=== PATIENT | female | born 1955 | race Caucasian/White ===

== ENCOUNTER 2020-09-10 11:13 | Outpatient (CLI) | payer MEDICARE, OTHER | END 2020-09-10 11:14 | disposition critical access hospital (66) | LOC: EMS 11:13 | DX: R40.0 Somnolence (principal); R53.83 Other fatigue; R11.0 Nausea; R63.0 Anorexia | CPT/HCPCS: A0425; A0427 ==

== ENCOUNTER 2020-09-10 11:34 | Inpatient (IN) | payer MEDICARE, OTHER ==
--- NOTE | 2020-09-10 11:45 | ED Physician Documentation ---
PD HPI NVD - Stated complaint Stated Complaint: FATIGUE/DROWSY - History obtained from History obtained from: Patient, Family () - History of Present Illness Timing - onset: How many days ago (few days of decreased appetite, nausea, upper abd discomfort. No vomiting nor diarrhea. General weakness. Also 6-8 month history 30 lb weight loss, and general fatigue.) Timing - duration: Days Timing - details: Gradual onset, Still present Associated symptoms: Abdominal pain, Loss of appetite, Weight loss (30 lbs over 6-8 months). No: Fever, Near syncope / syncope Improved by: No: Laying still, Position Worsened by: Eating. No: Position Similar symptoms before: Has not had sx before Recently seen: Not recently seen (Was seen at [facility] for eval of upper abd discomfort and Dx with liver lesion. Concern for cirrhosis. Was to have upper and lower scopes but that faultered due to COVID and has not had the follow up yet.) Review of Systems Constitutional: reports: Fatigue, Weight Loss. denies: Fever, Chills, Myalgias Nose: denies: Rhinorrhea / runny nose, Congestion Throat: denies: Sore throat Cardiac: denies: Chest pain / pressure Respiratory: denies: Cough GI: reports: Abdominal Pain, Nausea, Bloody / black stool (some dark stool occasionally possible). denies: Abdominal Swelling, Constipation, Diarrhea : denies: Dysuria Skin: denies: Rash, Lesions Neurologic: reports: Generalized weakness Psychiatric: denies: Depressed, Anxiety Endocrine: reports: Weight loss PD PAST MEDICAL HISTORY - Past Medical History Cardiovascular: None Respiratory: None Neuro: None Endocrine/Autoimmune: None GI: Cirrhosis (history of alcoholism and concern for liver disease.), Other (possible ulcer. Did not get scope. ) - Present Medications Home Medications: Ambulatory Orders Medication Instructions Recorded Confirmed DULoxetine [Cymbalta] 20 mg PO DAILY PM 09/10/20 09/10/20 Hydrochlorothiazide 25 mg PO DAILY 09/10/20 09/10/20 Ondansetron HCl [Zofran] 4 mg PO Q4HR PRN 09/10/20 09/10/20 Potassium Chloride 10 meq PO BID 09/10/20 09/10/20 bisoproloL fumarate [Bisoprolol 5 mg PO DAILY 09/10/20 09/10/20 Fumarate] - Allergies Allergies/Adverse Reactions: Allergies Allergy/AdvReac Type Severity Reaction Status Date / Time No Known Drug Allergies Allergy Verified 09/10/20 11:55 PD ED PE NORMAL - Vitals Vital signs reviewed: Yes - General General: Alert and oriented X 3, Well developed/nourished - HEENT HEENT: Other (moderately pale) - Neck Neck: Supple, no meningeal sign, No adenopathy - Cardiac Cardiac: No murmur. No: RRR (tachycardic; adequate BP. ) - Respiratory Respiratory: Clear bilaterally - Abdomen Abdomen: Normal bowel sounds, Soft, Non distended, No organomegaly, Other (epigastric tender. ) - Female Female : Deferred - Rectal Rectal: Deferred - Derm Derm: Warm and dry. No: Normal color (pale) - Extremities Extremities: Normal ROM s pain, No edema, No calf tenderness / cord - Neuro Neuro: Alert and oriented X 3, No motor deficit, No sensory deficit, Normal spee ch Results - Vitals Vitals: Vital Signs - 24 hr 09/10/20 09/10/20 09/10/20 11:44 14:13 14:58 Temperature 37.3 C 37.0 C Heart Rate 112 H 111 H 138 H Respiratory 18 22 13 Rate Blood Pressure 117/63 102/86 H 120/89 H O2 Saturation 99 94 09/10/20 09/10/20 09/10/20 15:03 15:13 16:00 Temperature 98.2 C H 36.6 C 37.1 C Heart Rate 142 H 138 H 129 H Respiratory 18 18 20 Rate Blood Pressure 113/102 H 135/77 H 142/75 H O2 Saturation 100 Oxygen O2 Source Room air - Labs Labs: Laboratory Tests 09/10/20 09/10/20 09/10/20 12:19 12:19 12:19 WBC 8.6 RBC 1.37 L Hgb 5.1 L* Hct 15.7 L* MCV 114.6 H MCH 37.2 H MCHC 32.5 RDW 14.7 Plt Count 91 L MPV 9.4 Neut # (Auto) 7.4 H Lymph # (Auto) 0.7 L [place] # (Auto) 0.4 Eos # (Auto) 0.0 Baso # (Auto) 0.1 Absolute Nucleated RBC 0.00 Nucleated RBC % 0.0 Manual Slide Review Indicated Platelet Estimate DECREASED (<130,000) Platelet Morphology NORMAL APPEARANCE RBC Morph Micro Appear 1+ POLYCHROMASIA PT INR APTT Sodium 133 L Potassium 3.4 L Chloride 89 L Carbon Dioxide 26 Anion Gap 18.0 H BUN 12 Creatinine 0.7 Estimated GFR (MDRD) 84 L Glucose 128 H Calcium 8.0 L Magnesium 1.2 L Iron Total Bilirubin 2.5 H AST 119 H ALT 27 Alkaline Phosphatase 122 H Troponin I High Sens B-Natriuretic Peptide Total Protein 5.9 L Albumin 2.7 L Globulin 3.2 Albumin/Globulin Ratio 0.8 L Lipase 27 Vitamin B12 Folate TSH 2.95 Cortisol 35.5 Nasal Adenovirus (PCR) Nasal B. parapertussis DNA (PCR) Nasal Coronavir 229E PCR Nasal Coronavir HKU1 PCR Nasal Coronavir NL63 PCR Nasal Coronavir OC43 PCR Nasal Enterovir/Rhinovir PCR Nasal Influenza B PCR Nasal Influenza A PCR Nasal Parainfluen 1 PCR Nasal Parainfluen 2 PCR Nasal Parainfluen 3 PCR Nasal Parainfluen 4 PCR Nasal RSV (PCR) Nasal B.pertussis DNA PCR Nasal C.pneumoniae (PCR) [place] Human Metapneumo PCR Nasal M.pneumoniae (PCR) Nasal SARS-CoV-2 (PCR) Blood Type Blood Type Recheck Antibody Screen Crossmatch IS Only 09/10/20 09/10/20 09/10/20 12:19 12:19 12:19 WBC RBC Hgb Hct MCV MCH MCHC RDW Plt Count MPV Neut # (Auto) Lymph # (Auto) [place] # (Auto) Eos # (Auto) Baso # (Auto) Absolute Nucleated RBC Nucleated RBC % Manual Slide Review Platelet Estimate Platelet Morphology RBC Morph Micro Appear PT INR APTT Sodium Potassium Chloride Carbon Dioxide Anion Gap BUN Creatinine Estimated GFR (MDRD) Glucose Calcium Magnesium Iron 156 Total Bilirubin AST ALT Alkaline Phosphatase Troponin I High Sens 5.0 B-Natriuretic Peptide 71 Total Protein Albumin Globulin Albumin/Globulin Ratio Lipase Vitamin B12 Folate TSH Cortisol Nasal Adenovirus (PCR) Nasal B. parapertussis DNA (PCR) Nasal Coronavir 229E PCR Nasal Coronavir HKU1 PCR Nasal Coronavir NL63 PCR Nasal Coronavir OC43 PCR Nasal Enterovir/Rhinovir PCR Nasal Influenza B PCR Nasal Influenza A PCR Nasal Parainfluen 1 PCR Nasal Parainfluen 2 PCR Nasal Parainfluen 3 PCR Nasal Parainfluen 4 PCR Nasal RSV (PCR) Nasal B.pertussis DNA PCR Nasal C.pneumoniae (PCR) [place] Human Metapneumo PCR Nasal M.pneumoniae (PCR) Nasal SARS-CoV-2 (PCR) Blood Type Blood Type Recheck Antibody Screen Crossmatch IS Only 09/10/20 09/10/20 09/10/20 12:19 12:19 12:19 WBC RBC Hgb Hct MCV MCH MCHC RDW Plt Count MPV Neut # (Auto) Lymph # (Auto) [place] # (Auto) Eos # (Auto) Baso # (Auto) Absolute Nucleated RBC Nucleated RBC % Manual Slide Review Platelet Estimate Platelet Morphology RBC Morph Micro Appear PT 16.8 H INR 1.6 H APTT 30.2 Sodium Potassium Chloride Carbon Dioxide Anion Gap BUN Creatinine Estimated GFR (MDRD) Glucose Calcium Magnesium Iron Total Bilirubin AST ALT Alkaline Phosphatase Troponin I High Sens B-Natriuretic Peptide Total Protein Albumin Globulin Albumin/Globulin Ratio Lipase Vitamin B12 1089 H Folate 2.51 L TSH Cortisol Nasal Adenovirus (PCR) Nasal B. parapertussis DNA (PCR) Nasal Coronavir 229E PCR Nasal Coronavir HKU1 PCR Nasal Coronavir NL63 PCR Nasal Coronavir OC43 PCR Nasal Enterovir/Rhinovir PCR Nasal Influenza B PCR Nasal Influenza A PCR Nasal Parainfluen 1 PCR Nasal Parainfluen 2 PCR Nasal Parainfluen 3 PCR Nasal Parainfluen 4 PCR Nasal RSV (PCR) Nasal B.pertussis DNA PCR Nasal C.pneumoniae (PCR) [place] Human Metapneumo PCR Nasal M.pneumoniae (PCR) Nasal SARS-CoV-2 (PCR) Blood Type Blood Type Recheck O POSITIVE Antibody Screen Crossmatch IS Only 09/10/20 09/10/20 13:02 13:22 WBC RBC Hgb Hct MCV MCH MCHC RDW Plt Count MPV Neut # (Auto) Lymph # (Auto) [place] # (Auto) Eos # (Auto) Baso # (Auto) Absolute Nucleated RBC Nucleated RBC % Manual Slide Review Platelet Estimate Platelet Morphology RBC Morph Micro Appear PT INR APTT Sodium Potassium Chloride Carbon Dioxide Anion Gap BUN Creatinine Estimated GFR (MDRD) Glucose Calcium Magnesium Iron Total Bilirubin AST ALT Alkaline Phosphatase Troponin I High Sens B-Natriuretic Peptide Total Protein Albumin Globulin Albumin/Globulin Ratio Lipase Vitamin B12 Folate TSH Cortisol Nasal Adenovirus (PCR) NOT DETECTED Nasal B. parapertussis DNA (PCR) NOT DETECTED Nasal Coronavir 229E PCR NOT DETECTED Nasal Coronavir HKU1 PCR NOT DETECTED Nasal Coronavir NL63 PCR NOT DETECTED Nasal Coronavir OC43 PCR NOT DETECTED Nasal Enterovir/Rhinovir PCR NOT DETECTED Nasal Influenza B PCR NOT DETECTED Nasal Influenza A PCR NOT DETECTED Nasal Parainfluen 1 PCR NOT DETECTED Nasal Parainfluen 2 PCR NOT DETECTED Nasal Parainfluen 3 PCR NOT DETECTED Nasal Parainfluen 4 PCR NOT DETECTED Nasal RSV (PCR) NOT DETECTED Nasal B.pertussis DNA PCR NOT DETECTED Nasal C.pneumoniae (PCR) NOT DETECTED [place] Human Metapneumo PCR NOT DETECTED Nasal M.pneumoniae (PCR) NOT DETECTED Nasal SARS-CoV-2 (PCR) NOT DETECTED Blood Type O POSITIVE Blood Type Recheck Antibody Screen NEGATIVE Crossmatch IS Only See Detail - Rads (name of study) chest CT Radiology: Prelim report reviewed (no acute process), See rad report abd/pelvic CT Radiology: Prelim report reviewed (liver cirrhosis. cecal wall thickening concerning for malignancy versus colitis. Hypodensity liver, consider cyst versus met. ), See rad report PD MEDICAL DECISION MAKING - ED course Complexity details: reviewed results, re-evaluated patient (He actually has become a little bit more fidgety and tachycardic here. Concern for possible alcohol withdrawal. Does not seem like transfusion reaction.), considered differential (General weakness with upper abdominal discomfort and nausea for a few days. Mild dark stools. She did have coffee-ground emesis here in the ER and then dark bowel movement. Likely upper GI bleed, but concern of liver disease. No known varices.), d/w patient, d/w digital media sales consultant (Drs. Martínez and Bridgette came to ER to see patient and discuss course of care. ) Departure - Departure Disposition: 66 [facility] DC/Xfer Clinical Impression: Upper GI bleeding, Liver disease due to alcohol Profound anemia Qualifiers: Anemia type: unspecified type Qualified Code(s): D64.9 - Anemia, unspecified Condition: Stable Record reviewed to determine appropriate education?: Yes
[2020-09-10] MEDS ORDERED: SODIUM CHLORIDE 0.9% 1,000 ML IV STA ×2 (11:46→15:46)
--- NOTE | 2020-09-10 12:05 | XRAY Report ---
PROCEDURE: Chest 1 View X-Ray INDICATIONS: chest pain TECHNIQUE: One view of the chest was acquired. COMPARISON: None FINDINGS: Surgical changes and devices: None. Lungs and pleura: No pleural effusions or pneumothorax. Lungs are clear. Mediastinum: Mediastinal contours appear normal. Heart size is normal. Mild vascular calcification s within the aorta. Bones and chest wall: No suspicious bony lesions. Overlying soft tissues appear unremarkable. IMPRESSION: No evidence of an acute cardiopulmonary abnormality. Reviewed by: Rodger Browne DO on 09/10/2020 11:04 AM [facility] Approved by: Rodger Browne DO on 09/10/2020 11:04 AM [facility] Station ID: [id number]
[2020-09-10] MEDS ORDERED: FAMOTIDINE 20 MG/2 ML VIAL IVP STA (12:12)
[2020-09-10] MEDS ORDERED: ONDANSETRON 4 MG/2 ML VIAL IVP STA (12:12)
[2020-09-10 12:28] LABS: BASOPHILS # (AUTO) 0.1 10^3/uL (0.0-0.1); BASOPHILS % (AUTO) 0.6 %; EOSINOPHILS % (AUTO) 0.2 %; LYMPHOCYTES # (AUTO) 0.7 10^3/uL (1.5-3.5); LYMPHOCYTES % (AUTO) 7.7 %; MEAN CORPUSCULAR HEMOGLOBIN 37.2 pg (27.0-31.0); MEAN CORPUSCULAR HGB CONC 32.5 g/dL (32.0-36.0); MEAN CORPUSCULAR VOLUME 114.6 fL (81.0-99.0); MEAN PLATELET VOLUME 9.4 fL (7.9-10.8); MONOCYTES # (AUTO) 0.4 10^3/uL (0.0-1.0); MONOCYTES % (AUTO) 4.4 %; NEUTROPHILS # (AUTO) 7.4 10^3/uL (1.5-6.6); NEUTROPHILS % (AUTO) 85.9 %; PLT - PLATELET COUNT 91 10^3/uL (130-450); RED BLOOD COUNT 1.37 10^6/uL (4.20-5.40); RED CELL DISTRIBUTION WIDTH 14.7 % (12.0-15.0); WHITE BLOOD COUNT 8.6 x10^3/uL (4.8-10.8)
[2020-09-10 12:32] LABS: HCT - HEMATOCRIT 15.7 % (37.0-47.0); HGB - HEMOGLOBIN 5.1 g/dL (12.0-16.0)
[2020-09-10] MEDS ORDERED: PROMETHAZINE INJ 12.5 MG in SODIUM CHLORIDE 0.9% 50 ML IV STA (12:48)
[2020-09-10 12:53] LABS: PLATELET ESTIMATE, MANUAL DECREASED (<130,000) (NORMAL); PLATELET MORPHOLOGY NORMAL APPEARANCE (NORMAL); SLIDE REVIEW? Indicated
[2020-09-10 12:54] LABS: ALBUMIN 2.7 g/dL (3.2-5.5); ALBUMIN/GLOBULIN RATIO 0.8 (1.0-2.2); BILIRUBIN,TOTAL 2.5 mg/dL (0.2-1.0); CREATININE 0.7 mg/dL (0.4-1.0); MAGNESIUM 1.2 mg/dL (1.7-2.8); POTASSIUM 3.4 mmol/L (3.5-5.0); TOTAL PROTEIN 5.9 g/dL (6.7-8.2)
[2020-09-10 13:04] LABS: CORTISOL 35.5 ug/dL
[2020-09-10 13:09] LABS: THYROID STIMULATING HORMONE 2.95 uIU/mL (0.34-5.60)
[2020-09-10 13:33] LABS: FOLATE 2.51 ng/mL (5.90 - >24.8)
[2020-09-10] MEDS ORDERED: IOPAMIDOL-300 100 ML VIAL ONE (13:43)
[2020-09-10 14:02] LABS: B. PARAPERTUSSIS- RESP PCR PAN NOT DETECTED; B. PERTUSSIS- RESP PCR PANEL NOT DETECTED; C. PNEUMONIAE- RESP PCR PANEL NOT DETECTED; CORONAVIRUS 229E-RESP PCR NOT DETECTED; CORONAVIRUS HKU1-RESP PCR NOT DETECTED; CORONAVIRUS NL63-RESP PCR NOT DETECTED; CORONAVIRUS OC43-RESP PCR NOT DETECTED; HUMAN METAPNEUMOVIRUS NOT DETECTED; INFLUENZA A- RESP PCR PANEL NOT DETECTED; INFLUENZA B - RESP PCR PANEL NOT DETECTED; M. PNEUMONIAE- RESP PCR PANEL NOT DETECTED; PARAINFLUENZA VIRUS 1 NOT DETECTED; PARAINFLUENZA VIRUS 2 NOT DETECTED; PARAINFLUENZA VIRUS 3 NOT DETECTED; PARAINFLUENZA VIRUS 4 NOT DETECTED; RHINOVIRUS/ENTEROVIRUS NOT DETECTED; RSV- RESP PCR PANEL NOT DETECTED; SARS-CoV-2 -RESP PCR PANEL NOT DETECTED
--- NOTE | 2020-09-10 14:28 | CT Report ---
PROCEDURE: CHEST W INDICATIONS: upper abd pain, weight loss CONTRAST: IV CONTRAST: Isovue 300 ml: 100 PO CONTRAST: *NO PO CONTRAST TECHNIQUE: After the administration of intravenous contrast, 5 mm thick sections acquired from the pulmonary api ray to the posterior costophrenic angles. 7 mm thick coronal MIP reformats were acquired. For radia tion dose reduction, the following was used: automated exposure control, adjustment of mA and/or kV according to patient size. COMPARISON: Same day CT abdomen and pelvis FINDINGS: Image quality: Excellent. Lungs and pleura: No acute air space opacities. No pleural effusions or pneumothorax. Central and peripheral airways are patent and normal in caliber. Mediastinum: Heart size is normal. No pericardial effusion. No mediastinal or hilar adenopathy by size criteria. Thoracic aorta and central pulmonary arteries are normal in size. Esophagus is buster l in caliber. No hiatal hernia. Bones and chest wall: No suspicious bony lesions. No vertebral body compression fractures. No axil yves or supraclavicular adenopathy by size criteria. Thyroid gland is unremarkable. Abdomen: Please see dictation of the abdomen and pelvis for findings. IMPRESSION: No acute intrathoracic abnormality. No suspicious intrathoracic findings. Reviewed by: Rodger Browne DO on 09/10/2020 1:27 PM [facility] Approved by: Rodger Browne DO on 09/10/2020 1:27 PM [facility] Station ID: [id number]
--- NOTE | 2020-09-10 14:46 | CT Report ---
PROCEDURE: Abdomen/Pelvis W INDICATIONS: upper abd pain/weight loss CONTRAST: IV CONTRAST: Isovue 300 ml: 100 PO CONTRAST: *NO PO CONTRAST TECHNIQUE: After the administration of nonionic contrast, 5 mm thick sections acquired from the diaphragms to th e symphysis. 5 mm thick coronal and sagittal reformats were acquired. For radiation dose reduction, the following was used: automated exposure control, adjustment of mA and/or kV according to patient size. COMPARISON: None. FINDINGS: Image quality: Excellent. ABDOMEN: Lung bases: Please see same-day chest CT for findings. Solid organs: Within the liver along the lateral aspect there is a 4.6 cm hypodense heterogeneous les ion. No additional lesions. Subtle subcentimeter foci are noted throughout the lungs to small to furt her characterize but may represent simple cysts versus biliary hamartomas. There is slight heterogene ity with enlargement of the caudate lobe. The gallbladder demonstrates layering hyperdense debris. Th ere is a 6 mm nodular density within the gallbladder fundus which is nondependent. There is mild diff use wall thickening. No surrounding inflammation. Biliary system is non dilated. Pancreas is atrophi c with normal enhancement.. No adrenal nodules. Kidneys demonstrate normal size and enhancement, wi thout hydronephrosis. Subcentimeter hypodensity within the superior pole of the right kidney too sma ll to further characterize but statistically represents a simple cyst. Peritoneum and bowel: The stomach and small bowel are unremarkable without evidence of obstruction. N o wall thickening or surrounding inflammation. There is no evidence of appendicitis. There is focal w all thickening of the cecum and proximal descending colon encompassing the terminal ileum this involv es an approximate 12 cm region of colon. No significant adjacent inflammation. The distal colon is un remarkable. Nodes and vessels: No adenopathy by size criteria. The aorta is normal in course and caliber. Scatter ed vascular calcifications. Focal region of fatty infiltration is noted surrounding the anterior aspe ct of the aorta as well as the proximal celiac and superior mesenteric arteries. Miscellaneous: No ventral hernias. PELVIS: Genitourinary: Bladder wall thickness is normal. Unremarkable appearance of the uterus and ovaries for patient's age. Miscellaneous: No inguinal hernias or adenopathy. Bones: No suspicious bony lesions. Transitional type anatomy at the lumbosacral junction with sacra lization of L5 No vertebral body compression fractures. IMPRESSION: Focal wall thickening of the cecum and ascending colon encompassing the terminal ileum. There is no s urrounding inflammation. These findings are most consistent with malignancy in the correct clinical s etting. This less likely represents colitis. 4.6 cm hypoechoic mass in the right hepatic lobe is nonspecific but given findings as above likely re presents metastatic disease. Nonspecific fatty infiltration surrounding the aorta and celiac/superior mesenteric arteries may repr esent sequela of vasculitis versus other infectious or inflammatory process. Sludge versus layering stones are noted within the gallbladder. In addition there is a 6 mm likely po lyp within the fundus. There is mild wall thickening as well. These findings may be seen with chronic cholecystitis. There is no inflammation or pericholecystic fluid to suggest acute cholecystitis. If ultrasound is not performed recently, recommend yearly right upper quadrant ultrasound for evaluation of polyp. Slight heterogeneity of the liver with enlargement of the caudate lobe may be seen with cirrhosis. Findings discussed with the ordering provider Dr. Oleg Mcdowell by Dr. Rodger Browne at approximately 134 0 hours [place] standard time on 09/10/2020. Reviewed by: Rodger Browne DO on 09/10/2020 1:45 PM [facility] Approved by: Rodger Browne DO on 09/10/2020 1:45 PM [facility] Station ID: [id number]
[2020-09-10 15:44] LABS: INR 1.6 (0.8-1.2); PT - PROTHROMBIN TIME 16.8 secs (9.9-12.6)
[2020-09-10] MEDS ORDERED: LORazepam 2 MG/ML VIAL IVP STA ×2 (15:45→17:31)
[2020-09-10] MEDS ORDERED: cefTRIAXone 1 GM VIAL IVP STA (15:47)
[2020-09-10] MEDS ORDERED: PANTOPRAZOLE 40 MG VIAL IVP STA (15:47)
[2020-09-10 15:51] LABS: PARTIAL THROMBOPLASTIN TIME 30.2 secs (24.9-33.3)
[2020-09-10] MEDS ORDERED: IOPAMIDOL-300 100 ML VIAL IVP ONE (15:57)
[2020-09-10] MEDS ORDERED: MAGNESIUM SULFATE 2 GRAM 2 GM/50 ML BAG IV ONE ×2 (16:48→18:03)
[2020-09-10] MEDS ORDERED: ONDANSETRON 4 MG/2 ML VIAL IVP PRN (17:56)
[2020-09-10] MEDS ORDERED: MORPHINE 2 MG/ML CARPUJECT IVP PRN (17:56)
--- NOTE | 2020-09-10 18:11 | HISTORY & PHYSICAL EXAMINATION ---
Chief Complaint - Chief Complaint Chief Complaint: Weakness and weight loss History of Present Illness - Admitted From Admitted From:: Home - History Obtained From Records Reviewed: Yes History obtained from: Patient, Spouse, ER Physician, EMR Exam Limitations: Patient is somewhat altered and a poor historian. - History of Present Illness HPI Comment/Other: Patient is a 65-year-old female with a past medical history significant for cirrhosis secondary to alcohol use, alcohol abuse, hypertension, neuropathy who presents today due to increasing weakness and weight loss. Most of the history is obtained from the patient's spouse as she is somewhat altered and a poor historian. He states that over the past 6 months, she has lost about 35 pounds. She has had decreased appetite and minimal p.o. intake. Their daughters were visiting over the past few days and they had not seen her for over a year and she was not her usual self and they were quite concerned about her and so they brought her to the emergency department today. He tells me that she has a history of liver cirrhosis secondary to alcohol use and that she was being worked up at the [facility]. She is a known history of portal hypertension and splenomegaly secondary to the cirrhosis. She was supposed to get an endoscopy last year but due to Covid, this was delayed. She has no known history of varices. He believes she may have had a liver mass in the past but he is not 100% sure. He states that she has not had any vomiting or diarrhea at home but here in the emergency department, she had at least 2 or 3 episodes of hematemesis and is now having dark tarry stools. He states she had a colonoscopy maybe 8 or 10 years ago which was unremarkable to his knowledge. The patient denies any abdominal pain, fever, chills. She reports no family history of colon cancer. The tells me that she has been drinking alcohol for many years and continues to have at least a few drinks a day. Her last drink was yesterday afternoon. He believes she is never gone through withdrawal in the past but the patient tells me that she has. She reports no dysuria, urgency, hematuria. In the emergency department, she was found to be afebrile. She was tachycardic with a heart rate in the 130s. She was also hypertensive with a systolic in the 130s. She was not tachypneic and was saturating well on room air. Her labs were significant for hemoglobin of 5.1 with an MCV of 114.6. Her platelet count was 91. Her INR was 1.6. Her potassium was decreased at 3.4 and her magnesium at 1.2. Her total bilirubin was 2.5 and her AST was 119. ALT was normal at 27. Her albumin was 2.7. She underwent a CT of the chest which was unremarkable. She underwent a CT of the abdomen and pelvis which revealed focal wall thickening of the cecum and ascending colon concerning for malignancy. There is also a 4.6 cm hypoechoic mass in the right hepatic lobe. There was mild wall thickening of the gallbladder but no information or pericholecystic fluid. She was given 1 unit of packed red blood cell in the emergency department as well as Protonix IV. Given the above findings, medicine was consulted for admission. The emergency department provider did speak with Dr. Martínez of general surgery who is willing to scope the patient tomorrow. I did discuss goals of care with the patient's spouse and he confirms that she is a full code. The patient does not have ability to make this decision at this point in time. History - Past Medical History Cardiovascular: reports: Hypertension Respiratory: reports: None Neuro: reports: Peripheral neuropathy Endocrine/Autoimmune: reports: None GI: reports: Cirrhosis (Secondary to alcoholism.), Other SENSORY SCIENTIST: reports: None - Past Surgical History /SENSORY SCIENTIST: reports: section - Family & Social History Family History Comment/Other: The patient reports no family history of colon cancer. She believes her mother had hypertension otherwise no significant family history. Living arrangement: At home Living Situation: With spouse/s.o. 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 She has been weak alcohol for many years and continues to have at least a few drinks a day. She is a non-smoker. Meds/Allgy - Home Medications Home Medications: Ambulatory Orders Medication Instructions Recorded Confirmed DULoxetine [Cymbalta] 20 mg PO DAILY PM 09/10/20 09/10/20 Hydrochlorothiazide 25 mg PO DAILY 09/10/20 09/10/20 Ondansetron HCl [Zofran] 4 mg PO Q4HR PRN 09/10/20 09/10/20 Potassium Chloride 10 meq PO BID 09/10/20 09/10/20 bisoproloL fumarate [Bisoprolol 5 mg PO DAILY 09/10/20 09/10/20 Fumarate] - Allergies Allergies/Adverse Reactions: Allergies Allergy/AdvReac Type Severity Reaction Status Date / Time No Known Drug Allergies Allergy Verified 09/10/20 11:55 Review of Systems - Constitutional Constitutional: reports: Fatigue, Weakness, Poor appetite, Weight loss. denies: Fever, Chills - Ears, Nose & Throat Ears, Nose & Throat: reports: Sore throat. denies: Nasal discharge, Nasal congestion - Cardiovascular Cariovascular: denies: Chest pain, Exertional dyspnea, Decr. exercise tolerance - Respiratory Respiratory: denies: Cough, SOB at rest, SOB with exertion - Gastrointestinal Gastrointestinal: reports: Rectal bleeding, Black stools, Nausea, Vomiting, Coffee grounds emesis, Poor appetite. denies: Abdominal pain, Diarrhea - Genitourinary Genitourinary: denies: Dysuria, Frequency, Urgency, Hematuria - Integumentary Integumentary: denies: Rash - Neurological Neurological: reports: General weakness. denies: Focal weakness - All Other Systems All Other Systems: reports: Other (Review of systems is limited given she is somewhat altered and a poor historian.) Prior Level of Functionality: She is reportedly independent with her ADLs. Exam - Vital Signs Reviewed Vital Signs: Yes Vital Signs: Vital Signs x48h Temp Pulse Resp BP Pulse Ox 09/10/20 16:00 37.1 C 129 H 20 142/75 H 100 09/10/20 15:13 36.6 C 138 H 18 135/77 H 09/10/20 15:03 98.2 C H 142 H 18 113/102 H 09/10/20 14:58 37.0 C 138 H 13 120/89 H 09/10/20 14:13 111 H 22 102/86 H 94 09/10/20 11:44 37.3 C 112 H 18 117/63 99 - Physical Exam General Appearance: positive: Other (She is restless and attempting to get out of bed. She appears cachectic and frail.) Eyes Bilateral: positive: Normal inspection, Other (Scleral icterus noted) ENT: positive: Dry mucous membranes. negative: No signs of dehydration Respiratory: positive: No respiratory distress. negative: Wheezes, Rales Cardiovascular: positive: No murmur, Tachycardia. negative: Irregularly irregular, Systolic murmur Abdomen: positive: Non-tender, No distention. negative: Tenderness, Guarding, Rebound Skin: positive: Warm, Dry, Other (She appears jaundiced) Extremities: positive: No pedal edema Neurologic/Psychiatric: positive: Other (She has no focal deficits is able to move all 4 extremities. She appears to have mild asterixis and is quite tremulous.). negative: Disoriented to person, Disoriented to place, Disoriented to time Conclusion/Plan - Problem List (1) Upper GI bleeding Conclusion/Plan: The concern is for an upper GI bleed given her coffee-ground emesis as well as dark tarry stools. She is anemic with a hemoglobin of 5.1. She has a known history of liver cirrhosis but no diagnosed varices although given her history of portal hypertension, she is at risk for varices. General surgery is willing to scope her and so we will admit her to the intensive care unit. We will place her on Protonix 40 mg IV twice daily. We will start her on ceftriaxone 1 g IV daily prophylactically given her history of cirrhosis. We will also place her on octreotide given the possibility of esophageal varices. N.p.o. for EGD tomorrow. (2) Acute blood loss anemia Conclusion/Plan: This is more likely secondary to the upper GI bleed but given a cecal mass cannot be ruled out on CT of the abdomen pelvis, there is a possibility of a lower GI bleed although this is felt to be less likely at this time. Her hemoglobin is 5.1 on admission and she received 1 unit of packed red blood cell in the emergency department. We will transfuse another 2 units of packed red blood cell and trend her hemoglobin every 8 hours. We will transfuse for goal hemoglobin greater than 8. SCDs for DVT prophylaxis. (3) Altered mental status Conclusion/Plan: Although she is alert and oriented, she does appear quite restless and has a poor attention span. She does appear to have evidence of asterixis on exam and I am concerned for potentially hepatic encephalopathy given her history of cirrhosis or early alcohol withdrawal. We will check an ammonia level and place her on CIWA protocol with Ativan IV as needed. She will need close observation in the intensive care unit and will consider a one-to-one. Given lack of focal deficits, we will hold off on a CT of the head at this time. (4) Alcoholic cirrhosis of liver Conclusion/Plan: She has known cirrhosis secondary to alcohol abuse. Her AST is mildly elevated with a normal ALT. Her MELD score when taking into consideration her sodium is 18. Her tells me she has a history of portal hypertension and she has evidence of splenomegaly on imaging. She also has elevated INR and thrombocytopenia. The concern given her cirrhosis is for potential varices. Plan as mentioned above for GI bleed and we will place her on a banana bag. We will trend her LFTs. Qualifiers: Ascites presence: without ascites Qualified Code(s): K70.30 - Alcoholic cirrhosis of liver without ascites (5) Alcohol abuse Conclusion/Plan: She has known liver cirrhosis secondary to alcohol abuse and she continues to drink on a daily basis with her reporting at least a few drinks a day. Her last drink was yesterday afternoon and she is at risk for alcohol withdrawal. I am really concerned for possible early withdrawal and so we will admit her to intensive care unit. We will start her on a banana bag and placed on CIWA protocol with Ativan IV as needed. (6) Cecum mass Conclusion/Plan: The concern is for possible cecal mass given the focal wall thickening of the cecum and ascending colon. This could potentially be contributing to her anemia and if this truly is malignancy, could explain her decline over the past few months with poor appetite and weight loss. She will be n.p.o. for colonoscopy tomorrow with general surgery. (7) Liver lesion, right lobe Conclusion/Plan: Her believes this may be an old finding but he is not certain. He will bring the old records from [facility] tomorrow. If this is a new finding, this is concerning for potential metastasis especially if she has a cecal mass. At this time, the plan is for colonoscopy to evaluate this cecum. She will likely need a biopsy at some point with interventional radiology. (8) Thrombocytopenia Conclusion/Plan: Platelet count is in the 90s and this is likely due to her underlying cirrhosis. Will use SCDs for DVT prophylaxis. No pharmacologic DVT prophylaxis given the acute blood loss and GI bleed. Daily CBC. (9) Elevated INR Conclusion/Plan: INR is elevated at 1.6 and this is likely due to her underlying liver disease. Will check INR is on a daily basis and will consider vitamin K if she continues to have bleeding with a rise in her INR. (10) Hypertension Conclusion/Plan: She is on hydrochlorothiazide and bisoprolol at home. Although she is currently hypertensive, we will hold her home and hypertensives given her GI bleed and the potential to become hypotensive. Will consider resuming over the next 24 to 48 hours. (11) Neuropathy Conclusion/Plan: She is on Duloxetine at home which we will continue once she is taking p.o. - Lab Results Lab results reviewed: Yes Fish Bones: 09/10/20 12:19 09/10/20 12:19 - Diagnostic Imaging Results Diagnostic Imaging Results: positive: Final report reviewed - EKG Results EKG Interpreted Independently: Yes EKG Comparison: No prior EKG EKG Findings: Her EKG reveals sinus tachycardia with nonspecific ST segment changes. Her QTC is prolonged at 503. Core Measures - Anticipated LOS I expect patient to be DC'd or transferred within 96 hours.: Yes - Issues Hospital Issues and Management Plan: 65-year-old female with history of liver cirrhosis presents with weakness and weight loss who later had hematemesis and dark tarry stools in the emergency department and found to have a hemoglobin of 5.1. There is also concern for a cecal mass on imaging. We will admit for transfusion as well as endoscopy and colonoscopy with general surgery. - DVT/VTE - Prophylaxis VTE/DVT Device ordered at admit?: Yes VTE/DVT Prophylaxis med ordered at admit?: No Not Ordered - Medical Reason: Contraindicated
[2020-09-10] MEDS ORDERED: OCTREOTIDE 100 MCG/ML VIAL IVP STA (18:33)
--- NOTE | 2020-09-10 18:50 | CONSULTATION NOTE ---
Referring Provider Name of Referring Provider:: Dr. Mcdowell; Dr. Durant Consult Date: 09/11/20 Chief Complaint - Chief Complaint Chief Complaint: Gastrointestinal bleed History of Present Illness - Admitted From Admitted From:: Home - History Obtained From Records Reviewed: EMR/ED Notes History obtained from: Patient and Spouse Exam Limitations: None - History of Present Illness HPI Comment/Other: 65-year-old female presenting for gastrointestinal bleed and significant weight loss. Longstanding history of reported cirrhosis. Extensive historic work-up. Longstanding alcohol abuse. None family history. Notable past surgical history to include section. Patient reports melanotic stool with diarrhea as change in bowel function, positive bleeding per rectum, and also denies reflux associated symptoms. Patient does not use tobacco. Patient has extensive history of alcohol use and abuse. History - Past Medical History Cardiovascular: reports: Hypertension Respiratory: reports: None Neuro: reports: Peripheral neuropathy Endocrine/Autoimmune: reports: None GI: reports: Cirrhosis (Secondary to alcoholism.), Other SAXOPHONE ASSEMBLER: reports: None - Past Surgical History /SAXOPHONE ASSEMBLER: reports: section - Family & Social History Family History Comment/Other: The patient reports no family history of colon cancer. She believes her mother had hypertension otherwise no significant family history. Living arrangement: At home Living Situation: With spouse/s.o. 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 She has been weak alcohol for many years and continues to have at least a few drinks a day. She is a non-smoker. Meds/Allgy - Home Medications Home Medications: Ambulatory Orders Medication Instructions Recorded Confirmed DULoxetine [Cymbalta] 20 mg PO DAILY PM 09/10/20 09/10/20 Hydrochlorothiazide 25 mg PO DAILY 09/10/20 09/10/20 Ondansetron HCl [Zofran] 4 mg PO Q4HR PRN 09/10/20 09/10/20 Potassium Chloride 10 meq PO BID 09/10/20 09/10/20 bisoproloL fumarate [Bisoprolol 5 mg PO DAILY 09/10/20 09/10/20 Fumarate] - Allergies Allergies/Adverse Reactions: Allergies Allergy/AdvReac Type Severity Reaction Status Date / Time No Known Drug Allergies Allergy Verified 09/10/20 11:55 Exam - Vital Signs Vital Signs: Vital Signs x48h Temp Pulse Resp BP Pulse Ox 09/10/20 18:20 37.1 C 119 H 18 158/99 H 09/10/20 18:00 36.9 C 111 H 20 163/79 H 100 09/10/20 16:00 37.1 C 129 H 20 142/75 H 100 09/10/20 15:13 36.6 C 138 H 18 135/77 H 09/10/20 15:03 98.2 C H 142 H 18 113/102 H 09/10/20 14:58 37.0 C 138 H 13 120/89 H 09/10/20 14:13 111 H 22 102/86 H 94 09/10/20 11:44 37.3 C 112 H 18 117/63 99 - Physical Exam Comments/Other: General Appearance: positive: No acute distress. Cachectic. Eyes Bilateral: positive: Normal inspection ENT: positive: ENT inspection nml Neck: positive: Nml inspection Respiratory: positive: Chest non-tender, No respiratory distress, Breath sounds nml. negative: Wheezes, Rales, Rhonchi Cardiovascular: positive: Regular rate & rhythm Abdomen: positive: No distention, Other. negative: Guarding, Rebound Extremities: positive: Non-tender, Full ROM, Nml appearance Neurologic/Psychiatric: positive: Oriented x3, CN's nml (2-12). Patient agitated. Conclusion and Plan - Lab Results Laboratory Results 09/10/20 18:10: Ammonia 25.3 09/10/20 13:22: Blood Type O POSITIVE, Antibody Screen NEGATIVE, Crossmatch IS Only See Detail 09/10/20 13:02: Nasal Adenovirus (PCR) NOT DETECTED, Nasal B. parapertussis DNA (PCR) NOT DETECTED, Nasal Coronavir 229E PCR NOT DETECTED, Nasal Coronavir HKU1 PCR NOT DETECTED, Nasal Coronavir NL63 PCR NOT DETECTED, Nasal Coronavir OC43 PCR NOT DETECTED, Nasal Enterovir/Rhinovir PCR NOT DETECTED, Nasal Influenza B PCR NOT DETECTED, Nasal Influenza A PCR NOT DETECTED, Nasal Parainfluen 1 PCR NOT DETECTED, Nasal Parainfluen 2 PCR NOT DETECTED, Nasal Parainfluen 3 PCR NOT DETECTED, Nasal Parainfluen 4 PCR NOT DETECTED, Nasal RSV (PCR) NOT DETECTED, Nasal B.pertussis DNA PCR NOT DETECTED, Nasal C.pneumoniae (PCR) NOT DETECTED, [place] Human Metapneumo PCR NOT DETECTED, Nasal M.pneumoniae (PCR) NOT DETECTED, Nasal SARS-CoV-2 (PCR) NOT DETECTED 09/10/20 12:19: PT 16.8 H, INR 1.6 H, APTT 30.2 09/10/20 12:19: Blood Type Recheck O POSITIVE 09/10/20 12:19: Vitamin B12 1089 H, Folate 2.51 L 09/10/20 12:19: Iron 156 09/10/20 12:19: B-Natriuretic Peptide 71 09/10/20 12:19: Troponin I High Sens 5.0 09/10/20 12:19: TSH 2.95, Cortisol 35.5 09/10/20 12:19: Sodium 133 L, Potassium 3.4 L, Chloride 89 L, Carbon Dioxide 26, Anion Gap 18.0 H, BUN 12, Creatinine 0.7, Estimated GFR (MDRD) 84 L, Glucose 128 H, Calcium 8.0 L, Magnesium 1.2 L, Total Bilirubin 2.5 H, AST 119 H, ALT 27, Alkaline Phosphatase 122 H, Total Protein 5.9 L, Albumin 2.7 L, Globulin 3.2, Albumin/Globulin Ratio 0.8 L, Lipase 27 09/10/20 12:19: WBC 8.6, RBC 1.37 L, Hgb 5.1 L*, Hct 15.7 L*, MCV 114.6 H, MCH 37.2 H, MCHC 32.5, RDW 14.7, Plt Count 91 L, MPV 9.4, Neut # (Auto) 7.4 H, Lymph # (Auto) 0.7 L, [place] # (Auto) 0.4, Eos # (Auto) 0.0, Baso # (Auto) 0.1, Absolute Nucleated RBC 0.00, Nucleated RBC % 0.0, Manual Slide Review Indicated, Platelet Estimate DECREASED (<130,000), Platelet Morphology NORMAL APPEARANCE, RBC Morph Micro Appear 1+ POLYCHROMASIA 09/10/20 12:15: Phosphorus 3.3 - Diagnostic Imaging Results Diagnostic Imaging Results Comments: CT abdomen pelvis impression: 1. Focal thickening of the cecum and ascending colon encompassing the terminal ileum. There is no surrounding inflammation. This finding most consistent with malignancy in the correct clinical setting. This is less likely colitis. 2. 4.6 cm hypoechoic mass in the right hepatic lobe is nonspecific but given findings as above likely represents metastatic disease. 3. Nonspecific fatty infiltration surrounding the aorta and celiac superior mesenteric arteries may represent sequelae of vasculitis versus other infectious or inflammatory process 4. Sludge versus layering stones are noted within the gallbladder in addition there is 6 mm light the polyp within the fundus. There is mild wall thickening as well. These findings may be seen with chronic cholecystitis. There is no inflammation or pericholecystic fluid to suggest acute cholecystitis. If ultrasound is not performed recently recommend yearly right upper quadrant ultrasound for lesion or polyp. 5. Slight heterogeneity of the liver with enlargement of the caudate lobe may be seen cirrhosis. - Diagnosis Diagnosis: 1. Liver cirrhosis. 2. Gastrointestinal bleed. 3. Altered mental status. 4. Hepatic mass. 5. Cecal thickening - Plan Plan: 1. Care per hospitalist service 2. Trend H&H and transfuse appropriately given the patient's history of cardiac disease 3. Telemetry and close hemodynamic monitoring 4. Plan upper endoscopy proceed with colonoscopy as well. 5. Aggressive resuscitation 6. As is always the case, diagnostic endoscopy with potential for therapeutic interventions. Given limitations, surgical interventions and/or transfer for advanced gastrointestinal interventions and/or interventional radiographic interventions remain part of this complex algorithm. 7. Bowel rest and bowel prep in anticipation of colonoscopy 8. PPI infusion and consider Carafate pending results
[2020-09-10] MEDS ORDERED: polyethylene glycoL 3350 17 GM PACKET PO SCH (19:00)
[2020-09-10] MEDS: MULTIVITAMIN 10 ML, THIAMINE INJ 100 MG, FOLIC ACID INJ 1 MG in SODIUM CHLORIDE 0.9% 1,... IV SCH (19:12)
[2020-09-10] MEDS ORDERED: SODIUM CHLORIDE 0.9% 500 ML IV ONE (19:46)
[2020-09-10] MEDS: LORazepam 2 MG/ML VIAL IVP PRN (20:01)
[2020-09-10] MEDS: OCTREOTIDE 500 MCG in SODIUM CHLORIDE 0.9% 100ML 99 ML IV SCH (20:45)
[2020-09-10] MEDS: POTASSIUM CHLOR 10 MEQ/100 ML 10 MEQ/100 ML BAG IV SCH ×4 (20:50→23:51)
[2020-09-10] MEDS: PANTOPRAZOLE 40 MG VIAL IVP SCH (21:14)
[2020-09-11] MEDS: SODIUM CHLORIDE FLUSH 0.9% 10 ML SYRINGE IVP SCH ×3 (00:11→17:43)
[2020-09-11] MEDS: SODIUM CHLORIDE FLUSH 0.9% 10 ML SYRINGE IVP PRN (00:37)
[2020-09-11] MEDS: ethyl alcohoL 62% SWAB AMPULE NAS SCH ×3 (00:44→20:42)
[2020-09-11 01:54] LABS: HCT - HEMATOCRIT 24.1 % (37.0-47.0); HGB - HEMOGLOBIN 8.2 g/dL (12.0-16.0)
[2020-09-11 04:50] LABS: BASOPHILS % (AUTO) 0.7 %; EOSINOPHILS % (AUTO) 0.6 %; HCT - HEMATOCRIT 22.5 % (37.0-47.0); HGB - HEMOGLOBIN 7.6 g/dL (12.0-16.0); LYMPHOCYTES # (AUTO) 0.6 10^3/uL (1.5-3.5); LYMPHOCYTES % (AUTO) 10.9 %; MEAN CORPUSCULAR HEMOGLOBIN 33.3 pg (27.0-31.0); MEAN CORPUSCULAR HGB CONC 33.8 g/dL (32.0-36.0); MEAN CORPUSCULAR VOLUME 98.7 fL (81.0-99.0); MEAN PLATELET VOLUME 9.9 fL (7.9-10.8); MONOCYTES # (AUTO) 0.3 10^3/uL (0.0-1.0); MONOCYTES % (AUTO) 5.6 %; NEUTROPHILS # (AUTO) 4.4 10^3/uL (1.5-6.6); NEUTROPHILS % (AUTO) 81.8 %; PLT - PLATELET COUNT 54 10^3/uL (130-450); RED BLOOD COUNT 2.28 10^6/uL (4.20-5.40); RED CELL DISTRIBUTION WIDTH 19.6 % (12.0-15.0); WHITE BLOOD COUNT 5.3 x10^3/uL (4.8-10.8)
[2020-09-11 04:56] LABS: INR 1.4 (0.8-1.2); PT - PROTHROMBIN TIME 15.7 secs (9.9-12.6)
[2020-09-11 05:07] LABS: ALBUMIN 2.8 g/dL (3.2-5.5); BILIRUBIN,DIRECT 1.1 mg/dL (0.1-0.5); CALCIUM 7.7 mg/dL (8.5-10.3); CREATININE 0.8 mg/dL (0.4-1.0); MAGNESIUM 2.2 mg/dL (1.7-2.8); PHOSPHORUS 1.5 mg/dL (2.5-4.6); POTASSIUM 3.7 mmol/L (3.5-5.0)
[2020-09-11] MEDS: DEXTROSE 5%-0.9% NACL 1,000 ML IV SCH ×2 (05:21→14:22)
[2020-09-11] MEDS: OCTREOTIDE 500 MCG in SODIUM CHLORIDE 0.9% 100ML 99 ML IV SCH (05:21)
[2020-09-11] MEDS ORDERED: PROPOFOL 1000 MG/100 ML 1,000 MG/100 ML BOTTLE IV ONE (07:07)
[2020-09-11] MEDS ORDERED: LIDOCAINE-MPF 2% 5 ML VIAL ONE (07:07)
--- NOTE | 2020-09-11 07:26 | ANESTHESIA ---
Pre-Anesthesia VS, & Labs - Diagnosis GI bleed - Procedure EGD, Colonoscopy Vital Signs: Temp Pulse Resp BP Pulse Ox 37.7 C 97 16 109/68 96 09/11/20 04:00 09/11/20 07:00 09/11/20 07:00 09/11/20 07:00 09/11/20 07:00 Height: 5 ft 4 in Weight (kg): 49 kg Body Mass Index: 18.5 BMI Classification: Healthy weight - NPO >8 hours - Is Patient ?: No - Lab Results Current Lab Results: Laboratory Tests 09/11/20 04:42: Sodium 137, Potassium 3.7, Chloride 100 L, Carbon Dioxide 24, Anion Gap 13.0, BUN 13, Creatinine 0.8, Estimated GFR (MDRD) 72 L, Glucose 110 H , Calcium 7.7 L, Phosphorus 1.5 L, Magnesium 2.2, Total Bilirubin 3.0 H, Direct Bilirubin 1.1 H, AST 111 H, ALT 25, Alkaline Phosphatase 102, Total Protein 6.0 L, Albumin 2.8 L, Globulin 3.2 09/11/20 04:42: PT 15.7 H, INR 1.4 H 09/11/20 04:42: WBC 5.3, RBC 2.28 L, Hgb 7.6 L, Hct 22.5 L, MCV 98.7, MCH 33.3 H , MCHC 33.8, RDW 19.6 H, Plt Count 54 L, MPV 9.9, Neut # (Auto) 4.4, Lymph # (Auto) 0.6 L, [place] # (Auto) 0.3, Eos # (Auto) 0.0, Baso # (Auto) 0.0, Absolute Nucleated RBC 0.00, Nucleated RBC % 0.0 09/11/20 01:46: Magnesium 2.3 09/11/20 01:46: Hgb 8.2 L, Hct 24.1 L 09/10/20 18:10: Ammonia 25.3 09/10/20 13:22: Blood Type O POSITIVE, Antibody Screen NEGATIVE, Crossmatch IS Only See Detail 09/10/20 12:19: PT 16.8 H, INR 1.6 H, APTT 30.2 09/10/20 12:19: Blood Type Recheck O POSITIVE 09/10/20 12:19: Vitamin B12 1089 H, Folate 2.51 L 09/10/20 12:19: Iron 156 09/10/20 12:19: B-Natriuretic Peptide 71 09/10/20 12:19: Troponin I High Sens 5.0 09/10/20 12:19: TSH 2.95, Cortisol 35.5 09/10/20 12:19: Sodium 133 L, Potassium 3.4 L, Chloride 89 L, Carbon Dioxide 26, Anion Gap 18.0 H, BUN 12, Creatinine 0.7, Estimated GFR (MDRD) 84 L, Glucose 128 H, Calcium 8.0 L, Magnesium 1.2 L, Total Bilirubin 2.5 H, AST 119 H, ALT 27, Alkaline Phosphatase 122 H, Total Protein 5.9 L, Albumin 2.7 L, Globulin 3.2, Albumin/Globulin Ratio 0.8 L, Lipase 27 09/10/20 12:19: WBC 8.6, RBC 1.37 L, Hgb 5.1 L*, Hct 15.7 L*, MCV 114.6 H, MCH 37.2 H, MCHC 32.5, RDW 14.7, Plt Count 91 L, MPV 9.4, Neut # (Auto) 7.4 H, Lymph # (Auto) 0.7 L, [place] # (Auto) 0.4, Eos # (Auto) 0.0, Baso # (Auto) 0.1, Absolute Nucleated RBC 0.00, Nucleated RBC % 0.0, Manual Slide Review Indicated, Platelet Estimate DECREASED (<130,000), Platelet Morphology NORMAL APPEARANCE, RBC Morph Micro Appear 1+ POLYCHROMASIA 09/10/20 12:15: Phosphorus 3.3 Lab results reviewed: Yes Fish Bones: 09/11/20 04:42 09/11/20 04:42 Home Medications and Allergies Home Medications: Ambulatory Orders DULoxetine [Cymbalta] 20 mg PO DAILY PM 09/10/20 Hydrochlorothiazide 25 mg PO DAILY 09/10/20 Ondansetron HCl [Zofran] 4 mg PO Q4HR PRN 09/10/20 Potassium Chloride 10 meq PO BID 09/10/20 bisoproloL fumarate [Bisoprolol Fumarate] 5 mg PO DAILY 09/10/20 Active Medications Acetaminophen (Acetaminophen 325 Mg Tablet) 650 mg PO Q4HR PRN PRN Reason: Pain 1 to 4 Alcohol (Ethyl Alcohol 62% Swab Ampule) 1 amp MARCO ANTONIO BID [facility] Last Admin: 09/11/20 00:44 Dose: 1 amp Documented by: Multivitamins 10 ml/ Thiamine HCl 100 mg/ Folic Acid 1 mg/Sodium Chloride 1,011.2 mls @ 100 mls/hr IV DAILY [facility] Last Infusion: 09/11/20 05:20 Dose: Infused Documented by: Ceftriaxone Sodium 1 gm/ (Sodium Chloride) 100 mls @ 200 mls/hr IV DAILY [facility] Octreotide Acetate 500 mcg/ (Sodium Chloride) 100 mls @ 10 mls/hr IV .Q10H [facility] Last Admin: 09/11/20 05:21 Dose: 50 mcg/hr, 10 mls/hr Documented by: Dextrose/Sodium Chloride (D5ns) 1,000 mls @ 83.333 mls/hr IV .Q12H [facility] Last Admin: 09/11/20 05:21 Dose: 83.333 mls/hr Documented by: Potassium Phosphate 21 mmol/ (Sodium Chloride) 257 mls @ 64 mls/hr IV ONCE ONE; Protocol Stop: 09/11/20 13:00 Lorazepam (Lorazepam 2 Mg/Ml Vial) 1 mg IVP Q30M PRN; Protocol PRN Reason: CIWA >8 Last Admin: 09/10/20 20:01 Dose: 1 mg Documented by: Morphine Sulfate (Morphine 2 Mg/Ml Carpuject) 2 mg IVP Q2HR PRN PRN Reason: Pain 8 to 10 Ondansetron HCl (Ondansetron 4 Mg/2 Ml Vial) 4 mg IVP Q6HR PRN PRN Reason: Nausea / Vomiting Pantoprazole Sodium (Pantoprazole 40 Mg Vial) 40 mg IVP BID [facility] Last Admin: 09/10/20 21:14 Dose: 40 mg Documented by: Polyethylene Glycol (Polyethylene Glycol 3350 17 Gm Packet) 17 gm PO ONCE [facility] Stop: 09/11/20 18:59 Last Admin: 09/10/20 20:49 Dose: Not Given Documented by: Sodium Chloride (Sodium Chloride Flush 0.9% 10 Ml Syringe) 10 ml IVP 0100,0900,1700 [facility] Last Admin: 09/11/20 00:11 Dose: Not Given Documented by: Sodium Chloride (Sodium Chloride Flush 0.9% 10 Ml Syringe) 10 ml IVP PRN PRN PRN Reason: NEEDED PER PROVIDER ORDERS Last Admin: 09/11/20 00:37 Dose: 10 ml Documented by: DULoxetine [Cymbalta] 20 mg PO DAILY PM 09/10/20 Hydrochlorothiazide 25 mg PO DAILY 09/10/20 Ondansetron HCl [Zofran] 4 mg PO Q4HR PRN 09/10/20 Potassium Chloride 10 meq PO BID 09/10/20 bisoproloL fumarate [Bisoprolol Fumarate] 5 mg PO DAILY 09/10/20 Allergies/Adverse Reactions: Allergies Allergy/AdvReac Type Severity Reaction Status Date / Time No Known Drug Allergies Allergy Verified 09/10/20 11:55 Anes History & Medical History - Anesthetic History Anesthesia Complications: reports: No previous complications Family history of Anesthesia Complications: Denies Family history of Malignant Hyperthermia: Denies - Medical History Cardiovascular: reports: Hypertension, High cholesterol Pulmonary: reports: None Gastrointestinal: reports: Cirrhosis, Other Neuro: reports: Peripheral neuropathy Musculoskeletal: reports: Osteoarthritis, Osteoporosis Endocrine/Autoimmune: reports: None Blood Disorders: reports: Anemia Skin: reports: None Smoking Status: Never smoker Psychosocial: reports: Alcohol - Surgical History General: reports: Colonoscopy Gynecologic: reports: section Exam General: Cooperative, No acute distress Dental: WNL Mouth Openin Fingerbreadth Neck Mobility: Normal Mallampati classification: III Respiratory: Lungs clear, Normal breath sounds, No respiratory distress, No accessory muscle use Cardiovascular: Regular rate, Normal S1, Normal S2, No murmurs Plan Anesthesia Type: General, Total IV Consent for Procedure(s) Verified and Reviewed: Yes Code Status: Attempt Resuscitation ASA classification: 3-Severe systemic disease Is this case an emergency?: No
[2020-09-11] MEDS ORDERED: LACTATED RINGERS 1,000 ML IV ONE (08:32)
--- NOTE | 2020-09-11 08:45 | PROVIDER PROGRESS NOTE ---
Progress Note 65-year-old female with history of cirrhosis, known coagulopathy as well as hyperbilirubinemia, who presents with significant acute on chronic blood loss anemia together with profound chronic weight loss unintended over the last year. Patient admitted for resuscitation. Attempted for upper and lower endoscopy this a.m. Secondary to significant retained stool deferred completion of the colonoscopy after further bowel prep. With regard to the upper endoscopy the findings are as follows: 1. Duodenum normal. No evidence of of duodenitis. No biopsies obtained secondary to concerns for propagating and confusing source of gastrointestinal bleed. 2. Antrum with diffuse antritis. Stomach diffusely inflamed with associated gastritis. Patent pylorus. 3. Retroflexion with small hiatal herniation. 4. Diffuse gastritis or gastropathy. No polyps. No ulcerations. 5. GE junction with mild inflammatory changes and irregular Z-line.. 6. Distal esophagus with no significant changes. Chronic scar. 7. Most importantly NO gastroesophageal varices appreciated throughout the entirety of this esophagogastroduodenoscopy. Plan going forward: 1. Continue PPI 2. Continue to trend H&H and transfuse as necessary. Next 3. Continue with CIWA protocol 4. Reprep the patient and proceed with GoLYTELY and another attempt at colonoscopy, diagnostic Please note that voice recognition software was used to transcribe this note and inadvertent errors might persist in spite of review and editing. I am obliged to you for your attention. I am thankful to you for allowing me to participate with you in this care of this patient.
[2020-09-11] MEDS ORDERED: POTASSIUM PHOSPHATE 21 MMOL in SODIUM CHLORIDE 0.9% 250 ML IV ONE (09:00)
[2020-09-11] MEDS ORDERED: cefTRIAXone 1 GM in SODIUM CHLORIDE 0.9% MINIBAG 100 ML IV SCH (09:00)
--- NOTE | 2020-09-11 09:04 | ANESTHESIA POST OP EVALUATION ---
Anesthesia Post Eval - Post Anesthesia Eval Vitals: Last Vital Signs Temp 36.8 C 09/11/20 08:45 Pulse 89 09/11/20 08:45 Resp 20 09/11/20 08:45 BP 107/76 09/11/20 08:47 Pulse Ox 97 09/11/20 08:45 CV Function Including HR & BP: Stable Pain Control: Satisfactory Nausea & Vomiting: Negative Mental Status: Baseline Respiratory Status: Airway Patent Hydration Status: Satisfactory Anesthesia Complications: None
[2020-09-11] MEDS: PANTOPRAZOLE 40 MG VIAL IVP SCH ×2 (09:22→20:42)
[2020-09-11] MEDS: MULTIVITAMIN 10 ML, THIAMINE INJ 100 MG, FOLIC ACID INJ 1 MG in SODIUM CHLORIDE 0.9% 1,... IV SCH (09:22)
[2020-09-11] MEDS: LORazepam 2 MG/ML VIAL IVP PRN (10:00)
--- NOTE | 2020-09-11 10:00 | PHARMACY PROGRESS NOTE ---
- Best Possible Medication History Admit Date and Time: 09/10/20 4666 Processed by: Nursing Medication History completed: Yes Secondary Source(s): Pharmacy records, Insurance records As the person ultimately responsible for medication therapy, providers are able to order a medication from an existing home medication list in [facility] via the "Reconcile Routine" prior to Confirmation of that medication by functional support analyst. Such practice is discouraged except when the physician, in their clinical judgment, deems that a medical need exists for a medication without regard to previous use.
[2020-09-11] MEDS ORDERED: polyethylene glycoL 3350 238 GM BOTTLE PO ONE (11:00)
--- NOTE | 2020-09-11 11:56 | PROVIDER PROGRESS NOTE ---
Subjective - Prog Note Date Prog Note Date: 09/11/20 - Subjective Subjective: She reports no further episodes of vomiting. She denies any abdominal pain. She does feel hungry but is n.p.o. for a colonoscopy this afternoon. There has been no further episodes of melena. is present at bedside. Current Medications - Current Medications Current Medications: Active Medications Acetaminophen (Acetaminophen 325 Mg Tablet) 650 mg PO Q4HR PRN PRN Reason: Pain 1 to 4 Alcohol (Ethyl Alcohol 62% Swab Ampule) 1 amp MARCO ANTONIO BID [facility] Last Admin: 09/11/20 09:22 Dose: 1 amp Documented by: Multivitamins 10 ml/ Thiamine HCl 100 mg/ Folic Acid 1 mg/Sodium Chloride 1,011.2 mls @ 100 mls/hr IV DAILY [facility] Last Admin: 09/11/20 09:22 Dose: 100 mls/hr Documented by: Ceftriaxone Sodium 1 gm/ (Sodium Chloride) 100 mls @ 200 mls/hr IV DAILY [facility] Last Infusion: 09/11/20 09:52 Dose: Infused Documented by: Dextrose/Sodium Chloride (D5ns) 1,000 mls @ 83.333 mls/hr IV .Q12H [facility] Last Infusion: 09/11/20 08:00 Dose: 0 mls/hr Documented by: Potassium Phosphate 21 mmol/ (Sodium Chloride) 257 mls @ 64 mls/hr IV ONCE ONE; Protocol Stop: 09/11/20 13:00 Last Admin: 09/11/20 10:18 Dose: 64 mls/hr Documented by: Lorazepam (Lorazepam 2 Mg/Ml Vial) 1 mg IVP Q30M PRN; Protocol PRN Reason: CIWA >8 Last Admin: 09/11/20 10:00 Dose: 1 mg Documented by: Morphine Sulfate (Morphine 2 Mg/Ml Carpuject) 2 mg IVP Q2HR PRN PRN Reason: Pain 8 to 10 Ondansetron HCl (Ondansetron 4 Mg/2 Ml Vial) 4 mg IVP Q6HR PRN PRN Reason: Nausea / Vomiting Pantoprazole Sodium (Pantoprazole 40 Mg Vial) 40 mg IVP BID [facility] Last Admin: 09/11/20 09:22 Dose: 40 mg Documented by: Polyethylene Glycol (Polyethylene Glycol 3350 17 Gm Packet) 17 gm PO ONCE DIPTI Stop: 09/11/20 18:59 Last Admin: 09/10/20 20:49 Dose: Not Given Documented by: Sodium Chloride (Sodium Chloride Flush 0.9% 10 Ml Syringe) 10 ml IVP 0100,0900,1700 DIPTI Last Admin: 09/11/20 09:16 Dose: 10 ml Documented by: Sodium Chloride (Sodium Chloride Flush 0.9% 10 Ml Syringe) 10 ml IVP PRN PRN PRN Reason: NEEDED PER PROVIDER ORDERS Last Admin: 09/11/20 00:37 Dose: 10 ml Documented by: DULoxetine [Cymbalta] 20 mg PO DAILY PM 09/10/20 Hydrochlorothiazide 25 mg PO DAILY 09/10/20 Ondansetron HCl [Zofran] 4 mg PO Q4HR PRN 09/10/20 Potassium Chloride 10 meq PO BID 09/10/20 bisoproloL fumarate [Bisoprolol Fumarate] 5 mg PO DAILY 09/10/20 Objective - Vital Signs/Intake & Output Reviewed Vital Signs: Yes Vital Signs: Vital Signs Temp Pulse Pulse Resp BP BP BP 09/11/20 11:00 91 17 111/70 09/11/20 10:00 94 17 111/77 09/11/20 09:00 91 14 106/73 09/11/20 08:47 107/76 09/11/20 08:45 36.8 C 89 20 97/73 09/11/20 08:40 37.1 C 91 22 101/73 09/11/20 08:35 36.6 C 90 20 95/63 09/11/20 08:32 36.6 C 88 20 96/63 09/11/20 08:00 37.1 C 92 14 108/69 Pulse Ox 09/11/20 11:00 96 09/11/20 10:00 95 09/11/20 09:00 94 09/11/20 08:47 09/11/20 08:45 97 09/11/20 08:40 97 09/11/20 08:35 97 09/11/20 08:32 100 09/11/20 08:00 97 Intake & Output: Intake & Output 09/08/20 09/09/20 09/10/20 09/11/20 23:59 23:59 23:59 23:59 Intake Total 2747.167 2376.532 Output Total 575 Balance 2747.167 1801.532 - Objective General Appearance: positive: No acute distress, Alert Eyes Bilateral: positive: Normal inspection, Other (Scleral icterus) ENT: positive: ENT inspection nml Neck: positive: Nml inspection Respiratory: positive: No respiratory distress. negative: Wheezes, Rales Cardiovascular: positive: Regular rate & rhythm, No murmur. negative: Tachycardia, Systolic murmur Abdomen: positive: Non-tender, No distention. negative: Tenderness, Guarding, Rebound Skin: positive: Warm, Dry, Other (Jaundiced) Extremities: positive: No pedal edema Neurologic/Psychiatric: positive: Other (No obvious focal deficits. No obvious asterixis on exam. She is less restless and not as tremulous today.). negative: Disoriented to person, Disoriented to place, Disoriented to time - Lab Results Fish Bones: 09/11/20 04:42 09/11/20 04:42 Other Labs: Lab Results x24hrs 09/11/20 09/11/20 09/11/20 Range/Units 04:42 04:42 04:42 WBC 5.3 (4.8-10.8) x10^3/uL RBC 2.28 L (4.20-5.40) 10^6/uL Hgb 7.6 L (12.0-16.0) g/dL Hct 22.5 L (37.0-47.0) % MCV 98.7 (81.0-99.0) fL MCH 33.3 H (27.0-31.0) pg MCHC 33.8 (32.0-36.0) g/dL RDW 19.6 H (12.0-15.0) % Plt Count 54 L (130-450) 10^3/uL MPV 9.9 (7.9-10.8) fL Neut # (Auto) 4.4 (1.5-6.6) 10^3/uL Lymph # (Auto) 0.6 L (1.5-3.5) 10^3/uL [place] # (Auto) 0.3 (0.0-1.0) 10^3/uL Eos # (Auto) 0.0 (0.0-0.7) 10^3/uL Baso # (Auto) 0.0 (0.0-0.1) 10^3/uL Absolute Nucleated RBC 0.00 x10^3/uL Nucleated RBC % 0.0 /100WBC Manual Slide Review Platelet Estimate (NORMAL) Platelet Morphology (NORMAL) RBC Morph Micro Appear (NORMAL) PT 15.7 H (9.9-12.6) secs INR 1.4 H (0.8-1.2) APTT (24.9-33.3) secs Sodium 137 (135-145) mmol/L Potassium 3.7 (3.5-5.0) mmol/L Chloride 100 L (101-111) mmol/L Carbon Dioxide 24 (21-32) mmol/L Anion Gap 13.0 (6-13) BUN 13 (6-20) mg/dL Creatinine 0.8 (0.4-1.0) mg/dL Estimated GFR (MDRD) 72 L (>89) Glucose 110 H (70-100) mg/dL POC Whole Bld Glucose (70 - 100) mg/dL Calcium 7.7 L (8.5-10.3) mg/dL Phosphorus 1.5 L (2.5-4.6) mg/dL Magnesium 2.2 (1.7-2.8) mg/dL Iron (28-170) ug/dL Total Bilirubin 3.0 H (0.2-1.0) mg/dL Direct Bilirubin 1.1 H (0.1-0.5) mg/dL AST 111 H (10-42) IU/L ALT 25 (10-60) IU/L Alkaline Phosphatase 102 (42-121) IU/L Ammonia (7-35) umol/L Troponin I High Sens (2.3-14.8) ng/L B-Natriuretic Peptide (5-100) pg/mL Total Protein 6.0 L (6.7-8.2) g/dL Albumin 2.8 L (3.2-5.5) g/dL Globulin 3.2 (2.1-4.2) g/dL Albumin/Globulin Ratio (1.0-2.2) Lipase (22-51) U/L Vitamin B12 (180-914) pg/mL Folate (5.90 - >24.8) ng/mL TSH (0.34-5.60) uIU/mL Cortisol ug/dL Nasal Adenovirus (PCR) Nasal B. parapertussis DNA (PCR) Nasal Coronavir 229E PCR Nasal Coronavir HKU1 PCR Nasal Coronavir NL63 PCR Nasal Coronavir OC43 PCR Nasal Enterovir/Rhinovir PCR Nasal Influenza B PCR Nasal Influenza A PCR Nasal Parainfluen 1 PCR Nasal Parainfluen 2 PCR Nasal Parainfluen 3 PCR Nasal Parainfluen 4 PCR Nasal RSV (PCR) Nasal Screen MRSA (PCR) (NEGATIVE) Nasal B.pertussis DNA PCR Nasal C.pneumoniae (PCR) [place] Human Metapneumo PCR Nasal M.pneumoniae (PCR) Nasal SARS-CoV-2 (PCR) Blood Type Blood Type Recheck Antibody Screen Crossmatch IS Only 09/11/20 09/11/20 09/11/20 Range/Units 01:46 01:46 00:06 WBC (4.8-10.8) x10^3/uL RBC (4.20-5.40) 10^6/uL Hgb 8.2 L (12.0-16.0) g/dL Hct 24.1 L (37.0-47.0) % MCV (81.0-99.0) fL MCH (27.0-31.0) pg MCHC (32.0-36.0) g/dL RDW (12.0-15.0) % Plt Count (130-450) 10^3/uL MPV (7.9-10.8) fL Neut # (Auto) (1.5-6.6) 10^3/uL Lymph # (Auto) (1.5-3.5) 10^3/uL [place] # (Auto) (0.0-1.0) 10^3/uL Eos # (Auto) (0.0-0.7) 10^3/uL Baso # (Auto) (0.0-0.1) 10^3/uL Absolute Nucleated RBC x10^3/uL Nucleated RBC % /100WBC Manual Slide Review Platelet Estimate (NORMAL) Platelet Morphology (NORMAL) RBC Morph Micro Appear (NORMAL) PT (9.9-12.6) secs INR (0.8-1.2) APTT (24.9-33.3) secs Sodium (135-145) mmol/L Potassium (3.5-5.0) mmol/L Chloride (101-111) mmol/L Carbon Dioxide (21-32) mmol/L Anion Gap (6-13) BUN (6-20) mg/dL Creatinine (0.4-1.0) mg/dL Estimated GFR (MDRD) (>89) Glucose (70-100) mg/dL POC Whole Bld Glucose 79 (70 - 100) mg/dL Calcium (8.5-10.3) mg/dL Phosphorus (2.5-4.6) mg/dL Magnesium 2.3 (1.7-2.8) mg/dL Iron (28-170) ug/dL Total Bilirubin (0.2-1.0) mg/dL Direct Bilirubin (0.1-0.5) mg/dL AST (10-42) IU/L ALT (10-60) IU/L Alkaline Phosphatase (42-121) IU/L Ammonia (7-35) umol/L Troponin I High Sens (2.3-14.8) ng/L B-Natriuretic Peptide (5-100) pg/mL Total Protein (6.7-8.2) g/dL Albumin (3.2-5.5) g/dL Globulin (2.1-4.2) g/dL Albumin/Globulin Ratio (1.0-2.2) Lipase (22-51) U/L Vitamin B12 (180-914) pg/mL Folate (5.90 - >24.8) ng/mL TSH (0.34-5.60) uIU/mL Cortisol ug/dL Nasal Adenovirus (PCR) Nasal B. parapertussis DNA (PCR) Nasal Coronavir 229E PCR Nasal Coronavir HKU1 PCR Nasal Coronavir NL63 PCR Nasal Coronavir OC43 PCR Nasal Enterovir/Rhinovir PCR Nasal Influenza B PCR Nasal Influenza A PCR Nasal Parainfluen 1 PCR Nasal Parainfluen 2 PCR Nasal Parainfluen 3 PCR Nasal Parainfluen 4 PCR Nasal RSV (PCR) Nasal Screen MRSA (PCR) (NEGATIVE) Nasal B.pertussis DNA PCR Nasal C.pneumoniae (PCR) [place] Human Metapneumo PCR Nasal M.pneumoniae (PCR) Nasal SARS-CoV-2 (PCR) Blood Type Blood Type Recheck Antibody Screen Crossmatch IS Only 09/10/20 09/10/20 09/10/20 Range/Units 19:25 18:10 13:22 WBC (4.8-10.8) x10^3/uL RBC (4.20-5.40) 10^6/uL Hgb (12.0-16.0) g/dL Hct (37.0-47.0) % MCV (81.0-99.0) fL MCH (27.0-31.0) pg MCHC (32.0-36.0) g/dL RDW (12.0-15.0) % Plt Count (130-450) 10^3/uL MPV (7.9-10.8) fL Neut # (Auto) (1.5-6.6) 10^3/uL Lymph # (Auto) (1.5-3.5) 10^3/uL [place] # (Auto) (0.0-1.0) 10^3/uL Eos # (Auto) (0.0-0.7) 10^3/uL Baso # (Auto) (0.0-0.1) 10^3/uL Absolute Nucleated RBC x10^3/uL Nucleated RBC % /100WBC Manual Slide Review Platelet Estimate (NORMAL) Platelet Morphology (NORMAL) RBC Morph Micro Appear (NORMAL) PT (9.9-12.6) secs INR (0.8-1.2) APTT (24.9-33.3) secs Sodium (135-145) mmol/L Potassium (3.5-5.0) mmol/L Chloride (101-111) mmol/L Carbon Dioxide (21-32) mmol/L Anion Gap (6-13) BUN (6-20) mg/dL Creatinine (0.4-1.0) mg/dL Estimated GFR (MDRD) (>89) Glucose (70-100) mg/dL POC Whole Bld Glucose (70 - 100) mg/dL Calcium (8.5-10.3) mg/dL Phosphorus (2.5-4.6) mg/dL Magnesium (1.7-2.8) mg/dL Iron (28-170) ug/dL Total Bilirubin (0.2-1.0) mg/dL Direct Bilirubin (0.1-0.5) mg/dL AST (10-42) IU/L ALT (10-60) IU/L Alkaline Phosphatase (42-121) IU/L Ammonia 25.3 (7-35) umol/L Troponin I High Sens (2.3-14.8) ng/L B-Natriuretic Peptide (5-100) pg/mL Total Protein (6.7-8.2) g/dL Albumin (3.2-5.5) g/dL Globulin (2.1-4.2) g/dL Albumin/Globulin Ratio (1.0-2.2) Lipase (22-51) U/L Vitamin B12 (180-914) pg/mL Folate (5.90 - >24.8) ng/mL TSH (0.34-5.60) uIU/mL Cortisol ug/dL Nasal Adenovirus (PCR) Nasal B. parapertussis DNA (PCR) Nasal Coronavir 229E PCR Nasal Coronavir HKU1 PCR Nasal Coronavir NL63 PCR Nasal Coronavir OC43 PCR Nasal Enterovir/Rhinovir PCR Nasal Influenza B PCR Nasal Influenza A PCR Nasal Parainfluen 1 PCR Nasal Parainfluen 2 PCR Nasal Parainfluen 3 PCR Nasal Parainfluen 4 PCR Nasal RSV (PCR) Nasal Screen MRSA (PCR) POSITIVE A* (NEGATIVE) Nasal B.pertussis DNA PCR Nasal C.pneumoniae (PCR) [place] Human Metapneumo PCR Nasal M.pneumoniae (PCR) Nasal SARS-CoV-2 (PCR) Blood Type O POSITIVE Blood Type Recheck Antibody Screen NEGATIVE Crossmatch IS Only See Detail 09/10/20 09/10/20 09/10/20 Range/Units 13:02 12:19 12:19 WBC (4.8-10.8) x10^3/uL RBC (4.20-5.40) 10^6/uL Hgb (12.0-16.0) g/dL Hct (37.0-47.0) % MCV (81.0-99.0) fL MCH (27.0-31.0) pg MCHC (32.0-36.0) g/dL RDW (12.0-15.0) % Plt Count (130-450) 10^3/uL MPV (7.9-10.8) fL Neut # (Auto) (1.5-6.6) 10^3/uL Lymph # (Auto) (1.5-3.5) 10^3/uL [place] # (Auto) (0.0-1.0) 10^3/uL Eos # (Auto) (0.0-0.7) 10^3/uL Baso # (Auto) (0.0-0.1) 10^3/uL Absolute Nucleated RBC x10^3/uL Nucleated RBC % /100WBC Manual Slide Review Platelet Estimate (NORMAL) Platelet Morphology (NORMAL) RBC Morph Micro Appear (NORMAL) PT 16.8 H (9.9-12.6) secs INR 1.6 H (0.8-1.2) APTT 30.2 (24.9-33.3) secs Sodium (135-145) mmol/L Potassium (3.5-5.0) mmol/L Chloride (101-111) mmol/L Carbon Dioxide (21-32) mmol/L Anion Gap (6-13) BUN (6-20) mg/dL Creatinine (0.4-1.0) mg/dL Estimated GFR (MDRD) (>89) Glucose (70-100) mg/dL POC Whole Bld Glucose (70 - 100) mg/dL Calcium (8.5-10.3) mg/dL Phosphorus (2.5-4.6) mg/dL Magnesium (1.7-2.8) mg/dL Iron (28-170) ug/dL Total Bilirubin (0.2-1.0) mg/dL Direct Bilirubin (0.1-0.5) mg/dL AST (10-42) IU/L ALT (10-60) IU/L Alkaline Phosphatase (42-121) IU/L Ammonia (7-35) umol/L Troponin I High Sens (2.3-14.8) ng/L B-Natriuretic Peptide (5-100) pg/mL Total Protein (6.7-8.2) g/dL Albumin (3.2-5.5) g/dL Globulin (2.1-4.2) g/dL Albumin/Globulin Ratio (1.0-2.2) Lipase (22-51) U/L Vitamin B12 (180-914) pg/mL Folate (5.90 - >24.8) ng/mL TSH (0.34-5.60) uIU/mL Cortisol ug/dL Nasal Adenovirus (PCR) NOT DETECTED Nasal B. parapertussis DNA (PCR) NOT DETECTED Nasal Coronavir 229E PCR NOT DETECTED Nasal Coronavir HKU1 PCR NOT DETECTED Nasal Coronavir NL63 PCR NOT DETECTED Nasal Coronavir OC43 PCR NOT DETECTED Nasal Enterovir/Rhinovir PCR NOT DETECTED Nasal Influenza B PCR NOT DETECTED Nasal Influenza A PCR NOT DETECTED Nasal Parainfluen 1 PCR NOT DETECTED Nasal Parainfluen 2 PCR NOT DETECTED Nasal Parainfluen 3 PCR NOT DETECTED Nasal Parainfluen 4 PCR NOT DETECTED Nasal RSV (PCR) NOT DETECTED Nasal Screen MRSA (PCR) (NEGATIVE) Nasal B.pertussis DNA PCR NOT DETECTED Nasal C.pneumoniae (PCR) NOT DETECTED [place] Human Metapneumo PCR NOT DETECTED Nasal M.pneumoniae (PCR) NOT DETECTED Nasal SARS-CoV-2 (PCR) NOT DETECTED Blood Type Blood Type Recheck O POSITIVE Antibody Screen Crossmatch IS Only 09/10/20 09/10/20 09/10/20 Range/Units 12:19 12:19 12:19 WBC (4.8-10.8) x10^3/uL RBC (4.20-5.40) 10^6/uL Hgb (12.0-16.0) g/dL Hct (37.0-47.0) % MCV (81.0-99.0) fL MCH (27.0-31.0) pg MCHC (32.0-36.0) g/dL RDW (12.0-15.0) % Plt Count (130-450) 10^3/uL MPV (7.9-10.8) fL Neut # (Auto) (1.5-6.6) 10^3/uL Lymph # (Auto) (1.5-3.5) 10^3/uL [place] # (Auto) (0.0-1.0) 10^3/uL Eos # (Auto) (0.0-0.7) 10^3/uL Baso # (Auto) (0.0-0.1) 10^3/uL Absolute Nucleated RBC x10^3/uL Nucleated RBC % /100WBC Manual Slide Review Platelet Estimate (NORMAL) Platelet Morphology (NORMAL) RBC Morph Micro Appear (NORMAL) PT (9.9-12.6) secs INR (0.8-1.2) APTT (24.9-33.3) secs Sodium (135-145) mmol/L Potassium (3.5-5.0) mmol/L Chloride (101-111) mmol/L Carbon Dioxide (21-32) mmol/L Anion Gap (6-13) BUN (6-20) mg/dL Creatinine (0.4-1.0) mg/dL Estimated GFR (MDRD) (>89) Glucose (70-100) mg/dL POC Whole Bld Glucose (70 - 100) mg/dL Calcium (8.5-10.3) mg/dL Phosphorus (2.5-4.6) mg/dL Magnesium (1.7-2.8) mg/dL Iron 156 (28-170) ug/dL Total Bilirubin (0.2-1.0) mg/dL Direct Bilirubin (0.1-0.5) mg/dL AST (10-42) IU/L ALT (10-60) IU/L Alkaline Phosphatase (42-121) IU/L Ammonia (7-35) umol/L Troponin I High Sens (2.3-14.8) ng/L B-Natriuretic Peptide 71 (5-100) pg/mL Total Protein (6.7-8.2) g/dL Albumin (3.2-5.5) g/dL Globulin (2.1-4.2) g/dL Albumin/Globulin Ratio (1.0-2.2) Lipase (22-51) U/L Vitamin B12 1089 H (180-914) pg/mL Folate 2.51 L (5.90 - >24.8) ng/mL TSH (0.34-5.60) uIU/mL Cortisol ug/dL Nasal Adenovirus (PCR) Nasal B. parapertussis DNA (PCR) Nasal Coronavir 229E PCR Nasal Coronavir HKU1 PCR Nasal Coronavir NL63 PCR Nasal Coronavir OC43 PCR Nasal Enterovir/Rhinovir PCR Nasal Influenza B PCR Nasal Influenza A PCR Nasal Parainfluen 1 PCR Nasal Parainfluen 2 PCR Nasal Parainfluen 3 PCR Nasal Parainfluen 4 PCR Nasal RSV (PCR) Nasal Screen MRSA (PCR) (NEGATIVE) Nasal B.pertussis DNA PCR Nasal C.pneumoniae (PCR) [place] Human Metapneumo PCR Nasal M.pneumoniae (PCR) Nasal SARS-CoV-2 (PCR) Blood Type Blood Type Recheck Antibody Screen Crossmatch IS Only 05/16/21 05/16/21 05/16/21 Range/Units 12:19 12:19 12:19 WBC (4.8-10.8) x10^3/uL RBC (4.20-5.40) 10^6/uL Hgb (12.0-16.0) g/dL Hct (37.0-47.0) % MCV (81.0-99.0) fL MCH (27.0-31.0) pg MCHC (32.0-36.0) g/dL RDW (12.0-15.0) % Plt Count (130-450) 10^3/uL MPV (7.9-10.8) fL Neut # (Auto) (1.5-6.6) 10^3/uL Lymph # (Auto) (1.5-3.5) 10^3/uL [place] # (Auto) (0.0-1.0) 10^3/uL Eos # (Auto) (0.0-0.7) 10^3/uL Baso # (Auto) (0.0-0.1) 10^3/uL Absolute Nucleated RBC x10^3/uL Nucleated RBC % /100WBC Manual Slide Review Platelet Estimate (NORMAL) Platelet Morphology (NORMAL) RBC Morph Micro Appear (NORMAL) PT (9.9-12.6) secs INR (0.8-1.2) APTT (24.9-33.3) secs Sodium 133 L (135-145) mmol/L Potassium 3.4 L (3.5-5.0) mmol/L Chloride 89 L (101-111) mmol/L Carbon Dioxide 26 (21-32) mmol/L Anion Gap 18.0 H (6-13) BUN 12 (6-20) mg/dL Creatinine 0.7 (0.4-1.0) mg/dL Estimated GFR (MDRD) 84 L (>89) Glucose 128 H (70-100) mg/dL POC Whole Bld Glucose (70 - 100) mg/dL Calcium 8.0 L (8.5-10.3) mg/dL Phosphorus (2.5-4.6) mg/dL Magnesium 1.2 L (1.7-2.8) mg/dL Iron (28-170) ug/dL Total Bilirubin 2.5 H (0.2-1.0) mg/dL Direct Bilirubin (0.1-0.5) mg/dL AST 119 H (10-42) IU/L ALT 27 (10-60) IU/L Alkaline Phosphatase 122 H (42-121) IU/L Ammonia (7-35) umol/L Troponin I High Sens 5.0 (2.3-14.8) ng/L B-Natriuretic Peptide (5-100) pg/mL Total Protein 5.9 L (6.7-8.2) g/dL Albumin 2.7 L (3.2-5.5) g/dL Globulin 3.2 (2.1-4.2) g/dL Albumin/Globulin Ratio 0.8 L (1.0-2.2) Lipase 27 (22-51) U/L Vitamin B12 (180-914) pg/mL Folate (5.90 - >24.8) ng/mL TSH 2.95 (0.34-5.60) uIU/mL Cortisol 35.5 ug/dL Nasal Adenovirus (PCR) Nasal B. parapertussis DNA (PCR) Nasal Coronavir 229E PCR Nasal Coronavir HKU1 PCR Nasal Coronavir NL63 PCR Nasal Coronavir OC43 PCR Nasal Enterovir/Rhinovir PCR Nasal Influenza B PCR Nasal Influenza A PCR Nasal Parainfluen 1 PCR Nasal Parainfluen 2 PCR Nasal Parainfluen 3 PCR Nasal Parainfluen 4 PCR Nasal RSV (PCR) Nasal Screen MRSA (PCR) (NEGATIVE) Nasal B.pertussis DNA PCR Nasal C.pneumoniae (PCR) [place] Human Metapneumo PCR Nasal M.pneumoniae (PCR) Nasal SARS-CoV-2 (PCR) Blood Type Blood Type Recheck Antibody Screen Crossmatch IS Only 09/10/20 09/10/20 Range/Units 12:19 12:15 WBC 8.6 (4.8-10.8) x10^3/uL RBC 1.37 L (4.20-5.40) 10^6/uL Hgb 5.1 L* (12.0-16.0) g/dL Hct 15.7 L* (37.0-47.0) % MCV 114.6 H (81.0-99.0) fL MCH 37.2 H (27.0-31.0) pg MCHC 32.5 (32.0-36.0) g/dL RDW 14.7 (12.0-15.0) % Plt Count 91 L (130-450) 10^3/uL MPV 9.4 (7.9-10.8) fL Neut # (Auto) 7.4 H (1.5-6.6) 10^3/uL Lymph # (Auto) 0.7 L (1.5-3.5) 10^3/uL [place] # (Auto) 0.4 (0.0-1.0) 10^3/uL Eos # (Auto) 0.0 (0.0-0.7) 10^3/uL Baso # (Auto) 0.1 (0.0-0.1) 10^3/uL Absolute Nucleated RBC 0.00 x10^3/uL Nucleated RBC % 0.0 /100WBC Manual Slide Review Indicated Platelet Estimate DECREASED (<130,000) (NORMAL) Platelet Morphology NORMAL APPEARANCE (NORMAL) RBC Morph Micro Appear 1+ POLYCHROMASIA (NORMAL) PT (9.9-12.6) secs INR (0.8-1.2) APTT (24.9-33.3) secs Sodium (135-145) mmol/L Potassium (3.5-5.0) mmol/L Chloride (101-111) mmol/L Carbon Dioxide (21-32) mmol/L Anion Gap (6-13) BUN (6-20) mg/dL Creatinine (0.4-1.0) mg/dL Estimated GFR (MDRD) (>89) Glucose (70-100) mg/dL POC Whole Bld Glucose (70 - 100) mg/dL Calcium (8.5-10.3) mg/dL Phosphorus 3.3 (2.5-4.6) mg/dL Magnesium (1.7-2.8) mg/dL Iron (28-170) ug/dL Total Bilirubin (0.2-1.0) mg/dL Direct Bilirubin (0.1-0.5) mg/dL AST (10-42) IU/L ALT (10-60) IU/L Alkaline Phosphatase (42-121) IU/L Ammonia (7-35) umol/L Troponin I High Sens (2.3-14.8) ng/L B-Natriuretic Peptide (5-100) pg/mL Total Protein (6.7-8.2) g/dL Albumin (3.2-5.5) g/dL Globulin (2.1-4.2) g/dL Albumin/Globulin Ratio (1.0-2.2) Lipase (22-51) U/L Vitamin B12 (180-914) pg/mL Folate (5.90 - >24.8) ng/mL TSH (0.34-5.60) uIU/mL Cortisol ug/dL Nasal Adenovirus (PCR) Nasal B. parapertussis DNA (PCR) Nasal Coronavir 229E PCR Nasal Coronavir HKU1 PCR Nasal Coronavir NL63 PCR Nasal Coronavir OC43 PCR Nasal Enterovir/Rhinovir PCR Nasal Influenza B PCR Nasal Influenza A PCR Nasal Parainfluen 1 PCR Nasal Parainfluen 2 PCR Nasal Parainfluen 3 PCR Nasal Parainfluen 4 PCR Nasal RSV (PCR) Nasal Screen MRSA (PCR) (NEGATIVE) Nasal B.pertussis DNA PCR Nasal C.pneumoniae (PCR) [place] Human Metapneumo PCR Nasal M.pneumoniae (PCR) Nasal SARS-CoV-2 (PCR) Blood Type Blood Type Recheck Antibody Screen Crossmatch IS Only Assessment/Plan - Problem List (1) Upper GI bleeding Impression: The concern was for an upper GI bleed as a cause of her acute blood loss anemia given she had melena and coffee-ground emesis. She was quite tachycardic yesterday but this is improved today. EGD today showed gastritis but no obvious varices. There were no further episodes of bleeding since admission. We will keep her on twice daily IV PPI for the time being. We will discontinue octreotide given no evidence of varices. We will also discontinue the ceftriaxone IV. We will continue to trend her hemoglobin. The plan is for colonoscopy this afternoon to evaluate the potential cecal mass. (2) Acute blood loss anemia Impression: This was felt to be secondary to an upper GI bleed given her presentation. She responded well to 3 units of packed red blood cells but hemoglobin is still slightly decreasing. She still remains above 7 and has been no further evidence of bleeding. Endoscopy revealed gastritis as mentioned above. The plan to trend her hemoglobin every 8 hours and transfuse for goal hemoglobin greater than 7. Plan is for colonoscopy this afternoon. SCDs for DVT prophylaxis. (3) Alcoholic cirrhosis of liver Impression: Fortunately there is no evidence of varices on endoscopy. Her liver enzymes are stable. I counseled her today for over 15 minutes on the importance of alcohol cessation if she would want to be considered for potential liver transplant. I have consulted social work to provide her with resources regarding alcohol cessation. We have her on an antibiotic and will monitor for evidence of withdrawal with [facility] protocol. Qualifiers: Ascites presence: without ascites Qualified Code(s): K70.30 - Alcoholic cirrhosis of liver without ascites (4) Alcohol abuse Impression: She was counseled on alcohol cessation today for more than 15 minutes. Social work has been consulted. She is on CIWA protocol. (5) Cecum mass Impression: There was cecal wall thickening on the CT which was concerning for potential ma ss. Unfortunately the bowel prep was poor this morning and so an attempt at a colonoscopy will be repeated this afternoon. (6) Liver lesion, right lobe Impression: This is concerning for potential metastatic disease if she does have a cecal mass. She will need consideration of biopsy on an outpatient basis with interventional radiology. (7) Thrombocytopenia Impression: Her platelet count is decreased this morning down to the 50s from 90s on admission. This is likely related to her cirrhosis. We will transfuse for goal greater than 50 given the concern for GI bleed. We will recheck a platelet count this afternoon. (8) Elevated INR Impression: This is secondary to her cirrhosis. Her INR is improved to 1.4 today. We will continue to monitor given the GI bleed. (9) Hypertension Impression: She is normotensive today. We will continue to hold her hydrochlorothiazide and bisoprolol. We will resume when clinically appropriate. (10) Neuropathy Impression: Stable. We will resume her duloxetine once she is taking p.o. (11) Altered mental status Impression: She was a little altered yesterday in the emergency department but she appears much improved today. She is not tremulous and is no longer restless. There was concern that she may have been going to alcohol withdrawal but she has only required minimal Ativan. Her ammonia was within normal limits. We will continue to monitor her neuro status and monitor for evidence of alcohol withdrawal.
[2020-09-11 14:40] LABS: HCT - HEMATOCRIT 24.4 % (37.0-47.0); HGB - HEMOGLOBIN 8.4 g/dL (12.0-16.0)
[2020-09-11 22:20] LABS: HGB - HEMOGLOBIN 7.5 g/dL (12.0-16.0)
[2020-09-12] MEDS: SODIUM CHLORIDE FLUSH 0.9% 10 ML SYRINGE IVP SCH ×3 (00:09→18:42)
[2020-09-12] MEDS: ACETAMINOPHEN 325 MG TABLET PO PRN ×2 (00:09→19:10)
[2020-09-12] MEDS: LORazepam 2 MG/ML VIAL IVP PRN ×8 (01:48→20:02)
[2020-09-12] MEDS: DEXTROSE 5%-0.9% NACL 1,000 ML IV SCH ×2 (03:09→06:58)
[2020-09-12 05:43] LABS: BASOPHILS % (AUTO) 1.2 %; EOSINOPHILS # (AUTO) 0.1 10^3/uL (0.0-0.7); HCT - HEMATOCRIT 21.8 % (37.0-47.0); HGB - HEMOGLOBIN 7.4 g/dL (12.0-16.0); LYMPHOCYTES # (AUTO) 0.9 10^3/uL (1.5-3.5); LYMPHOCYTES % (AUTO) 24.9 %; MEAN CORPUSCULAR HEMOGLOBIN 34.7 pg (27.0-31.0); MEAN CORPUSCULAR HGB CONC 33.9 g/dL (32.0-36.0); MEAN CORPUSCULAR VOLUME 102.3 fL (81.0-99.0); MEAN PLATELET VOLUME 9.8 fL (7.9-10.8); MONOCYTES # (AUTO) 0.1 10^3/uL (0.0-1.0); MONOCYTES % (AUTO) 4.1 %; NEUTROPHILS # (AUTO) 2.3 10^3/uL (1.5-6.6); NEUTROPHILS % (AUTO) 67.2 %; PLT - PLATELET COUNT 50 10^3/uL (130-450); RED BLOOD COUNT 2.13 10^6/uL (4.20-5.40); RED CELL DISTRIBUTION WIDTH 19.9 % (12.0-15.0); WHITE BLOOD COUNT 3.5 x10^3/uL (4.8-10.8)
[2020-09-12 05:49] LABS: INR 1.4 (0.8-1.2); PT - PROTHROMBIN TIME 15.7 secs (9.9-12.6)
[2020-09-12 05:55] LABS: ALBUMIN 2.9 g/dL (3.2-5.5); BILIRUBIN,DIRECT 1.1 mg/dL (0.1-0.5); BILIRUBIN,TOTAL 2.5 mg/dL (0.2-1.0); CALCIUM 7.4 mg/dL (8.5-10.3); CREATININE 0.8 mg/dL (0.4-1.0); MAGNESIUM 1.5 mg/dL (1.7-2.8); PHOSPHORUS 1.4 mg/dL (2.5-4.6); POTASSIUM 3.2 mmol/L (3.5-5.0); TOTAL PROTEIN 6.1 g/dL (6.7-8.2)
[2020-09-12] MEDS ORDERED: MAGNESIUM SULFATE 2 GRAM 2 GM/50 ML BAG IV ONE (06:02)
[2020-09-12 06:22] LABS: CALCIUM, IONIZED 0.99 mmol/L (1.15-1.33); VBG PH 7.376 (7.31-7.41)
[2020-09-12] MEDS ORDERED: POTASSIUM CHLOR 10 MEQ/100 ML 10 MEQ/100 ML BAG IV SCH (07:00)
[2020-09-12] MEDS ORDERED: CALCIUM GLUCONATE 2,000 MG in SODIUM CHLORIDE 0.9% 100ML 100 ML IV ONE ×5 (08:00→17:00)
[2020-09-12] MEDS: PANTOPRAZOLE 40 MG VIAL IVP SCH ×2 (08:16→20:22)
[2020-09-12] MEDS: SODIUM CHLORIDE FLUSH 0.9% 10 ML SYRINGE IVP PRN ×5 (08:16→20:22)
[2020-09-12] MEDS: ethyl alcohoL 62% SWAB AMPULE NAS SCH ×2 (08:17→20:22)
--- NOTE | 2020-09-12 08:46 | PROVIDER PROGRESS NOTE ---
Assessment/Plan - Problem List (1) Upper GI bleeding Assessment/Plan: The concern was for an upper GI bleed as a cause of her acute blood loss anemia given she had melena and coffee-ground emesis. She was quite tachycardic yesterday but this is improved today. EGD today showed gastritis but no obvious varices. There were no further episodes of bleeding since admission. We will keep her on twice daily IV PPI for the time being. We will discontinue octreotide given no evidence of varices. We will also discontinue the ceftriaxone IV. We will continue to trend her hemoglobin. The plan is for colonoscopy this afternoon to evaluate the potential cecal mass. (2) Acute blood loss anemia Assessment/Plan: This was felt to be secondary to an upper GI bleed given her presentation. She responded well to 3 units of packed red blood cells but hemoglobin is still slightly decreasing. She still remains above 7 and has been no further evidence of bleeding. Endoscopy revealed gastritis as mentioned above. The plan to trend her hemoglobin every 8 hours and transfuse for goal hemoglobin greater than 7. Plan is for colonoscopy this afternoon. SCDs for DVT prophylaxis, no anticoagulants. (3) Alcoholic cirrhosis of liver Qualifiers: Ascites presence: without ascites Qualified Code(s): K70.30 - Alcoholic cirrhosis of liver without ascites Assessment/Plan: Fortunately there is no evidence of varices on endoscopy. Her liver enzymes are stable but abnormal. She had been counseled by the last Hospitalist on the importance of alcohol cessation. Social work also consulted to provide her with resources regarding alcohol cessation. Following plts q12 h, INR daily, ammonia intermittently. Managing withdrawal with CIWA protocol. (4) Alcohol abuse Impression: Today she is going through alcohol withdrawal; she is confused (thinks she is at home), is anxious and fidgity, but not tachycardic. She is on CIWA protocol, Ativan has been administered. Will add scheduled oral Librium. She was counseled on alcohol cessation. Social work has been consulted. (5) Cecum mass Impression: There was cecal wall thickening on the CT which was concerning for potential mass. Unfortunately the bowel prep was poor yesterday and so an attempt at a colonoscopy will be repeated this afternoon. (6) Liver lesion, right lobe Impression: This is concerning for potential metastatic disease if she does have a cecal mass. She will need consideration of biopsy on an outpatient basis with interventional radiology. (7) Thrombocytopenia Impression: Her platelet count is down to the 50s from 90s on admission. This is likely related to her alcoholic liver cirrhosis. Watching plts daily. We will transfuse for goal equal to or greater than 50, given the concern for GI bleed. (8) Elevated INR Impression: This is also secondary to her cirrhosis. We will continue to monitor given the GI bleed. (9) Hypertension Impression: She is normotensive today, possibly due to anemia. We will continue to hold her hydrochlorothiazide and bisoprolol. We will resume when clinically appropriate. (10) Neuropathy Impression: Stable. We will resume her duloxetine once she is taking p.o. (11) Alcohol withdrawal Impression: She was a little altered in the emergency department 2 days ago and today is restless and confused, also fidgity and scoring higher on CIWA protocol, consistent with alcohol withdrawal, requiring Ativan. Will watch ammonia level intermittently. Will strart scheduled Librium. (12) Severe protein calorie malnutrition Patient has documented significant muscle wasting, loss of subcutaneous fat. No intake of less than 50% of recommended for 2 weeks or more. There has been weight loss of 25% in the past 6 months (about 30 pound weight loss). Dietary is following along. - Current Meds Current Meds: Current Medications Generic Name Dose Route Start Last Admin Trade Name Raymundoq PRN Reason Stop Dose Admin Acetaminophen 650 mg 09/10/20 17:56 09/12/20 00:09 Acetaminophen 325 Mg Tablet PO 650 mg Q4HR PRN Administration Pain 1 to 4 Alcohol 1 amp 09/11/20 01:00 09/12/20 08:17 Ethyl Alcohol 62% Swab Ampule MARCO ANTONIO 1 amp BID DIPTI Administration Multivitamins 10 ml/ Thiamine 1,011.2 mls @ 100 mls/hr 09/10/20 17:59 09/11/20 21:26 HCl 100 mg/ Folic Acid 1 mg/ IV Infused Sodium Chloride DAILY DIPTI Infusion Dextrose/Sodium Chloride 1,000 mls @ 83.333 mls/hr 09/11/20 01:00 09/12/20 06:58 D5ns IV 83.3 mls/hr .Q12H DIPTI Administration Calcium Gluconate 2,000 mg/ 120 mls @ 120 mls/hr 09/12/20 08:00 09/12/20 08:26 Sodium Chloride IV 09/12/20 08:59 120 mls/hr ONCE ONE Administration Protocol Lorazepam 1 mg 09/10/20 17:59 09/12/20 08:07 Lorazepam 2 Mg/Ml Vial IVP 1 mg Q30M PRN Administration CIWA >8 Protocol Pantoprazole Sodium 40 mg 09/10/20 21:00 09/12/20 08:16 Pantoprazole 40 Mg Vial IVP 40 mg BID DIPTI Administration Sodium Chloride 10 ml 09/11/20 01:00 09/12/20 07:44 Sodium Chloride Flush 0.9% 10 Ml Syringe IVP 10 ml 0100,0900,1700 DIPTI Administration Sodium Chloride 10 ml 09/10/20 17:56 09/12/20 08:16 Sodium Chloride Flush 0.9% 10 Ml Syringe IVP 40 ml PRN PRN Administration NEEDED PER PROVIDER ORDERS - Lab Result Fish Bone Diagrams: 09/12/20 12:13 09/12/20 05:34 - Additional Planning My Orders: My Active Orders 09/12/20 07:00 AMMONIA [CHEM] Routine 09/12/20 13:00 CBC W/O DIFF (HEMOGRAM) [HEME] Timed Subjective - Subjective Patient Reports: Other (Sleeping, after getting iv Ativan on CIWA protocol.) Objective Vital Signs: Vital Signs - 24 hr 09/11/20 09/11/20 09/11/20 08:47 09:00 10:00 Temperature Heart Rate [ 91 94 Monitoring electrodes] Respiratory 14 17 Rate Blood Pressure 107/76 Blood Pressure 106/73 111/77 [Left Brachial artery] O2 Saturation 94 95 09/11/20 09/11/20 09/11/20 11:00 12:00 13:00 Temperature Heart Rate [ 91 89 89 Monitoring electrodes] Respiratory 17 16 18 Rate Blood Pressure Blood Pressure 111/70 95/76 135/65 H [Left Brachial artery] O2 Saturation 96 94 91 L 09/11/20 09/11/20 09/11/20 14:00 15:00 16:00 Temperature 37.2 C Heart Rate [ 90 86 89 Monitoring electrodes] Respiratory 19 17 19 Rate Blood Pressure Blood Pressure 125/75 119/74 140/72 H [Left Brachial artery] O2 Saturation 94 93 97 09/11/20 09/11/20 09/11/20 17:00 18:00 19:00 Temperature Heart Rate [ 90 94 95 Monitoring electrodes] Respiratory 16 15 22 Rate Blood Pressure Blood Pressure 132/91 H 112/83 H 136/79 H [Left Brachial artery] O2 Saturation 94 94 95 09/11/20 09/11/20 09/11/20 20:00 21:00 22:00 Temperature 37.7 C Heart Rate [ 89 87 95 Monitoring electrodes] Respiratory 22 17 26 H Rate Blood Pressure Blood Pressure 142/77 H 116/65 132/75 H [Left Brachial artery] O2 Saturation 95 95 09/11/20 09/12/20 09/12/20 23:00 00:15 01:00 Temperature 37.6 C Heart Rate [ 90 88 91 Monitoring electrodes] Respiratory 11 L 19 17 Rate Blood Pressure Blood Pressure 149/75 H 127/75 119/64 [Left Brachial artery] O2 Saturation 96 98 94 09/12/20 09/12/20 09/12/20 02:00 03:00 04:00 Temperature Heart Rate [ 82 94 81 Monitoring electrodes] Respiratory 16 22 19 Rate Blood Pressure Blood Pressure 111/69 127/80 135/81 H [Left Brachial artery] O2 Saturation 93 96 95 09/12/20 09/12/20 09/12/20 05:00 06:00 06:20 Temperature 36.8 C Heart Rate [ 100 90 86 Monitoring electrodes] Respiratory 15 19 18 Rate Blood Pressure Blood Pressure 143/73 H 125/80 [Left Brachial artery] O2 Saturation 94 99 94 09/12/20 09/12/20 09/12/20 07:00 07:23 07:58 Temperature 37.0 C Heart Rate [ 91 86 Monitoring electrodes] Respiratory 29 H 18 Rate Blood Pressure Blood Pressure 120/87 H [Left Brachial artery] O2 Saturation 95 100 09/12/20 08:00 Temperature 37.0 C Heart Rate [ 86 Monitoring electrodes] Respiratory 16 Rate Blood Pressure Blood Pressure 129/69 [Left Brachial artery] O2 Saturation 94 Oxygen O2 Source Room air I&O (Last 24 Hrs): Intake and Output Totals x24h 09/10/20 09/11/20 09/12/20 23:59 23:59 23:59 Intake Total 2747.167 5324.732 1129.168 Output Total 575 Balance 2747.167 4749.732 1129.168 General: Other (Lethargic (got iv Ativan)) HEENT: Atraumatic, Mucous membr. moist/pink Neck: Supple, No JVD Neuro: Non Focal, Other (Sleepy) Cardiovascular: Regular rate, No murmurs Respiratory: No respiratory distress, Breath sounds nml Abdomen: Normal bowel sounds, Soft Extremities: No edema - Results Results: Laboratory Results WBC 3.5 x10^3/uL (4.8-10.8) L 09/12/20 05:34 RBC 2.13 10^6/uL (4.20-5.40) L 09/12/20 05:34 Hgb 7.4 g/dL (12.0-16.0) L 09/12/20 05:34 Hct 21.8 % (37.0-47.0) L 09/12/20 05:34 MCV 102.3 fL (81.0-99.0) H 09/12/20 05:34 MCH 34.7 pg (27.0-31.0) H 09/12/20 05:34 MCHC 33.9 g/dL (32.0-36.0) 09/12/20 05:34 RDW 19.9 % (12.0-15.0) H 09/12/20 05:34 Plt Count 50 10^3/uL (130-450) L 09/12/20 05:34 MPV 9.8 fL (7.9-10.8) 09/12/20 05:34 Neut # (Auto) 2.3 10^3/uL (1.5-6.6) 09/12/20 05:34 Lymph # (Auto) 0.9 10^3/uL (1.5-3.5) L 09/12/20 05:34 Yates # (Auto) 0.1 10^3/uL (0.0-1.0) 09/12/20 05:34 Eos # (Auto) 0.1 10^3/uL (0.0-0.7) 09/12/20 05:34 Baso # (Auto) 0.0 10^3/uL (0.0-0.1) 09/12/20 05:34 Absolute Nucleated RBC 0.00 x10^3/uL 09/12/20 05:34 Nucleated RBC % 0.0 /100WBC 09/12/20 05:34 Manual Slide Review Indicated 09/10/20 12:19 Platelet Estimate DECREASED (<130,000) (NORMAL) 09/10/20 12:19 Platelet Morphology NORMAL APPEARANCE (NORMAL) 09/10/20 12:19 RBC Morph Micro Appear 3+ MACROCYTOSIS (NORMAL) 1+ POLYCHROMASIA (NORMAL) 09/10/20 12:19 RBC Morph Micro Appear 3+ MACROCYTOSIS (NORMAL) 1+ POLYCHROMASIA (NORMAL) 09/10/20 12:19 PT 15.7 secs (9.9-12.6) H 09/12/20 05:34 INR 1.4 (0.8-1.2) H 09/12/20 05:34 APTT 30.2 secs (24.9-33.3) 09/10/20 12:19 VBG pH 7.376 (7.31-7.41) 09/12/20 06:15 Ionized Calcium 0.99 mmol/L (1.15-1.33) L 09/12/20 06:15 Sodium 135 mmol/L (135-145) 09/12/20 05:34 Potassium 3.2 mmol/L (3.5-5.0) L 09/12/20 05:34 Chloride 102 mmol/L (101-111) 09/12/20 05:34 Carbon Dioxide 22 mmol/L (21-32) 09/12/20 05:34 Anion Gap 11.0 (6-13) 09/12/20 05:34 BUN 10 mg/dL (6-20) 09/12/20 05:34 Creatinine 0.8 mg/dL (0.4-1.0) 09/12/20 05:34 Estimated GFR (MDRD) 72 (>89) L 09/12/20 05:34 Glucose 135 mg/dL (70-100) H 09/12/20 05:34 POC Whole Bld Glucose 106 mg/dL (70 - 100) H 09/12/20 00:12 Calcium 7.4 mg/dL (8.5-10.3) L 09/12/20 05:34 Phosphorus 1.4 mg/dL (2.5-4.6) L 09/12/20 05:34 Magnesium 1.5 mg/dL (1.7-2.8) L 09/12/20 05:34 Iron 156 ug/dL (28-170) 09/10/20 12:19 Total Bilirubin 2.5 mg/dL (0.2-1.0) H 09/12/20 05:34 Direct Bilirubin 1.1 mg/dL (0.1-0.5) H 09/12/20 05:34 AST 113 IU/L (10-42) H 09/12/20 05:34 ALT 27 IU/L (10-60) 09/12/20 05:34 Alkaline Phosphatase 99 IU/L (42-121) 09/12/20 05:34 Ammonia 25.3 umol/L (7-35) 09/10/20 18:10 Troponin I High Sens 5.0 ng/L (2.3-14.8) 09/10/20 12:19 B-Natriuretic Peptide 71 pg/mL (5-100) 09/10/20 12:19 Total Protein 6.1 g/dL (6.7-8.2) L 09/12/20 05:34 Albumin 2.9 g/dL (3.2-5.5) L 09/12/20 05:34 Globulin 3.2 g/dL (2.1-4.2) 09/12/20 05:34 Albumin/Globulin Ratio 0.8 (1.0-2.2) L 09/10/20 12:19 Lipase 27 U/L (22-51) 09/10/20 12:19 Vitamin B12 1089 pg/mL (180-914) H 09/10/20 12:19 Folate 2.51 ng/mL (5.90 - >24.8) L 09/10/20 12:19 TSH 2.95 uIU/mL (0.34-5.60) 09/10/20 12:19 Cortisol 35.5 ug/dL 09/10/20 12:19 Nasal Adenovirus (PCR) NOT DETECTED 09/10/20 13:02 Nasal B. parapertussis DNA (PCR) NOT DETECTED 09/10/20 13:02 Nasal Coronavir 229E PCR NOT DETECTED 09/10/20 13:02 Nasal Coronavir HKU1 PCR NOT DETECTED 09/10/20 13:02 Nasal Coronavir NL63 PCR NOT DETECTED 09/10/20 13:02 Nasal Coronavir OC43 PCR NOT DETECTED 09/10/20 13:02 Nasal Enterovir/Rhinovir PCR NOT DETECTED 09/10/20 13:02 Nasal Influenza B PCR NOT DETECTED 09/10/20 13:02 Nasal Influenza A PCR NOT DETECTED 09/10/20 13:02 Nasal Parainfluen 1 PCR NOT DETECTED 09/10/20 13:02 Nasal Parainfluen 2 PCR NOT DETECTED 09/10/20 13:02 Nasal Parainfluen 3 PCR NOT DETECTED 09/10/20 13:02 Nasal Parainfluen 4 PCR NOT DETECTED 09/10/20 13:02 Nasal RSV (PCR) NOT DETECTED 09/10/20 13:02 Nasal Screen MRSA (PCR) POSITIVE (NEGATIVE) A* 09/10/20 19:25 Nasal B.pertussis DNA PCR NOT DETECTED 09/10/20 13:02 Nasal C.pneumoniae (PCR) NOT DETECTED 09/10/20 13:02 Marco Antonio Human Metapneumo PCR NOT DETECTED 09/10/20 13:02 Nasal M.pneumoniae (PCR) NOT DETECTED 09/10/20 13:02 Nasal SARS-CoV-2 (PCR) NOT DETECTED 09/10/20 13:02 Blood Type O POSITIVE 09/10/20 13:22 Blood Type Recheck O POSITIVE 09/10/20 12:19 Antibody Screen NEGATIVE 09/10/20 13:22 Crossmatch IS Only See Detail 09/10/20 13:22
[2020-09-12] MEDS ORDERED: POTASSIUM PHOSPHATE 21 MMOL in SODIUM CHLORIDE 0.9% 250 ML IV ONE (09:00)
[2020-09-12] MEDS: MULTIVITAMIN 10 ML, THIAMINE INJ 100 MG, FOLIC ACID INJ 1 MG in SODIUM CHLORIDE 0.9% 1,... IV SCH (09:40)
--- NOTE | 2020-09-12 10:18 | ANESTHESIA ---
Pre-Anesthesia VS, & Labs - Diagnosis Diagnosis 1. Liver cirrhosis 2. Gastrointestinal bleed 3. Altered mental status 4. Hepatic mass 5. Cecal thickening - Procedure colonoscopy s/p failed colonoscopy r/t prep Vital Signs: Temp Pulse Resp BP Pulse Ox 37.0 C 78 18 135/68 H 96 09/12/20 08:00 09/12/20 10:00 09/12/20 10:00 09/12/20 10:00 09/12/20 10:00 Height: 5 ft 4 in Weight (kg): 50 kg Body Mass Index: 18.9 BMI Classification: Healthy weight - NPO >8 hours - Is Patient ?: No - Lab Results Current Lab Results: Laboratory Tests 09/12/20 06:15: VBG pH 7.376, Ionized Calcium 0.99 L 09/12/20 05:34: Sodium 135, Potassium 3.2 L, Chloride 102, Carbon Dioxide 22, Anion Gap 11.0, BUN 10, Creatinine 0.8, Estimated GFR (MDRD) 72 L, Glucose 135 H , Calcium 7.4 L, Phosphorus 1.4 L, Magnesium 1.5 L, Total Bilirubin 2.5 H, Direct Bilirubin 1.1 H, AST 113 H, ALT 27, Alkaline Phosphatase 99, Total Protein 6.1 L, Albumin 2.9 L, Globulin 3.2 09/12/20 05:34: PT 15.7 H, INR 1.4 H 09/12/20 05:34: WBC 3.5 L, RBC 2.13 L, Hgb 7.4 L, Hct 21.8 L, MCV 102.3 H, MCH 34.7 H, MCHC 33.9, RDW 19.9 H, Plt Count 50 L, MPV 9.8, Neut # (Auto) 2.3, Lymph # (Auto) 0.9 L, Brooks # (Auto) 0.1, Eos # (Auto) 0.1, Baso # (Auto) 0.0, Absolute Nucleated RBC 0.00, Nucleated RBC % 0.0 09/12/20 00:12: POC Whole Bld Glucose 106 H 09/11/20 22:16: Hgb 7.5 L, Hct 22.0 L 09/11/20 18:14: POC Whole Bld Glucose 79 09/11/20 14:30: Plt Count 67 L 09/11/20 14:30: Hgb 8.4 L, Hct 24.4 L 09/11/20 12:52: POC Whole Bld Glucose 97 09/11/20 04:42: Sodium 137, Potassium 3.7, Chloride 100 L, Carbon Dioxide 24, Anion Gap 13.0, BUN 13, Creatinine 0.8, Estimated GFR (MDRD) 72 L, Glucose 110 H , Calcium 7.7 L, Phosphorus 1.5 L, Magnesium 2.2, Total Bilirubin 3.0 H, Direct Bilirubin 1.1 H, AST 111 H, ALT 25, Alkaline Phosphatase 102, Total Protein 6.0 L, Albumin 2.8 L, Globulin 3.2 09/11/20 04:42: PT 15.7 H, INR 1.4 H 09/11/20 04:42: WBC 5.3, RBC 2.28 L, Hgb 7.6 L, Hct 22.5 L, MCV 98.7, MCH 33.3 H , MCHC 33.8, RDW 19.6 H, Plt Count 54 L, MPV 9.9, Neut # (Auto) 4.4, Lymph # (Auto) 0.6 L, Brooks # (Auto) 0.3, Eos # (Auto) 0.0, Baso # (Auto) 0.0, Absolute Nucleated RBC 0.00, Nucleated RBC % 0.0 09/11/20 01:46: Magnesium 2.3 09/11/20 01:46: Hgb 8.2 L, Hct 24.1 L 09/11/20 00:06: POC Whole Bld Glucose 79 09/10/20 18:10: Ammonia 25.3 09/10/20 13:22: Blood Type O POSITIVE, Antibody Screen NEGATIVE, Crossmatch IS Only See Detail 09/10/20 12:19: PT 16.8 H, INR 1.6 H, APTT 30.2 09/10/20 12:19: Blood Type Recheck O POSITIVE 09/10/20 12:19: Vitamin B12 1089 H, Folate 2.51 L 09/10/20 12:19: Iron 156 09/10/20 12:19: B-Natriuretic Peptide 71 09/10/20 12:19: Troponin I High Sens 5.0 09/10/20 12:19: TSH 2.95, Cortisol 35.5 09/10/20 12:19: Sodium 133 L, Potassium 3.4 L, Chloride 89 L, Carbon Dioxide 26, Anion Gap 18.0 H, BUN 12, Creatinine 0.7, Estimated GFR (MDRD) 84 L, Glucose 128 H, Calcium 8.0 L, Magnesium 1.2 L, Total Bilirubin 2.5 H, AST 119 H, ALT 27, A lkaline Phosphatase 122 H, Total Protein 5.9 L, Albumin 2.7 L, Globulin 3.2, Albumin/Globulin Ratio 0.8 L, Lipase 27 09/10/20 12:19: WBC 8.6, RBC 1.37 L, Hgb 5.1 L*, Hct 15.7 L*, MCV 114.6 H, MCH 37.2 H, MCHC 32.5, RDW 14.7, Plt Count 91 L, MPV 9.4, Neut # (Auto) 7.4 H, Lymph # (Auto) 0.7 L, Brooks # (Auto) 0.4, Eos # (Auto) 0.0, Baso # (Auto) 0.1, Absolute Nucleated RBC 0.00, Nucleated RBC % 0.0, Manual Slide Review Indicated, Platelet Estimate DECREASED (<130,000), Platelet Morphology NORMAL APPEARANCE, RBC Morph Micro Appear 1+ POLYCHROMASIA 09/10/20 12:15: Phosphorus 3.3 Lab results reviewed: Yes Fish Bones: 09/12/20 05:34 09/12/20 05:34 Home Medications and Allergies Home Medications: Ambulatory Orders DULoxetine [Cymbalta] 20 mg PO DAILY PM 09/10/20 Hydrochlorothiazide 25 mg PO DAILY 09/10/20 Ondansetron HCl [Zofran] 4 mg PO Q4HR PRN 09/10/20 Potassium Chloride 10 meq PO BID 09/10/20 bisoproloL fumarate [Bisoprolol Fumarate] 5 mg PO DAILY 09/10/20 Active Medications Acetaminophen (Acetaminophen 325 Mg Tablet) 650 mg PO Q4HR PRN PRN Reason: Pain 1 to 4 Last Admin: 09/12/20 00:09 Dose: 650 mg Documented by: Alcohol (Ethyl Alcohol 62% Swab Ampule) 1 amp MARCO ANTONIO BID DIPTI Last Admin: 09/12/20 08:17 Dose: 1 amp Documented by: Chlordiazepoxide HCl (Chlordiazepoxide 5 Mg Capsule) 10 mg PO Q6HR [facility] Multivitamins 10 ml/ Thiamine HCl 100 mg/ Folic Acid 1 mg/Sodium Chloride 1,011.2 mls @ 100 mls/hr IV DAILY [facility] Last Admin: 09/12/20 09:40 Dose: 100 mls/hr Documented by: Dextrose/Sodium Chloride (D5ns) 1,000 mls @ 83.333 mls/hr IV .Q12H [facility] Last Infusion: 09/12/20 09:26 Dose: 0 mls/hr Documented by: Potassium Phosphate 21 mmol/ (Sodium Chloride) 257 mls @ 64 mls/hr IV ONCE ONE; Protocol Stop: 09/12/20 13:00 Last Admin: 09/12/20 09:40 Dose: 64 mls/hr Documented by: Lorazepam (Lorazepam 2 Mg/Ml Vial) 1 mg IVP Q30M PRN; Protocol PRN Reason: CIWA >8 Last Admin: 09/12/20 08:07 Dose: 1 mg Documented by: Morphine Sulfate (Morphine 2 Mg/Ml Carpuject) 2 mg IVP Q2HR PRN PRN Reason: Pain 8 to 10 Ondansetron HCl (Ondansetron 4 Mg/2 Ml Vial) 4 mg IVP Q6HR PRN PRN Reason: Nausea / Vomiting Pantoprazole Sodium (Pantoprazole 40 Mg Vial) 40 mg IVP BID [facility] Last Admin: 09/12/20 08:16 Dose: 40 mg Documented by: Sodium Chloride (Sodium Chloride Flush 0.9% 10 Ml Syringe) 10 ml IVP 01 00,0900,1700 [facility] Last Admin: 09/12/20 07:44 Dose: 10 ml Documented by: Sodium Chloride (Sodium Chloride Flush 0.9% 10 Ml Syringe) 10 ml IVP PRN PRN PRN Reason: NEEDED PER PROVIDER ORDERS Last Admin: 09/12/20 09:44 Dose: 20 ml Documented by: DULoxetine [Cymbalta] 20 mg PO DAILY PM 09/10/20 Hydrochlorothiazide 25 mg PO DAILY 09/10/20 Ondansetron HCl [Zofran] 4 mg PO Q4HR PRN 09/10/20 Potassium Chloride 10 meq PO BID 09/10/20 bisoproloL fumarate [Bisoprolol Fumarate] 5 mg PO DAILY 09/10/20 Allergies/Adverse Reactions: Allergies Allergy/AdvReac Type Severity Reaction Status Date / Time No Known Drug Allergies Allergy Verified 09/10/20 11:55 Anes History & Medical History - Anesthetic History Family history of Anesthesia Complications: Denies Family history of Malignant Hyperthermia: Denies - Medical History Cardiovascular: reports: Hypertension Pulmonary: reports: None Gastrointestinal: reports: Cirrhosis (Secondary to alcoholism.), Other Neuro: reports: Peripheral neuropathy Musculoskeletal: reports: Osteoarthritis, Osteoporosis Endocrine/Autoimmune: reports: None Blood Disorders: reports: Anemia Skin: reports: None Smoking Status: Never smoker Psychosocial: reports: Alcohol - Surgical History General: reports: Colonoscopy Gynecologic: reports: section Exam General: Alert, Oriented x3, Cooperative Dental: WNL Mouth Openin Fingerbreadth Neck Mobility: Normal Mallampati classification: II Thyromental Distance: 4-6 cm Respiratory: Lungs clear, Normal breath sounds, No respiratory distress Cardiovascular: Regular rate Neurological: Normal speech Mental/Cognitive Status: Alert/Oriented X3, Normal for patient Cognitive Status: Within normal limits, Drug/alcohol affected (ativan for withdrawl symptoms, sedate) Plan Anesthesia Type: Total IV Consent for Procedure(s) Verified and Reviewed: Yes Code Status: Attempt Resuscitation ASA classification: 3-Severe systemic disease (verbal consent from via telephone) Is this case an emergency?: No
[2020-09-12] MEDS: chlordiazePOXIDE 5 MG CAPSULE PO SCH ×3 (11:04→23:56)
[2020-09-12] MEDS ORDERED: PROPOFOL 200 MG/20 ML VIAL IVP ONE (12:30)
[2020-09-12 12:59] LABS: HCT - HEMATOCRIT 20.9 % (37.0-47.0); HGB - HEMOGLOBIN 7.1 g/dL (12.0-16.0)
[2020-09-12 13:14] LABS: CALCIUM, IONIZED 0.99 mmol/L (1.15-1.33); VBG PH 7.429 (7.31-7.41)
--- NOTE | 2020-09-12 13:43 | PROVIDER PROGRESS NOTE ---
Progress Note Patient status post second attempted colonoscopy after first revealed poor prep with inability to proceed. Patient admitted with gastrointestinal bleed. Multiply transfused. Colonoscopy today as follows: 1. Appropriate prep 2. Ileocecal valve achieved as evidenced by the appendiceal orifice both photographed. 3. Terminal ileum intubated with mild enteritis. Random biopsies taken cold forceps. 4. Cecum extensive cecitis. This is consistent with typhlitis. The remnant of the colon was out colitis. No diverticulosis or diverticulitis. 5. Careful slow withdrawal without any notable pathology other than the typhlitis reported above which was isolated to the cecum and was biopsied cold forceps.. 6. No masses or polyps appreciated. Mildly tortuous colon 7. Rectum without proctitis. Sigmoid without diverticulosis. No diverticulitis. 8. Internal hemorrhoids nonbleeding. 65-year-old female with typhlitis and however no immunocompromise state. Given the patient's weight loss would consider the followin. Work-up for occult malignancy to include CT of the chest has been negative 2. CT abdomen pelvis revealed cecal thickening however there is no correlate of malignancy on today's colonoscopy other than typhlitis 3. Recommend HIV test. 4. Bowel rest and continued expectant management. 5. Outpatient oncology follow-up.
--- NOTE | 2020-09-12 15:16 | ANESTHESIA POST OP EVALUATION ---
Anesthesia Post Eval - Post Anesthesia Eval Vitals: Last Vital Signs Temp 36.5 C 09/12/20 11:00 Pulse 79 09/12/20 14:17 Resp 16 09/12/20 14:26 BP 111/77 09/12/20 13:47 Pulse Ox 96 09/12/20 14:26 CV Function Including HR & BP: Stable Pain Control: Satisfactory Nausea & Vomiting: Negative Mental Status: Baseline Respiratory Status: Airway Patent Hydration Status: Satisfactory Anesthesia Complications: None
[2020-09-12] MEDS ORDERED: POTASSIUM CHLORIDE 20 MEQ TABLET PO ONE (16:13)
[2020-09-12] MEDS: CIPROFLOXACIN 400 MG/200 ML 400 MG/200 ML BAG IV SCH (18:29)
[2020-09-12] MEDS: metroNIDAZOLE 500 MG/100 ML 500 MG/100 ML BAG IV SCH (18:32)
[2020-09-12 19:05] LABS: HCT - HEMATOCRIT 22.7 % (37.0-47.0); HGB - HEMOGLOBIN 7.6 g/dL (12.0-16.0)
[2020-09-12 23:07] LABS: CALCIUM, IONIZED 1.09 mmol/L (1.15-1.33); VBG PH 7.432 (7.31-7.41)
[2020-09-13] MEDS ORDERED: CALCIUM GLUCONATE 1,000 MG in SODIUM CHLORIDE 0.9% 50 ML IV ONE (00:15)
[2020-09-13] MEDS: metroNIDAZOLE 500 MG/100 ML 500 MG/100 ML BAG IV SCH ×3 (00:41→17:10)
[2020-09-13] MEDS: SODIUM CHLORIDE FLUSH 0.9% 10 ML SYRINGE IVP SCH ×4 (01:15→23:43)
[2020-09-13] MEDS: DEXTROSE 5%-0.9% NACL 1,000 ML IV SCH ×3 (01:16→21:28)
[2020-09-13] MEDS: ACETAMINOPHEN 325 MG TABLET PO PRN (04:29)
[2020-09-13] MEDS: CIPROFLOXACIN 400 MG/200 ML 400 MG/200 ML BAG IV SCH ×2 (04:32→16:08)
[2020-09-13 05:05] LABS: BASOPHILS % (AUTO) 1.1 %; EOSINOPHILS % (AUTO) 2.5 %; HCT - HEMATOCRIT 22.7 % (37.0-47.0); HGB - HEMOGLOBIN 7.3 g/dL (12.0-16.0); MEAN CORPUSCULAR HEMOGLOBIN 34.1 pg (27.0-31.0); MEAN CORPUSCULAR HGB CONC 32.2 g/dL (32.0-36.0); MEAN CORPUSCULAR VOLUME 106.1 fL (81.0-99.0); MEAN PLATELET VOLUME 9.6 fL (7.9-10.8); MONOCYTES % (AUTO) 5.3 %; NEUTROPHILS % (AUTO) 68.4 %; PLT - PLATELET COUNT 50 10^3/uL (130-450); RED BLOOD COUNT 2.14 10^6/uL (4.20-5.40); RED CELL DISTRIBUTION WIDTH 20.1 % (12.0-15.0); WHITE BLOOD COUNT 2.8 x10^3/uL (4.8-10.8)
[2020-09-13 05:07] LABS: INR 1.4 (0.8-1.2); PT - PROTHROMBIN TIME 15.4 secs (9.9-12.6)
[2020-09-13 05:16] LABS: ABNORMAL LYMPHS % (MANUAL) 0 %; BAND NEUTROPHILS % (MANUAL) 0 %
[2020-09-13 05:21] LABS: ALBUMIN 2.5 g/dL (3.2-5.5); BILIRUBIN,DIRECT 0.9 mg/dL (0.1-0.5); BILIRUBIN,TOTAL 2.2 mg/dL (0.2-1.0); CALCIUM 8.2 mg/dL (8.5-10.3); CREATININE 0.8 mg/dL (0.4-1.0); MAGNESIUM 1.4 mg/dL (1.7-2.8); PHOSPHORUS 2.6 mg/dL (2.5-4.6); POTASSIUM 3.3 mmol/L (3.5-5.0); TOTAL PROTEIN 5.6 g/dL (6.7-8.2)
[2020-09-13 05:49] LABS: LYMPHOCYTES # (MANUAL) 0.4 10^3/uL (1.5-3.5); LYMPHOCYTES % (MANUAL) 14 %; NEUTROPHILS # (MANUAL) 2.4 10^3/uL (1.5-6.6); PLATELET ESTIMATE, MANUAL DECREASED (<130,000) (NORMAL)
[2020-09-13 05:50] LABS: DIFFERENTIAL COMMENT MANUAL DIFFERENTIAL
[2020-09-13] MEDS ORDERED: MAGNESIUM SULFATE 2 GRAM 2 GM/50 ML BAG IV ONE (06:00)
[2020-09-13] MEDS: chlordiazePOXIDE 5 MG CAPSULE PO SCH ×4 (06:04→23:35)
[2020-09-13] MEDS: POTASSIUM CHLOR 10 MEQ/100 ML 10 MEQ/100 ML BAG IV SCH ×4 (06:19→09:45)
[2020-09-13] MEDS: PANTOPRAZOLE 40 MG VIAL IVP SCH ×2 (07:53→21:16)
[2020-09-13] MEDS: ethyl alcohoL 62% SWAB AMPULE NAS SCH ×2 (07:53→21:16)
[2020-09-13 08:31] LABS: HIV AG/AB 4TH GEN NON-REACTIVE (NON-REACTIVE)
[2020-09-13] MEDS: MULTIVITAMIN 10 ML, THIAMINE INJ 100 MG, FOLIC ACID INJ 1 MG in SODIUM CHLORIDE 0.9% 1,... IV SCH (12:00)
--- NOTE | 2020-09-13 13:28 | PROVIDER PROGRESS NOTE ---
Assessment/Plan - Problem List (1) Upper GI bleeding Assessment/Plan: The concern was for an upper GI bleed as a cause of her acute blood loss anemia given she had melena and coffee-ground emesis. EGD showed gastritis but no obvious varices. There have been no further episodes of bleeding since admission. We will keep her on twice daily IV PPI for the time being. We stopped octreotide given no evidence of varices. and also discontinued the ceftriaxone IV. We will continue to trend her hemoglobin. Advance diet slowly now. (2) Acute blood loss anemia Assessment/Plan: This was felt to be secondary to an upper GI bleed given her presentation. She responded well to 3 units of packed red blood cells and her hemoglobin has plateaued, in parellel to no further evidence of bleeding. Endoscopy revealed gastritis as mentioned above. The plan to trend her hemoglobin every 12 then 24 hours and transfuse for goal hemoglobin greater than 7. SCDs for DVT prophylaxis, no anticoagulants. (3) Alcoholic cirrhosis of liver Qualifiers: Ascites presence: without ascites Qualified Code(s): K70.30 - Alcoholic cirrhosis of liver without ascites Assessment/Plan: Fortunately there is no evidence of varices on endoscopy. Her liver enzymes are stable but abnormal. She had been counseled by the last Hospitalist on the importance of alcohol cessation. Social work also consulted to provide her with resources regarding alcohol cessation. Today I gave the advice at bedside, as I updated him on her clinical status. Following plts and INR daily, ammonia intermittently. Managing withdrawal with scheduled Librium started yesterday and she is on a C IWA protocol. Remain in the ICU today. Will probably transfer out of the ICU tomorrow (4) Alcohol abuse Impression: Since yesterday, she is going through alcohol withdrawal; she was confused (thought she was at home yesterday), is tremulous today, but not tachycardic. She is on CIWA protocol, Ativan has been administered. We added scheduled oral Librium yesterday. She was counseled on alcohol cessation. Social work also has been consulted. Today I gave the advice at bedside, as I updated him on her clinical status. He reported that she was able to drive a car and get her own alcohol. Stand that he will also need counseling in order to not enable her to take in alcohol. (5) Typhlitis (cecitis) Impression: There was cecal wall thickening on the CT which was concerning for potential mass. Colonoscopy showed neutropenic enterocolitis of the cecum (typhlitis). Dr Martínez recommends antibx and checking for immunocompromised host (HIV testing). HIV test is neg. Ciproiv and iv Flagyl were started yesterday. (6) Liver lesion, right lobe Impression: This is concerning for potential metastatic disease if she does have a cecal mass. She will need consideration of biopsy on an outpatient basis with interventional radiology. (7) Thrombocytopenia Impression: Her platelet count is low. This is likely related to her alcoholism. Watching plts daily. We will transfuse for goal equal to or greater than 50, given the concern for GI bleed. No aspirin or NSAIDs will be used. (8) Elevated INR Impression: This is also secondary to her alcoholism and liver cirrhosis. We will continue to monitor INR, given the GI bleed. (9) Hypertension Impression: She is normotensive today, possibly due to persistent anemia. We will continue to hold her hydrochlorothiazide and bisoprolol. We will resume when clinically appropriate. (10) Neuropathy Impression: Stable. We will resume her duloxetine once she is taking p.o. (11) Alcohol withdrawal Impression: She was a little altered in the emergency department 2 days ago and today is restless and confused, also fidgity and scoring higher on CIWA protocol, consistent with alcohol withdrawal, requiring Ativan. I updated the at bedside today, that she is going through donald alcohol withdrawal, it started yesterday. Will watch ammonia level intermittently. We started scheduled Librium. Remain in the ICU today. Will probably transfer out of the ICU tomorrow (12) Severe protein calorie malnutrition Patient has documented significant muscle wasting, loss of subcutaneous fat. No intake of less than 50% of recommended for 2 weeks or more. There has been weight loss of 25% in the past 6 months (about 30 pound weight loss). The said he has been making 90% of the meals for about a year. The patient will eat 2 bites and then state that she is full. - Current Meds Current Meds: Current Medications Generic Name Dose Route Start Last Admin Trade Name Freq PRN Reason Stop Dose Admin Acetaminophen 650 mg 09/10/20 17:56 09/13/20 04:29 Acetaminophen 325 Mg Tablet PO 650 mg Q4HR PRN Administration Pain 1 to 4 Alcohol 1 amp 09/11/20 01:00 09/13/20 07:53 Ethyl Alcohol 62% Swab Ampule MARCO ANTONIO 1 amp BID DIPTI Administration Chlordiazepoxide HCl 10 mg 09/12/20 09:13 09/13/20 12:02 Chlordiazepoxide 5 Mg Capsule PO 10 mg Q6HR DIPTI Administration Multivitamins 10 ml/ Thiamine 1,011.2 mls @ 100 mls/hr 09/10/20 17:59 09/13/20 12:00 HCl 100 mg/ Folic Acid 1 mg/ IV 100 mls/hr Sodium Chloride DAILY DIPTI Administration Dextrose/Sodium Chloride 1,000 mls @ 83.333 mls/hr 09/11/20 01:00 09/13/20 09:43 D5ns IV 83.3 mls/hr .Q12H DIPTI Administration Ciprofloxacin 400 mg in 200 mls @ 200 mls/hr 09/12/20 17:00 09/13/20 05:56 Cipro 400 Mg/200 Ml IV Infused Q12H DIPTI Infusion Metronidazole 500 mg in 100 mls @ 100 mls/hr 09/12/20 17:00 09/13/20 08:55 Flagyl 500 Mg/100 Ml IV Infused Q8H DIPTI Infusion Lorazepam 1 mg 09/10/20 17:59 09/12/20 20:02 Lorazepam 2 Mg/Ml Vial IVP 1 mg Q30M PRN Administration CIWA >8 Protocol Pantoprazole Sodium 40 mg 09/10/20 21:00 09/13/20 07:53 Pantoprazole 40 Mg Vial IVP 40 mg BID DIPTI Administration Sodium Chloride 10 ml 09/11/20 01:00 09/13/20 07:55 Sodium Chloride Flush 0.9% 10 Ml Syringe IVP 10 ml 0100,0900,1700 DIPTI Administration Sodium Chloride 10 ml 09/10/20 17:56 09/12/20 20:22 Sodium Chloride Flush 0.9% 10 Ml Syringe IVP 10 ml PRN PRN Administration NEEDED PER PROVIDER ORDERS - Lab Result Fish Bone Diagrams: 09/13/20 04:15 09/13/20 04:15 - Additional Planning My Orders: My Active Orders 09/12/20 17:00 Ciprofloxacin 400 mg/200 ml [Cipro 400 mg/200 ml] 400 mg in 200 ml IV Q12H metroNIDAZOLE 500 MG/100 ML [Flagyl 500 mg/100 ml] 500 mg in 100 ml IV Q8H 09/13/20 12:45 IV DC [IV Discontinuation] [RC] .ONCE 09/14/20 05:00 CALCIUM, IONIZED ([facility]) [BG] DAILYLAB Subjective - Subjective Patient Reports: Other (sleeping, when awake, is lucid but tremulous) Objective Vital Signs: Vital Signs - 24 hr 09/12/20 09/12/20 09/12/20 13:47 14:17 14:26 Temperature Heart Rate [ 72 79 Monitoring electrodes] Respiratory 23 24 16 Rate Blood Pressure 111/77 [Left Brachial artery] O2 Saturation 100 92 96 09/12/20 09/12/20 09/12/20 15:00 15:53 16:00 Temperature 36.7 C 36.7 C Heart Rate [ 78 81 Monitoring electrodes] Respiratory 16 18 Rate Blood Pressure 108/51 L 124/64 [Left Brachial artery] O2 Saturation 94 98 09/12/20 09/12/20 09/12/20 17:00 18:00 19:00 Temperature Heart Rate [ 89 84 87 Monitoring electrodes] Respiratory 19 23 29 H Rate Blood Pressure 141/86 H 152/79 H 139/84 H [Left Brachial artery] O2 Saturation 99 99 99 09/12/20 09/12/20 09/12/20 20:00 21:00 22:00 Temperature Heart Rate [ 80 79 86 Monitoring electrodes] Respiratory 20 17 25 H Rate Blood Pressure 154/79 H 137/80 H 143/67 H [Left Brachial artery] O2 Saturation 100 93 93 09/12/20 09/13/20 09/13/20 23:00 00:00 01:00 Temperature 36.8 C 36.8 C Heart Rate [ 98 86 74 Monitoring electrodes] Respiratory 20 25 H 15 Rate Blood Pressure 118/79 124/71 105/81 H [Left Brachial artery] O2 Saturation 94 95 98 09/13/20 09/13/20 09/13/20 02:00 03:00 04:00 Temperature 36.7 C Heart Rate [ 89 91 85 Monitoring electrodes] Respiratory 17 26 H 17 Rate Blood Pressure 121/97 H 125/72 [Left Brachial artery] O2 Saturation 98 97 97 09/13/20 09/13/20 09/13/20 05:00 06:00 07:00 Temperature Heart Rate [ 73 98 89 Monitoring electrodes] Respiratory 18 24 26 H Rate Blood Pressure 90/61 130/91 H 105/70 [Left Brachial artery] O2 Saturation 98 95 97 09/13/20 09/13/20 09/13/20 08:00 09:00 10:00 Temperature Heart Rate [ 91 87 74 Monitoring electrodes] Respiratory 19 16 19 Rate Blood Pressure 103/66 119/80 122/79 [Left Brachial artery] O2 Saturation 96 100 92 09/13/20 09/13/20 11:00 12:00 Temperature 36.7 C Heart Rate [ 84 88 Monitoring electrodes] Respiratory 22 22 Rate Blood Pressure 127/65 133/76 H [Left Brachial artery] O2 Saturation 90 L 94 Oxygen O2 Source NC with humidity I&O (Last 24 Hrs): Intake and Output Totals x24h 09/11/20 09/12/20 09/13/20 23:59 23:59 23:59 Intake Total 5324.732 3552.841 2154.527 Output Total 575 0 Balance 4749.732 3552.841 2154.527 General: Oriented x3 HEENT: Mucous membr. moist/pink, Other (Sclerae and skin are icteric) Neck: Supple, No JVD Neuro: Other (Sleepy after Librium scheduled. Arms and head are tremulous when awake) Cardiovascular: Regular rate Respiratory: No respiratory distress Abdomen: Soft, No tenderness Extremities: No edema Skin: No rashes - Results Results: Laboratory Results WBC 2.8 x10^3/uL (4.8-10.8) L 09/13/20 04:15 RBC 2.14 10^6/uL (4.20-5.40) L 09/13/20 04:15 Hgb 7.3 g/dL (12.0-16.0) L 09/13/20 04:15 Hct 22.7 % (37.0-47.0) L 09/13/20 04:15 MCV 106.1 fL (81.0-99.0) H 09/13/20 04:15 MCH 34.1 pg (27.0-31.0) H 09/13/20 04:15 MCHC 32.2 g/dL (32.0-36.0) 09/13/20 04:15 RDW 20.1 % (12.0-15.0) H 09/13/20 04:15 Plt Count 50 10^3/uL (130-450) L 09/13/20 04:15 MPV 9.6 fL (7.9-10.8) 09/13/20 04:15 Neut # (Auto) Not Reportable 09/13/20 04:15 Lymph # (Auto) Not Reportable 09/13/20 04:15 [place] # (Auto) Not Reportable 09/13/20 04:15 Eos # (Auto) Not Reportable 09/13/20 04:15 Baso # (Auto) Not Reportable 09/13/20 04:15 Absolute Nucleated RBC Not Reportable 09/13/20 04:15 Total Counted 100 09/13/20 04:15 Band Neuts % (Manual) 0 % (0-10) 09/13/20 04:15 Abnorm Lymph % (Manual) 0 % 09/13/20 04:15 Nucleated RBC % Not Reportable 09/13/20 04:15 Neutrophils # (Manual) 2.4 10^3/uL (1.5-6.6) 09/13/20 04:15 Lymphocytes # (Manual) 0.4 10^3/uL (1.5-3.5) L 09/13/20 04:15 Monocytes # (Manual) 0.0 10^3/uL (0.0-1.0) 09/13/20 04:15 Eosinophils # (Manual) 0.0 10^3/uL (0-0.7) 09/13/20 04:15 Basophils # (Manual) 0.0 10^3/uL (0-0.1) 09/13/20 04:15 Differential Comment MANUAL DIFFERENTIAL 09/13/20 04:15 Manual Slide Review Indicated 09/10/20 12:19 Platelet Estimate DECREASED (<130,000) (NORMAL) 09/13/20 04:15 Platelet Morphology NORMAL APPEARANCE (NORMAL) 09/10/20 12:19 RBC Morph Micro Appear 1+ ANISOCYTOSIS (NORMAL) 1+ MACROCYTOSIS (NORMAL) 1+ HYPOCHROMASIA (NORMAL) 1+ OVALOCYTES (NORMAL) 09/13/20 04:15 RBC Morph Micro Appear 1+ ANISOCYTOSIS (NORMAL) 1+ MACROCYTOSIS (NORMAL) 1+ HYPOCHROMASIA (NORMAL) 1+ OVALOCYTES (NORMAL) 09/13/20 04:15 RBC Morph Micro Appear 1+ ANISOCYTOSIS (NORMAL) 1+ MACROCYTOSIS (NORMAL) 1+ HYPOCHROMASIA (NORMAL) 1+ OVALOCYTES (NORMAL) 09/13/20 04:15 RBC Morph Micro Appear 1+ ANISOCYTOSIS (NORMAL) 1+ MACROCYTOSIS (NORMAL) 1+ HYPOCHROMASIA (NORMAL) 1+ OVALOCYTES (NORMAL) 09/13/20 04:15 PT 15.4 secs (9.9-12.6) H 09/13/20 04:15 INR 1.4 (0.8-1.2) H 09/13/20 04:15 APTT 30.2 secs (24.9-33.3) 09/10/20 12:19 VBG pH 7.432 (7.31-7.41) H 09/12/20 22:55 Ionized Calcium 1.09 mmol/L (1.15-1.33) L 09/12/20 22:55 Sodium 134 mmol/L (135-145) L 09/13/20 04:15 Potassium 3.3 mmol/L (3.5-5.0) L 09/13/20 04:15 Chloride 105 mmol/L (101-111) 09/13/20 04:15 Carbon Dioxide 21 mmol/L (21-32) 09/13/20 04:15 Anion Gap 8.0 (6-13) 09/13/20 04:15 BUN 6 mg/dL (6-20) 09/13/20 04:15 Creatinine 0.8 mg/dL (0.4-1.0) 09/13/20 04:15 Estimated GFR (MDRD) 72 (>89) L 09/13/20 04:15 Glucose 113 mg/dL (70-100) H 09/13/20 04:15 POC Whole Bld Glucose 132 mg/dL (70 - 100) H 09/13/20 11:24 Calcium 8.2 mg/dL (8.5-10.3) L 09/13/20 04:15 Phosphorus 2.6 mg/dL (2.5-4.6) 09/13/20 04:15 Magnesium 1.4 mg/dL (1.7-2.8) L 09/13/20 04:15 Iron 156 ug/dL (28-170) 09/10/20 12:19 Total Bilirubin 2.2 mg/dL (0.2-1.0) H 09/13/20 04:15 Direct Bilirubin 0.9 mg/dL (0.1-0.5) H 09/13/20 04:15 AST 99 IU/L (10-42) H 09/13/20 04:15 ALT 23 IU/L (10-60) 09/13/20 04:15 Alkaline Phosphatase 91 IU/L (42-121) 09/13/20 04:15 Ammonia 24.7 umol/L (7-35) 09/12/20 12:45 Troponin I High Sens 5.0 ng/L (2.3-14.8) 09/10/20 12:19 B-Natriuretic Peptide 71 pg/mL (5-100) 09/10/20 12:19 Total Protein 5.6 g/dL (6.7-8.2) L 09/13/20 04:15 Albumin 2.5 g/dL (3.2-5.5) L 09/13/20 04:15 Globulin 3.1 g/dL (2.1-4.2) 09/13/20 04:15 Albumin/Globulin Ratio 0.8 (1.0-2.2) L 09/10/20 12:19 Lipase 27 U/L (22-51) 09/10/20 12:19 Vitamin B12 1089 pg/mL (180-914) H 09/10/20 12:19 Folate 2.51 ng/mL (5.90 - >24.8) L 09/10/20 12:19 TSH 2.95 uIU/mL (0.34-5.60) 09/10/20 12:19 Cortisol 35.5 ug/dL 09/10/20 12:19 Nasal Adenovirus (PCR) NOT DETECTED 09/10/20 13:02 Nasal B. parapertussis DNA (PCR) NOT DETECTED 09/10/20 13:02 Nasal Coronavir 229E PCR NOT DETECTED 09/10/20 13:02 Nasal Coronavir HKU1 PCR NOT DETECTED 09/10/20 13:02 Nasal Coronavir NL63 PCR NOT DETECTED 09/10/20 13:02 Nasal Coronavir OC43 PCR NOT DETECTED 09/10/20 13:02 Nasal Enterovir/Rhinovir PCR NOT DETECTED 09/10/20 13:02 Nasal Influenza B PCR NOT DETECTED 09/10/20 13:02 Nasal Influenza A PCR NOT DETECTED 09/10/20 13:02 Nasal Parainfluen 1 PCR NOT DETECTED 09/10/20 13:02 Nasal Parainfluen 2 PCR NOT DETECTED 09/10/20 13:02 Nasal Parainfluen 3 PCR NOT DETECTED 09/10/20 13:02 Nasal Parainfluen 4 PCR NOT DETECTED 09/10/20 13:02 Nasal RSV (PCR) NOT DETECTED 09/10/20 13:02 Nasal Screen MRSA (PCR) POSITIVE (NEGATIVE) A* 09/10/20 19:25 Nasal B.pertussis DNA PCR NOT DETECTED 09/10/20 13:02 Nasal C.pneumoniae (PCR) NOT DETECTED 09/10/20 13:02 [place] Human Metapneumo PCR NOT DETECTED 09/10/20 13:02 Nasal M.pneumoniae (PCR) NOT DETECTED 09/10/20 13:02 Nasal SARS-CoV-2 (PCR) NOT DETECTED 09/10/20 13:02 HIV 1&2 Ag/Ab, 4th Gen NON-REACTIVE (NON-REACTIVE) 09/12/20 16:42 Blood Type O POSITIVE 09/10/20 13:22 Blood Type Recheck O POSITIVE 09/10/20 12:19 Antibody Screen NEGATIVE 09/10/20 13:22 Crossmatch IS Only See Detail 09/10/20 13:22
[2020-09-13] MEDS: SODIUM CHLORIDE FLUSH 0.9% 10 ML SYRINGE IVP PRN (18:20)
[2020-09-13] MEDS: BENZOCAINE/MENTHOL LOZENGE MM PRN (21:17)
[2020-09-14] MEDS: metroNIDAZOLE 500 MG/100 ML 500 MG/100 ML BAG IV SCH ×3 (00:31→16:53)
[2020-09-14] MEDS: CIPROFLOXACIN 400 MG/200 ML 400 MG/200 ML BAG IV SCH ×2 (04:58→16:53)
[2020-09-14] MEDS: chlordiazePOXIDE 5 MG CAPSULE PO SCH ×2 (05:08→21:09)
[2020-09-14 05:16] LABS: EOSINOPHILS % (AUTO) 1.4 %; HCT - HEMATOCRIT 21.5 % (37.0-47.0); HGB - HEMOGLOBIN 7.1 g/dL (12.0-16.0); LYMPHOCYTES % (AUTO) 21.9 %; MEAN CORPUSCULAR VOLUME 102.9 fL (81.0-99.0); MEAN PLATELET VOLUME 9.7 fL (7.9-10.8); MONOCYTES % (AUTO) 8.3 %; NEUTROPHILS % (AUTO) 66.7 %; PLT - PLATELET COUNT 66 10^3/uL (130-450); RED BLOOD COUNT 2.09 10^6/uL (4.20-5.40); RED CELL DISTRIBUTION WIDTH 20.1 % (12.0-15.0); WHITE BLOOD COUNT 2.9 x10^3/uL (4.8-10.8)
[2020-09-14 05:20] LABS: CALCIUM, IONIZED 1.06 mmol/L (1.15-1.33); INR 1.4 (0.8-1.2); PT - PROTHROMBIN TIME 15.4 secs (9.9-12.6); VBG PH 7.399 (7.31-7.41)
[2020-09-14 05:34] LABS: ABNORMAL LYMPHS % (MANUAL) 0 %
[2020-09-14 05:35] LABS: ALBUMIN 2.4 g/dL (3.2-5.5); ALKALINE PHOSPHATASE 84 IU/L (42-121); ALT ALANINE AMINOTRANSFERASE 20 IU/L (10-60); AST ASPARTATE AMINOTRANSFERASE 86 IU/L (10-42); BILIRUBIN,DIRECT 0.8 mg/dL (0.1-0.5); BILIRUBIN,TOTAL 1.7 mg/dL (0.2-1.0); BUN - BLOOD UREA NITROGEN < 5 mg/dL (6-20); CALCIUM 7.8 mg/dL (8.5-10.3); CARBON DIOXIDE - CO2 20 mmol/L (21-32); CHLORIDE 109 mmol/L (101-111); CREATININE 0.7 mg/dL (0.4-1.0); GFR - MDRD 84 (>89); GLUCOSE 127 mg/dL (70-100); MAGNESIUM 1.3 mg/dL (1.7-2.8); PHOSPHORUS 2.1 mg/dL (2.5-4.6); POTASSIUM 3.4 mmol/L (3.5-5.0); SODIUM 135 mmol/L (135-145); TOTAL PROTEIN 5.4 g/dL (6.7-8.2)
[2020-09-14 05:58] LABS: BAND NEUTROPHILS % (MANUAL) 2 %; DIFFERENTIAL COMMENT MANUAL DIFFERENTIAL; LYMPHOCYTES % (MANUAL) 33 %; MONOCYTES # (MANUAL) 0.1 10^3/uL (0.0-1.0); NEUTROPHILS # (MANUAL) 1.9 10^3/uL (1.5-6.6); PLATELET ESTIMATE, MANUAL DECREASED (<130,000) (NORMAL)
[2020-09-14] MEDS: PANTOPRAZOLE 40 MG VIAL IVP SCH ×2 (09:20→21:09)
[2020-09-14] MEDS: MULTIVITAMIN TABLET PO SCH (09:20)
[2020-09-14] MEDS: FOLIC ACID 1 MG TABLET PO SCH (09:20)
[2020-09-14] MEDS: ethyl alcohoL 62% SWAB AMPULE NAS SCH ×2 (09:20→21:09)
[2020-09-14] MEDS: SODIUM CHLORIDE FLUSH 0.9% 10 ML SYRINGE IVP SCH ×2 (09:28→16:54)
[2020-09-14] MEDS: THIAMINE 100 MG TABLET PO SCH (09:28)
[2020-09-14] MEDS: LORazepam 2 MG/ML VIAL IVP PRN ×2 (10:41→17:54)
[2020-09-14] MEDS: DEXTROSE 5%-0.9% NACL 1,000 ML IV SCH (11:18)
[2020-09-14] MEDS ORDERED: POTASSIUM PHOSPHATE 21 MMOL in SODIUM CHLORIDE 0.9% 250 ML IV ONE (11:30)
[2020-09-14] MEDS: MAGNESIUM OXIDE 400 MG TABLET PO SCH (12:24)
--- NOTE | 2020-09-14 12:38 | PROVIDER PROGRESS NOTE ---
Assessment/Plan - Problem List (1) Upper GI bleeding Assessment/Plan: We suspected an upper GI bleed as a cause of her acute blood loss anemia given she had melena and coffee-ground emesis. EGD showed gastritis but no obvious varices. There have been no further episodes of bleeding since admission. We will keep her on twice daily IV PPI for the time being. We stopped octreotide given no evidence of varices. and also discontinued the ceftriaxone IV. We will continue to trend her hemoglobin. Avoiding anticoagulants and anti-plt agents Advance diet slowly when OK with Gen Surgery, Dr Martínez, due to findings on colonoscopy. She and requested small frequent meals, which have been ordered. (2) Acute blood loss anemia Assessment/Plan: This was felt to be secondary to an upper GI bleed given her presentation. She responded well to 3 units of packed red blood cells and her hemoglobin has plateaued, in parellel to no further evidence of bleeding. Endoscopy revealed gastritis as mentioned above. Monitoring her hemoglobin every 12 then 24 hours and transfuse for goal hemoglobin greater than 7. SCDs for DVT prophylaxis, no anticoagulants. (3) Alcoholic cirrhosis of liver Qualifiers: Ascites presence: without ascites Qualified Code(s): K70.30 - Alcoholic cirrhosis of liver without ascites Assessment/Plan: Fortunately there is no evidence of varices on endoscopy. Her liver enzymes are stable but abnormal. Plts are low and INR is elevated. Following plts and INR daily, ammonia intermittently. (4) Alcohol abuse Impression: She had been counseled by the last Hospitalist on the importance of alcohol cessation (before she needed sedation for alcohol withdrawal). Social work also consulted to provide her and with resources regarding alcohol cessation. Today I spoke to pt recommending she take in no more alcohol and she replied "OK". Yesterday, the was at bedside and told me that she was able to drive a car and get her own alcohol. He said, she will promise not to drink alcohol anymore, stops, then resumes alcohol abuse after about 2 weeks. He understood that he will also need counseling in order to not enable her to take in alcohol. (5) Alcohol withdrawal Impression: For the previous 2 days, she is going through alcohol withdrawal; she was confused (thought she was at home), was tremulous yesterday, today she is bra dykinetic. We are managing withdrawal with scheduled Librium and she has been on a CIWA protocol since admission. Will decrease the Librium today, from 10 mg po q6h to q12h, due to her bradykinesis. (6) Typhlitis (cecitis) Impression: There was cecal wall thickening on the CT done at admission, which was concerning for potential mass. Colonoscopy showed neutropenic enterocolitis of the cecum (typhlitis). Dr Martínez recommends antibx and checking for immu nocompromised host (HIV testing). HIV test is neg. Cipro iv and iv Flagyl were started [address] Martínez advised we await the biopsy results, before advancing her diet. (7) Liver lesion, right lobe Impression: This is concerning for potential metastatic disease if she does have a cecal mass. She will need consideration of biopsy on an outpatient basis with interventional radiology. (8) Thrombocytopenia Impression: Her platelet count is low. This is likely related to her alcoholism and marrow suppression. Watching plts daily. We will transfuse for goal equal to or greater than 50 if plts drop, given the GI bleed. No aspirin or NSAIDs will be used. (9) Elevated INR Impression: This is also secondary to her alcoholism and liver cirrhosis. We will continue to monitor INR, given the GI bleed. (10) Hypertension Impression: She is normotensive today, possibly due to persistent anemia. We will continue to hold her hydrochlorothiazide and bisoprolol. We will resume when clinically appropriate. (11) Neuropathy Impression: Stable. We will resume her duloxetine once she is taking p.o. (12) Severe protein calorie malnutrition Patient has documented significant muscle wasting, loss of subcutaneous fat. No intake of less than 50% of recommended for 2 weeks or more. There has been weight loss of 25% in the past 6 months (about 30 pound weight loss). The said he has been making 90% of the meals for about a year. The patient will eat 2 bites and then state that she is full. - Current Meds Current Meds: Current Medications Generic Name Dose Route Start Last Admin Trade Name Freq PRN Reason Stop Dose Admin Acetaminophen 650 mg 09/10/20 17:56 09/13/20 04:29 Acetaminophen 325 Mg Tablet PO 650 mg Q4HR PRN Administration Pain 1 to 4 Alcohol 1 amp 09/11/20 01:00 09/14/20 09:20 Ethyl Alcohol 62% Swab Ampule MARCO ANTONIO 1 amp BID DIPTI Administration Folic Acid 1 mg 09/14/20 09:00 09/14/20 09:20 Folic Acid 1 Mg Tablet PO 1 mg DAILY DIPTI Administration Dextrose/Sodium Chloride 1,000 mls @ 83.333 mls/hr 09/11/20 01:00 09/14/20 11:18 D5ns IV 83.3 mls/hr .Q12H DIPTI Administration Ciprofloxacin 400 mg in 200 mls @ 200 mls/hr 09/12/20 17:00 09/14/20 05:58 Cipro 400 Mg/200 Ml IV Infused Q12H DIPTI Infusion Metronidazole 500 mg in 100 mls @ 100 mls/hr 09/12/20 17:00 09/14/20 10:30 Flagyl 500 Mg/100 Ml IV Infused Q8H DIPTI Infusion Lorazepam 1 mg 09/10/20 17:59 09/14/20 10:41 Lorazepam 2 Mg/Ml Vial IVP 1 mg Q30M PRN Administration CIWA >8 Protocol Morphine Sulfate 2 mg 09/10/20 17:56 09/13/20 15:59 Morphine 2 Mg/Ml Carpuject IVP 2 mg Q2HR PRN Administration Pain 8 to 10 Multivitamins 1 tab 09/14/20 09:00 09/14/20 09:20 Multivitamin Tablet PO 1 tab DAILYWM DIPTI Administration Pantoprazole Sodium 40 mg 09/10/20 21:00 09/14/20 09:20 Pantoprazole 40 Mg Vial IVP 40 mg BID DIPTI Administration Sodium Chloride 10 ml 09/11/20 01:00 09/14/20 09:28 Sodium Chloride Flush 0.9% 10 Ml Syringe IVP 10 ml 0100,0900,1700 DIPTI Administration Sodium Chloride 10 ml 09/10/20 17:56 09/13/20 18:20 Sodium Chloride Flush 0.9% 10 Ml Syringe IVP 10 ml PRN PRN Administration NEEDED PER PROVIDER ORDERS Thiamine HCl 100 mg 09/14/20 09:00 09/14/20 09:28 Thiamine 100 Mg Tablet PO 100 mg DAILY DIPTI Administration Throat Lozenges 1 lozenge 09/13/20 20:06 09/13/20 21:17 Benzocaine/Menthol Lozenge MM 1 lozenge Q2HR PRN Administration Throat pain - Lab Result Fish Bone Diagrams: 09/14/20 04:25 09/14/20 04:25 - Additional Planning My Orders: My Active Orders 09/13/20 12:45 IV DC [IV Discontinuation] [RC] .ONCE 09/13/20 16:23 Miscellaenous Nursing Order [RC] QSHIFT 09/13/20 20:06 Benzocaine/Menthol [Cepacol] 1 lozenge MM Q2HR PRN 09/14/20 Evaluate and Treat OT [OT] Routine Evaluate and Treat PT [PT] Routine 09/14/20 11:30 Potassium Phosphate 21 mmol Sodium Chloride 0.9% [Normal Saline 0.9%] 250 ml IV ONCE 09/14/20 12:00 Magnesium Oxide [Mag Ox] 400 mg PO DAILYWM 09/14/20 21:00 chlordiazePOXIDE [Librium] 10 mg PO BID Subjective - Subjective Patient Reports: Resting Comfortably Objective Vital Signs: Vital Signs - 24 hr 09/13/20 09/13/20 09/13/20 13:00 14:00 15:00 Temperature Heart Rate [ Brachial] Heart Rate [ 89 98 82 Monitoring electrodes] Respiratory 22 25 H 18 Rate Blood Pressure 129/82 H 117/73 132/78 H [Left Brachial artery] O2 Saturation 99 94 98 09/13/20 09/13/20 09/13/20 16:00 17:00 20:30 Temperature 36.9 C 37.0 C Heart Rate [ Brachial] Heart Rate [ 74 107 H 91 Monitoring electrodes] Respiratory 16 17 16 Rate Blood Pressure 145/81 H 125/94 H 133/72 H [Left Brachial artery] O2 Saturation 99 94 98 09/14/20 09/14/20 09/14/20 00:06 03:31 08:50 Temperature 37.1 C 36.9 C 37.1 C Heart Rate [ 101 H Brachial] Heart Rate [ 101 H 95 Monitoring electrodes] Respiratory 16 20 17 Rate Blood Pressure 138/77 H 133/83 H 123/65 [Left Brachial artery] O2 Saturation 94 94 100 Oxygen O2 Source Nasal cannula I&O (Last 24 Hrs): Intake and Output Totals x24h 09/12/20 09/13/20 09/14/20 23:59 23:59 23:59 Intake Total 3552.841 4694.502 0 Output Total 0 0 Balance 3552.841 4694.502 2040 General: Alert (Lethargic and bradykinetic, awakens and converses) HEENT: Mucous membr. moist/pink, Other (Less icteric today.) Neck: Supple, No JVD Neuro: Alert, Other (No tremor, is tardykinetic (on Librium)) Cardiovascular: Regular rate Respiratory: No respiratory distress Abdomen: Soft, No tenderness Extremities: No edema - Results Results: Laboratory Results WBC 2.9 x10^3/uL (4.8-10.8) L 09/14/20 04:25 RBC 2.09 10^6/uL (4.20-5.40) L 09/14/20 04:25 Hgb 7.1 g/dL (12.0-16.0) L 09/14/20 04:25 Hct 21.5 % (37.0-47.0) L 09/14/20 04:25 MCV 102.9 fL (81.0-99.0) H 09/14/20 04:25 MCH 34.0 pg (27.0-31.0) H 09/14/20 04:25 MCHC 33.0 g/dL (32.0-36.0) 09/14/20 04:25 RDW 20.1 % (12.0-15.0) H 09/14/20 04:25 Plt Count 66 10^3/uL (130-450) L 09/14/20 04:25 MPV 9.7 fL (7.9-10.8) 09/14/20 04:25 Neut # (Auto) Not Reportable 09/14/20 04:25 Lymph # (Auto) Not Reportable 09/14/20 04:25 [place] # (Auto) Not Reportable 09/14/20 04:25 Eos # (Auto) Not Reportable 09/14/20 04:25 Baso # (Auto) Not Reportable 09/14/20 04:25 Absolute Nucleated RBC Not Reportable 09/14/20 04:25 Total Counted 100 09/14/20 04:25 Band Neuts % (Manual) 2 % (0-10) 09/14/20 04:25 Abnorm Lymph % (Manual) 0 % 09/14/20 04:25 Nucleated RBC % Not Reportable 09/14/20 04:25 Neutrophils # (Manual) 1.9 10^3/uL (1.5-6.6) 09/14/20 04:25 Lymphocytes # (Manual) 1.0 10^3/uL (1.5-3.5) L 09/14/20 04:25 Monocytes # (Manual) 0.1 10^3/uL (0.0-1.0) 09/14/20 04:25 Eosinophils # (Manual) 0.0 10^3/uL (0-0.7) 09/14/20 04:25 Basophils # (Manual) 0.0 10^3/uL (0-0.1) 09/14/20 04:25 Differential Comment MANUAL DIFFERENTIAL 09/14/20 04:25 Manual Slide Review Indicated 09/10/20 12:19 Platelet Estimate DECREASED (<130,000) (NORMAL) 09/14/20 04:25 Platelet Morphology NORMAL APPEARANCE (NORMAL) 09/10/20 12:19 RBC Morph Micro Appear 1+ ANISOCYTOSIS (NORMAL) 1+ HYPOCHROMASIA (NORMAL) 09/14/20 04:25 RBC Morph Micro Appear 1+ ANISOCYTOSIS (NORMAL) 1+ HYPOCHROMASIA (NORMAL) 09/14/20 04:25 PT 15.4 secs (9.9-12.6) H 09/14/20 04:25 INR 1.4 (0.8-1.2) H 09/14/20 04:25 APTT 30.2 secs (24.9-33.3) 09/10/20 12:19 VBG pH 7.399 (7.31-7.41) 09/14/20 04:25 Ionized Calcium 1.06 mmol/L (1.15-1.33) L 09/14/20 04:25 Sodium 135 mmol/L (135-145) 09/14/20 04:25 Potassium 3.4 mmol/L (3.5-5.0) L 09/14/20 04:25 Chloride 109 mmol/L (101-111) 09/14/20 04:25 Carbon Dioxide 20 mmol/L (21-32) L 09/14/20 04:25 Anion Gap 6.0 (6-13) 09/14/20 04:25 BUN < 5 mg/dL (6-20) L 09/14/20 04:25 Creatinine 0.7 mg/dL (0.4-1.0) 09/14/20 04:25 Estimated GFR (MDRD) 84 (>89) L 09/14/20 04:25 Glucose 127 mg/dL (70-100) H 09/14/20 04:25 POC Whole Bld Glucose 127 mg/dL (70 - 100) H 09/13/20 17:57 Calcium 7.8 mg/dL (8.5-10.3) L 09/14/20 04:25 Phosphorus 2.1 mg/dL (2.5-4.6) L 09/14/20 04:25 Magnesium 1.3 mg/dL (1.7-2.8) L 09/14/20 04:25 Iron 156 ug/dL (28-170) 09/10/20 12:19 Total Bilirubin 1.7 mg/dL (0.2-1.0) H 09/14/20 04:25 Direct Bilirubin 0.8 mg/dL (0.1-0.5) H 09/14/20 04:25 AST 86 IU/L (10-42) H 09/14/20 04:25 ALT 20 IU/L (10-60) 09/14/20 04:25 Alkaline Phosphatase 84 IU/L (42-121) 09/14/20 04:25 Ammonia 39.6 umol/L (7-35) H 09/14/20 11:17 Troponin I High Sens 5.0 ng/L (2.3-14.8) 09/10/20 12:19 B-Natriuretic Peptide 71 pg/mL (5-100) 09/10/20 12:19 Total Protein 5.4 g/dL (6.7-8.2) L 09/14/20 04:25 Albumin 2.4 g/dL (3.2-5.5) L 09/14/20 04:25 Globulin 3.0 g/dL (2.1-4.2) 09/14/20 04:25 Albumin/Globulin Ratio 0.8 (1.0-2.2) L 09/10/20 12:19 Lipase 27 U/L (22-51) 09/10/20 12:19 Vitamin B12 1089 pg/mL (180-914) H 09/10/20 12:19 Folate 2.51 ng/mL (5.90 - >24.8) L 09/10/20 12:19 TSH 2.95 uIU/mL (0.34-5.60) 09/10/20 12:19 Cortisol 35.5 ug/dL 09/10/20 12:19 Nasal Adenovirus (PCR) NOT DETECTED 09/10/20 13:02 Nasal B. parapertussis DNA (PCR) NOT DETECTED 09/10/20 13:02 Nasal Coronavir 229E PCR NOT DETECTED 09/10/20 13:02 Nasal Coronavir HKU1 PCR NOT DETECTED 09/10/20 13:02 Nasal Coronavir NL63 PCR NOT DETECTED 09/10/20 13:02 Nasal Coronavir OC43 PCR NOT DETECTED 09/10/20 13:02 Nasal Enterovir/Rhinovir PCR NOT DETECTED 09/10/20 13:02 Nasal Influenza B PCR NOT DETECTED 09/10/20 13:02 Nasal Influenza A PCR NOT DETECTED 09/10/20 13:02 Nasal Parainfluen 1 PCR NOT DETECTED 09/10/20 13:02 Nasal Parainfluen 2 PCR NOT DETECTED 09/10/20 13:02 Nasal Parainfluen 3 PCR NOT DETECTED 09/10/20 13:02 Nasal Parainfluen 4 PCR NOT DETECTED 09/10/20 13:02 Nasal RSV (PCR) NOT DETECTED 09/10/20 13:02 Nasal Screen MRSA (PCR) POSITIVE (NEGATIVE) A* 09/10/20 19:25 Nasal B.pertussis DNA PCR NOT DETECTED 09/10/20 13:02 Nasal C.pneumoniae (PCR) NOT DETECTED 09/10/20 13:02 Marco Antonio Human Metapneumo PCR NOT DETECTED 09/10/20 13:02 Nasal M.pneumoniae (PCR) NOT DETECTED 09/10/20 13:02 Nasal SARS-CoV-2 (PCR) NOT DETECTED 09/10/20 13:02 HIV 1&2 Ag/Ab, 4th Gen NON-REACTIVE (NON-REACTIVE) 09/12/20 16:42 Blood Type O POSITIVE 09/10/20 13:22 Blood Type Recheck O POSITIVE 09/10/20 12:19 Antibody Screen NEGATIVE 09/10/20 13:22 Crossmatch IS Only See Detail 09/10/20 13:22
[2020-09-15] MEDS: DEXTROSE 5%-0.9% NACL 1,000 ML IV SCH (00:44)
[2020-09-15] MEDS: metroNIDAZOLE 500 MG/100 ML 500 MG/100 ML BAG IV SCH ×2 (00:47→08:45)
[2020-09-15] MEDS: SODIUM CHLORIDE FLUSH 0.9% 10 ML SYRINGE IVP SCH ×2 (00:47→09:06)
[2020-09-15 04:52] LABS: BASOPHILS % (AUTO) 0.7 %; EOSINOPHILS % (AUTO) 1.4 %; HCT - HEMATOCRIT 22.1 % (37.0-47.0); HGB - HEMOGLOBIN 7.4 g/dL (12.0-16.0); LYMPHOCYTES # (AUTO) 0.6 10^3/uL (1.5-3.5); LYMPHOCYTES % (AUTO) 19.3 %; MEAN CORPUSCULAR HEMOGLOBIN 35.4 pg (27.0-31.0); MEAN CORPUSCULAR HGB CONC 33.5 g/dL (32.0-36.0); MEAN CORPUSCULAR VOLUME 105.7 fL (81.0-99.0); MEAN PLATELET VOLUME 9.4 fL (7.9-10.8); MONOCYTES # (AUTO) 0.3 10^3/uL (0.0-1.0); MONOCYTES % (AUTO) 11.7 %; NEUTROPHILS # (AUTO) 1.9 10^3/uL (1.5-6.6); NEUTROPHILS % (AUTO) 66.6 %; PLT - PLATELET COUNT 68 10^3/uL (130-450); RED BLOOD COUNT 2.09 10^6/uL (4.20-5.40); RED CELL DISTRIBUTION WIDTH 21.3 % (12.0-15.0); WHITE BLOOD COUNT 2.9 x10^3/uL (4.8-10.8)
[2020-09-15 04:53] LABS: SLIDE REVIEW? Indicated
[2020-09-15 04:54] LABS: INR 1.6 (0.8-1.2); PT - PROTHROMBIN TIME 17.3 secs (9.9-12.6)
[2020-09-15 05:07] LABS: ALBUMIN 2.4 g/dL (3.2-5.5); ALKALINE PHOSPHATASE 87 IU/L (42-121); ALT ALANINE AMINOTRANSFERASE 22 IU/L (10-60); AST ASPARTATE AMINOTRANSFERASE 92 IU/L (10-42); BILIRUBIN,DIRECT 0.9 mg/dL (0.1-0.5); BUN - BLOOD UREA NITROGEN < 5 mg/dL (6-20); CALCIUM 7.7 mg/dL (8.5-10.3); CARBON DIOXIDE - CO2 19 mmol/L (21-32); CHLORIDE 107 mmol/L (101-111); CREATININE 0.7 mg/dL (0.4-1.0); GFR - MDRD 84 (>89); GLUCOSE 130 mg/dL (70-100); MAGNESIUM 1.2 mg/dL (1.7-2.8); SODIUM 134 mmol/L (135-145); TOTAL PROTEIN 5.4 g/dL (6.7-8.2)
[2020-09-15 05:10] LABS: PLATELET ESTIMATE, MANUAL DECREASED (<130,000) (NORMAL); PLATELET MORPHOLOGY NORMAL APPEARANCE (NORMAL); WBC MORPHOLOGY (MULTIPLE) NORMAL APPEARANCE (NORMAL)
[2020-09-15] MEDS: CIPROFLOXACIN 400 MG/200 ML 400 MG/200 ML BAG IV SCH (05:30)
[2020-09-15] MEDS ORDERED: MAGNESIUM SULFATE 1 GM/2 ML VIAL IVP STA (08:17)
[2020-09-15] MEDS ORDERED: IPRATROPIUM/ALBUTEROL 3 ML NEB INH PRN (08:19)
[2020-09-15] MEDS: POTASSIUM CHLOR 10 MEQ/100 ML 10 MEQ/100 ML BAG IV SCH ×4 (08:49→14:55)
[2020-09-15] MEDS ORDERED: POTASSIUM CHLORIDE 20 MEQ TABLET PO SCH (09:00)
[2020-09-15] MEDS ORDERED: MAGNESIUM SULFATE 2 GRAM 2 GM/50 ML BAG IV ONE (09:00)
[2020-09-15] MEDS: chlordiazePOXIDE 5 MG CAPSULE PO SCH ×2 (09:02→20:55)
[2020-09-15] MEDS: MAGNESIUM OXIDE 400 MG TABLET PO SCH ×2 (09:02→17:09)
[2020-09-15] MEDS: PANTOPRAZOLE 40 MG VIAL IVP SCH (09:03)
[2020-09-15] MEDS: THIAMINE 100 MG TABLET PO SCH (09:03)
[2020-09-15] MEDS: FOLIC ACID 1 MG TABLET PO SCH (09:03)
[2020-09-15] MEDS: MULTIVITAMIN TABLET PO SCH (09:03)
[2020-09-15] MEDS: FERROUS SULFATE 300 MG/5 ML UDC PO SCH (09:03)
[2020-09-15] MEDS: ethyl alcohoL 62% SWAB AMPULE NAS SCH ×2 (09:06→20:55)
--- NOTE | 2020-09-15 09:18 | XRAY Report ---
PROCEDURE: Chest 1 View X-Ray INDICATIONS: Wheezing L side TECHNIQUE: One view of the chest was acquired. COMPARISON: 09/10/2020 FINDINGS: Surgical changes and devices: None. Lungs and pleura: There is interval development of small right pleural effusion. Increased bronchovas cular markings in bilateral hilar region is seen with mild bronchial wall thickening. No definite foc al infiltrate. No pneumothorax. Mediastinum: Mediastinum shows no gross abnormality. Heart size is normal. Bones and chest wall: No suspicious bony lesions. Overlying soft tissues appear unremarkable. IMPRESSION: 1. Mild pulmonary vascular congestion and small right pleural effusion. No definite focal infiltrate. No pneumothorax. Reviewed by: Jigar Bustillos MD on 09/15/2020 9:17 AM PDT Approved by: Jigar Bustillos MD on 09/15/2020 9:17 AM PDT Station ID: [id number]
[2020-09-15] MEDS ORDERED: DEXTROSE 5%-0.9% NACL 1,000 ML IV SCH (09:21)
[2020-09-15] MEDS: ACETAMINOPHEN 325 MG TABLET PO PRN (10:46)
--- NOTE | 2020-09-15 14:21 | PROVIDER PROGRESS NOTE ---
Assessment/Plan - Problem List (1) Upper GI bleeding Assessment/Plan: We suspected an upper GI bleed as a cause of her acute blood loss anemia given she had melena and coffee-ground emesis. EGD showed gastritis but no obvious varices. There have been no further episodes of bleeding since admission. Will change to po Protonix today, since the Gen Surgeon OKd advancing her diet Follow CBC daily. Avoiding anticoagulants and anti-plt agents (2) Acute blood loss anemia Assessment/Plan: This was felt to be secondary to an upper GI bleed given her presentation. She responded well to 3 units of packed red blood cells and her hemoglobin has plateaued, in parellel to no further evidence of bleeding. Endoscopy revealed gastritis and no varices. Follow CBC daily. SCDs for DVT prophylaxis, no anticoagulants. (3) Alcoholic cirrhosis of liver Qualifiers: Ascites presence: without ascites Qualified Code(s): K70.30 - Alcoholic cirrhosis of liver without ascites Assessment/Plan: No varices were seen on upper endoscopy. Her liver enzymes are stable but abnormal. Plts are low and INR is elevated. Following plts and INR daily, ammonia intermittently. (4) Alcohol abuse Impression: She had been counseled by the last Hospitalist on the importance of alcohol cessation (before she needed sedation for alcohol withdrawal). Social work also consulted to provide her and with resources regarding alcohol cessation. I have spoken to pt recommending she take in no more alcohol and she replied "OK". Several days ago, the was at bedside and told me that she was able to drive a car and get her own alcohol. He said, she will promise not to drink alcohol anymore, stops, then resumes alcohol abuse after about 2 weeks. He understood that he will also need counseling in order to not enable her to take in alcohol. (5) Alcohol withdrawal Impression: For the previous 3 days, she is going through alcohol withdrawal; she was confused (thought she was at home), was tremulous yesterday, since yesterday is bradykinetic. We are managing withdrawal with scheduled Librium and she has been on a CIWA protocol since admission. Will decrease the Librium further after today, from 10 mg po q12h to 5 mg bid, due to her bradykinesis. (6) Typhlitis (cecitis) Impression: There was cecal wall thickening on the CT done at admission, which was concerning for potential mass. Colonoscopy showed neutropenic enterocolitis of the cecum (typhlitis). Dr Martínez recommended antibx and checking for immunocompromised host (HIV testing). HIV test is neg. The pathology report has returned from biopsy of the cecum which showed no tumor, no inflammation, no infection. Will stop Cipro and Flagyl Dr Martínez advised we can advance her diet. Will order pureed no lactose food today and soft diet tomorrow. (7) Liver lesion, right lobe Impression: This was concerning for potential metastatic disease. She will need consideration of biopsy on an outpatient basis with interventional radiology. (8) Thrombocytopenia Impression: Her platelet count remains low. This is likely related to her alcoholism and marrow suppression. HIV testing was neg this admission. Watching plts daily. If needed, we would transfuse for goal equal to or greater than 50 if plts drop, given the GI bleed. No aspirin or NSAIDs will be used. (9) Elevated INR Impression: This is also secondary to her alcoholism and liver cirrhosis. We will continue to monitor INR, given the GI bleed. (10) Hypertension Impression: She is normotensive today, possibly due to persistent anemia. We will continue to hold her hydrochlorothiazide and bisoprolol. We will resume when clinically appropriate. (11) Neuropathy Impression: Stable. We will resume her duloxetine once she is taking p.o. (12) Severe protein calorie malnutrition Patient has documented significant muscle wasting, loss of subcutaneous fat. No intake of less than 50% of recommended for 2 weeks or more. There has been weight loss of 25% in the past 6 months (about 30 pound weight loss). The said he has been making 90% of the meals for about a year. The patient will eat 2 bites and then state that she is full. - Current Meds Current Meds: Current Medications Generic Name Dose Route Start Last Admin Trade Name Freq PRN Reason Stop Dose Admin Acetaminophen 650 mg 09/10/20 17:56 09/15/20 10:46 Acetaminophen 325 Mg Tablet PO 650 mg Q4HR PRN Administration Pain 1 to 4 Albuterol/Ipratropium 3 ml 09/15/20 08:19 09/15/20 08:47 Ipratropium/Albuterol 3 Ml Neb INH 3 ml Q4HR PRN Administration Wheezing Alcohol 1 amp 09/11/20 01:00 09/15/20 09:06 Ethyl Alcohol 62% Swab Ampule MARCO ANTONIO 1 amp BID DIPTI Administration Chlordiazepoxide HCl 10 mg 09/14/20 21:00 09/15/20 09:02 Chlordiazepoxide 5 Mg Capsule PO 09/16/20 01:00 10 mg BID DIPTI Administration Ferrous Sulfate 300 mg 09/15/20 08:05 09/15/20 09:03 Ferrous Sulfate 300 Mg/5 Ml Udc PO 300 mg DAILYWM DIPTI Administration Folic Acid 1 mg 09/14/20 09:00 09/15/20 09:03 Folic Acid 1 Mg Tablet PO 1 mg DAILY DIPTI Administration Ciprofloxacin 400 mg in 200 mls @ 200 mls/hr 09/12/20 17:00 09/15/20 06:30 Cipro 400 Mg/200 Ml IV Infused Q12H DIPTI Infusion Metronidazole 500 mg in 100 mls @ 100 mls/hr 09/12/20 17:00 09/15/20 09:45 Flagyl 500 Mg/100 Ml IV Infused Q8H DIPTI Infusion Dextrose/Sodium Chloride 1,000 mls @ 40 mls/hr 09/15/20 09:21 09/15/20 10:43 D5ns IV 40 mls/hr .Q25H DIPTI Administration Lorazepam 1 mg 09/10/20 17:59 09/14/20 17:54 Lorazepam 2 Mg/Ml Vial IVP 1 mg Q30M PRN Administration CIWA >8 Protocol Multivitamins 1 tab 09/14/20 09:00 09/15/20 09:03 Multivitamin Tablet PO 1 tab DAILYWM DIPTI Administration Ondansetron HCl 4 mg 09/10/20 17:56 09/15/20 09:22 Ondansetron 4 Mg/2 Ml Vial IVP 4 mg Q6HR PRN Administration Nausea / Vomiting Pantoprazole Sodium 40 mg 09/10/20 21:00 09/15/20 09:03 Pantoprazole 40 Mg Vial IVP 40 mg BID DIPTI Administration Sodium Chloride 10 ml 09/11/20 01:00 09/15/20 09:06 Sodium Chloride Flush 0.9% 10 Ml Syringe IVP 10 ml 0100,0900,1700 DIPTI Administration Sodium Chloride 10 ml 09/10/20 17:56 09/13/20 18:20 Sodium Chloride Flush 0.9% 10 Ml Syringe IVP 10 ml PRN PRN Administration NEEDED PER PROVIDER ORDERS Thiamine HCl 100 mg 09/14/20 09:00 09/15/20 09:03 Thiamine 100 Mg Tablet PO 100 mg DAILY DIPTI Administration Throat Lozenges 1 lozenge 09/13/20 20:06 09/13/20 21:17 Benzocaine/Menthol Lozenge MM 1 lozenge Q2HR PRN Administration Throat pain - Lab Result Fish Bone Diagrams: 09/15/20 04:20 09/15/20 04:20 - Additional Planning My Orders: My Active Orders 09/14/20 21:00 chlordiazePOXIDE [Librium] 10 mg PO BID 09/15/20 08:05 Ferrous Sulfate Liquid [Feosol Liquid] 300 mg PO DAILYWM 09/15/20 08:19 Ipratropium/Albuterol [Duoneb] 3 ml INH Q4HR PRN 09/15/20 08:48 RT [Oxygen Therapy] [RC] .PRN 09/15/20 08:49 RT [Nebulizer/MDI Tx.] [RC] QID 09/15/20 09:21 Dextrose 5%-0.9% NaCl [D5ns] 1,000 ml IV 40 mls/hr 09/15/20 Lunch Dysphagia Puree Diet [DIET] 09/15/20 17:00 Magnesium Oxide [Mag Ox] 400 mg PO BIDWM Potassium Chloride [K-Dur] 40 meq PO BIDWM 09/16/20 05:00 AMMONIA [CHEM] DAILYLAB 09/16/20 09:00 chlordiazePOXIDE [Librium] 5 mg PO BID 09/17/20 05:00 AMMONIA [CHEM] DAILYLAB Subjective - Subjective Patient Reports: Feeling Better, Fatigue, Other (Has an appetite) Objective Vital Signs: Vital Signs - 24 hr 09/14/20 09/14/20 09/14/20 15:42 21:00 22:10 Temperature 36.6 C 36.8 C Heart Rate Heart Rate [ 93 Brachial] Heart Rate [ 93 Monitoring electrodes] Respiratory 18 18 Rate Blood Pressure 136/84 H 127/82 H [Left Brachial artery] O2 Saturation 98 97 92 09/14/20 09/14/20 09/15/20 22:11 23:45 04:25 Temperature 37.5 C 37.3 C Heart Rate Heart Rate [ 99 96 Brachial] Heart Rate [ Monitoring electrodes] Respiratory 16 16 Rate Blood Pressure 138/74 H 142/79 H [Left Brachial artery] O2 Saturation 94 93 92 09/15/20 09/15/20 09/15/20 07:30 08:50 08:51 Temperature 36.7 C 36.7 C Heart Rate 95 95 Heart Rate [ Brachial] Heart Rate [ 92 Monitoring electrodes] Respiratory 20 18 16 Rate Blood Pressure 138/73 H [Left Brachial artery] O2 Saturation 98 92 09/15/20 12:04 Temperature 36.9 C Heart Rate Heart Rate [ Brachial] Heart Rate [ 92 Monitoring electrodes] Respiratory 18 Rate Blood Pressure 114/67 [Left Brachial artery] O2 Saturation 93 Oxygen O2 Source Room air I&O (Last 24 Hrs): Intake and Output Totals x24h 09/13/20 09/14/20 09/15/20 23:59 23:59 23:59 Intake Total 4694.502 3651.810 2021.713 Output Total 0 Balance 4694.502 3651.810 2021.713 General: Alert, Oriented x3, Other (Bradykinetic) HEENT: Mucous membr. moist/pink Neck: Supple, No JVD Neuro: Alert, Oriented Times 3, Other (Has a fine tremor of her jaw and hands intermittently. Is bradykinetic and appears fatigued (getting Librium)) Cardiovascular: Regular rate, No murmurs Respiratory: No respiratory distress, Breath sounds nml Abdomen: Normal bowel sounds, Soft, No tenderness Extremities: No edema - Results Results: Laboratory Results WBC 2.9 x10^3/uL (4.8-10.8) L 09/15/20 04:20 RBC 2.09 10^6/uL (4.20-5.40) L 09/15/20 04:20 Hgb 7.4 g/dL (12.0-16.0) L 09/15/20 04:20 Hct 22.1 % (37.0-47.0) L 09/15/20 04:20 MCV 105.7 fL (81.0-99.0) H 09/15/20 04:20 MCH 35.4 pg (27.0-31.0) H 09/15/20 04:20 MCHC 33.5 g/dL (32.0-36.0) 09/15/20 04:20 RDW 21.3 % (12.0-15.0) H 09/15/20 04:20 Plt Count 68 10^3/uL (130-450) L 09/15/20 04:20 MPV 9.4 fL (7.9-10.8) 09/15/20 04:20 Neut # (Auto) 1.9 10^3/uL (1.5-6.6) 09/15/20 04:20 Lymph # (Auto) 0.6 10^3/uL (1.5-3.5) L 09/15/20 04:20 Smith # (Auto) 0.3 10^3/uL (0.0-1.0) 09/15/20 04:20 Eos # (Auto) 0.0 10^3/uL (0.0-0.7) 09/15/20 04:20 Baso # (Auto) 0.0 10^3/uL (0.0-0.1) 09/15/20 04:20 Absolute Nucleated RBC 0.00 x10^3/uL 09/15/20 04:20 Total Counted 100 09/14/20 04:25 Band Neuts % (Manual) 2 % (0-10) 09/14/20 04:25 Abnorm Lymph % (Manual) 0 % 09/14/20 04:25 Nucleated RBC % 0.0 /100WBC 09/15/20 04:20 Neutrophils # (Manual) 1.9 10^3/uL (1.5-6.6) 09/14/20 04:25 Lymphocytes # (Manual) 1.0 10^3/uL (1.5-3.5) L 09/14/20 04:25 Monocytes # (Manual) 0.1 10^3/uL (0.0-1.0) 09/14/20 04:25 Eosinophils # (Manual) 0.0 10^3/uL (0-0.7) 09/14/20 04:25 Basophils # (Manual) 0.0 10^3/uL (0-0.1) 09/14/20 04:25 Differential Comment MANUAL DIFFERENTIAL 09/14/20 04:25 Manual Slide Review Indicated 09/15/20 04:20 WBC Morphology NORMAL APPEARANCE (NORMAL) 09/15/20 04:20 Platelet Estimate DECREASED (<130,000) (NORMAL) 09/15/20 04:20 Platelet Morphology NORMAL APPEARANCE (NORMAL) 09/15/20 04:20 RBC Morph Micro Appear 1+ HYPOCHROMASIA (NORMAL) 2+ ANISOCYTOSIS (NORMAL) 09/15/20 04:20 RBC Morph Micro Appear 1+ HYPOCHROMASIA (NORMAL) 2+ ANISOCYTOSIS (NORMAL) 09/15/20 04:20 PT 17.3 secs (9.9-12.6) H 09/15/20 04:20 INR 1.6 (0.8-1.2) H 09/15/20 04:20 APTT 30.2 secs (24.9-33.3) 09/10/20 12:19 VBG pH 7.399 (7.31-7.41) 09/14/20 04:25 Ionized Calcium 1.06 mmol/L (1.15-1.33) L 09/14/20 04:25 Sodium 134 mmol/L (135-145) L 09/15/20 04:20 Potassium 3.0 mmol/L (3.5-5.0) L 09/15/20 04:20 Chloride 107 mmol/L (101-111) 09/15/20 04:20 Carbon Dioxide 19 mmol/L (21-32) L 09/15/20 04:20 Anion Gap 8.0 (6-13) 09/15/20 04:20 BUN < 5 mg/dL (6-20) L 09/15/20 04:20 Creatinine 0.7 mg/dL (0.4-1.0) 09/15/20 04:20 Estimated GFR (MDRD) 84 (>89) L 09/15/20 04:20 Glucose 130 mg/dL (70-100) H 09/15/20 04:20 POC Whole Bld Glucose 127 mg/dL (70 - 100) H 09/13/20 17:57 Calcium 7.7 mg/dL (8.5-10.3) L 09/15/20 04:20 Phosphorus 3.0 mg/dL (2.5-4.6) 09/15/20 04:20 Magnesium 1.2 mg/dL (1.7-2.8) L 09/15/20 04:20 Iron 156 ug/dL (28-170) 09/10/20 12:19 Total Bilirubin 2.0 mg/dL (0.2-1.0) H 09/15/20 04:20 Direct Bilirubin 0.9 mg/dL (0.1-0.5) H 09/15/20 04:20 AST 92 IU/L (10-42) H 09/15/20 04:20 ALT 22 IU/L (10-60) 09/15/20 04:20 Alkaline Phosphatase 87 IU/L (42-121) 09/15/20 04:20 Ammonia 33.2 umol/L (7-35) 09/15/20 08:37 Troponin I High Sens 5.0 ng/L (2.3-14.8) 09/10/20 12:19 B-Natriuretic Peptide 71 pg/mL (5-100) 09/10/20 12:19 Total Protein 5.4 g/dL (6.7-8.2) L 09/15/20 04:20 Albumin 2.4 g/dL (3.2-5.5) L 09/15/20 04:20 Globulin 3.0 g/dL (2.1-4.2) 09/15/20 04:20 Albumin/Globulin Ratio 0.8 (1.0-2.2) L 09/10/20 12:19 Lipase 27 U/L (22-51) 09/10/20 12:19 Vitamin B12 1089 pg/mL (180-914) H 09/10/20 12:19 Folate 2.51 ng/mL (5.90 - >24.8) L 09/10/20 12:19 TSH 2.95 uIU/mL (0.34-5.60) 09/10/20 12:19 Cortisol 35.5 ug/dL 09/10/20 12:19 Nasal Adenovirus (PCR) NOT DETECTED 09/10/20 13:02 Nasal B. parapertussis DNA (PCR) NOT DETECTED 09/10/20 13:02 Nasal Coronavir 229E PCR NOT DETECTED 09/10/20 13:02 Nasal Coronavir HKU1 PCR NOT DETECTED 09/10/20 13:02 Nasal Coronavir NL63 PCR NOT DETECTED 09/10/20 13:02 Nasal Coronavir OC43 PCR NOT DETECTED 09/10/20 13:02 Nasal Enterovir/Rhinovir PCR NOT DETECTED 09/10/20 13:02 Nasal Influenza B PCR NOT DETECTED 09/10/20 13:02 Nasal Influenza A PCR NOT DETECTED 09/10/20 13:02 Nasal Parainfluen 1 PCR NOT DETECTED 09/10/20 13:02 Nasal Parainfluen 2 PCR NOT DETECTED 09/10/20 13:02 Nasal Parainfluen 3 PCR NOT DETECTED 09/10/20 13:02 Nasal Parainfluen 4 PCR NOT DETECTED 09/10/20 13:02 Nasal RSV (PCR) NOT DETECTED 09/10/20 13:02 Nasal Screen MRSA (PCR) POSITIVE (NEGATIVE) A* 09/10/20 19:25 Nasal B.pertussis DNA PCR NOT DETECTED 09/10/20 13:02 Nasal C.pneumoniae (PCR) NOT DETECTED 09/10/20 13:02 Marco Antonio Human Metapneumo PCR NOT DETECTED 09/10/20 13:02 Nasal M.pneumoniae (PCR) NOT DETECTED 09/10/20 13:02 Nasal SARS-CoV-2 (PCR) NOT DETECTED 09/10/20 13:02 HIV 1&2 Ag/Ab, 4th Gen NON-REACTIVE (NON-REACTIVE) 09/12/20 16:42 Blood Type O POSITIVE 09/10/20 13:22 Blood Type Recheck O POSITIVE 09/10/20 12:19 Antibody Screen NEGATIVE 09/10/20 13:22 Crossmatch IS Only See Detail 09/10/20 13:22
[2020-09-15] MEDS: POTASSIUM CHLORIDE 20 MEQ TABLET PO SCH (17:09)
--- NOTE | 2020-09-15 18:56 | PROVIDER PROGRESS NOTE ---
Progress Note Subjective No further bleeding episodes. No further hematochezia. No further hematemesis. No further melena. Status post upper endoscopy and repeat lower endoscopy as per below. Objective Afebrile hemodynamically acceptable General Appearance: positive: No acute distress Eyes Bilateral: positive: Normal inspection ENT: positive: ENT inspection nml Neck: positive: Nml inspection Respiratory: positive: Chest non-tender, No respiratory distress, Breath sounds nml. negative: Wheezes, Rales, Rhonchi Cardiovascular: positive: Regular rate & rhythm Abdomen: positive: No distention, Other. negative: Guarding, Rebound Extremities: positive: Non-tender, Full ROM, Nml appearance Neurologic/Psychiatric: positive: Oriented x3, CN's nml (2-12) Impression/Plan 65-year-old female with history of alcoholic cirrhosis who presented with profound anemia acute on chronic blood loss. Active alcohol withdrawal with delirium tremens. Upper and lower endoscopy essentially negative for gastroesophageal varices, without any gross foregut source of acute on chronic blood loss. However significant cecal and terminal ileal inflammatory changes with diffuse oozing likely contributing to the patient's presentation with anemia. Essentially typhlitis. Pathology without any signs of inflammatory changes and/or malignancy. Hepatic mass will need to be addressed for pathology and evaluated in the context of historic imaging to determine if this is a new or old finding. Would defer and have this done at a large referral center with hepatology and interventional radiology and hepatobiliary surgical backup given its location and associated risks and sampling. HIV is negative. We will continue to proton pump inhibition. Would proceed with a low fiber soft diet and agree with pured foods. No acute surgical intervention at this time. Patient will need repeat lower endoscopy in a short interval to evaluate for persistence of cecal inflammatory changes. With regard to the antibiotics, a 7-day course is not unreasonable however absent any acute inflammatory changes on pathology I am hard pressed to insist at this time. Please note that voice recognition software was used to transcribe this note and inadvertent errors might persist in spite of review and editing. I am obliged to you for your attention. I am thankful to you for allowing me to participate with you in this care of this patient. EGD RESULTS: 1. Duodenum normal. No evidence of of duodenitis. No biopsies obtained secondary to concerns for propagating and confusing source of gastrointestinal bleed. 2. Antrum with diffuse antritis. Stomach diffusely inflamed with associated gastritis. Patent pylorus. 3. Retroflexion with small hiatal herniation. 4. Diffuse gastritis or gastropathy. No polyps. No ulcerations. 5. GE junction with mild inflammatory changes and irregular Z-line.. 6. Distal esophagus with no significant changes. Chronic scar. 7. Most importantly NO gastroesophageal varices appreciated throughout the entirety of this esophagogastroduodenoscopy. REPEAT COLONOSCOPY RESULTS: 1. Appropriate prep 2. Ileocecal valve achieved as evidenced by the appendiceal orifice both photographed. 3. Terminal ileum intubated with mild enteritis. Random biopsies taken cold forceps. 4. Cecum extensive cecitis. This is consistent with typhlitis. The remnant of the colon was out colitis. No diverticulosis or diverticulitis. 5. Careful slow withdrawal without any notable pathology other than the typhlitis reported above which was isolated to the cecum and was biopsied cold forceps.. 6. No masses or polyps appreciated. Mildly tortuous colon 7. Rectum without proctitis. Sigmoid without diverticulosis. No diverticulitis. 8. Internal hemorrhoids nonbleeding.
[2020-09-15] MEDS: BENZOCAINE/MENTHOL LOZENGE MM PRN (19:05)
[2020-09-15] MEDS: PANTOPRAZOLE 40 MG TABLET PO SCH (20:55)
[2020-09-16] MEDS ORDERED: MAGNESIUM SULFATE 2 GRAM 2 GM/50 ML BAG IV ONE (08:44)
[2020-09-16] MEDS ORDERED: POTASSIUM CHLOR 10 MEQ/100 ML 10 MEQ/100 ML BAG IV SCH (09:00)
[2020-09-16] MEDS: THIAMINE 100 MG TABLET PO SCH (09:09)
[2020-09-16] MEDS: MAGNESIUM OXIDE 400 MG TABLET PO SCH ×3 (09:09→18:09)
[2020-09-16] MEDS: chlordiazePOXIDE 5 MG CAPSULE PO SCH ×2 (09:09→21:18)
[2020-09-16] MEDS: PANTOPRAZOLE 40 MG TABLET PO SCH ×2 (09:09→21:18)
[2020-09-16] MEDS: FERROUS SULFATE 300 MG/5 ML UDC PO SCH (09:09)
[2020-09-16] MEDS: MULTIVITAMIN TABLET PO SCH (09:09)
[2020-09-16] MEDS: FOLIC ACID 1 MG TABLET PO SCH (09:09)
[2020-09-16] MEDS: POTASSIUM CHLORIDE 20 MEQ TABLET PO SCH ×3 (09:10→18:09)
[2020-09-16] MEDS: SODIUM CHLORIDE FLUSH 0.9% 10 ML SYRINGE IVP PRN (09:10)
[2020-09-16] MEDS: ethyl alcohoL 62% SWAB AMPULE NAS SCH ×2 (09:10→21:18)
[2020-09-16 09:18] LABS: BUN - BLOOD UREA NITROGEN < 5 mg/dL (6-20); CALCIUM 8.3 mg/dL (8.5-10.3); CARBON DIOXIDE - CO2 18 mmol/L (21-32); CHLORIDE 107 mmol/L (101-111); CREATININE 0.7 mg/dL (0.4-1.0); GFR - MDRD 84 (>89); GLUCOSE 115 mg/dL (70-100); MAGNESIUM 1.6 mg/dL (1.7-2.8); PHOSPHORUS 2.2 mg/dL (2.5-4.6); POTASSIUM 4.1 mmol/L (3.5-5.0); SODIUM 135 mmol/L (135-145)
--- NOTE | 2020-09-16 11:43 | PROVIDER PROGRESS NOTE ---
Assessment/Plan - Problem List (1) Upper GI bleeding Assessment/Plan: Resolved (2) Acute blood loss anemia Assessment/Plan: No further evidence of bleeding. Endoscopy revealed gastritis and no varices. She is on oral Protonix and diet advancing (3) Alcoholic cirrhosis of liver Qualifiers: Ascites presence: without ascites Qualified Code(s): K70.30 - Alcoholic cirrhosis of liver without ascites Assessment/Plan: No varices were seen on upper endoscopy. Her liver enzymes are stable but abnormal. Plts are low and INR is elevated. Following plts and INR daily, ammonia intermittently. (4) Alcohol abuse Impression: She had been counseled by the last Hospitalist on the importance of alcohol cessation (before she needed sedation for alcohol withdrawal). Social work also consulted to provide her and with resources regarding alcohol cessation. I have spoken to pt recommending she take in no more alcohol and she replied "OK". Several days ago, the was at bedside and told me that she was able to drive a car and get her own alcohol. He said, she will promise not to drink alcohol anymore, stops, then resumes alcohol abuse after about 2 weeks. He understood that he will also need counseling in order to not enable her to take in alcohol. (5) Alcohol withdrawal Impression: For several days, she was going through alcohol withdrawal, getting scheduled Librium plus iv Ativan for CIWA scoring protocol. Since yesterday is bradykinetic and Librium taperd to off, none further today Will also decrease sedatives on her CIWA protocol I updated the at her bedside, regarding all her diagnoses. (6) Liver lesion, right lobe Impression: This was concerning for potential metastatic disease. She will need considerat ion of biopsy on an outpatient basis with interventional radiology. (7) Thrombocytopenia Impression: Her platelet count remains low. This is likely related to her alcoholism and marrow suppression. HIV testing was neg this admission. Watching plts daily. If needed, we would transfuse for goal equal to or greater than 50 if plts drop, given the GI bleed. No aspirin or NSAIDs will be used. (8) Elevated INR Impression: This is also secondary to her alcoholism and liver cirrhosis. We will continue to monitor INR, given the GI bleed. (9) Hypertension Impression: She is normotensive today, possibly due to persistent anemia. We will continue to hold her hydrochlorothiazide and bisoprolol. We will resume when clinically appropriate. (10) Neuropathy Impression: Stable. We will resume her duloxetine once she is taking p.o. (11) Severe protein calorie malnutrition Patient has documented significant muscle wasting, loss of subcutaneous fat. No intake of less than 50% of recommended for 2 weeks or more. There has been weight loss of 25% in the past 6 months (about 30 pound weight loss). The said he has been making 90% of the meals for about a year. The patient will eat 2 bites and then state that she is full. (12) Typhlitis (cecitis) Ruled out from cecal Bx. - Current Meds Current Meds: Current Medications Generic Name Dose Route Start Last Admin Trade Name Freq PRN Reason Stop Dose Admin Acetaminophen 650 mg 09/10/20 17:56 09/15/20 10:46 Acetaminophen 325 Mg Tablet PO 650 mg Q4HR PRN Administration Pain 1 to 4 Albuterol/Ipratropium 3 ml 09/15/20 08:19 09/15/20 08:47 Ipratropium/Albuterol 3 Ml Neb INH 3 ml Q4HR PRN Administration Wheezing Alcohol 1 amp 09/11/20 01:00 09/16/20 09:10 Ethyl Alcohol 62% Swab Ampule MARCO ANTONIO 1 amp BID DIPTI Administration Chlordiazepoxide HCl 5 mg 09/16/20 09:00 09/16/20 09:09 Chlordiazepoxide 5 Mg Capsule PO 09/17/20 00:01 5 mg BID DIPTI Administration Ferrous Sulfate 300 mg 09/15/20 08:05 09/16/20 09:09 Ferrous Sulfate 300 Mg/5 Ml Udc PO 300 mg DAILYWM DIPTI Administration Folic Acid 1 mg 09/14/20 09:00 09/16/20 09:09 Folic Acid 1 Mg Tablet PO 1 mg DAILY DIPTI Administration Lorazepam 1 mg 09/10/20 17:59 09/14/20 17:54 Lorazepam 2 Mg/Ml Vial IVP 1 mg Q30M PRN Administration CIWA >8 Protocol Magnesium Oxide 400 mg 09/15/20 17:00 09/16/20 09:09 Magnesium Oxide 400 Mg Tablet PO 400 mg BIDWM DIPTI Administration Multivitamins 1 tab 09/14/20 09:00 09/16/20 09:09 Multivitamin Tablet PO 1 tab DAILYWM DIPTI Administration Ondansetron HCl 4 mg 09/10/20 17:56 09/15/20 09:22 Ondansetron 4 Mg/2 Ml Vial IVP 4 mg Q6HR PRN Administration Nausea / Vomiting Pantoprazole Sodium 40 mg 09/15/20 21:00 09/16/20 09:09 Pantoprazole 40 Mg Tablet PO 40 mg BID DIPTI Administration Potassium Chloride 40 meq 09/15/20 17:00 09/16/20 09:10 Potassium Chloride 20 Meq Tablet PO 40 meq BIDWM DIPTI Administration Sodium Chloride 10 ml 09/10/20 17:56 09/16/20 09:10 Sodium Chloride Flush 0.9% 10 Ml Syringe IVP 10 ml PRN PRN Administration NEEDED PER PROVIDER ORDERS Thiamine HCl 100 mg 09/14/20 09:00 09/16/20 09:09 Thiamine 100 Mg Tablet PO 100 mg DAILY DIPTI Administration Throat Lozenges 1 lozenge 09/13/20 20:06 09/15/20 19:05 Benzocaine/Menthol Lozenge MM 1 lozenge Q2HR PRN Administration Throat pain - Lab Result Fish Bone Diagrams: 09/17/20 05:55 09/17/20 05:55 - Additional Planning My Orders: My Active Orders 09/15/20 Lunch Dysphagia Puree Diet [DIET] 09/15/20 17:00 Magnesium Oxide [Mag Ox] 400 mg PO BIDWM Potassium Chloride [K-Dur] 40 meq PO BIDWM 09/15/20 21:00 Pantoprazole [Protonix] 40 mg PO BID 09/16/20 09:00 chlordiazePOXIDE [Librium] 5 mg PO BID 09/17/20 05:00 AMMONIA [CHEM] DAILYLAB CBC - COMP BLD CT W/AUTO DIFF [HEME] DAILYLAB CMP [COMPREHENSIVE METABOLIC PANEL] [CHEM] DAILYLAB Subjective - Subjective Patient Reports: Feeling Better, No Complaints Nursing Reports: Other (More alert, conversant and better appetite yesterday) Objective Vital Signs: Vital Signs - 24 hr 09/15/20 09/15/20 09/15/20 12:04 16:39 19:58 Temperature 36.9 C 36.7 C 36.8 C Heart Rate Heart Rate [ Brachial] Heart Rate [ 92 85 88 Monitoring electrodes] Respiratory 18 18 18 Rate Blood Pressure 114/67 130/74 131/81 H [Left Brachial artery] O2 Saturation 93 99 96 09/15/20 09/16/20 09/16/20 20:50 00:00 08:45 Temperature 36.7 C 36.8 C Heart Rate 88 Heart Rate [ 99 99 Brachial] Heart Rate [ Monitoring electrodes] Respiratory 18 16 20 Rate Blood Pressure 152/78 H 148/77 H [Left Brachial artery] O2 Saturation 95 91 L 09/16/20 11:37 Temperature 36.4 C L Heart Rate Heart Rate [ 90 Brachial] Heart Rate [ Monitoring electrodes] Respiratory 19 Rate Blood Pressure 122/78 [Left Brachial artery] O2 Saturation 98 Oxygen O2 Source Room air I&O (Last 24 Hrs): Intake and Output Totals x24h 09/14/20 09/15/20 09/16/20 23:59 23:59 23:59 Intake Total 3651.810 2695.213 100 Output Total 200 Balance 3651.810 2495.213 100 General: Alert, Other (Sleepy) HEENT: Mucous membr. moist/pink, Other (Icteric) Neck: Supple, No JVD Neuro: Non Focal, Other (Bradykinetic but no tremulousness seen) Cardiovascular: Regular rate Respiratory: No respiratory distress Abdomen: Soft Extremities: No edema - Results Results: Laboratory Results WBC 2.9 x10^3/uL (4.8-10.8) L 09/15/20 04:20 RBC 2.09 10^6/uL (4.20-5.40) L 09/15/20 04:20 Hgb 7.4 g/dL (12.0-16.0) L 09/15/20 04:20 Hct 22.1 % (37.0-47.0) L 09/15/20 04:20 MCV 105.7 fL (81.0-99.0) H 09/15/20 04:20 MCH 35.4 pg (27.0-31.0) H 09/15/20 04:20 MCHC 33.5 g/dL (32.0-36.0) 09/15/20 04:20 RDW 21.3 % (12.0-15.0) H 09/15/20 04:20 Plt Count 68 10^3/uL (130-450) L 09/15/20 04:20 MPV 9.4 fL (7.9-10.8) 09/15/20 04:20 Neut # (Auto) 1.9 10^3/uL (1.5-6.6) 09/15/20 04:20 Lymph # (Auto) 0.6 10^3/uL (1.5-3.5) L 09/15/20 04:20 [place] # (Auto) 0.3 10^3/uL (0.0-1.0) 09/15/20 04:20 Eos # (Auto) 0.0 10^3/uL (0.0-0.7) 09/15/20 04:20 Baso # (Auto) 0.0 10^3/uL (0.0-0.1) 09/15/20 04:20 Absolute Nucleated RBC 0.00 x10^3/uL 09/15/20 04:20 Total Counted 100 09/14/20 04:25 Band Neuts % (Manual) 2 % (0-10) 09/14/20 04:25 Abnorm Lymph % (Manual) 0 % 09/14/20 04:25 Nucleated RBC % 0.0 /100WBC 09/15/20 04:20 Neutrophils # (Manual) 1.9 10^3/uL (1.5-6.6) 09/14/20 04:25 Lymphocytes # (Manual) 1.0 10^3/uL (1.5-3.5) L 09/14/20 04:25 Monocytes # (Manual) 0.1 10^3/uL (0.0-1.0) 09/14/20 04:25 Eosinophils # (Manual) 0.0 10^3/uL (0-0.7) 09/14/20 04:25 Basophils # (Manual) 0.0 10^3/uL (0-0.1) 09/14/20 04:25 Differential Comment MANUAL DIFFERENTIAL 09/14/20 04:25 Manual Slide Review Indicated 09/15/20 04:20 WBC Morphology NORMAL APPEARANCE (NORMAL) 09/15/20 04:20 Platelet Estimate DECREASED (<130,000) (NORMAL) 09/15/20 04:20 Platelet Morphology NORMAL APPEARANCE (NORMAL) 09/15/20 04:20 RBC Morph Micro Appear 1+ HYPOCHROMASIA (NORMAL) 2+ ANISOCYTOSIS (NORMAL) 09/15/20 04:20 RBC Morph Micro Appear 1+ HYPOCHROMASIA (NORMAL) 2+ ANISOCYTOSIS (NORMAL) 09/15/20 04:20 PT 17.3 secs (9.9-12.6) H 09/15/20 04:20 INR 1.6 (0.8-1.2) H 09/15/20 04:20 APTT 30.2 secs (24.9-33.3) 09/10/20 12:19 VBG pH 7.399 (7.31-7.41) 09/14/20 04:25 Ionized Calcium 1.06 mmol/L (1.15-1.33) L 09/14/20 04:25 Sodium 135 mmol/L (135-145) 09/16/20 05:00 Potassium 4.1 mmol/L (3.5-5.0) 09/16/20 05:00 Chloride 107 mmol/L (101-111) 09/16/20 05:00 Carbon Dioxide 18 mmol/L (21-32) L 09/16/20 05:00 Anion Gap 10.0 (6-13) 09/16/20 05:00 BUN < 5 mg/dL (6-20) L 09/16/20 05:00 Creatinine 0.7 mg/dL (0.4-1.0) 09/16/20 05:00 Estimated GFR (MDRD) 84 (>89) L 09/16/20 05:00 Glucose 115 mg/dL (70-100) H 09/16/20 05:00 POC Whole Bld Glucose 127 mg/dL (70 - 100) H 09/13/20 17:57 Calcium 8.3 mg/dL (8.5-10.3) L 09/16/20 05:00 Phosphorus 2.2 mg/dL (2.5-4.6) L 09/16/20 05:00 Magnesium 1.6 mg/dL (1.7-2.8) L 09/16/20 05:00 Iron 156 ug/dL (28-170) 09/10/20 12:19 Total Bilirubin 2.0 mg/dL (0.2-1.0) H 09/15/20 04:20 Direct Bilirubin 0.9 mg/dL (0.1-0.5) H 09/15/20 04:20 AST 92 IU/L (10-42) H 09/15/20 04:20 ALT 22 IU/L (10-60) 09/15/20 04:20 Alkaline Phosphatase 87 IU/L (42-121) 09/15/20 04:20 Ammonia 27.2 umol/L (7-35) 09/16/20 05:00 Troponin I High Sens 5.0 ng/L (2.3-14.8) 09/10/20 12:19 B-Natriuretic Peptide 71 pg/mL (5-100) 09/10/20 12:19 Total Protein 5.4 g/dL (6.7-8.2) L 09/15/20 04:20 Albumin 2.4 g/dL (3.2-5.5) L 09/15/20 04:20 Globulin 3.0 g/dL (2.1-4.2) 09/15/20 04:20 Albumin/Globulin Ratio 0.8 (1.0-2.2) L 09/10/20 12:19 Lipase 27 U/L (22-51) 09/10/20 12:19 Vitamin B12 1089 pg/mL (180-914) H 09/10/20 12:19 Folate 2.51 ng/mL (5.90 - >24.8) L 09/10/20 12:19 TSH 2.95 uIU/mL (0.34-5.60) 09/10/20 12:19 Cortisol 35.5 ug/dL 09/10/20 12:19 Nasal Adenovirus (PCR) NOT DETECTED 09/10/20 13:02 Nasal B. parapertussis DNA (PCR) NOT DETECTED 09/10/20 13:02 Nasal Coronavir 229E PCR NOT DETECTED 09/10/20 13:02 Nasal Coronavir HKU1 PCR NOT DETECTED 09/10/20 13:02 Nasal Coronavir NL63 PCR NOT DETECTED 09/10/20 13:02 Nasal Coronavir OC43 PCR NOT DETECTED 09/10/20 13:02 Nasal Enterovir/Rhinovir PCR NOT DETECTED 09/10/20 13:02 Nasal Influenza B PCR NOT DETECTED 09/10/20 13:02 Nasal Influenza A PCR NOT DETECTED 09/10/20 13:02 Nasal Parainfluen 1 PCR NOT DETECTED 09/10/20 13:02 Nasal Parainfluen 2 PCR NOT DETECTED 09/10/20 13:02 Nasal Parainfluen 3 PCR NOT DETECTED 09/10/20 13:02 Nasal Parainfluen 4 PCR NOT DETECTED 09/10/20 13:02 Nasal RSV (PCR) NOT DETECTED 09/10/20 13:02 Nasal Screen MRSA (PCR) POSITIVE (NEGATIVE) A* 09/10/20 19:25 Nasal B.pertussis DNA PCR NOT DETECTED 09/10/20 13:02 Nasal C.pneumoniae (PCR) NOT DETECTED 09/10/20 13:02 [place] Human Metapneumo PCR NOT DETECTED 09/10/20 13:02 Nasal M.pneumoniae (PCR) NOT DETECTED 09/10/20 13:02 Nasal SARS-CoV-2 (PCR) NOT DETECTED 09/10/20 13:02 HIV 1&2 Ag/Ab, 4th Gen NON-REACTIVE (NON-REACTIVE) 09/12/20 16:42 Blood Type O POSITIVE 09/10/20 13:22 Blood Type Recheck O POSITIVE 09/10/20 12:19 Antibody Screen NEGATIVE 09/10/20 13:22 Crossmatch IS Only See Detail 09/10/20 13:22
[2020-09-16] MEDS: ACETAMINOPHEN 325 MG TABLET PO PRN (13:36)
[2020-09-16] MEDS: LORazepam 2 MG/ML VIAL IVP PRN (17:09)
[2020-09-17] MEDS: LORazepam 2 MG/ML VIAL IVP PRN (00:09)
[2020-09-17 06:04] LABS: BASOPHILS # (AUTO) 0.1 10^3/uL (0.0-0.1); BASOPHILS % (AUTO) 1.2 %; EOSINOPHILS # (AUTO) 0.1 10^3/uL (0.0-0.7); EOSINOPHILS % (AUTO) 1.2 %; HCT - HEMATOCRIT 25.2 % (37.0-47.0); HGB - HEMOGLOBIN 8.5 g/dL (12.0-16.0); LYMPHOCYTES # (AUTO) 0.8 10^3/uL (1.5-3.5); LYMPHOCYTES % (AUTO) 18.6 %; MEAN CORPUSCULAR HEMOGLOBIN 34.6 pg (27.0-31.0); MEAN CORPUSCULAR HGB CONC 33.7 g/dL (32.0-36.0); MEAN CORPUSCULAR VOLUME 102.4 fL (81.0-99.0); MEAN PLATELET VOLUME 9.5 fL (7.9-10.8); MONOCYTES # (AUTO) 0.6 10^3/uL (0.0-1.0); NEUTROPHILS # (AUTO) 2.6 10^3/uL (1.5-6.6); NEUTROPHILS % (AUTO) 63.5 %; PLT - PLATELET COUNT 114 10^3/uL (130-450); RED BLOOD COUNT 2.46 10^6/uL (4.20-5.40); RED CELL DISTRIBUTION WIDTH 20.8 % (12.0-15.0); WHITE BLOOD COUNT 4.1 x10^3/uL (4.8-10.8)
[2020-09-17 06:06] LABS: SLIDE REVIEW? Indicated
[2020-09-17 06:21] LABS: ALBUMIN 2.7 g/dL (3.2-5.5); ALBUMIN/GLOBULIN RATIO 0.8 (1.0-2.2); ALKALINE PHOSPHATASE 99 IU/L (42-121); ALT ALANINE AMINOTRANSFERASE 26 IU/L (10-60); AST ASPARTATE AMINOTRANSFERASE 85 IU/L (10-42); BILIRUBIN,TOTAL 2.6 mg/dL (0.2-1.0); BUN - BLOOD UREA NITROGEN < 5 mg/dL (6-20); CALCIUM 8.7 mg/dL (8.5-10.3); CARBON DIOXIDE - CO2 21 mmol/L (21-32); CHLORIDE 108 mmol/L (101-111); CREATININE 0.7 mg/dL (0.4-1.0); GFR - MDRD 84 (>89); GLUCOSE 98 mg/dL (70-100); POTASSIUM 4.3 mmol/L (3.5-5.0); SODIUM 135 mmol/L (135-145)
[2020-09-17 06:25] LABS: PLATELET ESTIMATE, MANUAL DECREASED (<130,000) (NORMAL); PLATELET MORPHOLOGY NORMAL APPEARANCE (NORMAL); WBC MORPHOLOGY (MULTIPLE) NORMAL APPEARANCE (NORMAL)
[2020-09-17] MEDS ORDERED: LORazepam 2 MG/ML VIAL IVP PRN (07:51)
[2020-09-17] MEDS: THIAMINE 100 MG TABLET PO SCH (08:46)
[2020-09-17] MEDS: POTASSIUM CHLORIDE 20 MEQ TABLET PO SCH ×2 (08:46→17:05)
[2020-09-17] MEDS: MAGNESIUM OXIDE 400 MG TABLET PO SCH ×2 (08:46→17:05)
[2020-09-17] MEDS: FERROUS SULFATE 300 MG/5 ML UDC PO SCH (08:46)
[2020-09-17] MEDS: MULTIVITAMIN TABLET PO SCH (08:46)
[2020-09-17] MEDS: FOLIC ACID 1 MG TABLET PO SCH (08:46)
[2020-09-17] MEDS: PANTOPRAZOLE 40 MG TABLET PO SCH ×2 (08:46→21:25)
[2020-09-17] MEDS: ethyl alcohoL 62% SWAB AMPULE NAS SCH ×2 (08:47→21:25)
--- NOTE | 2020-09-17 15:54 | PROVIDER PROGRESS NOTE ---
Assessment/Plan - Problem List (1) Alcohol withdrawal Assessment/Plan: For several days, she was going through alcohol withdrawal, getting scheduled Librium plus iv Ativan for CIWA scoring protocol. Since yesterday she is bradykinetic and Librium taperd to off, none further today Will also decreasing sedatives on her CIWA protocol PT able to work with her the past 2-3 days. Depending on her strength and ability. does want her to attend outpatient PT.Possible discharge I updated the at her bedside, regarding all her diagnoses. (2) Acute blood loss anemia Assessment/Plan: Stable. No further evidence of bleeding. Endoscopy revealed gastritis and no varices. She is on oral Protonix and diet advancing (3) Alcoholic cirrhosis of liver Qualifiers: Ascites presence: without ascites Qualified Code(s): K70.30 - Alcoholic cirrhosis of liver without ascites Assessment/Plan: No varices were seen on upper endoscopy. Her liver enzymes are stable but abnormal. Plts are low and INR is elevated. Following plts and INR daily, ammonia intermittently. (4) Alcohol abuse Impression: She had been counseled by the last Hospitalist on the importance of alcohol cessation (before she needed sedation for alcohol withdrawal). Social work also consulted to provide her and with resources regarding alcohol cessation. I have spoken to pt recommending she take in no more alcohol and she replied " OK". Several days ago, the was at bedside and told me that she was able to drive a car and get her own alcohol. He said, she will promise not to drink alcohol anymore, stops, then resumes alcohol abuse after about 2 weeks. He understood that he will also need counseling in order to not enable her to take in alcohol. (5) Liver lesion, right lobe Impression: This was concerning for potential metastatic disease. She will need consideration of biopsy on an outpatient basis with interventional radiology. (6) Pancytopenia Impression: Her platelet count remains low. This is likely related to her alcoholism and marrow suppression. HIV testing was neg this admission. Watching plts daily. If needed, we would transfuse for goal equal to or greater than 50 if plts drop, given the GI bleed. No aspirin or NSAIDs will be used. (7) Elevated INR Impression: This is also secondary to her alcoholism and liver cirrhosis. We will continue to monitor INR, given the GI bleed. (8) Hypertension Impression: She is normotensive today, possibly due to persistent anemia. We will continue to hold her hydrochlorothiazide and bisoprolol. We will resume when clinically appropriate. (9) Neuropathy Impression: Stable. We will resume her duloxetine once she is taking p.o. (10) Severe protein calorie malnutrition Patient has documented significant muscle wasting, loss of subcutaneous fat. No intake of less than 50% of recommended for 2 weeks or more. There has been weight loss of 25% in the past 6 months (about 30 pound weight loss). The said he has been making 90% of the meals for about a year. The patient will eat 2 bites and then state that she is full. (11) GI bleed Resolved, was from alcoholic gastritis (12) Typhlitis (cecitis) Ruled out from cecal Bx. - Current Meds Current Meds: Current Medications Generic Name Dose Route Start Last Admin Trade Name Freq PRN Reason Stop Dose Admin Acetaminophen 650 mg 09/10/20 17:56 09/16/20 13:36 Acetaminophen 325 Mg Tablet PO 650 mg Q4HR PRN Administration Pain 1 to 4 Alcohol 1 amp 09/11/20 01:00 09/17/20 08:47 Ethyl Alcohol 62% Swab Ampule MARCO ANTONIO 1 amp BID DIPTI Administration Ferrous Sulfate 300 mg 09/15/20 08:05 09/17/20 08:46 Ferrous Sulfate 300 Mg/5 Ml Udc PO 300 mg DAILYWM DIPTI Administration Folic Acid 1 mg 09/14/20 09:00 09/17/20 08:46 Folic Acid 1 Mg Tablet PO 1 mg DAILY DIPTI Administration Magnesium Oxide 400 mg 09/15/20 17:00 09/17/20 08:46 Magnesium Oxide 400 Mg Tablet PO 400 mg BIDWM DIPTI Administration Multivitamins 1 tab 09/14/20 09:00 09/17/20 08:46 Multivitamin Tablet PO 1 tab DAILYWM DIPTI Administration Ondansetron HCl 4 mg 09/10/20 17:56 09/15/20 09:22 Ondansetron 4 Mg/2 Ml Vial IVP 4 mg Q6HR PRN Administration Nausea / Vomiting Pantoprazole Sodium 40 mg 09/15/20 21:00 09/17/20 08:46 Pantoprazole 40 Mg Tablet PO 40 mg BID DIPTI Administration Potassium Chloride 40 meq 09/15/20 17:00 09/17/20 08:46 Potassium Chloride 20 Meq Tablet PO 40 meq BIDWM DIPTI Administration Sodium Chloride 10 ml 09/10/20 17:56 09/16/20 09:10 Sodium Chloride Flush 0.9% 10 Ml Syringe IVP 10 ml PRN PRN Administration NEEDED PER PROVIDER ORDERS Thiamine HCl 100 mg 09/14/20 09:00 09/17/20 08:46 Thiamine 100 Mg Tablet PO 100 mg DAILY DIPTI Administration Throat Lozenges 1 lozenge 09/13/20 20:06 09/15/20 19:05 Benzocaine/Menthol Lozenge MM 1 lozenge Q2HR PRN Administration Throat pain - Lab Result Fish Bone Diagrams: 09/17/20 05:55 09/17/20 05:55 - Additional Planning My Orders: My Active Orders 09/17/20 07:51 LORazepam INJ [Ativan Inj (Vial)] 1 mg IVP Q2H PRN 09/17/20 07:52 Miscellaenous Nursing Order [RC] QSHIFT 09/17/20 Lunch DIET [Soft Mechanical Diet] [DIET] 09/18/20 05:00 MAGNESIUM [CHEM] DAILYLAB Subjective - Subjective Patient Reports: Resting Comfortably, No Complaints, Other (Appetite has improved since yesterday) Objective Vital Signs: Vital Signs - 24 hr 09/16/20 09/16/20 09/16/20 16:14 19:06 20:40 Temperature 36.7 C 36.6 C Heart Rate 90 Heart Rate [ 91 90 Brachial] Heart Rate [ Monitoring electrodes] Respiratory 20 18 18 Rate Blood Pressure 124/72 114/70 [Left Brachial artery] Blood Pressure [Right Brachial artery] O2 Saturation 100 95 09/17/20 09/17/20 09/17/20 05:00 08:02 12:45 Temperature 36.4 C L 36.3 C L 36.3 C L Heart Rate Heart Rate [ 97 Brachial] Heart Rate [ 95 98 Monitoring electrodes] Respiratory 20 20 20 Rate Blood Pressure 146/78 H [Left Brachial artery] Blood Pressure 138/97 H 139/80 H [Right Brachial artery] O2 Saturation 97 96 95 09/17/20 15:00 Temperature 36.3 C L Heart Rate 100 Heart Rate [ Brachial] Heart Rate [ Monitoring electrodes] Respiratory 18 Rate Blood Pressure [Left Brachial artery] Blood Pressure [Right Brachial artery] O2 Saturation 95 Oxygen O2 Source Room air I&O (Last 24 Hrs): Intake and Output Totals x24h 09/15/20 09/16/20 09/17/20 23:59 23:59 23:59 Intake Total 2695.213 1220 300 Output Total 200 300 Balance 2495.213 920 300 General: Alert, Oriented x3, Other (Ready kinetic, has fine intentional hand tremor and jaw tremor) HEENT: Mucous membr. moist/pink Neck: Supple, No JVD Neuro: Alert, Other (Bradykinetic and still has fine tremor) Cardiovascular: Regular rate Respiratory: No respiratory distress Abdomen: Soft Extremities: No edema Skin: No rashes (Icteric) - Results Results: Laboratory Results WBC 4.1 x10^3/uL (4.8-10.8) L 09/17/20 05:55 RBC 2.46 10^6/uL (4.20-5.40) L 09/17/20 05:55 Hgb 8.5 g/dL (12.0-16.0) L 09/17/20 05:55 Hct 25.2 % (37.0-47.0) L 09/17/20 05:55 MCV 102.4 fL (81.0-99.0) H 09/17/20 05:55 MCH 34.6 pg (27.0-31.0) H 09/17/20 05:55 MCHC 33.7 g/dL (32.0-36.0) 09/17/20 05:55 RDW 20.8 % (12.0-15.0) H 09/17/20 05:55 Plt Count 114 10^3/uL (130-450) L 09/17/20 05:55 MPV 9.5 fL (7.9-10.8) 09/17/20 05:55 Neut # (Auto) 2.6 10^3/uL (1.5-6.6) 09/17/20 05:55 Lymph # (Auto) 0.8 10^3/uL (1.5-3.5) L 09/17/20 05:55 [place] # (Auto) 0.6 10^3/uL (0.0-1.0) 09/17/20 05:55 Eos # (Auto) 0.1 10^3/uL (0.0-0.7) 09/17/20 05:55 Baso # (Auto) 0.1 10^3/uL (0.0-0.1) 09/17/20 05:55 Absolute Nucleated RBC 0.00 x10^3/uL 09/17/20 05:55 Total Counted 100 09/14/20 04:25 Band Neuts % (Manual) 2 % (0-10) 09/14/20 04:25 Abnorm Lymph % (Manual) 0 % 09/14/20 04:25 Nucleated RBC % 0.0 /100WBC 09/17/20 05:55 Neutrophils # (Manual) 1.9 10^3/uL (1.5-6.6) 09/14/20 04:25 Lymphocytes # (Manual) 1.0 10^3/uL (1.5-3.5) L 09/14/20 04:25 Monocytes # (Manual) 0.1 10^3/uL (0.0-1.0) 09/14/20 04:25 Eosinophils # (Manual) 0.0 10^3/uL (0-0.7) 09/14/20 04:25 Basophils # (Manual) 0.0 10^3/uL (0-0.1) 09/14/20 04:25 Differential Comment MANUAL DIFFERENTIAL 09/14/20 04:25 Manual Slide Review Indicated 09/17/20 05:55 WBC Morphology NORMAL APPEARANCE (NORMAL) 09/17/20 05:55 Platelet Estimate DECREASED (<130,000) (NORMAL) 09/17/20 05:55 Platelet Morphology NORMAL APPEARANCE (NORMAL) 09/17/20 05:55 RBC Morph Micro Appear 2+ ANISOCYTOSIS (NORMAL) 1+ CLEM CELLS (NORMAL) 09/17/20 05:55 RBC Morph Micro Appear 2+ ANISOCYTOSIS (NORMAL) 1+ CLEM CELLS (NORMAL) 09/17/20 05:55 PT 17.3 secs (9.9-12.6) H 09/15/20 04:20 INR 1.6 (0.8-1.2) H 09/15/20 04:20 APTT 30.2 secs (24.9-33.3) 09/10/20 12:19 VBG pH 7.399 (7.31-7.41) 09/14/20 04:25 Ionized Calcium 1.06 mmol/L (1.15-1.33) L 09/14/20 04:25 Sodium 135 mmol/L (135-145) 09/17/20 05:55 Potassium 4.3 mmol/L (3.5-5.0) 09/17/20 05:55 Chloride 108 mmol/L (101-111) 09/17/20 05:55 Carbon Dioxide 21 mmol/L (21-32) 09/17/20 05:55 Anion Gap 6.0 (6-13) 09/17/20 05:55 BUN < 5 mg/dL (6-20) L 09/17/20 05:55 Creatinine 0.7 mg/dL (0.4-1.0) 09/17/20 05:55 Estimated GFR (MDRD) 84 (>89) L 09/17/20 05:55 Glucose 98 mg/dL (70-100) 09/17/20 05:55 POC Whole Bld Glucose 127 mg/dL (70 - 100) H 09/13/20 17:57 Calcium 8.7 mg/dL (8.5-10.3) 09/17/20 05:55 Phosphorus 2.2 mg/dL (2.5-4.6) L 09/16/20 05:00 Magnesium 1.5 mg/dL (1.7-2.8) L 09/17/20 05:55 Iron 156 ug/dL (28-170) 09/10/20 12:19 Total Bilirubin 2.6 mg/dL (0.2-1.0) H 09/17/20 05:55 Direct Bilirubin 0.9 mg/dL (0.1-0.5) H 09/15/20 04:20 AST 85 IU/L (10-42) H 09/17/20 05:55 ALT 26 IU/L (10-60) 09/17/20 05:55 Alkaline Phosphatase 99 IU/L (42-121) 09/17/20 05:55 Ammonia 28.1 umol/L (7-35) 09/17/20 05:55 Troponin I High Sens 5.0 ng/L (2.3-14.8) 09/10/20 12:19 B-Natriuretic Peptide 71 pg/mL (5-100) 09/10/20 12:19 Total Protein 6.0 g/dL (6.7-8.2) L 09/17/20 05:55 Albumin 2.7 g/dL (3.2-5.5) L 09/17/20 05:55 Globulin 3.3 g/dL (2.1-4.2) 09/17/20 05:55 Albumin/Globulin Ratio 0.8 (1.0-2.2) L 09/17/20 05:55 Lipase 27 U/L (22-51) 09/10/20 12:19 Vitamin B12 1089 pg/mL (180-914) H 09/10/20 12:19 Folate 2.51 ng/mL (5.90 - >24.8) L 09/10/20 12:19 TSH 2.95 uIU/mL (0.34-5.60) 09/10/20 12:19 Cortisol 35.5 ug/dL 09/10/20 12:19 Nasal Adenovirus (PCR) NOT DETECTED 09/10/20 13:02 Nasal B. parapertussis DNA (PCR) NOT DETECTED 09/10/20 13:02 Nasal Coronavir 229E PCR NOT DETECTED 09/10/20 13:02 Nasal Coronavir HKU1 PCR NOT DETECTED 09/10/20 13:02 Nasal Coronavir NL63 PCR NOT DETECTED 09/10/20 13:02 Nasal Coronavir OC43 PCR NOT DETECTED 09/10/20 13:02 Nasal Enterovir/Rhinovir PCR NOT DETECTED 09/10/20 13:02 Nasal Influenza B PCR NOT DETECTED 09/10/20 13:02 Nasal Influenza A PCR NOT DETECTED 09/10/20 13:02 Nasal Parainfluen 1 PCR NOT DETECTED 09/10/20 13:02 Nasal Parainfluen 2 PCR NOT DETECTED 09/10/20 13:02 Nasal Parainfluen 3 PCR NOT DETECTED 09/10/20 13:02 Nasal Parainfluen 4 PCR NOT DETECTED 09/10/20 13:02 Nasal RSV (PCR) NOT DETECTED 09/10/20 13:02 Nasal Screen MRSA (PCR) POSITIVE (NEGATIVE) A* 09/10/20 19:25 Nasal B.pertussis DNA PCR NOT DETECTED 09/10/20 13:02 Nasal C.pneumoniae (PCR) NOT DETECTED 09/10/20 13:02 Marco Antonio Human Metapneumo PCR NOT DETECTED 09/10/20 13:02 Nasal M.pneumoniae (PCR) NOT DETECTED 09/10/20 13:02 Nasal SARS-CoV-2 (PCR) NOT DETECTED 09/10/20 13:02 HIV 1&2 Ag/Ab, 4th Gen NON-REACTIVE (NON-REACTIVE) 09/12/20 16:42 Blood Type O POSITIVE 09/10/20 13:22 Blood Type Recheck O POSITIVE 09/10/20 12:19 Antibody Screen NEGATIVE 09/10/20 13:22 Crossmatch IS Only See Detail 09/10/20 13:22
[2020-09-17] MEDS: SODIUM CHLORIDE FLUSH 0.9% 10 ML SYRINGE IVP PRN (23:48)
[2020-09-18] MEDS: FOLIC ACID 1 MG TABLET PO SCH (08:15)
[2020-09-18] MEDS: THIAMINE 100 MG TABLET PO SCH (08:15)
[2020-09-18] MEDS: POTASSIUM CHLORIDE 20 MEQ TABLET PO SCH (08:15)
[2020-09-18] MEDS: FERROUS SULFATE 300 MG/5 ML UDC PO SCH (08:15)
[2020-09-18] MEDS: PANTOPRAZOLE 40 MG TABLET PO SCH (08:15)
[2020-09-18] MEDS: ethyl alcohoL 62% SWAB AMPULE NAS SCH (08:15)
[2020-09-18] MEDS: MULTIVITAMIN TABLET PO SCH (08:15)
[2020-09-18] MEDS: MAGNESIUM OXIDE 400 MG TABLET PO SCH (08:15)
[2020-09-18] MEDS: ACETAMINOPHEN 325 MG TABLET PO PRN (08:24)
--- NOTE | 2020-09-18 12:57 | Discharge Plan ---
Discharge Plan Problem Reviewed?: Yes Disposition: Home, Self Care Condition: Fair Prescriptions: Ferrous Gluconate 324 mg PO DAILY #30 tablet Folic Acid 1 mg PO DAILY #30 tablet Potassium Chloride [K-Dur] 40 meq PO DAILY #30 tablet Lidocaine Patch 5% [Lidoderm Patch] 1 each PATCH DAILY #10 patch Magnesium Oxide [Mag Ox] 400 mg PO BIDWM #60 tablet Pantoprazole [Protonix] 40 mg PO BID #60 tablet Multivitamin [Theragran] 1 tab PO DAILY #30 tablet Thiamine [Vitamin B-1] 100 mg PO DAILY #30 tablet Diet: Regular Activity Restrictions: Activity as Tolerated Shower Restrictions: No Driving Restrictions: Yes Assistance Devices: [facility] Concerns: The patient presented with melena, concern for upper GI bleeding and abnormal liver function tests related to alcohol heavy use. Upper endoscopy showed gastritis but no varices. She required several units of blood transfused for anemia and was started on Protonix medication for gastritis and Iron replacement. She underwent colonoscopy because a cecal mass was seen on CT imaging. The pathology of the the cecal biopsy showed no Crohn's disease. Patient went through alcohol withdrawal while here, and required Librium and Ativan which have now been tapered off. The patient has significant deconditioning because of her long hospital stay and need for sedation. The patient should attend outpatient Physical Therapy and Occupational Therapy, which need to be officially ordered by her PCP, Dr. Radha Keating. Please have a hospital follow-up appointment with Dr. Keating in the next 5 to 10 days. The patient is not allowed to drive a car until cleared to do so by her PCP. The patient is advised to stop alcohol intake completely. She is being d ischarged on multivitamin, magnesium, thiamine and other supplements daily. A Lidocaine patch prescription was ordered for back pain. All prescriptions have been electronically sent to her [email or web address] pharmacy in [place]. Copies of her lab work and pathology report are provided to you as requested. Plan of Treatment: As above. Care Goals: Improvement in symptoms and stabilization are the goals. Assessment: Patient received these instructions, the is at bedside and understands and agrees with the plan. Additional Instructions or Follow Up instructions: If Swapna has new or worsening symptoms, call the PCP for advice or come to the ER. Follow-Up Care: Outpatient Rehab - PT, Outpatient Rehab - OT No Smoking: If you smoke, Please STOP! Call for help. Follow-up with: Radha Keating MD [Primary Care Provider] -
[2020-09-18 13:17] VITALS: BP 118/67
--- NOTE | 2020-09-18 13:17 | DISCHARGE SUMMARY ---
<Mitzy Perez - Last Filed: 09/20/20 17:40> Discharge Summary Condition at Discharge: Fair - ALLERGIES Allergies/Adverse Reactions: Allergies Allergy/AdvReac Type Severity Reaction Status Date / Time No Known Drug Allergies Allergy Verified 09/10/20 11:55 - MEDICATIONS Home Medications: Ambulatory Orders Medication Instructions Recorded Confirmed DULoxetine [Cymbalta] 20 mg PO DAILY PM 09/10/20 09/10/20 Ondansetron HCl [Zofran] 4 mg PO Q4HR PRN 09/10/20 09/10/20 Ferrous Gluconate 324 mg PO DAILY #30 tablet 09/18/20 Folic Acid 1 mg PO DAILY #30 tablet 09/18/20 Lidocaine Patch 5% [Lidoderm Patch] 1 each PATCH DAILY #10 patch 09/18/20 Magnesium Oxide [Mag Ox] 400 mg PO BIDWM #60 tablet 09/18/20 Multivitamin [Theragran] 1 tab PO DAILY #30 tablet 09/18/20 Pantoprazole [Protonix] 40 mg PO BID #60 tablet 09/18/20 Potassium Chloride [K-Dur] 40 meq PO DAILY #30 tablet 09/18/20 Thiamine [Vitamin B-1] 100 mg PO DAILY #30 tablet 09/18/20 - LABS Result Diagrams: 09/17/20 05:55 09/17/20 05:55 <Lisa Mcmahan - Last Filed: 09/22/20 10:14> Discharge Summary Admit Date: 09/10/20 Discharge Date: 09/18/20 Discharging Provider: Dr Lisa Mcmahan Primary Care Provider: Dr Radha Keating Code Status: Attempt Resuscitation - HPI History of Present Illness: From the admission H&P of Dr Jong Angeles: Patient is a 65-year-old female with a past medical history significant for cirrhosis secondary to alcohol use, alcohol abuse, hypertension, neuropathy, who presents today due to increasing weakness and weight loss. Most of the history is obtained from the patient's spouse as she is altered and a poor historian. He states that over the past 6 months, she has lost about 35 pounds. She has had decreased appetite and minimal p.o. intake. Their daughters were visiting over the past few days and they had not seen her for over a year and she was not her usual self and they were quite concerned about her and so they brought her to the emergency department today. He tells me that she has a history of liver cirrhosis secondary to alcohol use and that she was being worked up at the [facility]. She is a known history of portal hypertension and splenomegaly secondary to the cirrhosis. She was supposed to get an endoscopy last year but due to Covid, this was delayed. She has no known history of varices. He believes she may have had a liver mass in the past but he is not 100% sure. He states that she has not had any vomiting or diarrhea at home but here in the emergency department, she had at least 2 or 3 episodes of hematemesis and is now having dark tarry stools. He states she had a colonoscopy maybe 8 or 10 years ago which was unremarkable to his knowledge. The patient denies any abdominal pain, fever, chills. She reports no family history of colon cancer. The tells me that she has been drinking alcohol for many years and continues to have at least a few drinks a day. Her last drink was yesterday afternoon. He believes she is never gone through withdrawal in the past but the patient tells me that she has. She reports no dysuria, urgency, hematuria. In the emergency department, she was found to be afebrile. She was tachycardic with a heart rate in the 130s. She was also hypertensive with a systolic in the 130s. She was not tachypneic and was saturating well on room air. Her labs were significant for hemoglobin of 5.1 with an MCV of 114.6. Her platelet count was 91. Her INR was 1.6. Her potassium was decreased at 3.4 and her magnesium at 1.2. Her total bilirubin was 2.5 and her AST was 119. ALT was normal at 27. Her albumin was 2.7. She underwent a CT of the chest which was unremarkable. She underwent a CT of the abdomen and pelvis which revealed focal wall thickening of the cecum and ascending colon concerning for malignancy. There is also a 4.6 cm hypoechoic mass in the right hepatic lobe. There was mild wall thickening of the gallbladder but no information or pericholecystic fluid. She was given 1 unit of packed red blood cell in the emergency department as well as Protonix IV. Given the above findings, Hospitalist service was consulted for admission. The emergency department provider did speak with Dr. Martínez of General Surgery who is willing to scope the patient tomorrow. I did discuss goals of care with the patient's spouse and he confirms that she i s a Full Code. The patient does not have ability to make this decision at this point in time. - HOSPITAL COURSE Hospital Course: (1) Upper GI bleeding There was no vomiting and her melena decreased. She was started on iv then po Protonix. She had upper endoscopy done by Dr. Micheal Martínez, which showed gastritis, but no ulcers and no varices were seen. No aspirin or NSAIDs were used. She was put on a bland diet which was advanced by the end of the hospital stay. She was discharged home with an oral Protonix prescription. She underwent colonoscopy because of the abnormal cecum on imaging. A cecal biopsy was done and the pathology report came back within normal limits. (2) Acute blood loss anemia She needed blood transfusion early in the hospital stay. After that she was started on iron and folic acid replacement orally and was discharged with that. Hemoglobin on the day of discharge was 8.5. Follow-up with her PCP was advised. (3) Alcohol withdrawal For several days, she went through alcohol withdrawal, required scheduled Librium plus iv Ativan on a CIWA scoring protocol. She then had Librium tapered to off and decreased sedatives on her CIWA protocol. We updated the at her bedside, regarding all her diagnoses. Only during her last 3 days, she could participate with physical therapy. The therapist recommended she attend outpatient PT and OT. (4) Alcoholic cirrhosis of liver without ascites No varices were seen on upper endoscopy. Her liver enzymes were stable but abnormal. Plts were low and INR was elevated. Her ammonia level was intermittently elevated but no Lactulose was needed. (5) Alcohol abuse The reported that she was able to drive a car and get her own alcohol. He said, she will promise not to drink alcohol anymore, then stops, but resumes alcohol abuse after about 2 weeks. She was counseled by the Hospitalists on the importance of alcohol cessation. Social work also consulted to provide the with resources regarding alcohol cessation for her. He understood that he will also need counseling in order to not enable her to take in alcohol. She was on iv Banana Bag then oral thiamine and multi-vitamin replacement and discharged on these. (6) Liver lesion, right lobe This was concerning for potential metastatic disease. She will need consideration of biopsy on an outpatient basis with interventional radiology. (7) Pancytopenia WBC was low (3.5-4.1). Her platelet count remained low (54K-114K). This was likely related to her alcoholism and marrow suppression. HIV testing was neg this admission. No aspirin or NSAIDs should be used. (8) Elevated INR This was also secondary to her alcoholism and liver cirrhosis. INR was 1.4-1.6. (9) Hx of Hypertension She was normotensive initially, probably from volume depletion and persistent anemia. We eventually restarted her Bisoprolol but not her HCTZ, due to persistent and marked electrolyte depletion and no fluid overload. She was discharged on Potassium and Magnesium daily tablets. (10) Neuropathy Stable. We resumed her Duloxetine once she had oral intake. (11) Severe protein calorie malnutrition Patient had documented significant muscle wasting, loss of subcutaneous fat. Intake of less than 50% of recommended for 2 weeks or more. There has been weight loss of 25% in the past 6 months (about 30 pound weight loss). The said he has been making 90% of the meals for about a year and the patient will eat 2 bites and then state that she was full. High-protein supplement shakes were ordered. - PHYSICAL EXAM AT DISCHARGE General Appearance: positive: Lethargic, Other (Pale, cachectic, icteric.) Eyes Bilateral: positive: Conjunctivae nml, Other (Sclerae icteric) ENT: positive: ENT inspection nml, No signs of dehydration Neck: positive: Nml inspection, No JVD Respiratory: positive: No respiratory distress, Breath sounds nml Cardiovascular: positive: Regular rate & rhythm, No murmur Abdomen: positive: Non-tender, Nml bowel sounds, No distention Skin: positive: Other (Pale and icyeric.) Extremities: positive: Non-tender, No pedal edema Neurologic/Psychiatric: positive: Oriented x3, Weakness (Bradykinetic. Fine intentional tremor of right arm and lower jaw.) - LABS Result Diagrams: 09/17/20 05:55 09/17/20 05:55 - DIAGNOSTIC IMAGING Diagnostic Imaging Results: Final report reviewed - FOLLOW UP Follow Up: See PCP in 1-2 weeks for hospital follow-up appointment. - TIME SPENT Time Spent in Discharge (Minutes): 50
[2020-09-18] MEDS ORDERED: DULoxetine 20 MG CAPSULE PO SCH (21:00)
== END 2020-09-18 14:45 | disposition home health service (06) | DRG 377 ==
LOC: EDUNIT# → ED 11:34 → ICU 17:56 → MS3 09-13 19:09
PROVIDERS: ADMIT Internal Medicine; ATTEND Specialist
PROC: 0DJ08ZZ Inspection of Upper Intestinal Tract, Via Natural or Artificial Opening Endoscopic (ICD-10-PCS; principal; 2020-09-11 07:30)
PROC: 0DBH8ZX Excision of Cecum, Via Natural or Artificial Opening Endoscopic, Diagnostic (ICD-10-PCS; 2020-09-12)
PROC: 0DBB8ZX Excision of Ileum, Via Natural or Artificial Opening Endoscopic, Diagnostic (ICD-10-PCS; 2020-09-12)
DX: K92.2 Gastrointestinal hemorrhage, unspecified (principal); K70.9 Alcoholic liver disease, unspecified; F10.20 Alcohol dependence, uncomplicated; D64.9 Anemia, unspecified; Z20.822 Contact with and (suspected) exposure to COVID-19; K29.71 Gastritis, unspecified, with bleeding; E43 Unspecified severe protein-calorie malnutrition; D62 Acute posthemorrhagic anemia; K76.6 Portal hypertension; F10.139 Alcohol abuse with withdrawal, unspecified; D61.818 Other pancytopenia; D68.4 Acquired coagulation factor deficiency; R16.1 Splenomegaly, not elsewhere classified; K70.30 Alcoholic cirrhosis of liver without ascites; K52.89 Other specified noninfective gastroenteritis and colitis; K76.9 Liver disease, unspecified; I10 Essential (primary) hypertension; G62.9 Polyneuropathy, unspecified; Z68.22 Body mass index [BMI] 22.0-22.9, adult; K44.9 Diaphragmatic hernia without obstruction or gangrene; Z79.899 Other long term (current) drug therapy
CPT/HCPCS: 36415; 36430; 71045; 71260; 74177; 80048; 80053; 80076; 82140; 82272; 82330; 82533; 82607; 82746; 83540; 83690; 83735; 83880; 84100; 84443; 84484; 85014; 85018; 85025; 85049; 85610; 85730; 86850; 86900; 86901; 86920; 87150; 87631; 88305; 93005; 94640; 96365; 96375; 96376; 97116; 97161; 97165; 97530; 99284; 99285; A9270; G0475; J2060; J2354; J3411; J7040; J7120; P9016; Q9967; 0202U; 85027; 86703; 87389

== ENCOUNTER 2020-11-13 11:21 | Outpatient (CLI) | payer MEDICARE, OTHER | END 2020-11-13 11:22 | disposition critical access hospital (66) | LOC: EMS 11:21 | DX: R41.0 Disorientation, unspecified (principal); R04.0 Epistaxis | CPT/HCPCS: A0425; A0427 ==

== ENCOUNTER 2020-11-13 11:39 | Inpatient (IN) | payer MEDICARE, OTHER ==
--- NOTE | 2020-11-13 12:25 | ED Physician Documentation ---
PD HPI ALTERED MENTAL STATUS - Stated complaint Stated Complaint: CONFUSION - Chief complaint Chief Complaint: Neuro - History obtained from History obtained from: EMS - History of Present Illness Timing - onset: Today Timing - duration: Hours (8) Quality / character: Confused Associated symptoms: No: Fever, Headache, Stiff neck, Dyspnea, Cough, NVD, Urinary sx, General weakness, Focal weakness, Seizure activity, Syncope Contributing factors: Other (liver cirrhosis) Basline status: Alert and oriented X 3 Similar symptoms before: Diagnosis (hepatic encephalopathy) - Additional information Additional information: Endoscopy showed gastritis, lower colonoscopy showed typhlitis. Unclear if she has been taking her medications at home as prescribed or not. Patient is unable to give any history here. Review of Systems Unable to obtain: AMS PD PAST MEDICAL HISTORY - Past Medical History Cardiovascular: Hypertension Respiratory: None Neuro: Peripheral neuropathy Endocrine/Autoimmune: None GI: Cirrhosis (Secondary to alcoholism.), Other MANAGER COLLECTION: None Psych: None Musculoskeletal: Osteoarthritis, Osteoporosis Derm: None - Past Surgical History General: Colonoscopy /MANAGER COLLECTION: section - Present Medications Home Medications: Ambulatory Orders Medication Instructions Recorded Confirmed DULoxetine [Cymbalta] 20 mg PO DAILY PM 09/10/20 09/10/20 Ondansetron HCl [Zofran] 4 mg PO Q4HR PRN 09/10/20 09/10/20 Ferrous Gluconate 324 mg PO DAILY #30 tablet 09/18/20 Folic Acid 1 mg PO DAILY #30 tablet 09/18/20 Lidocaine Patch 5% [Lidoderm Patch] 1 each PATCH DAILY #10 patch 09/18/20 Magnesium Oxide [Mag Ox] 400 mg PO BIDWM #60 tablet 09/18/20 Multivitamin [Theragran] 1 tab PO DAILY #30 tablet 09/18/20 Pantoprazole [Protonix] 40 mg PO BID #60 tablet 09/18/20 Potassium Chloride [K-Dur] 40 meq PO DAILY #30 tablet 09/18/20 Thiamine [Vitamin B-1] 100 mg PO DAILY #30 tablet 09/18/20 - Allergies Allergies/Adverse Reactions: Allergies Allergy/AdvReac Type Severity Reaction Status Date / Time No Known Drug Allergies Allergy Verified 11/13/20 11:55 - Social History Does the pt smoke?: No Smoking Status: Never smoker Does the pt drink ETOH?: Yes Does the pt have substance abuse?: No - Immunizations Immunizations are current?: No PD ED PE NORMAL - Vitals Vital signs reviewed: Yes - General General: No acute distress, Other (alert, not oriented to time or place. is oriented to person only, pale, jaundiced) - HEENT HEENT: Atraumatic, PERRL (scleral icterus), Moist mucous membranes, Pharynx benign - Neck Neck: Supple, no meningeal sign - Cardiac Cardiac: RRR, Strong equal pulses - Respiratory Respiratory: No respiratory distress, Clear bilaterally - Abdomen Abdomen: Soft, Non tender, Non distended - Back Back: No spinal TTP - Derm Derm: Warm and dry, No rash - Extremities Extremities: No calf tenderness / cord - Neuro Neuro: Other (alert) - Psych Psych: Normal mood, Normal affect Results - Vitals Vitals: Vital Signs - 24 hr 11/13/20 11/13/20 11:50 12:39 Temperature 36.9 C 37.1 C Heart Rate 110 H 110 H Respiratory 21 17 Rate Blood Pressure 152/83 H 154/139 H O2 Saturation 99 99 Oxygen O2 Source Room air - Labs Labs: Laboratory Tests 11/13/20 11/13/20 11/13/20 12:26 12:26 12:34 WBC 6.7 RBC 1.90 L Hgb 6.3 L* Hct 18.7 L* MCV 98.4 MCH 33.2 H MCHC 33.7 RDW 16.0 H Plt Count 121 L MPV 9.2 Neut # (Auto) 4.5 Lymph # (Auto) 1.3 L [place] # (Auto) 0.7 Eos # (Auto) 0.2 Baso # (Auto) 0.0 Absolute Nucleated RBC 0.00 Nucleated RBC % 0.0 PT 15.0 H INR 1.4 H Sodium 135 Potassium 3.0 L Chloride 101 Carbon Dioxide 25 Anion Gap 9.0 BUN 21 H Creatinine 0.9 Estimated GFR (MDRD) 63 L Glucose 104 H Calcium 9.3 Total Bilirubin 1.7 H AST 69 H ALT 25 Alkaline Phosphatase 85 Ammonia Total Protein 6.8 Albumin 3.1 L Globulin 3.7 Albumin/Globulin Ratio 0.8 L Lipase 28 Salicylates < 6.0 Acetaminophen < 10 L Ethyl Alcohol < 5.0 11/13/20 12:34 WBC RBC Hgb Hct MCV MCH MCHC RDW Plt Count MPV Neut # (Auto) Lymph # (Auto) [place] # (Auto) Eos # (Auto) Baso # (Auto) Absolute Nucleated RBC Nucleated RBC % PT INR Sodium Potassium Chloride Carbon Dioxide Anion Gap BUN Creatinine Estimated GFR (MDRD) Glucose Calcium Total Bilirubin AST ALT Alkaline Phosphatase Ammonia 34.4 Total Protein Albumin Globulin Albumin/Globulin Ratio Lipase Salicylates Acetaminophen Ethyl Alcohol PD MEDICAL DECISION MAKING - ED course Complexity details: reviewed old records, reviewed results, re-evaluated patient, considered differential, d/w patient ED course: Patient with a similar presentation to 2 months ago. She was significantly anemic at that time with gastritis and typhlitis. She had an EGD consistent with gastritis. No varices. Typhlitis on colonoscopy. She is anemic once again. Given Protonix here. We will order blood. We will admit the patient for further care. Discussed the case with Dr. Mcmahan, hospitalist who accepts This document was made in part using voice recognition software. While efforts are made to proofread this document, sound alike and grammatical errors may occur. Departure - Departure Disposition: 66 [facility] DC/Xfer Clinical Impression: Acute blood loss anemia Anemia Qualifiers: Anemia type: unspecified type Qualified Code(s): D64.9 - Anemia, unspecified Altered mental status Qualifiers: Altered mental status type: unspecified Qualified Code(s): R41.82 - Altered mental status, unspecified Alcoholic cirrhosis of liver Qualifiers: Ascites presence: without ascites Qualified Code(s): K70.30 - Alcoholic cirrhosis of liver without ascites Condition: Stable
[2020-11-13 12:33] LABS: BASOPHILS % (AUTO) 0.6 %; EOSINOPHILS # (AUTO) 0.2 10^3/uL (0.0-0.7); EOSINOPHILS % (AUTO) 2.7 %; LYMPHOCYTES # (AUTO) 1.3 10^3/uL (1.5-3.5); LYMPHOCYTES % (AUTO) 18.9 %; MEAN CORPUSCULAR HEMOGLOBIN 33.2 pg (27.0-31.0); MEAN CORPUSCULAR HGB CONC 33.7 g/dL (32.0-36.0); MEAN CORPUSCULAR VOLUME 98.4 fL (81.0-99.0); MEAN PLATELET VOLUME 9.2 fL (7.9-10.8); MONOCYTES # (AUTO) 0.7 10^3/uL (0.0-1.0); MONOCYTES % (AUTO) 10.6 %; NEUTROPHILS # (AUTO) 4.5 10^3/uL (1.5-6.6); NEUTROPHILS % (AUTO) 66.9 %; PLT - PLATELET COUNT 121 10^3/uL (130-450); WHITE BLOOD COUNT 6.7 x10^3/uL (4.8-10.8)
[2020-11-13 12:36] LABS: HCT - HEMATOCRIT 18.7 % (37.0-47.0); HGB - HEMOGLOBIN 6.3 g/dL (12.0-16.0)
[2020-11-13] MEDS ORDERED: PANTOPRAZOLE 40 MG VIAL IVP STA (12:43)
[2020-11-13 12:45] LABS: INR 1.4 (0.8-1.2)
[2020-11-13] MEDS ORDERED: SODIUM CHLORIDE 0.9% 1,000 ML IV STA ×2 (12:45)
[2020-11-13 12:46] LABS: ACETAMINOPHEN < 10 ug/mL (10-30); ALBUMIN 3.1 g/dL (3.2-5.5); ALBUMIN/GLOBULIN RATIO 0.8 (1.0-2.2); ALKALINE PHOSPHATASE 85 IU/L (42-121); ALT ALANINE AMINOTRANSFERASE 25 IU/L (10-60); AST ASPARTATE AMINOTRANSFERASE 69 IU/L (10-42); BILIRUBIN,TOTAL 1.7 mg/dL (0.2-1.0); BUN - BLOOD UREA NITROGEN 21 mg/dL (6-20); CALCIUM 9.3 mg/dL (8.5-10.3); CARBON DIOXIDE - CO2 25 mmol/L (21-32); CHLORIDE 101 mmol/L (101-111); CREATININE 0.9 mg/dL (0.4-1.0); ETOH - ETHANOL < 5.0 mg/dL; GFR - MDRD 63 (>89); GLUCOSE 104 mg/dL (70-100); LIPASE 28 U/L (22-51); SALICYLATE < 6.0 mg/dL; SODIUM 135 mmol/L (135-145); TOTAL PROTEIN 6.8 g/dL (6.7-8.2)
[2020-11-13 13:23] LABS: BILIRUBIN,URINE NEGATIVE (NEGATIVE); CLARITY,URINE CLEAR (CLEAR); GLUCOSE, URINE (UA) NEGATIVE (NEGATIVE); KETONES,URINE (UA) NEGATIVE (NEGATIVE); LEUKOCYTE ESTERASE, URINE NEGATIVE (NEGATIVE); NITRITE,URINE NEGATIVE (NEGATIVE); OCCULT BLOOD,URINE TRACE-INTA (NEGATIVE); PH,URINE >=9.0 PH (5.0-7.5); PROTEIN,URINE NEGATIVE (NEGATIVE); UROBILINOGEN,URINE 0.2 (NORMAL) E.U./dL (NORMAL)
[2020-11-13 13:36] LABS: MUDS CUTOFF CONCENTRATIONS CUTOFF CONC BELOW:
[2020-11-13 13:46] LABS: AMPHETAMINE SCREEN,URINE NEGATIVE (NEGATIVE); BENZODIAZEPINES SCREEN, URINE NEGATIVE (NEGATIVE); COCAINE SCREEN URINE NEGATIVE (NEGATIVE); METHAMPHETAMINES SCREEN, URINE NEGATIVE (NEGATIVE); OPIATE SCREEN, URINE NEGATIVE (NEGATIVE); THC CANNABINOID SCREEN, URINE NEGATIVE (NEGATIVE); TRICYCLIC ANTIDEPRESSANT,URINE NEGATIVE (NEGATIVE)
[2020-11-13 13:47] LABS: BARBITURATE SCREEN,UR NEGATIVE (NEGATIVE); METHADONE SCREEN, URINE NEGATIVE (NEGATIVE); OXYCODONE SCREEN, URINE NEGATIVE (NEGATIVE); PROPOXYPHENE SCREEN, URINE NEGATIVE (NEGATIVE)
--- NOTE | 2020-11-13 14:13 | CT Report ---
PROCEDURE: HEAD WO INDICATIONS: altered mental status TECHNIQUE: Noncontrast 4.5 mm thick angled axial sections acquired from the foramen magnum to the vertex. For r adiation dose reduction, the following was used: automated exposure control, adjustment of mA and/or kV according to patient size. COMPARISON: None. FINDINGS: Image quality: Motion artifact is noted. There is streak artifact seen through the skull base. CSF spaces: Basal cisterns are patent. No extra-axial fluid collections. Ventricles are normal in size and shape. Brain: No midline shift. No intracranial masses or hemorrhage. Cardona-white matter interface is norm al. Skull and face: Calvarium and visualized facial bones are intact, without suspicious lesions. Sinuses: Visualized sinuses and mastoids are clear. IMPRESSION: Limited noncontrast study, without a significant intracranial abnormality for age. Reviewed by: Moisés Randolph MD on 11/13/2020 1:12 PM KEYA Approved by: Moisés Randolph MD on 11/13/2020 1:12 PM AKMÓNICA Station ID: [id number]
[2020-11-13 14:29] LABS: B. PARAPERTUSSIS- RESP PCR PAN NOT DETECTED; B. PERTUSSIS- RESP PCR PANEL NOT DETECTED; C. PNEUMONIAE- RESP PCR PANEL NOT DETECTED; CORONAVIRUS 229E-RESP PCR NOT DETECTED; CORONAVIRUS HKU1-RESP PCR NOT DETECTED; CORONAVIRUS NL63-RESP PCR NOT DETECTED; CORONAVIRUS OC43-RESP PCR NOT DETECTED; HUMAN METAPNEUMOVIRUS NOT DETECTED; INFLUENZA A- RESP PCR PANEL NOT DETECTED; INFLUENZA B - RESP PCR PANEL NOT DETECTED; M. PNEUMONIAE- RESP PCR PANEL NOT DETECTED; PARAINFLUENZA VIRUS 1 NOT DETECTED; PARAINFLUENZA VIRUS 2 NOT DETECTED; PARAINFLUENZA VIRUS 3 NOT DETECTED; PARAINFLUENZA VIRUS 4 NOT DETECTED; RHINOVIRUS/ENTEROVIRUS NOT DETECTED; RSV- RESP PCR PANEL NOT DETECTED; SARS-CoV-2 -RESP PCR PANEL NOT DETECTED
--- NOTE | 2020-11-13 17:10 | PHARMACY PROGRESS NOTE ---
- Best Possible Medication History Admit Date and Time: 11/13/20 1620 Processed by: Nursing Medication History completed: Yes Patient Interview: Pt unable to participate As the person ultimately responsible for medication therapy, providers are able to order a medication from an existing home medication list in [facility] via the "Reconcile Routine" prior to Confirmation of that medication by other sales support worker. Such practice is discouraged except when the physician, in their clinical judgment, deems that a medical need exists for a medication without regard to previous use.
[2020-11-13 17:40] LABS: B. PARAPERTUSSIS- RESP PCR PAN NOT DETECTED; B. PERTUSSIS- RESP PCR PANEL NOT DETECTED; C. PNEUMONIAE- RESP PCR PANEL NOT DETECTED; CORONAVIRUS 229E-RESP PCR NOT DETECTED; CORONAVIRUS HKU1-RESP PCR NOT DETECTED; CORONAVIRUS NL63-RESP PCR NOT DETECTED; CORONAVIRUS OC43-RESP PCR NOT DETECTED; HUMAN METAPNEUMOVIRUS NOT DETECTED; INFLUENZA A- RESP PCR PANEL NOT DETECTED; INFLUENZA B - RESP PCR PANEL NOT DETECTED; M. PNEUMONIAE- RESP PCR PANEL NOT DETECTED; PARAINFLUENZA VIRUS 1 NOT DETECTED; PARAINFLUENZA VIRUS 2 NOT DETECTED; PARAINFLUENZA VIRUS 3 NOT DETECTED; PARAINFLUENZA VIRUS 4 NOT DETECTED; RHINOVIRUS/ENTEROVIRUS NOT DETECTED; RSV- RESP PCR PANEL NOT DETECTED; SARS-CoV-2 -RESP PCR PANEL NOT DETECTED
[2020-11-13] MEDS: POTASSIUM CHLOR 10 MEQ/100 ML 10 MEQ/100 ML BAG IV SCH ×4 (17:49→21:47)
[2020-11-13] MEDS: SODIUM CHLORIDE FLUSH 0.9% 10 ML SYRINGE IVP SCH (17:50)
[2020-11-13] MEDS: LORazepam 2 MG/ML VIAL IVP PRN ×2 (17:57→21:48)
--- NOTE | 2020-11-13 18:43 | HISTORY & PHYSICAL EXAMINATION ---
Chief Complaint - Chief Complaint Chief Complaint: Confusion History of Present Illness - Admitted From Admitted From:: ED - History Obtained From History obtained from: ED provider and old records reviewed - History of Present Illness HPI Comment/Other: This is a 65-year-old WF with a history of alcohol abuse, liver cirrhosis, admission here 2 months ago for confusion, dehydration, alcohol withdrawal, malnutrition and anemia. She underwent EGD that showed no esophageal varices and mild gastritis. She underwent colonoscopy that showed colitis of the ileocecal area only. She did need transfusions of blood. She was sent home with iron and thiamine and resources for the regarding her alcohol abuse. Patient has apparently restarted drinking alcohol, unknown how recently. She was brought in by the today because of worsening confusion and lethargy. She again was found to have marked anemia with a hemoglobin of 6, ammonia level normal, dehydration on exam. The patient is being admitted for managing confusion, possible Wernicke's encephalopathy, alcohol abuse, marked anemia and malnutrition ans dehydration. Admission, her CODE STATUS request was full code. She is not communicating and unable to answer any questions. The is not available at bedside. History - Past Medical History Cardiovascular: reports: Hypertension Respiratory: reports: None Neuro: reports: Peripheral neuropathy Endocrine/Autoimmune: reports: None GI: reports: Cirrhosis, Other BREAST PULLER: reports: None Psych: reports: None Musculoskeletal: reports: Osteoarthritis, Osteoporosis Derm: reports: None MRSA Hx?: Yes - Past Surgical History General: reports: Colonoscopy /BREAST PULLER: reports: section - Family & Social History Family History Comment/Other: The patient reports no family history of colon cancer. She believes her mother had hypertension otherwise no significant family history. Living arrangement: At home Living Situation: With spouse/s.o. 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 She has been an alcohol abuser for many years and continues to have at least a few drinks a day. She is a non-smoker. - Substance History Abuse: Recurrent use of substance despite neg consequences: Alcohol Dependence: Experiences withdrawal or developed tolerances: Alcohol Meds/Allgy - Home Medications Home Medications: Ambulatory Orders Medication Instructions Recorded Confirmed DULoxetine [Cymbalta] 20 mg PO BID 09/10/20 11/13/20 Ondansetron HCl [Zofran] 4 mg PO Q4HR PRN 09/10/20 11/13/20 Ferrous Gluconate 324 mg PO DAILY #30 tablet 09/18/20 11/13/20 Folic Acid 1 mg PO DAILY #30 tablet 09/18/20 11/13/20 Multivitamin [Theragran] 1 tab PO DAILY #30 tablet 09/18/20 11/13/20 Thiamine [Vitamin B-1] 100 mg PO DAILY #30 tablet 09/18/20 11/13/20 Lidocaine Patch 5% [Lidoderm Patch] 1 each PATCH DAILY PRN 11/13/20 11/13/20 Magnesium Oxide [Mag Ox] 500 mg PO DAILY 11/13/20 11/13/20 Potassium Chloride [K-Dur] 20 meq PO BID 11/13/20 11/13/20 Pregabalin [Lyrica] 2 tab PO HS 11/13/20 11/13/20 carvediloL [Coreg] 1 tab PO BID 11/13/20 11/13/20 - Allergies Allergies/Adverse Reactions: Allergies Allergy/AdvReac Type Severity Reaction Status Date / Time cephalexin [From Keflex] AdvReac Nausea Verified 11/13/20 14:33 Exam - Vital Signs Vital Signs: Vital Signs x48h Temp Pulse Pulse Resp BP BP Pulse Ox 11/13/20 17:27 37.3 C 107 H 20 144/68 H 97 11/13/20 16:35 36.7 C 109 H 18 145/82 H 11/13/20 16:26 37.0 C 108 H 21 151/85 H 11/13/20 16:20 109 H 17 143/77 H 11/13/20 16:09 36.9 C 108 H 17 143/77 H 11/13/20 16:05 106 H 20 143/77 H 99 11/13/20 14:43 118 H 20 152/83 H 100 11/13/20 12:39 37.1 C 110 H 17 154/139 H 99 11/13/20 11:50 36.9 C 110 H 21 152/83 H 99 - Physical Exam General Appearance: positive: No acute distress, Other (Cachectic, temporal wasting, skin tenting, pale and icteric) Eyes Bilateral: positive: EOMI, Other (scleral icterus) ENT: positive: Dry mucous membranes, Other (Poor dentition) Neck: positive: Nml inspection, No JVD Respiratory: positive: No respiratory distress, Breath sounds nml Cardiovascular: positive: Regular rate & rhythm, No murmur Abdomen: positive: Non-tender, Nml bowel sounds, No distention Skin: positive: Warm, Pallor Extremities: positive: No pedal edema Neurologic/Psychiatric: positive: Other (Eyes are open, she is looking around, not answering to her name, has no resting tremor or nystagmus.) Conclusion/Plan - Problem List (1) Altered mental status Conclusion/Plan: There is no known history of trauma. Her CT of head was neg Her serum alcohol level is negative. Her last drink is unknown. Her ammonia level is upper end of normal. We will begin IV fluids with a banana bag. Neuro checks every shift We will try a bedside swallowing eval and begin a pured diet, advance as tolerated Qualifiers: Altered mental status type: unspecified Qualified Code(s): R41.82 - Altered mental status, unspecified (2) Profound anemia Conclusion/Plan: When EGD and colonoscopy 2 months ago. No esophageal varices were found. Gastritis was found. We will treat empirically for gastritis using IV Protonix twice daily. Transfuse to achieve a hemoglobin greater than 7. Follow H/H every 12 hours. Check stool guaic Avoid aspirin and NSAIDs Qualifiers: Anemia type: unspecified type Qualified Code(s): D64.9 - Anemia, unspecified (3) Alcohol abuse Conclusion/Plan: As per history. Continue with a banana bag. Follow electrolytes and trace elements daily. Will request social work to see her when she is more alert and also have discussion with the , if he is enabling her alcohol intake. (4) Alcoholic cirrhosis of liver Conclusion/Plan: Will follow Ammonia level daily. Avoid hepatotoxins Follow CMP daily Qualifiers: Ascites presence: without ascites Qualified Code(s): K70.30 - Alcoholic cirrhosis of liver without ascites (5) Hypokalemia Conclusion/Plan: Replace with IV K riders Follow CMP daily. - Lab Results Fish Bones: 11/13/20 12:26 11/13/20 12:26
[2020-11-13] MEDS: SODIUM CHLORIDE FLUSH 0.9% 10 ML SYRINGE IVP PRN ×2 (21:02→21:49)
[2020-11-13] MEDS: PANTOPRAZOLE 40 MG VIAL IV SCH (21:02)
[2020-11-13 22:00] LABS: HGB - HEMOGLOBIN 7.2 g/dL (12.0-16.0)
[2020-11-14] MEDS: SODIUM CHLORIDE FLUSH 0.9% 10 ML SYRINGE IVP SCH ×3 (00:03→16:32)
[2020-11-14 05:34] LABS: HCT - HEMATOCRIT 21.5 % (37.0-47.0); HGB - HEMOGLOBIN 7.2 g/dL (12.0-16.0); MEAN CORPUSCULAR HEMOGLOBIN 31.6 pg (27.0-31.0); MEAN CORPUSCULAR HGB CONC 33.5 g/dL (32.0-36.0); MEAN CORPUSCULAR VOLUME 94.3 fL (81.0-99.0); MEAN PLATELET VOLUME 10.4 fL (7.9-10.8); RED BLOOD COUNT 2.28 10^6/uL (4.20-5.40); RED CELL DISTRIBUTION WIDTH 18.4 % (12.0-15.0); WHITE BLOOD COUNT 6.5 x10^3/uL (4.8-10.8)
[2020-11-14 05:51] LABS: ALBUMIN 2.6 g/dL (3.2-5.5); ALBUMIN/GLOBULIN RATIO 0.8 (1.0-2.2); BILIRUBIN,TOTAL 2.1 mg/dL (0.2-1.0); CALCIUM 8.9 mg/dL (8.5-10.3); CREATININE 0.8 mg/dL (0.4-1.0); MAGNESIUM 1.6 mg/dL (1.7-2.8); POTASSIUM 3.4 mmol/L (3.5-5.0); TOTAL PROTEIN 5.7 g/dL (6.7-8.2)
[2020-11-14] MEDS ORDERED: POTASSIUM CHLORIDE 10 MEQ CAPSULE PO SCH (08:00)
[2020-11-14] MEDS ORDERED: FERROUS GLUCONATE 324 MG TABLET PO SCH (08:00)
[2020-11-14] MEDS: LACTULOSE 10 GM /15 ML UDC PO SCH ×4 (08:34→16:32)
[2020-11-14] MEDS: PANTOPRAZOLE 40 MG VIAL IV SCH (08:37)
[2020-11-14] MEDS ORDERED: carvediloL 3.125 MG TABLET PO SCH (09:00)
[2020-11-14] MEDS ORDERED: MULTIVITAMIN 10 ML, FOLIC ACID INJ 1 MG, THIAMINE INJ 100 MG, MAGNESIUM SULFATE 2 GM in... IV SCH ×10 (09:00→23:28)
[2020-11-14] MEDS ORDERED: METOPROLOL 5 MG/5 ML VIAL IVP PRN (11:17)
[2020-11-14] MEDS ORDERED: METOPROLOL 5 MG/5 ML VIAL IVP ONE (13:00)
[2020-11-14] MEDS ORDERED: LACTULOSE 10 GM/15 ML BOTTLE PR ONE (13:00)
[2020-11-14] MEDS: LORazepam 2 MG/ML VIAL IVP PRN (13:30)
[2020-11-14 15:08] LABS: FECAL OCCULT BLOOD (FIT) POSITIVE (NEGATIVE)
[2020-11-14] MEDS ORDERED: D5.45NS W/20 MEQ KCL 1,000 ML IV SCH ×2 (16:00→23:33)
--- NOTE | 2020-11-14 16:21 | PROVIDER PROGRESS NOTE ---
Assessment/Plan - Problem List (1) Altered mental status Qualifiers: Altered mental status type: unspecified Qualified Code(s): R41.82 - Altered mental status, unspecified Assessment/Plan: 11/14 pt is alert but early and immediately fall in sleep. CT of the head was unremarkable for acute finding. Patient has a history of liver failure, patient ammonia level increases to 89 from 34 in the admission. We will check patient TSH, B12. Give patient enema lactulose but the patient cannot hold the medication at all. Nurse did give pt 20g lactulose by oral, nurse has aspiration precaution. Patient tolerated oral intake of lactulose. Because the patient already had 2 months she did not drink alcohol per her report, Patient is lethargic and we will hold Ativan. Clinically patient did not show alcohol withdrawal symptoms. We will daily laboratory scientist, check ammonia level. ST reported patient failed swallow study, we will with n.p.o. Neurologic monitor the patient (2)GI bleeding Patient's occult test is positive. pt has profound anemia and hx of chronic anemia. Consult with GI surgeon, Protonix twice daily, H&H monitor. (3) Profound anemia Patient report patient had EGD and colonoscopy done 2 years ago, both show benign. Patient hemoglobin was 6.4 at the admission, patient had a history significant anemia. But occult test is positive now. Patient had 1 unit of blood transfusion, now hemoglobin is 7.2. We will H&H to monitor patient, we will have anemia study for patient, will consult with GI surgeon. Since patient is still lethargic, we are planning to have endoscopy after tomorrow. (4) Alcohol abuse Conclusion/Plan: Patient hospital report, patient had paracentesis in [place], Patient did stop drinking alcohol for 2 months. Per patient report, patient suddenly developed confused. Now patient had elevated ammonia level. Patient did not have lactulose in his home medication list, We will give patient lactulose. Continue banana bag on today Since the patient stopped drinking alcohol for 2 months, patient presented lethargic, we will stop ativan, (5) Alcoholic cirrhosis of liver Patient has a history of alcoholic liver failure, Will follow Ammonia level daily. Avoid hepatotoxins, Follow CMP daily, order Lactulose (6) Hypokalemia K is 3.4, replaced. (7)HTN hold Coreg because of lethargic, add metoprolol intravenous - Current Meds Current Meds: Current Medications Generic Name Dose Route Start Last Admin Trade Name Freq PRN Reason Stop Dose Admin Multivitamins 10 ml/ Folic 1,015.2 mls @ 100 mls/hr 11/14/20 09:00 11/14/20 09:52 Acid 1 mg/ Thiamine HCl 100 mg IV 11/14/20 23:59 100 mls/hr / Magnesium Sulfate 2 gm/ DAILY DIPTI Administration Sodium Chloride Lactulose 20 gm 11/14/20 14:25 11/14/20 14:44 Lactulose 10 Gm /15 Ml Udc PO 20 gm QID DIPTI Administration Sodium Chloride 10 ml 11/13/20 16:20 11/13/20 21:49 Sodium Chloride Flush 0.9% 10 Ml Syringe IVP 10 ml PRN PRN Administration NEEDED PER PROVIDER ORDERS Sodium Chloride 10 ml 11/13/20 17:00 11/14/20 08:54 Sodium Chloride Flush 0.9% 10 Ml Syringe IVP 10 ml 0100,0900,1700 DIPTI Administration - Lab Result Fish Bone Diagrams: 11/14/20 16:27 11/14/20 05:25 - Additional Planning My Orders: My Active Orders 11/14/20 General Surgery Consult [CONS] Routine H&H [HEMOGLOBIN AND HEMATOCRIT] [HEME] Routine 11/14/20 11:11 NPO except Meds [DIET] 11/14/20 11:12 Blood Glucose Checks - NPO [RC] 0600,1200,1800,0000 11/14/20 11:17 Metoprolol Inj [Lopressor Inj] 5 mg IVP Q6H PRN 11/14/20 14:25 Lactulose [Enulose] 20 gm PO QID 11/14/20 16:00 D5.45ns W/20 Meq KCl 1,000 ml IV 75 mls/hr 11/14/20 23:00 H&H [HEMOGLOBIN AND HEMATOCRIT] [HEME] Timed 11/15/20 09:00 Folic Acid 1 mg PO DAILY Multivitamin [Theragran] 1 tab PO DAILY Subjective - Subjective Nursing Reports: Confused Objective Vital Signs: Vital Signs - 24 hr 11/13/20 11/13/20 11/13/20 16:20 16:26 16:35 Temperature 37.0 C 36.7 C Heart Rate 109 H 108 H 109 H Heart Rate [ Brachial] Heart Rate [ Monitoring electrodes] Respiratory 17 21 18 Rate Blood Pressure 143/77 H 151/85 H 145/82 H Blood Pressure [Right Brachial artery] O2 Saturation 11/13/20 11/13/20 11/13/20 17:27 17:45 20:22 Temperature 37.3 C 37.1 C Heart Rate 105 H Heart Rate [ Brachial] Heart Rate [ 107 H 112 H Monitoring electrodes] Respiratory 20 19 20 Rate Blood Pressure 142/70 H Blood Pressure 144/68 H 147/87 H [Right Brachial artery] O2 Saturation 97 95 11/13/20 11/14/20 11/14/20 23:39 05:00 07:40 Temperature 37.6 C 37.4 C 37.1 C Heart Rate Heart Rate [ 113 H 105 H 109 H Brachial] Heart Rate [ 116 H Monitoring electrodes] Respiratory 24 24 20 Rate Blood Pressure Blood Pressure 145/71 H 142/68 H 141/79 H [Right Brachial artery] O2 Saturation 93 96 96 11/14/20 11/14/20 11/14/20 11:46 13:30 13:35 Temperature 37.2 C Heart Rate Heart Rate [ 110 H 88 Brachial] Heart Rate [ Monitoring electrodes] Respiratory 18 Rate Blood Pressure 151/86 H Blood Pressure 157/79 H 145/74 H [Right Brachial artery] O2 Saturation 99 11/14/20 11/14/20 11/14/20 13:40 13:45 15:40 Temperature 37 C Heart Rate Heart Rate [ 93 90 96 Brachial] Heart Rate [ Monitoring electrodes] Respiratory 19 Rate Blood Pressure Blood Pressure 143/71 H 148/76 H 142/75 H [Right Brachial artery] O2 Saturation 98 Oxygen O2 Source Room air I&O (Last 24 Hrs): Intake and Output Totals x24h 11/12/20 11/13/20 11/14/20 23:59 23:59 23:59 Intake Total 2538.507 Output Total 600 Balance 1938.507 General: Alert, Other (lethargic) HEENT: Atraumatic Neck: Supple Lymphatic: no adenopathy Neuro: Alert Cardiovascular: Regular rate, Normal S1, Normal S2 Respiratory: Chest non-tender, No respiratory distress Abdomen: Normal bowel sounds, Soft Extremities: Normal pulses - Results Results: Laboratory Results WBC 6.5 x10^3/uL (4.8-10.8) 11/14/20 05:25 RBC 2.28 10^6/uL (4.20-5.40) L 11/14/20 05:25 Hgb 7.2 g/dL (12.0-16.0) L 11/14/20 05:25 Hct 21.5 % (37.0-47.0) L 11/14/20 05:25 MCV 94.3 fL (81.0-99.0) 11/14/20 05:25 MCH 31.6 pg (27.0-31.0) H 11/14/20 05:25 MCHC 33.5 g/dL (32.0-36.0) 11/14/20 05:25 RDW 18.4 % (12.0-15.0) H 11/14/20 05:25 Plt Count 115 10^3/uL (130-450) L 11/14/20 05:25 MPV 10.4 fL (7.9-10.8) 11/14/20 05:25 Neut # (Auto) 4.5 10^3/uL (1.5-6.6) 11/13/20 12:26 Lymph # (Auto) 1.3 10^3/uL (1.5-3.5) L 11/13/20 12:26 [place] # (Auto) 0.7 10^3/uL (0.0-1.0) 11/13/20 12:26 Eos # (Auto) 0.2 10^3/uL (0.0-0.7) 11/13/20 12:26 Baso # (Auto) 0.0 10^3/uL (0.0-0.1) 11/13/20 12:26 Absolute Nucleated RBC 0.00 x10^3/uL 11/13/20 12:26 Nucleated RBC % 0.0 /100WBC 11/13/20 12:26 PT 15.0 secs (9.9-12.6) H 11/13/20 12:34 INR 1.4 (0.8-1.2) H 11/13/20 12:34 Sodium 140 mmol/L (135-145) 11/14/20 05:25 Potassium 3.4 mmol/L (3.5-5.0) L 11/14/20 05:25 Chloride 112 mmol/L (101-111) H 11/14/20 05:25 Carbon Dioxide 20 mmol/L (21-32) L 11/14/20 05:25 Anion Gap 8.0 (6-13) 11/14/20 05:25 BUN 18 mg/dL (6-20) 11/14/20 05:25 Creatinine 0.8 mg/dL (0.4-1.0) 11/14/20 05:25 Estimated GFR (MDRD) 72 (>89) L 11/14/20 05:25 Glucose 86 mg/dL (70-100) 11/14/20 05:25 Calcium 8.9 mg/dL (8.5-10.3) 11/14/20 05:25 Magnesium 1.6 mg/dL (1.7-2.8) L 11/14/20 05:25 Total Bilirubin 2.1 mg/dL (0.2-1.0) H 11/14/20 05:25 AST 66 IU/L (10-42) H 11/14/20 05:25 ALT 25 IU/L (10-60) 11/14/20 05:25 Alkaline Phosphatase 71 IU/L (42-121) 11/14/20 05:25 Ammonia 89.0 umol/L (7-35) H* 11/14/20 05:25 Total Protein 5.7 g/dL (6.7-8.2) L 11/14/20 05:25 Albumin 2.6 g/dL (3.2-5.5) L 11/14/20 05:25 Globulin 3.1 g/dL (2.1-4.2) 11/14/20 05:25 Albumin/Globulin Ratio 0.8 (1.0-2.2) L 11/14/20 05:25 Lipase 28 U/L (22-51) 11/13/20 12:26 Urine Color YELLOW 11/13/20 12:15 Urine Clarity CLEAR (CLEAR) 11/13/20 12:15 Urine pH >=9.0 PH (5.0-7.5) H 11/13/20 12:15 Ur Specific [place] 1.015 (1.002-1.030) 11/13/20 12:15 Urine Protein NEGATIVE mg/dL (NEGATIVE) 11/13/20 12:15 Urine Glucose (UA) NEGATIVE mg/dL (NEGATIVE) 11/13/20 12:15 Urine Ketones NEGATIVE mg/dL (NEGATIVE) 11/13/20 12:15 Urine Occult Blood TRACE-INTA (NEGATIVE) 11/13/20 12:15 Urine Nitrite NEGATIVE (NEGATIVE) 11/13/20 12:15 Urine Bilirubin NEGATIVE (NEGATIVE) 11/13/20 12:15 Urine Urobilinogen 0.2 (NORMAL) E.U./dL (NORMAL) 11/13/20 12:15 Ur Leukocyte Esterase NEGATIVE (NEGATIVE) 11/13/20 12:15 Ur Microscopic Review NOT INDICATED 11/13/20 12:15 Urine Culture Comments NOT INDICATED 11/13/20 12:15 Nasal Adenovirus (PCR) NOT DETECTED 11/13/20 16:39 Nasal B. parapertussis DNA (PCR) NOT DETECTED 11/13/20 16:39 Nasal Coronavir 229E PCR NOT DETECTED 11/13/20 16:39 Nasal Coronavir HKU1 PCR NOT DETECTED 11/13/20 16:39 Nasal Coronavir NL63 PCR NOT DETECTED 11/13/20 16:39 Nasal Coronavir OC43 PCR NOT DETECTED 11/13/20 16:39 Nasal Enterovir/Rhinovir PCR NOT DETECTED 11/13/20 16:39 Nasal Influenza B PCR NOT DETECTED 11/13/20 16:39 Nasal Influenza A PCR NOT DETECTED 11/13/20 16:39 Nasal Parainfluen 1 PCR NOT DETECTED 11/13/20 16:39 Nasal Parainfluen 2 PCR NOT DETECTED 11/13/20 16:39 Nasal Parainfluen 3 PCR NOT DETECTED 11/13/20 16:39 Nasal Parainfluen 4 PCR NOT DETECTED 11/13/20 16:39 Nasal RSV (PCR) NOT DETECTED 11/13/20 16:39 Nasal B.pertussis DNA PCR NOT DETECTED 11/13/20 16:39 Nasal C.pneumoniae (PCR) NOT DETECTED 11/13/20 16:39 [place] Human Metapneumo PCR NOT DETECTED 11/13/20 16:39 Nasal M.pneumoniae (PCR) NOT DETECTED 11/13/20 16:39 Nasal SARS-CoV-2 (PCR) NOT DETECTED 11/13/20 16:39 Stl Occult Blood (IFOB) POSITIVE (NEGATIVE) A 11/14/20 14:30 Salicylates < 6.0 mg/dL 11/13/20 12:26 Urine Opiates Screen NEGATIVE (NEGATIVE) 11/13/20 13:34 Ur Oxycodone Screen NEGATIVE (NEGATIVE) 11/13/20 13:34 Urine Methadone Screen NEGATIVE (NEGATIVE) 11/13/20 13:34 Ur Propoxyphene Screen NEGATIVE (NEGATIVE) 11/13/20 13:34 Acetaminophen < 10 ug/mL (10-30) L 11/13/20 12:26 Ur Barbiturates Screen NEGATIVE (NEGATIVE) 11/13/20 13:34 Ur Tricyclics Screen NEGATIVE (NEGATIVE) 11/13/20 13:34 Ur Phencyclidine Scrn NEGATIVE (NEGATIVE) 11/13/20 13:34 Ur Amphetamine Screen NEGATIVE (NEGATIVE) 11/13/20 13:34 U Methamphetamines Scrn NEGATIVE (NEGATIVE) 11/13/20 13:34 U Benzodiazepines Scrn NEGATIVE (NEGATIVE) 11/13/20 13:34 Urine Cocaine Screen NEGATIVE (NEGATIVE) 11/13/20 13:34 U Cannabinoids Screen NEGATIVE (NEGATIVE) 11/13/20 13:34 Ethyl Alcohol < 5.0 mg/dL 11/13/20 12:26 Blood Type O POSITIVE 11/13/20 12:15 Antibody Screen NEGATIVE 11/13/20 12:15 Crossmatch IS Only See Detail 11/13/20 12:15 - Procedures Procedures: Procedures EXCISION OF CECUM, ENDO, DIAGN (09/10/20) EXCISION OF ILEUM, ENDO, DIAGN (09/10/20) INSPECTION OF UPPER INTESTINAL TRACT, ENDO (09/10/20) ABX Reporting Has patient been on IV antibiotics over the past 48 hours?: No Current Medications - Current Medications Current Medications: Active Medications Folic Acid (Folic Acid 1 Mg Tablet) 1 mg PO DAILY [facility] Multivitamins 10 ml/ Folic Acid 1 mg/ Thiamine HCl 100 mg / Magnesium Sulfate 2 gm/Sodium Chloride 1,015.2 mls @ 100 mls/hr IV DAILY DIPTI Stop: 11/14/20 23:59 Last Admin: 11/14/20 09:52 Dose: 100 mls/hr Documented by: Potassium Chloride/Dextrose/Sod Cl (D5.45ns W/20 Meq Kcl) 1,000 mls @ 75 mls/hr IV .[id number] DIPTI Stop: 11/15/20 18:39 Last Admin: 11/14/20 16:32 Dose: 75 mls/hr Documented by: Lactulose (Lactulose 10 Gm /15 Ml Udc) 20 gm PO QID [facility] Last Admin: 11/14/20 16:32 Dose: Not Given Documented by: Metoprolol Tartrate (Metoprolol 5 Mg/5 Ml Vial) 5 mg IVP Q6H PRN PRN Reason: Tachycardia Multivitamins (Multivitamin Tablet) 1 tab PO DAILY [facility] Pantoprazole Sodium (Pantoprazole 40 Mg Vial) 40 mg IVP BID [facility] Sodium Chloride (Sodium Chloride Flush 0.9% 10 Ml Syringe) 10 ml IVP PRN PRN PRN Reason: NEEDED PER PROVIDER ORDERS Last Admin: 11/13/20 21:49 Dose: 10 ml Documented by: Sodium Chloride (Sodium Chloride Flush 0.9% 10 Ml Syringe) 10 ml IVP 0100,0900,1700 [facility] Last Admin: 11/14/20 16:32 Dose: 10 ml Documented by: DULoxetine [Cymbalta] 20 mg PO BID 09/10/20 Ondansetron HCl [Zofran] 4 mg PO Q4HR PRN 09/10/20 Lidocaine Patch 5% [Lidoderm Patch] 1 each PATCH DAILY PRN 11/13/20 Magnesium Oxide [Mag Ox] 500 mg PO DAILY 11/13/20 Potassium Chloride [K-Dur] 20 meq PO BID 11/13/20 Pregabalin [Lyrica] 2 tab PO HS 11/13/20 carvediloL [Coreg] 1 tab PO BID 11/13/20
[2020-11-14 16:30] LABS: HCT - HEMATOCRIT 21.3 % (37.0-47.0); HGB - HEMOGLOBIN 7.3 g/dL (12.0-16.0)
[2020-11-14 17:01] LABS: ABSOLUTE RETICS # AUTO 0.087 10^6/uL (0.020-0.110); RED BLOOD COUNT 2.34 10^6/uL (4.20-5.40); RETICULOCYTE COUNT % (AUTO) 3.71 % (0.5-2.3)
[2020-11-14 17:23] LABS: FERRITIN 133.9 ng/mL (11.0-306.8)
[2020-11-14 17:29] LABS: % IRON SATURATION 22 % (20-50); IRON 58 ug/dL (28-170); TOTAL IRON BINDING CAPACITY 265 ug/dL (250-450); TRANSFERRIN 189 mg/dL (192-382)
[2020-11-14] MEDS: SODIUM CHLORIDE FLUSH 0.9% 10 ML SYRINGE IVP PRN (20:14)
[2020-11-14] MEDS: PANTOPRAZOLE 40 MG VIAL IVP SCH (20:14)
[2020-11-14] MEDS ORDERED: LACTULOSE 10 GM /15 ML UDC PO SCH (21:00)
[2020-11-14 23:14] LABS: HCT - HEMATOCRIT 20.7 % (37.0-47.0)
[2020-11-15] MEDS: SODIUM CHLORIDE FLUSH 0.9% 10 ML SYRINGE IVP SCH ×3 (01:09→16:46)
[2020-11-15 05:01] LABS: HCT - HEMATOCRIT 21.2 % (37.0-47.0); HGB - HEMOGLOBIN 7.2 g/dL (12.0-16.0); MEAN CORPUSCULAR HEMOGLOBIN 32.6 pg (27.0-31.0); MEAN CORPUSCULAR VOLUME 95.9 fL (81.0-99.0); MEAN PLATELET VOLUME 9.5 fL (7.9-10.8); RED BLOOD COUNT 2.21 10^6/uL (4.20-5.40); RED CELL DISTRIBUTION WIDTH 17.9 % (12.0-15.0); WHITE BLOOD COUNT 7.4 x10^3/uL (4.8-10.8)
[2020-11-15 05:16] LABS: ALBUMIN 2.8 g/dL (3.2-5.5); ALBUMIN/GLOBULIN RATIO 0.8 (1.0-2.2); BILIRUBIN,TOTAL 2.2 mg/dL (0.2-1.0); CALCIUM 8.6 mg/dL (8.5-10.3); CREATININE 0.8 mg/dL (0.4-1.0); MAGNESIUM 1.9 mg/dL (1.7-2.8); POTASSIUM 3.4 mmol/L (3.5-5.0); TOTAL PROTEIN 6.4 g/dL (6.7-8.2)
[2020-11-15 05:27] LABS: THYROID STIMULATING HORMONE 3.69 uIU/mL (0.34-5.60)
[2020-11-15] MEDS ORDERED: POTASSIUM CHLORIDE 20 MEQ TABLET PO ONE (07:10)
[2020-11-15] MEDS ORDERED: LORazepam 0.5 MG TABLET PO PRN (07:40)
[2020-11-15] MEDS ORDERED: IOVERSOL 320 100 ML VIAL IVP ONE ×2 (07:41→10:17)
[2020-11-15] MEDS: POTASSIUM CHLOR 10 MEQ/100 ML 10 MEQ/100 ML BAG IV SCH ×2 (08:04→10:29)
[2020-11-15] MEDS: PANTOPRAZOLE 40 MG VIAL IVP SCH ×2 (08:04→20:34)
[2020-11-15] MEDS: D5.45NS W/20 MEQ KCL 1,000 ML IV SCH ×2 (08:05→20:36)
[2020-11-15] MEDS: FOLIC ACID 1 MG TABLET PO SCH (09:06)
[2020-11-15] MEDS: LACTULOSE 10 GM /15 ML UDC PO SCH ×4 (09:06→20:35)
[2020-11-15] MEDS: MULTIVITAMIN TABLET PO SCH (09:06)
[2020-11-15] MEDS: carvediloL 3.125 MG TABLET PO SCH ×2 (09:06→20:35)
[2020-11-15] MEDS: ethyl alcohoL 62% SWAB AMPULE NAS SCH ×2 (09:06→20:35)
[2020-11-15] MEDS: DULoxetine 20 MG CAPSULE PO SCH ×2 (10:28→20:35)
[2020-11-15] MEDS: SODIUM/POTASSIUM/MAG SULFATES 354 ML PREP KIT PO SCH ×2 (10:28→16:49)
--- NOTE | 2020-11-15 11:58 | CT Report ---
PROCEDURE: Abdomen/Pelvis W INDICATIONS: metastatic liver lesion, colon mass CONTRAST: IV CONTRAST: Optiray 320 ml: 100 PO CONTRAST: *NO PO CONTRAST TECHNIQUE: After the administration of intravenous contrast, 5 mm thick sections acquired from the diaphragms to the symphysis. 5 mm thick coronal and sagittal reformats were acquired. For radiation dose reducti on, the following was used: automated exposure control, adjustment of mA and/or kV according to wicho ent size. COMPARISON: 09/10/2020 FINDINGS: Image quality: Excellent. ABDOMEN: Lung bases: Small bilateral pleural effusions and minimal compressive bibasilar atelectasis. Heart si ze is normal. Solid organs: Liver: On the previous study, there was a posterior segment right lobe liver lesion which was highly suspicious for metastatic disease. It did not have any peripheral enhancement, and was heterogeneous low density. It measured 4.5 cm in diameter. On the current study, however, this lesion has a appeara nce which is commonly seen with an atypical hemangioma, with peripheral nodular lobulated funneling e nhancement with contrast and a low-density center. The lesion measures approximately 4.8 cm. There ar e no other suspicious liver lesions. Interval development of splenomegaly. Spleen previously measured 10.4 cm in craniocaudal dimension an d 13.3 cm in AP dimension. It currently measures 11.7 cm in craniocaudal dimension and 15.8 cm in ant erior posterior dimension. Gallbladder demonstrates diffuse wall thickening, a nonspecific finding, i n the setting of ascites. There is milk of calcium versus dependent gravel in the gallbladder. Bilia ry system is non dilated. Pancreas enhances normally. No adrenal nodules. Kidneys demonstrate norm al size and enhancement, without hydronephrosis. Peritoneum and bowel: Interval development of moderate abdominal and pelvic ascites. On the previous study, there was diffuse thickening and edema of the cecum and proximal ascending colon. Currently th e appearance of this portion of the colon is probably slightly improved. The colon and small bowel ar e otherwise unremarkable. Nodes and vessels: No retroperitoneal or mesenteric adenopathy by size criteria. Aorta and inferior vena cava are normal in size. Miscellaneous: No ventral hernias. PELVIS: Genitourinary: Bladder wall thickness is normal. Miscellaneous: No inguinal hernias or adenopathy. Bones: No suspicious bony lesions. Lumbar degenerative change. No vertebral body compression fractur es. IMPRESSION: 1. The right lobe liver lesion was previously highly suspicious for metastatic lesion. However, on to day's imaging, it has a fairly typical appearance of a hemangioma. Therefore, further evaluation with multiphase CT or MRI using a liver protocol is recommended. 2. Development of small bilateral pleural effusions and minimal bibasilar atelectasis. 3. Development of moderate ascites. 4. The previously markedly abnormal appearance of the cecum and ascending colon may be slightly impro fermin. Differential diagnosis includes ischemic or inflammatory or infectious colitis versus malignancy . Consider colonoscopy at some point. Reviewed by: Ras Thomas MD on 11/15/2020 11:57 AM PDT Approved by: Ras Thomas MD on 11/15/2020 11:57 AM PDT Station ID: [id number]
[2020-11-15 12:59] LABS: HCT - HEMATOCRIT 21.4 % (37.0-47.0); HGB - HEMOGLOBIN 7.4 g/dL (12.0-16.0)
--- NOTE | 2020-11-15 13:26 | PROVIDER PROGRESS NOTE ---
Assessment/Plan - Problem List (1) Altered mental status Qualifiers: Altered mental status type: unspecified Qualified Code(s): R41.82 - Altered mental status, unspecified Assessment/Plan: 11/15 resolved. Patient is alert and oriented today. Patient denies abdominal pain, denies fever, denies chest pain. pt's ammonia level is down to 21. Patient report of lots of diarrhea but also pt is also on bowel prepare for colonoscopy. we Reduce lactulose to 10 g 4 times a day. 11/14 pt is alert but early and immediately fall in sleep. CT of the head was unremarkable for acute finding. Patient has a history of liver failure, patient ammonia level increases to 89 from 34 in the admission. We will check patient TSH, B12. Give patient enema lactulose but the patient cannot hold the medication at all. Nurse did give pt 20g lactulose by oral, nurse has aspiration precaution. Patient tolerated oral intake of lactulose. Because the patient already had 2 months she did not drink alcohol per her report, Patient is lethargic and we will hold Ativan. Clinically patient did not show alcohol withdrawal symptoms. We will daily veterinarian laboratory animal care, check ammonia level. ST reported patient failed swallow study, we will with n.p.o. Neurologic monitor the patient (2)GI bleeding 11/15 improved, HGB slight increased. GI surgeon initially planed to both EGD and colonoscopy for patient this afternoon, we will follow up with. But patient's come to the hospital, he report his had twice EGD and colonoscopy done in the [place] and [facility] recently, Both show benign, They did not find any bleeding site. Patient have port hypertension but the [facility] colonoscopy did not find patient to have varices. Patient's and patient declined to have another EGD/colonoscopy. pt's medical record is sent to record department. I notify to the surgeon, thank surgeon! Continue H&H, Intravenous Protonix, Started with full liquid diet. Patient's occult test is positive. pt has profound anemia and hx of chronic anemia. Consult with GI surgeon, Protonix twice daily, H&H monitor. (3) anemia HGB slight increased. twice EGD and colonoscopy done in the [place] and [facility] recently, Both show benign. Patient has a history of alcoholic hepatic failure. We will continue H&H to monitor hemoglobin, continue intravenous Protonix. Patient report patient had EGD and colonoscopy done 2 years ago, both show benign. Patient hemoglobin was 6.4 at the admission, patient had a history significant anemia. But occult test is positive now. Patient had 1 unit of blood transfusion, now hemoglobin is 7.2. We will H&H to monitor patient, we will have anemia study for patient, will consult with GI surgeon. Since patient is still lethargic, we are planning to have endoscopy after tomorrow. (4) Alcohol abuse Conclusion/Plan: Patient hospital report, patient had paracentesis in [place], Patient did stop drinking alcohol for 2 months. Per patient report, patient suddenly developed confused. Now patient had elevated ammonia level. Patient did not have lactulose in his home medication list, We will give patient lactulose. Continue banana bag on today Since the patient stopped drinking alcohol for 2 months, patient presented lethargic, we will stop ativan, (5) Alcoholic cirrhosis of liver 11/15 CT of the abdomen reveals right lobe liver lesion suggestive to fairly topical appearance of hemangioma. Patient also development of moderate ascites, patient does not show respiratory distress at this time. In the previous abnormal colon CT study now present slightly improved. Patient and patient decline to have EGD and colonoscopy in this time Hospitalization, Patient denies abdominal pain, nausea or vomiting. Continue lactulose, Continue ammonia level check and veterinarian laboratory animal care. Patient has a history of alcoholic liver failure, Will follow Ammonia level daily. Avoid hepatotoxins, Follow CMP daily, order Lactulose (6) Hypokalemia K is 3.4, replaced, monitoring manager (7)HTN 11/15 resume coreg, Vital signs monitor. hold Coreg because of lethargic, add metoprolol intravenous - Current Meds Current Meds: Current Medications Generic Name Dose Route Start Last Admin Trade Name Hedy PRN Reason Stop Dose Admin Alcohol 1 amp 11/15/20 09:00 11/15/20 09:06 Ethyl Alcohol 62% Swab Ampule MARCO ANTONIO 1 amp BID DIPTI Administration Carvedilol 3.125 mg 11/15/20 09:00 11/15/20 09:06 Carvedilol 3.125 Mg Tablet PO 3.125 mg BID DIPTI Administration Duloxetine HCl 20 mg 11/15/20 09:00 11/15/20 10:28 Duloxetine 20 Mg Capsule PO 20 mg BID DIPTI Administration Folic Acid 1 mg 11/15/20 09:00 11/15/20 09:06 Folic Acid 1 Mg Tablet PO 1 mg DAILY DIPTI Administration Potassium Chloride/Dextrose/Sod Cl 1,000 mls @ 100 mls/hr 11/15/20 07:31 11/15/20 12:17 D5.45ns W/20 Meq Kcl IV 11/16/20 03:30 100 mls/hr .Q10H DIPTI Infusion Lactulose 20 gm 11/15/20 09:00 11/15/20 12:22 Lactulose 10 Gm /15 Ml Udc PO 20 gm QID DIPTI Administration Multivitamins 1 tab 11/15/20 09:00 11/15/20 09:06 Multivitamin Tablet PO 1 tab DAILY DIPTI Administration Pantoprazole Sodium 40 mg 11/14/20 09:38 11/15/20 08:04 Pantoprazole 40 Mg Vial IVP 40 mg BID DIPTI Administration Sodium Chloride 10 ml 11/13/20 16:20 11/14/20 20:14 Sodium Chloride Flush 0.9% 10 Ml Syringe IVP 10 ml PRN PRN Administration NEEDED PER PROVIDER ORDERS Sodium Chloride 10 ml 11/13/20 17:00 11/15/20 09:07 Sodium Chloride Flush 0.9% 10 Ml Syringe IVP 10 ml 0100,0900,1700 DIPTI Administration Sodium Sulfate/Potass Sulf/Mag Sulf 177 ml 11/15/20 08:20 11/15/20 10:28 Sodium/Potassium/Mag Sulfates 354 Ml Prep Kit PO 11/15/20 15:01 177 ml 0820,1500 DIPTI Administration - Lab Result Fish Bone Diagrams: 11/15/20 12:53 11/15/20 04:45 - Additional Planning My Orders: My Active Orders 11/14/20 16:39 Neuro Check [RC] Q4H 11/15/20 07:31 D5.45ns W/20 Meq KCl 1,000 ml IV 100 mls/hr 11/15/20 07:40 LORazepam [Ativan] 0.5 mg PO Q8H PRN 11/15/20 08:20 Sodium/Potassium/Mag Sulfates [Suprep Bowel Prep Kit] 177 ml PO 0820,1500 11/15/20 09:00 DULoxetine [Cymbalta] 20 mg PO BID Folic Acid 1 mg PO DAILY Lactulose [Enulose] 20 gm PO QID Multivitamin [Theragran] 1 tab PO DAILY carvediloL [Coreg] 3.125 mg PO BID 11/15/20 21:00 H&H [HEMOGLOBIN AND HEMATOCRIT] [HEME] Q8H Pregabalin [Lyrica] 50 mg PO HS 11/16/20 08:00 Vitamin [Trinatal Rx 1] 1 tab PO DAILYWM 11/16/20 09:00 Thiamine [Vitamin B-1] 100 mg PO DAILY Subjective - Subjective Patient Reports: Feeling Better Objective Vital Signs: Vital Signs - 24 hr 11/14/20 11/14/20 11/14/20 13:30 13:35 13:40 Temperature Heart Rate [ 88 93 Brachial] Respiratory Rate Blood Pressure 151/86 H Blood Pressure 145/74 H 143/71 H [Right Brachial artery] O2 Saturation 11/14/20 11/14/20 11/14/20 13:45 15:40 20:18 Temperature 37 C 37.1 C Heart Rate [ 90 96 99 Brachial] Respiratory 19 20 Rate Blood Pressure Blood Pressure 148/76 H 142/75 H 153/85 H [Right Brachial artery] O2 Saturation 98 95 11/15/20 11/15/20 11/15/20 00:40 04:50 09:00 Temperature 37.1 C 36.8 C 37.1 C Heart Rate [ 99 99 98 Brachial] Respiratory 18 20 20 Rate Blood Pressure Blood Pressure 151/82 H 146/78 H 141/73 H [Right Brachial artery] O2 Saturation 99 100 93 11/15/20 11:35 Temperature 36.5 C Heart Rate [ 80 Brachial] Respiratory 18 Rate Blood Pressure Blood Pressure 123/63 [Right Brachial artery] O2 Saturation 99 Oxygen O2 Source Room air I&O (Last 24 Hrs): Intake and Output Totals x24h 11/13/20 11/14/20 11/15/20 23:59 23:59 23:59 Intake Total 2538.507 1015.2 1215.000 Output Total 600 Balance 6284.343 1788.2 1215.000 General: Alert, Oriented x3, Cooperative, No acute distress HEENT: Atraumatic Neck: Supple Lymphatic: no adenopathy Neuro: Alert, Non Focal, Oriented Times 3 Cardiovascular: Regular rate, Normal S1, Normal S2 Respiratory: Chest non-tender, No respiratory distress Abdomen: Normal bowel sounds, Soft Extremities: Normal pulses - Results Results: Laboratory Results WBC 7.4 x10^3/uL (4.8-10.8) 11/15/20 04:45 RBC 2.21 10^6/uL (4.20-5.40) L 11/15/20 04:45 Hgb 7.4 g/dL (12.0-16.0) L 11/15/20 12:53 Hct 21.4 % (37.0-47.0) L 11/15/20 12:53 MCV 95.9 fL (81.0-99.0) 11/15/20 04:45 MCH 32.6 pg (27.0-31.0) H 11/15/20 04:45 MCHC 34.0 g/dL (32.0-36.0) 11/15/20 04:45 RDW 17.9 % (12.0-15.0) H 11/15/20 04:45 Plt Count 114 10^3/uL (130-450) L 11/15/20 04:45 MPV 9.5 fL (7.9-10.8) 11/15/20 04:45 Reticulocyte % (Auto) 3.71 % (0.5-2.3) H 11/14/20 16:44 Neut # (Auto) 4.5 10^3/uL (1.5-6.6) 11/13/20 12:26 Lymph # (Auto) 1.3 10^3/uL (1.5-3.5) L 11/13/20 12:26 [place] # (Auto) 0.7 10^3/uL (0.0-1.0) 11/13/20 12:26 Eos # (Auto) 0.2 10^3/uL (0.0-0.7) 11/13/20 12:26 Baso # (Auto) 0.0 10^3/uL (0.0-0.1) 11/13/20 12:26 Absolute Nucleated RBC 0.00 x10^3/uL 11/13/20 12:26 Nucleated RBC % 0.0 /100WBC 11/13/20 12:26 Absolute Retic 0.087 10^6/uL (0.020-0.110) 11/14/20 16:44 PT 15.0 secs (9.9-12.6) H 11/13/20 12:34 INR 1.4 (0.8-1.2) H 11/13/20 12:34 Sodium 137 mmol/L (135-145) 11/15/20 04:45 Potassium 3.4 mmol/L (3.5-5.0) L 11/15/20 04:45 Chloride 106 mmol/L (101-111) 11/15/20 04:45 Carbon Dioxide 19 mmol/L (21-32) L 11/15/20 04:45 Anion Gap 12.0 (6-13) 11/15/20 04:45 BUN 10 mg/dL (6-20) 11/15/20 04:45 Creatinine 0.8 mg/dL (0.4-1.0) 11/15/20 04:45 Estimated GFR (MDRD) 72 (>89) L 11/15/20 04:45 Glucose 120 mg/dL (70-100) H 11/15/20 04:45 Calcium 8.6 mg/dL (8.5-10.3) 11/15/20 04:45 Magnesium 1.9 mg/dL (1.7-2.8) 11/15/20 04:45 Iron 58 ug/dL (28-170) 11/14/20 16:44 TIBC 265 ug/dL (250-450) 11/14/20 16:44 % Saturation 22 % (20-50) 11/14/20 16:44 Transferrin 189 mg/dL (192-382) L 11/14/20 16:44 Ferritin 133.9 ng/mL (11.0-306.8) 11/14/20 16:44 Total Bilirubin 2.2 mg/dL (0.2-1.0) H 11/15/20 04:45 AST 72 IU/L (10-42) H 11/15/20 04:45 ALT 27 IU/L (10-60) 11/15/20 04:45 Alkaline Phosphatase 74 IU/L (42-121) 11/15/20 04:45 Ammonia 21.4 umol/L (7-35) 11/15/20 04:45 Lactate Dehydrogenase 185 IU/L (91-225) 11/14/20 16:44 Total Protein 6.4 g/dL (6.7-8.2) L 11/15/20 04:45 Albumin 2.8 g/dL (3.2-5.5) L 11/15/20 04:45 Globulin 3.6 g/dL (2.1-4.2) 11/15/20 04:45 Albumin/Globulin Ratio 0.8 (1.0-2.2) L 11/15/20 04:45 Lipase 28 U/L (22-51) 11/13/20 12:26 Vitamin B12 1512 pg/mL (180-914) H 11/15/20 04:45 TSH 3.69 uIU/mL (0.34-5.60) 11/15/20 04:45 Urine Color YELLOW 11/13/20 12:15 Urine Clarity CLEAR (CLEAR) 11/13/20 12:15 Urine pH >=9.0 PH (5.0-7.5) H 11/13/20 12:15 Ur Specific [place] 1.015 (1.002-1.030) 11/13/20 12:15 Urine Protein NEGATIVE mg/dL (NEGATIVE) 11/13/20 12:15 Urine Glucose (UA) NEGATIVE mg/dL (NEGATIVE) 11/13/20 12:15 Urine Ketones NEGATIVE mg/dL (NEGATIVE) 11/13/20 12:15 Urine Occult Blood TRACE-INTA (NEGATIVE) 11/13/20 12:15 Urine Nitrite NEGATIVE (NEGATIVE) 11/13/20 12:15 Urine Bilirubin NEGATIVE (NEGATIVE) 11/13/20 12:15 Urine Urobilinogen 0.2 (NORMAL) E.U./dL (NORMAL) 11/13/20 12:15 Ur Leukocyte Esterase NEGATIVE (NEGATIVE) 11/13/20 12:15 Ur Microscopic Review NOT INDICATED 11/13/20 12:15 Urine Culture Comments NOT INDICATED 11/13/20 12:15 Nasal Adenovirus (PCR) NOT DETECTED 11/13/20 16:39 Nasal B. parapertussis DNA (PCR) NOT DETECTED 11/13/20 16:39 Nasal Coronavir 229E PCR NOT DETECTED 11/13/20 16:39 Nasal Coronavir HKU1 PCR NOT DETECTED 11/13/20 16:39 Nasal Coronavir NL63 PCR NOT DETECTED 11/13/20 16:39 Nasal Coronavir OC43 PCR NOT DETECTED 11/13/20 16:39 Nasal Enterovir/Rhinovir PCR NOT DETECTED 11/13/20 16:39 Nasal Influenza B PCR NOT DETECTED 11/13/20 16:39 Nasal Influenza A PCR NOT DETECTED 11/13/20 16:39 Nasal Parainfluen 1 PCR NOT DETECTED 11/13/20 16:39 Nasal Parainfluen 2 PCR NOT DETECTED 11/13/20 16:39 Nasal Parainfluen 3 PCR NOT DETECTED 11/13/20 16:39 Nasal Parainfluen 4 PCR NOT DETECTED 11/13/20 16:39 Nasal RSV (PCR) NOT DETECTED 11/13/20 16:39 Nasal B.pertussis DNA PCR NOT DETECTED 11/13/20 16:39 Nasal C.pneumoniae (PCR) NOT DETECTED 11/13/20 16:39 Marco Antonio Human Metapneumo PCR NOT DETECTED 11/13/20 16:39 Nasal M.pneumoniae (PCR) NOT DETECTED 11/13/20 16:39 Nasal SARS-CoV-2 (PCR) NOT DETECTED 11/13/20 16:39 Stl Occult Blood (IFOB) POSITIVE (NEGATIVE) A 11/14/20 14:30 Salicylates < 6.0 mg/dL 11/13/20 12:26 Urine Opiates Screen NEGATIVE (NEGATIVE) 11/13/20 13:34 Ur Oxycodone Screen NEGATIVE (NEGATIVE) 11/13/20 13:34 Urine Methadone Screen NEGATIVE (NEGATIVE) 11/13/20 13:34 Ur Propoxyphene Screen NEGATIVE (NEGATIVE) 11/13/20 13:34 Acetaminophen < 10 ug/mL (10-30) L 11/13/20 12:26 Ur Barbiturates Screen NEGATIVE (NEGATIVE) 11/13/20 13:34 Ur Tricyclics Screen NEGATIVE (NEGATIVE) 11/13/20 13:34 Ur Phencyclidine Scrn NEGATIVE (NEGATIVE) 11/13/20 13:34 Ur Amphetamine Screen NEGATIVE (NEGATIVE) 11/13/20 13:34 U Methamphetamines Scrn NEGATIVE (NEGATIVE) 11/13/20 13:34 U Benzodiazepines Scrn NEGATIVE (NEGATIVE) 11/13/20 13:34 Urine Cocaine Screen NEGATIVE (NEGATIVE) 11/13/20 13:34 U Cannabinoids Screen NEGATIVE (NEGATIVE) 11/13/20 13:34 Ethyl Alcohol < 5.0 mg/dL 11/13/20 12:26 Blood Type O POSITIVE 11/13/20 12:15 Antibody Screen NEGATIVE 11/13/20 12:15 Crossmatch IS Only See Detail 11/13/20 12:15 - Procedures Procedures: Procedures EXCISION OF CECUM, ENDO, DIAGN (09/10/20) EXCISION OF ILEUM, ENDO, DIAGN (09/10/20) INSPECTION OF UPPER INTESTINAL TRACT, ENDO (09/10/20) ABX Reporting Has patient been on IV antibiotics over the past 48 hours?: No Current Medications - Current Medications Current Medications: Active Medications Alcohol (Ethyl Alcohol 62% Swab Ampule) 1 amp MARCO ANTONIO BID [facility] Last Admin: 11/15/20 09:06 Dose: 1 amp Documented by: Carvedilol (Carvedilol 3.125 Mg Tablet) 3.125 mg PO BID [facility] Last Admin: 11/15/20 09:06 Dose: 3.125 mg Documented by: Duloxetine HCl (Duloxetine 20 Mg Capsule) 20 mg PO BID [facility] Last Admin: 11/15/20 10:28 Dose: 20 mg Documented by: Folic Acid (Folic Acid 1 Mg Tablet) 1 mg PO DAILY [facility] Last Admin: 11/15/20 09:06 Dose: 1 mg Documented by: Potassium Chloride/Dextrose/Sod Cl (D5.45ns W/20 Meq Kcl) 1,000 mls @ 100 mls/hr IV .Q10H DIPTI Stop: 11/16/20 03:30 Last Infusion: 11/15/20 12:17 Dose: 100 mls/hr Documented by: Lactulose (Lactulose 10 Gm /15 Ml Udc) 10 gm PO QID [facility] Lorazepam (Lorazepam 0.5 Mg Tablet) 0.5 mg PO Q8H PRN PRN Reason: Anxiety Metoprolol Tartrate (Metoprolol 5 Mg/5 Ml Vial) 5 mg IVP Q6H PRN PRN Reason: Tachycardia Multivitamins (Multivitamin Tablet) 1 tab PO DAILY [facility] Last Admin: 11/15/20 09:06 Dose: 1 tab Documented by: Pantoprazole Sodium (Pantoprazole 40 Mg Vial) 40 mg IVP BID [facility] Last Admin: 11/15/20 08:04 Dose: 40 mg Documented by: Pregabalin (Pregabalin 25 Mg Capsule) 50 mg PO HS [facility] Multivit/Folic Acid/Iron ( Vitamin Tablet) 1 tab PO DAILYWM [facility] Sodium Chloride (Sodium Chloride Flush 0.9% 10 Ml Syringe) 10 ml IVP PRN PRN PRN Reason: NEEDED PER PROVIDER ORDERS Last Admin: 11/14/20 20:14 Dose: 10 ml Documented by: Sodium Chloride (Sodium Chloride Flush 0.9% 10 Ml Syringe) 10 ml IVP 0100,0900,1700 [facility] Last Admin: 11/15/20 09:07 Dose: 10 ml Documented by: Sodium Sulfate/Potass Sulf/Mag Sulf (Sodium/Potassium/Mag Sulfates 354 Ml Prep Kit) 177 ml PO 0820,1500 DIPTI Stop: 11/15/20 15:01 Last Admin: 11/15/20 10:28 Dose: 177 ml Documented by: Thiamine HCl (Thiamine 100 Mg Tablet) 100 mg PO DAILY DIPTI DULoxetine [Cymbalta] 20 mg PO BID 09/10/20 Ondansetron HCl [Zofran] 4 mg PO Q4HR PRN 09/10/20 Lidocaine Patch 5% [Lidoderm Patch] 1 each PATCH DAILY PRN 11/13/20 Magnesium Oxide [Mag Ox] 500 mg PO DAILY 11/13/20 Potassium Chloride [K-Dur] 20 meq PO BID 11/13/20 Pregabalin [Lyrica] 2 tab PO HS 11/13/20 carvediloL [Coreg] 1 tab PO BID 11/13/20
[2020-11-15] MEDS ORDERED: LACTULOSE 10 GM /15 ML UDC PO SCH (14:00)
[2020-11-15] MEDS ORDERED: ACETAMINOPHEN 325 MG TABLET PO PRN (14:44)
[2020-11-15] MEDS: SODIUM CHLORIDE FLUSH 0.9% 10 ML SYRINGE IVP PRN (20:34)
[2020-11-15] MEDS ORDERED: PREGABALIN 25 MG CAPSULE PO SCH (21:00)
[2020-11-16] MEDS: SODIUM CHLORIDE FLUSH 0.9% 10 ML SYRINGE IVP SCH ×3 (01:53→18:05)
[2020-11-16 05:35] LABS: MEAN CORPUSCULAR HGB CONC 34.5 g/dL (32.0-36.0); MEAN CORPUSCULAR VOLUME 95.7 fL (81.0-99.0); RED BLOOD COUNT 2.09 10^6/uL (4.20-5.40); RED CELL DISTRIBUTION WIDTH 17.4 % (12.0-15.0); WHITE BLOOD COUNT 5.3 x10^3/uL (4.8-10.8)
[2020-11-16 05:43] LABS: HGB - HEMOGLOBIN 6.9 g/dL (12.0-16.0)
[2020-11-16 05:45] LABS: ALBUMIN 2.6 g/dL (3.2-5.5); ALBUMIN/GLOBULIN RATIO 0.8 (1.0-2.2); BILIRUBIN,TOTAL 1.9 mg/dL (0.2-1.0); CALCIUM 8.3 mg/dL (8.5-10.3); CREATININE 0.8 mg/dL (0.4-1.0); MAGNESIUM 1.6 mg/dL (1.7-2.8); POTASSIUM 3.4 mmol/L (3.5-5.0); TOTAL PROTEIN 5.9 g/dL (6.7-8.2)
[2020-11-16] MEDS ORDERED: POTASSIUM CHLORIDE 20 MEQ TABLET PO ONE (07:26)
[2020-11-16] MEDS ORDERED: MAGNESIUM SULFATE 2 GRAM 2 GM/50 ML BAG IV ONE (07:28)
[2020-11-16] MEDS ORDERED: PRENATAL VITAMIN TABLET PO SCH (08:00)
[2020-11-16] MEDS: LACTULOSE 10 GM /15 ML UDC PO SCH ×3 (08:15→18:06)
[2020-11-16] MEDS: FOLIC ACID 1 MG TABLET PO SCH (08:15)
[2020-11-16] MEDS: ethyl alcohoL 62% SWAB AMPULE NAS SCH (08:15)
[2020-11-16] MEDS: MULTIVITAMIN TABLET PO SCH (08:16)
[2020-11-16] MEDS: PANTOPRAZOLE 40 MG VIAL IVP SCH (08:16)
[2020-11-16] MEDS: carvediloL 3.125 MG TABLET PO SCH (08:16)
[2020-11-16] MEDS: DULoxetine 20 MG CAPSULE PO SCH (08:16)
[2020-11-16] MEDS ORDERED: THIAMINE 100 MG TABLET PO SCH (09:00)
--- NOTE | 2020-11-16 09:44 | ANESTHESIA ---
Pre-Anesthesia VS, & Labs - Diagnosis GI bleed, profound anemia - Procedure colonoscopy, EGD Vital Signs: Temp Pulse Resp BP Pulse Ox 37 C 88 20 127/69 94 11/16/20 07:18 11/16/20 07:18 11/16/20 07:18 11/16/20 07:18 11/16/20 07:18 Height: 5 ft 4 in Weight (kg): 46.5 kg Body Mass Index: 17.6 BMI Classification: Underweight - NPO >8 hours - Is Patient ?: No - Lab Results Current Lab Results: Laboratory Tests 11/16/20 05:22: Ammonia 27.5 11/16/20 05:22: Sodium 131 L, Potassium 3.4 L, Chloride 105, Carbon Dioxide 20 L , Anion Gap 6.0, BUN 5 L, Creatinine 0.8, Estimated GFR (MDRD) 72 L, Glucose 114 H, Calcium 8.3 L, Magnesium 1.6 L, Total Bilirubin 1.9 H, AST 65 H, ALT 24, Alkaline Phosphatase 69, Total Protein 5.9 L, Albumin 2.6 L, Globulin 3.3, Albumin/Globulin Ratio 0.8 L 11/16/20 05:22: WBC 5.3, RBC 2.09 L, Hgb 6.9 L*, Hct 20.0 L*, MCV 95.7, MCH 33.0 H, MCHC 34.5, RDW 17.4 H, Plt Count 94 L, MPV 10.0 11/15/20 20:51: Hgb 7.0 L*, Hct 21.0 L 11/15/20 12:53: Hgb 7.4 L, Hct 21.4 L 11/15/20 04:45: Vitamin B12 1512 H, TSH 3.69 11/15/20 04:45: Ammonia 21.4 11/15/20 04:45: Sodium 137, Potassium 3.4 L, Chloride 106, Carbon Dioxide 19 L, Anion Gap 12.0, BUN 10, Creatinine 0.8, Estimated GFR (MDRD) 72 L, Glucose 120 H , Calcium 8.6, Magnesium 1.9, Total Bilirubin 2.2 H, AST 72 H, ALT 27, Alkaline Phosphatase 74, Total Protein 6.4 L, Albumin 2.8 L, Globulin 3.6, Albumin/Globulin Ratio 0.8 L 11/15/20 04:45: WBC 7.4, RBC 2.21 L, Hgb 7.2 L, Hct 21.2 L, MCV 95.9, MCH 32.6 H , MCHC 34.0, RDW 17.9 H, Plt Count 114 L, MPV 9.5 11/14/20 22:58: Hgb 7.0 L*, Hct 20.7 L 11/14/20 16:44: Lactate Dehydrogenase 185 11/14/20 16:44: Ferritin 133.9, Vitamin B12 1487 H 11/14/20 16:44: Iron 58, TIBC 265, % Saturation 22, Transferrin 189 L 11/14/20 16:44: RBC 2.34 L, Reticulocyte % (Auto) 3.71 H, Absolute Retic 0.087 11/14/20 16:27: Hgb 7.3 L, Hct 21.3 L 11/14/20 05:25: Ammonia 89.0 H* 11/14/20 05:25: Sodium 140, Potassium 3.4 L, Chloride 112 H, Carbon Dioxide 20 L , Anion Gap 8.0, BUN 18, Creatinine 0.8, Estimated GFR (MDRD) 72 L, Glucose 86, Calcium 8.9, Magnesium 1.6 L, Total Bilirubin 2.1 H, AST 66 H, ALT 25, Alkaline Phosphatase 71, Total Protein 5.7 L, Albumin 2.6 L, Globulin 3.1, Albumin/Globulin Ratio 0.8 L 11/14/20 05:25: WBC 6.5, RBC 2.28 L, Hgb 7.2 L, Hct 21.5 L, MCV 94.3, MCH 31.6 H , MCHC 33.5, RDW 18.4 H, Plt Count 115 L, MPV 10.4 11/13/20 21:55: Hgb 7.2 L, Hct 21.0 L 11/13/20 13:34: Urine Opiates Screen NEGATIVE, Ur Oxycodone Screen NEGATIVE, Urine Methadone Screen NEGATIVE, Ur Propoxyphene Screen NEGATIVE, Ur Barbiturates Screen NEGATIVE, Ur Tricyclics Screen NEGATIVE, Ur Phencyclidine Scrn NEGATIVE, Ur Amphetamine Screen NEGATIVE, U Methamphetamines Scrn NEGATIVE, U Benzodiazepines Scrn NEGATIVE, Urine Cocaine Screen NEGATIVE, U Cannabinoids Screen NEGATIVE 11/13/20 12:34: Ammonia 34.4 11/13/20 12:34: PT 15.0 H, INR 1.4 H 11/13/20 12:26: Sodium 135, Potassium 3.0 L, Chloride 101, Carbon Dioxide 25, Anion Gap 9.0, BUN 21 H, Creatinine 0.9, Estimated GFR (MDRD) 63 L, Glucose 104 H, Calcium 9.3, Total Bilirubin 1.7 H, AST 69 H, ALT 25, Alkaline Phosphatase 85, Total Protein 6.8, Albumin 3.1 L, Globulin 3.7, Albumin/Globulin Ratio 0.8 L , Lipase 28, Salicylates < 6.0, Acetaminophen < 10 L, Ethyl Alcohol < 5.0 11/13/20 12:26: WBC 6.7, RBC 1.90 L, Hgb 6.3 L*, Hct 18.7 L*, MCV 98.4, MCH 33.2 H, MCHC 33.7, RDW 16.0 H, Plt Count 121 L, MPV 9.2, Neut # (Auto) 4.5, Lymph # (Auto) 1.3 L, [place] # (Auto) 0.7, Eos # (Auto) 0.2, Baso # (Auto) 0.0, Absolute Nucleated RBC 0.00, Nucleated RBC % 0.0 11/13/20 12:15: Blood Type O POSITIVE, Antibody Screen NEGATIVE, Crossmatch IS Only See Detail Lab results reviewed: Yes Fish Bones: 11/16/20 05:22 11/16/20 05:22 Home Medications and Allergies Home Medications: Ambulatory Orders Lidocaine Patch 5% [Lidoderm Patch] 1 each PATCH DAILY PRN 11/13/20 Magnesium Oxide [Mag Ox] 500 mg PO DAILY 11/13/20 Potassium Chloride [K-Dur] 20 meq PO BID 11/13/20 Pregabalin [Lyrica] 2 tab PO HS 11/13/20 carvediloL [Coreg] 1 tab PO BID 11/13/20 Active Medications Acetaminophen (Acetaminophen 325 Mg Tablet) 650 mg PO Q4HR PRN PRN Reason: Pain or Fever > 38C (100.4F) Alcohol (Ethyl Alcohol 62% Swab Ampule) 1 amp MARCO ANTONIO BID [facility] Last Admin: 11/16/20 08:15 Dose: 1 amp Documented by: Carvedilol (Carvedilol 3.125 Mg Tablet) 3.125 mg PO BID [facility] Last Admin: 11/16/20 08:16 Dose: 3.125 mg Documented by: Duloxetine HCl (Duloxetine 20 Mg Capsule) 20 mg PO BID [facility] Last Admin: 11/16/20 08:16 Dose: 20 mg Documented by: Folic Acid (Folic Acid 1 Mg Tablet) 1 mg PO DAILY [facility] Last Admin: 11/16/20 08:15 Dose: 1 mg Documented by: Lactulose (Lactulose 10 Gm /15 Ml Udc) 10 gm PO QID [facility] Last Admin: 11/16/20 08:15 Dose: 10 gm Documented by: Lorazepam (Lorazepam 0.5 Mg Tablet) 0.5 mg PO Q8H PRN PRN Reason: Anxiety Metoprolol Tartrate (Metoprolol 5 Mg/5 Ml Vial) 5 mg IVP Q6H PRN PRN Reason: Tachycardia Multivitamins (Multivitamin Tablet) 1 tab PO DAILY [facility] Last Admin: 11/16/20 08:16 Dose: 1 tab Documented by: Pantoprazole Sodium (Pantoprazole 40 Mg Vial) 40 mg IVP BID [facility] Last Admin: 11/16/20 08:16 Dose: 40 mg Documented by: Pregabalin (Pregabalin 25 Mg Capsule) 50 mg PO HS [facility] Last Admin: 11/15/20 20:35 Dose: 50 mg Documented by: Multivit/Folic Acid/Iron ( Vitamin Tablet) 1 tab PO DAILYWM [facility] Last Admin: 11/16/20 08:15 Dose: 1 tab Documented by: Sodium Chloride (Sodium Chloride Flush 0.9% 10 Ml Syringe) 10 ml IVP PRN PRN PRN Reason: NEEDED PER PROVIDER ORDERS Last Admin: 11/15/20 20:34 Dose: 10 ml Documented by: Sodium Chloride (Sodium Chloride Flush 0.9% 10 Ml Syringe) 10 ml IVP 0100,0900,1700 [facility] Last Admin: 11/16/20 08:16 Dose: 10 ml Documented by: Thiamine HCl (Thiamine 100 Mg Tablet) 100 mg PO DAILY [facility] Last Admin: 11/16/20 08:15 Dose: 100 mg Documented by: DULoxetine [Cymbalta] 20 mg PO BID 09/10/20 Ondansetron HCl [Zofran] 4 mg PO Q4HR PRN 09/10/20 Lidocaine Patch 5% [Lidoderm Patch] 1 each PATCH DAILY PRN 11/13/20 Magnesium Oxide [Mag Ox] 500 mg PO DAILY 11/13/20 Potassium Chloride [K-Dur] 20 meq PO BID 11/13/20 Pregabalin [Lyrica] 2 tab PO HS 11/13/20 carvediloL [Coreg] 1 tab PO BID 11/13/20 Allergies/Adverse Reactions: Allergies Allergy/AdvReac Type Severity Reaction Status Date / Time cephalexin [From Keflex] AdvReac Nausea Verified 11/13/20 14:33 Anes History & Medical History - Anesthetic History Anesthesia Complications: reports: No previous complications Family history of Anesthesia Complications: Denies Family history of Malignant Hyperthermia: Denies - Medical History Cardiovascular: reports: Hypertension Pulmonary: reports: None Gastrointestinal: reports: Cirrhosis, Other Neuro: reports: Peripheral neuropathy Musculoskeletal: reports: Osteoarthritis, Osteoporosis Endocrine/Autoimmune: reports: None Blood Disorders: reports: Anemia Skin: reports: None Smoking Status: Never smoker Other Past Medical History: ETOH abuse with recent admission with EGD identifying no varicies and gastritis. Suspected Wernicke's Encephalopathy with treatment noted. - Surgical History General: reports: Colonoscopy, EGD Gynecologic: reports: section Exam General: Alert, Oriented x3, Cooperative Dental: WNL Mouth Openin Fingerbreadth Neck Mobility: Normal Mallampati classification: II Thyromental Distance: 4-6 cm Respiratory: Lungs clear, Normal breath sounds, No respiratory distress Cardiovascular: Regular rate Neurological: Normal speech Mental/Cognitive Status: Alert/Oriented X3 Cognitive Status: Within normal limits Plan Anesthesia Type: Total IV (pt completed preanesthesia eval, including asking questions and signing consent. At conclusion, patient states she only wants the blood, not the scopes. Will defer to General surgeon for proceeding with case.) Consent for Procedure(s) Verified and Reviewed: Yes Code Status: Attempt Resuscitation ASA classification: 3-Severe systemic disease Is this case an emergency?: No
[2020-11-16 15:07] LABS: HCT - HEMATOCRIT 25.9 % (37.0-47.0); HGB - HEMOGLOBIN 8.8 g/dL (12.0-16.0)
--- NOTE | 2020-11-16 15:52 | Discharge Plan ---
Discharge Plan Problem Reviewed?: Yes Disposition: Home, Self Care Condition: Stable Prescriptions: Lactulose 15 ml PO QID 8 Days #480 ml Diet: Regular Activity Restrictions: Activity as Tolerated Shower Restrictions: No (fall precaution) Instruction Topics: Lactulose oral solution, Shunt Transjugular Hepatic Portal, Anemia [facility] Concerns: Hepatic encephalopathy, anemia Plan of Treatment: You are alert and orientated. You are prescribed lactulose to control of Your ammonia level. You may follow-up with electrical drafter for further management of liver failure. Strongly advise do not drink alcohol. Your HGB is 8.8 now. you decline to have endoscopy study. You may follow-up with your PCP in 1 week to have blood work and monitor your hemoglobin Care Goals: Stabilization and improvement of your medical conditions Assessment: Discussed the care plan with you and your , And answered your questions, you understood and agreed Additional Instructions or Follow Up instructions: You may follow-up with your PCP in 1 week and have blood work to monitor your hemoglobin, you may follow-up with electrical drafter as out-pt. Should your symptoms return or worsen, you may present to ER or call 911 for help. No Smoking: If you smoke, Please STOP! Call for help.
--- NOTE | 2020-11-16 16:05 | DISCHARGE SUMMARY ---
Discharge Summary Admit Date: 11/13/20 Discharge Date: 11/16/20 Discharging Provider: Brennen Rubi Primary Care Provider: Radha Vee Condition at Discharge: Stable Discharge Disposition: 01 Home, Self Care Discharge Facility Name: home - DIAGNOSES Discharge Diagnoses with Status of Each Condition: (1) Altered mental status resolved. pt is alert and oriented. pt's ammonia is at normal arrange. pt is prescribed lactulose d/c to home. (2)GI bleeding pt recently, endoscopy done at our hospital, which show gastritis, but no ulcers and no varices were seen. She underwent colonoscopy that showed colitis of the ileocecal area only. Per pt's report pt had twice of both EGD and Colonoscopy Done in [place] and [facility] Which all show unspecific, could not find bleeding site. Both patient and her Declined to have EGD and colonoscopy in This admission. pt has hx of chronic anemia with hx of severe alcoholic hepatic failure. pt may followup with her PCP to have blood work and r echeck her HGB in one week, resume home folic acid and iron pill. pt's occult stool test is positive, pt may followup with GI doctor as out-pt. (3) anemia HGB slight increased. pt had two units of blood transfusion in hospital. pt has hx of chronic anemia with hx of severe alcoholic hepatic failure. pt may followup with her PCP to have blood work and recheck her HGB in one week, resume home folic acid and iron pill. (4) Alcohol abuse per pt's report Patient stop drinking alcohol for 2 months. encourage pt continue stop drinking of alcohol. (5) Alcoholic cirrhosis of liver CT of the abdomen reveals right lobe liver lesion suggestive to fairly topical appearance of hemangioma. Patient also developed moderate ascites, patient does not show respiratory distress at this time. Both pt and her agreed no paracentesis at this time. In the previous abnormal colon CT study now present slightly improved. Patient and patient declined to have EGD and colonoscopy in this time Hospitalization, Patient denies abdominal pain, nausea or vomiting. Discussed The image result with pt and pt's . advise pt and pt's may followup with correctional cook as out-pt. (6) Hypokalemia K is 3.4, replaced, resume home potassium meds (7)HTN stable. (8)hepatic encephalopathy pt's ammonia level is in the normal arrange now. pt's ammonia level was 89 once at hospital. after she was given lactulose, her ammonia level was down to normal arrange. pt has no more confused. pt is prescribed lactulose, pt may followup with her PCP to adjust lactulose as needed, recheck her ammonia level check. - HPI History of Present Illness: refer from Dr. Lisa Sesay's HPI on 11/13/20 This is a 65-year-old WF with a history of alcohol abuse, liver cirrhosis, admission here 2 months ago for confusion, dehydration, alcohol withdrawal, malnutrition and anemia. She underwent EGD that showed no esophageal varices and mild gastritis. She underwent colonoscopy that showed colitis of the ileocecal area only. She did need transfusions of blood. She was sent home with iron and thiamine and resources for the regarding her alcohol abuse. Patient has apparently restarted drinking alcohol, unknown how recently. She was brought in by the today because of worsening confusion and lethargy. She again was found to have marked anemia with a hemoglobin of 6, ammonia level normal, dehydration on exam. The patient is being admitted for managing confusion, possible Wernicke's encephalopathy, alcohol abuse, marked anemia and malnutrition ans dehydration. Admission, her CODE STATUS request was full code. She is not communicating and unable to answer any questions. The is not available at bedside. - HOSPITAL COURSE Hospital Course: pt was admitted for worsening confusion and lethargy. She was again found to have marked anemia with a hemoglobin of 6, and initially she had normal arrange of ammonia level. pt had two unit of blood transfusion. Her HGB is 8.8 at the discharge. pt's ammonia level was increased to 89 in the next day. pt was given lactulose. after pt had lactulose, her ammonia level became normal, pt also became alert and oriented. pt's occult stool test is positive. pt had recently EGD and colonoscopy done which was unspecific. pt and her declined to have endoscopy at this time hospitalization. pt may followup with her PCP and GI doctor as out-pt to manage her anemia and GI bleed. pt may followup with correctional cook as out-pt. Discussed all image studies and care plan with pt and her , answered their questions, both agreed the care plan. - ALLERGIES Allergies/Adverse Reactions: Allergies Allergy/AdvReac Type Severity Reaction Status Date / Time cephalexin [From Keflex] AdvReac Nausea Verified 11/18/20 05:06 - MEDICATIONS Home Medications: Ambulatory Orders Medication Instructions Recorded Confirmed DULoxetine [Cymbalta] 20 mg PO BID 09/10/20 11/18/20 Ondansetron HCl [Zofran] 4 mg PO Q4HR PRN 09/10/20 11/18/20 Ferrous Gluconate 324 mg PO DAILY #30 tablet 09/18/20 11/18/20 Folic Acid 1 mg PO DAILY #30 tablet 09/18/20 11/18/20 Multivitamin [Theragran] 1 tab PO DAILY #30 tablet 09/18/20 11/18/20 Thiamine [Vitamin B-1] 100 mg PO DAILY #30 tablet 09/18/20 11/18/20 Lidocaine Patch 5% [Lidoderm Patch] 1 each PATCH DAILY PRN 11/13/20 11/18/20 Magnesium Oxide [Mag Ox] 400 mg PO DAILY 11/13/20 11/18/20 Potassium Chloride [K-Dur] 20 meq PO BID 11/13/20 11/18/20 Pregabalin [Lyrica] 50 mg PO HS 11/13/20 11/18/20 carvediloL [Coreg] 3.125 mg PO BID 11/13/20 11/18/20 Lactulose 15 ml PO BID 8 Days #480 ml 11/18/20 11/18/20 - PHYSICAL EXAM AT DISCHARGE General Appearance: positive: No acute distress, Alert. negative: Lethargic Eyes Bilateral: positive: Normal inspection, PERRL, No lid inflammation ENT: positive: ENT inspection nml, No signs of dehydration. negative: Purulent nasal drainage Neck: positive: Nml inspection, Trachea midline. negative: Thyromegaly, Tracheal deviation Respiratory: positive: Chest non-tender, No respiratory distress. negative: Wheezes Cardiovascular: positive: Regular rate & rhythm, No murmur. negative: Tachycardia, Bradycardia, Systolic murmur, Diastolic murmur Peripheral Pulses: positive: 2+ Abdomen: positive: Non-tender, Nml bowel sounds. negative: Tenderness Back: positive: Nml inspection Skin: positive: Color nml, Warm, Dry. negative: Cyanosis Extremities: positive: Non-tender, Full ROM. negative: Calf tenderness Neurologic/Psychiatric: positive: Oriented x3, Motor nml, Sensation nml. negative: Weakness, Sensory loss, Facial droop, Slurred/abnml speech, Depressed mood/affect - LABS Result Diagrams: 11/16/20 15:02 11/16/20 05:22 - FOLLOW UP Follow Up: You are alert and orientated. You are prescribed lactulose to control of Your ammonia level. You may follow-up with correctional cook for further management of liver failure. Strongly advise do not drink alcohol. Your HGB is 8.8 now. you decline to have endoscopy study. You may follow-up with your PCP in 1 week to have blood work and monitor your hemoglobin You may follow-up with your PCP in 1 week and have blood work to monitor your hemoglobin, you may follow-up with correctional cook as out-pt. Should your symptoms return or worsen, you may present to ER or call 911 for help. - TIME SPENT Time Spent in Discharge (Minutes): 30
[2020-11-16 16:21] VITALS: BP 136/99
== END 2020-11-16 18:10 | disposition home or self-care (01) | DRG 432 ==
LOC: EDUNIT# → ED 11:39 → MS2 16:20
PROVIDERS: ADMIT Internal Medicine; ATTEND Nurse Practitioner Gerontology
PROC: 30233N1 Transfusion of Nonautologous Red Blood Cells into Peripheral Vein, Percutaneous Approach (ICD-10-PCS; principal; 2020-11-16)
DX: D62 Acute posthemorrhagic anemia (principal); R41.82 Altered mental status, unspecified; K70.40 Alcoholic hepatic failure without coma; K29.71 Gastritis, unspecified, with bleeding; E46 Unspecified protein-calorie malnutrition; D63.8 Anemia in other chronic diseases classified elsewhere; K70.31 Alcoholic cirrhosis of liver with ascites; Z20.822 Contact with and (suspected) exposure to COVID-19; F10.10 Alcohol abuse, uncomplicated; E87.6 Hypokalemia; E86.0 Dehydration; I10 Essential (primary) hypertension; G62.9 Polyneuropathy, unspecified; M19.90 Unspecified osteoarthritis, unspecified site; M81.0 Age-related osteoporosis without current pathological fracture; Z53.29 Procedure and treatment not carried out because of patient's decision for other reasons; Z68.32 Body mass index [BMI] 32.0-32.9, adult; Z79.899 Other long term (current) drug therapy; K70.30 Alcoholic cirrhosis of liver without ascites
CPT/HCPCS: 36415; 36430; 70450; 74177; 80053; 80306; 80307; 81003; 82140; 82274; 82607; 82728; 83540; 83615; 83690; 83735; 84443; 84466; 85014; 85018; 85025; 85027; 85045; 85610; 86850; 86900; 86901; 86920; 87631; 92610; 96374; 99285; A9270; G0480; J2060; J3411; P9016; Q9967; 0202U; 80320; 80329; 81001; 87086

== ENCOUNTER 2020-11-18 04:45 | Outpatient (CLI) | payer MEDICARE, OTHER | END 2020-11-18 04:46 | disposition critical access hospital (66) | LOC: EMS 04:45 | DX: R41.82 Altered mental status, unspecified (principal) | CPT/HCPCS: A0425; A0429 ==

== ENCOUNTER 2020-11-18 05:01 | Observation (INO) | payer MEDICARE, OTHER ==
[2020-11-18] MEDS ORDERED: SODIUM CHLORIDE 0.9% 1,000 ML IV STA (05:10)
[2020-11-18] MEDS ORDERED: ACETAMINOPHEN 650 MG SUPP PR STA (05:10)
[2020-11-18] MEDS ORDERED: THIAMINE INJ 200 MG in SODIUM CHLORIDE 0.9% 50 ML IV STA (05:12)
[2020-11-18 05:26] LABS: BASOPHILS # (AUTO) 0.1 10^3/uL (0.0-0.1); BASOPHILS % (AUTO) 0.8 %; EOSINOPHILS # (AUTO) 0.3 10^3/uL (0.0-0.7); EOSINOPHILS % (AUTO) 2.9 %; HCT - HEMATOCRIT 26.7 % (37.0-47.0); HGB - HEMOGLOBIN 9.2 g/dL (12.0-16.0); LYMPHOCYTES # (AUTO) 1.9 10^3/uL (1.5-3.5); LYMPHOCYTES % (AUTO) 21.3 %; MEAN CORPUSCULAR HEMOGLOBIN 32.5 pg (27.0-31.0); MEAN CORPUSCULAR HGB CONC 34.5 g/dL (32.0-36.0); MEAN CORPUSCULAR VOLUME 94.3 fL (81.0-99.0); MEAN PLATELET VOLUME 9.9 fL (7.9-10.8); MONOCYTES # (AUTO) 0.9 10^3/uL (0.0-1.0); MONOCYTES % (AUTO) 9.7 %; NEUTROPHILS # (AUTO) 5.8 10^3/uL (1.5-6.6); PLT - PLATELET COUNT 171 10^3/uL (130-450); RED BLOOD COUNT 2.83 10^6/uL (4.20-5.40); WHITE BLOOD COUNT 8.9 x10^3/uL (4.8-10.8)
--- NOTE | 2020-11-18 05:26 | ED Physician Documentation ---
History of Present Illness - Stated complaint Stated Complaint: AMS - Chief complaint Chief Complaint: Neuro - History obtained from History obtained from: EMS - Additonal information Additional information: 65-year-old woman with past medical history of liver cirrhosis, alcohol abuse, recent admission here for encephalopathy and discharged 2 days ago, presents with altered mental status this evening. EMS reports that she was febrile en route and her is on his way. Patient nonverbal, eye opening to verbal command. Febrile on arrival. Further history limited by patient nonverbal. Review of Systems Unable to obtain: Other (nonverbal) PD PAST MEDICAL HISTORY - Past Medical History Past Medical History: Yes Cardiovascular: Hypertension Respiratory: None Neuro: Peripheral neuropathy Endocrine/Autoimmune: None GI: Cirrhosis, Other RESIDENTIAL MORTGAGE UNDERWRITER: None Psych: None Musculoskeletal: Osteoarthritis, Osteoporosis Derm: None - Past Surgical History Past Surgical History: Yes General: Colonoscopy, EGD /RESIDENTIAL MORTGAGE UNDERWRITER: section - Present Medications Home Medications: Ambulatory Orders Medication Instructions Recorded Confirmed DULoxetine [Cymbalta] 20 mg PO BID 09/10/20 11/13/20 Ondansetron HCl [Zofran] 4 mg PO Q4HR PRN 09/10/20 11/13/20 Ferrous Gluconate 324 mg PO DAILY #30 tablet 09/18/20 11/13/20 Folic Acid 1 mg PO DAILY #30 tablet 09/18/20 11/13/20 Multivitamin [Theragran] 1 tab PO DAILY #30 tablet 09/18/20 11/13/20 Thiamine [Vitamin B-1] 100 mg PO DAILY #30 tablet 09/18/20 11/13/20 Lidocaine Patch 5% [Lidoderm Patch] 1 each PATCH DAILY PRN 11/13/20 11/13/20 Magnesium Oxide [Mag Ox] 500 mg PO DAILY 11/13/20 11/13/20 Potassium Chloride [K-Dur] 20 meq PO BID 11/13/20 11/13/20 Pregabalin [Lyrica] 2 tab PO HS 11/13/20 11/13/20 carvediloL [Coreg] 1 tab PO BID 11/13/20 11/13/20 Lactulose 15 ml PO QID 8 Days #480 ml 11/16/20 - Allergies Allergies/Adverse Reactions: Allergies Allergy/AdvReac Type Severity Reaction Status Date / Time cephalexin [From Keflex] AdvReac Nausea Verified 07/24/21 05:06 - Social History Does the pt smoke?: No Smoking Status: Never smoker Does the pt drink ETOH?: Yes Does the pt have substance abuse?: No - Immunizations Immunizations are current?: No PD ED PE NORMAL - Vitals Vital signs reviewed: Yes - General General: No acute distress, Other (cachectic appearing) - HEENT HEENT: Atraumatic, PERRL, EOMI, Moist mucous membranes, Pharynx benign - Neck Neck: Supple, no meningeal sign - Cardiac Cardiac: Other (tachycardic rate, regular rhythm) - Respiratory Respiratory: No respiratory distress, Clear bilaterally - Abdomen Abdomen: Non tender, Non distended - Back Back: No CVA TTP - Derm Derm: Normal color - Extremities Extremities: No deformity - Neuro Neuro: No motor deficit, No sensory deficit Eye Opening: To Voice Motor: Localizes to Pain Verbal: Confused (says "hi" but no other words) GCS Score: 12 - Psych Psych: Other (altered appearing) Results - Vitals Vitals: Vital Signs - 24 hr 11/18/20 11/18/20 11/18/20 05:06 05:10 05:39 Temperature 38.5 C H 38.5 C H Heart Rate 116 H 116 H 100 Respiratory 24 24 18 Rate Blood Pressure 173/88 H 173/88 H 159/79 H O2 Saturation 96 95 93 11/18/20 11/18/20 11/18/20 05:40 06:06 06:30 Temperature 36.8 C Heart Rate 100 99 Respiratory 18 16 Rate Blood Pressure 159/79 H 135/77 H O2 Saturation 93 92 11/18/20 06:39 Temperature Heart Rate 99 Respiratory 18 Rate Blood Pressure 135/77 H O2 Saturation 92 Oxygen O2 Source Room air - EKG (time done) 0624 Rate: Rate (enter#) (108) Rhythm: Sinus tachycardia - Labs Labs: Laboratory Tests 11/18/20 11/18/20 11/18/20 05:15 05:15 05:15 WBC 8.9 RBC 2.83 L Hgb 9.2 L Hct 26.7 L MCV 94.3 MCH 32.5 H MCHC 34.5 RDW 17.0 H Plt Count 171 MPV 9.9 Neut # (Auto) 5.8 Lymph # (Auto) 1.9 [place] # (Auto) 0.9 Eos # (Auto) 0.3 Baso # (Auto) 0.1 Absolute Nucleated RBC 0.00 Nucleated RBC % 0.0 Sodium 134 L Potassium 4.3 Chloride 101 Carbon Dioxide 24 Anion Gap 9.0 BUN 12 Creatinine 0.9 Estimated GFR (MDRD) 63 L Glucose 79 Lactic Acid 2.0 Calcium 8.9 Total Bilirubin 2.0 H AST 79 H ALT 24 Alkaline Phosphatase 119 Total Protein 7.1 Albumin 3.1 L Globulin 4.0 Albumin/Globulin Ratio 0.8 L Urine Color Urine Clarity Urine pH Ur Specific [place] Urine Protein Urine Glucose (UA) Urine Ketones Urine Occult Blood Urine Nitrite Urine Bilirubin Urine Urobilinogen Ur Leukocyte Esterase Urine RBC Urine WBC Ur Squamous Epith Cells Urine Bacteria Urine Culture Comments Urine Opiates Screen Ur Oxycodone Screen Urine Methadone Screen Ur Propoxyphene Screen Ur Barbiturates Screen Ur Tricyclics Screen Ur Phencyclidine Scrn Ur Amphetamine Screen U Methamphetamines Scrn U Benzodiazepines Scrn Urine Cocaine Screen U Cannabinoids Screen Ethyl Alcohol < 5.0 11/18/20 05:20 WBC RBC Hgb Hct MCV MCH MCHC RDW Plt Count MPV Neut # (Auto) Lymph # (Auto) [place] # (Auto) Eos # (Auto) Baso # (Auto) Absolute Nucleated RBC Nucleated RBC % Sodium Potassium Chloride Carbon Dioxide Anion Gap BUN Creatinine Estimated GFR (MDRD) Glucose Lactic Acid Calcium Total Bilirubin AST ALT Alkaline Phosphatase Total Protein Albumin Globulin Albumin/Globulin Ratio Urine Color YELLOW Urine Clarity CLEAR Urine pH 7.0 Ur Specific [place] 1.010 Urine Protein NEGATIVE Urine Glucose (UA) NEGATIVE Urine Ketones NEGATIVE Urine Occult Blood NEGATIVE Urine Nitrite NEGATIVE Urine Bilirubin NEGATIVE Urine Urobilinogen 0.2 (NORMAL) Ur Leukocyte Esterase NEGATIVE Urine RBC None Seen Urine WBC 0-3 Ur Squamous Epith Cells RARE Squamous Urine Bacteria None Seen Urine Culture Comments NOT INDICATED Urine Opiates Screen NEGATIVE Ur Oxycodone Screen NEGATIVE Urine Methadone Screen NEGATIVE Ur Propoxyphene Screen NEGATIVE Ur Barbiturates Screen NEGATIVE Ur Tricyclics Screen NEGATIVE Ur Phencyclidine Scrn NEGATIVE Ur Amphetamine Screen NEGATIVE U Methamphetamines Scrn NEGATIVE U Benzodiazepines Scrn NEGATIVE Urine Cocaine Screen NEGATIVE U Cannabinoids Screen NEGATIVE Ethyl Alcohol PD MEDICAL DECISION MAKING - ED course ED course: Patient in NAD on my reexam, however she is still mildly tachycardic with o2 sat 93% RA. She is persistently nonverbal except for initially saying "hi" when i introduced myself, now eye opening spontaneously. Patient shakes her head when I ask if she has pain in the head and shakes her head when I ask if there is pain in the abdomen. Attempted to call her who EMS reported was en route an hour ago but he is not answering the phone. Departure - Departure Disposition: ED Place in Observation Clinical Impression: Fever, Encephalopathy, Alcoholic cirrhosis, Pneumonia
[2020-11-18] MEDS ORDERED: THIAMINE 100 MG/1 ML 2 ML MDV ONE ×2 (05:27→05:33)
[2020-11-18 05:36] LABS: ALBUMIN 3.1 g/dL (3.2-5.5); ALBUMIN/GLOBULIN RATIO 0.8 (1.0-2.2); ALKALINE PHOSPHATASE 119 IU/L (42-121); ALT ALANINE AMINOTRANSFERASE 24 IU/L (10-60); AST ASPARTATE AMINOTRANSFERASE 79 IU/L (10-42); BUN - BLOOD UREA NITROGEN 12 mg/dL (6-20); CALCIUM 8.9 mg/dL (8.5-10.3); CARBON DIOXIDE - CO2 24 mmol/L (21-32); CHLORIDE 101 mmol/L (101-111); CREATININE 0.9 mg/dL (0.4-1.0); ETOH - ETHANOL < 5.0 mg/dL; GFR - MDRD 63 (>89); GLUCOSE 79 mg/dL (70-100); POTASSIUM 4.3 mmol/L (3.5-5.0); SODIUM 134 mmol/L (135-145); TOTAL PROTEIN 7.1 g/dL (6.7-8.2)
[2020-11-18 05:39] LABS: MUDS CUTOFF CONCENTRATIONS CUTOFF CONC BELOW:
[2020-11-18 05:43] LABS: BILIRUBIN,URINE NEGATIVE (NEGATIVE); CLARITY,URINE CLEAR (CLEAR); GLUCOSE, URINE (UA) NEGATIVE (NEGATIVE); KETONES,URINE (UA) NEGATIVE (NEGATIVE); LEUKOCYTE ESTERASE, URINE NEGATIVE (NEGATIVE); NITRITE,URINE NEGATIVE (NEGATIVE); OCCULT BLOOD,URINE NEGATIVE (NEGATIVE); PROTEIN,URINE NEGATIVE (NEGATIVE); UROBILINOGEN,URINE 0.2 (NORMAL) E.U./dL (NORMAL)
[2020-11-18 05:47] LABS: BACTERIA,URINE None Seen /HPF (None Seen); RBC,URINE None Seen /HPF (0-5); SQUAMOUS EPITHELIAL CELL,UR RARE Squamous (<= Few); WBC,URINE 0-3 /HPF (0-5)
[2020-11-18 05:50] LABS: AMPHETAMINE SCREEN,URINE NEGATIVE (NEGATIVE); BARBITURATE SCREEN,UR NEGATIVE (NEGATIVE); BENZODIAZEPINES SCREEN, URINE NEGATIVE (NEGATIVE); COCAINE SCREEN URINE NEGATIVE (NEGATIVE); METHADONE SCREEN, URINE NEGATIVE (NEGATIVE); METHAMPHETAMINES SCREEN, URINE NEGATIVE (NEGATIVE); OPIATE SCREEN, URINE NEGATIVE (NEGATIVE); OXYCODONE SCREEN, URINE NEGATIVE (NEGATIVE); PROPOXYPHENE SCREEN, URINE NEGATIVE (NEGATIVE); THC CANNABINOID SCREEN, URINE NEGATIVE (NEGATIVE); TRICYCLIC ANTIDEPRESSANT,URINE NEGATIVE (NEGATIVE)
[2020-11-18] MEDS ORDERED: CEFEPIME 1 GM in SODIUM CHLORIDE 0.9% MINIBAG 100 ML IV STA (06:55)
[2020-11-18] MEDS ORDERED: VANCOMYCIN INJ 1.75 GM in SODIUM CHLORIDE 0.9% 500 ML IV STA (06:55)
[2020-11-18 07:02] LABS: B. PARAPERTUSSIS- RESP PCR PAN NOT DETECTED; B. PERTUSSIS- RESP PCR PANEL NOT DETECTED; C. PNEUMONIAE- RESP PCR PANEL NOT DETECTED; CORONAVIRUS 229E-RESP PCR NOT DETECTED; CORONAVIRUS HKU1-RESP PCR NOT DETECTED; CORONAVIRUS NL63-RESP PCR NOT DETECTED; CORONAVIRUS OC43-RESP PCR NOT DETECTED; HUMAN METAPNEUMOVIRUS NOT DETECTED; INFLUENZA A- RESP PCR PANEL NOT DETECTED; INFLUENZA B - RESP PCR PANEL NOT DETECTED; M. PNEUMONIAE- RESP PCR PANEL NOT DETECTED; PARAINFLUENZA VIRUS 1 NOT DETECTED; PARAINFLUENZA VIRUS 2 NOT DETECTED; PARAINFLUENZA VIRUS 3 NOT DETECTED; PARAINFLUENZA VIRUS 4 NOT DETECTED; RHINOVIRUS/ENTEROVIRUS NOT DETECTED; RSV- RESP PCR PANEL NOT DETECTED; SARS-CoV-2 -RESP PCR PANEL NOT DETECTED
[2020-11-18] MEDS ORDERED: SODIUM CHLORIDE FLUSH 0.9% 10 ML SYRINGE IVP PRN (07:05)
[2020-11-18] MEDS ORDERED: ACETAMINOPHEN 325 MG TABLET PO PRN (07:20)
[2020-11-18] MEDS ORDERED: ONDANSETRON ODT 4 MG TABLET TL PRN (07:20)
[2020-11-18] MEDS ORDERED: ONDANSETRON 4 MG/2 ML VIAL IVP PRN (07:20)
[2020-11-18] MEDS ORDERED: LACTATED RINGERS 1,000 ML IV SCH (08:00)
[2020-11-18] MEDS ORDERED: SODIUM CHLORIDE FLUSH 0.9% 10 ML SYRINGE IVP SCH (09:00)
--- NOTE | 2020-11-18 10:44 | CT Report ---
PROCEDURE: HEAD WO INDICATIONS: ams, fever TECHNIQUE: Noncontrast 4.5 mm thick angled axial sections acquired from the foramen magnum to the vertex. For r adiation dose reduction, the following was used: automated exposure control, adjustment of mA and/or kV according to patient size. COMPARISON: 11/13/2020 FINDINGS: Image quality: There is streak artifact seen through the skull base. CSF spaces: Basal cisterns are patent. No extra-axial fluid collections. Ventricles are normal in size and shape. Brain: No midline shift. No intracranial masses or hemorrhage. Cardona-white matter interface is norm al. Skull and face: Calvarium and visualized facial bones are intact, without suspicious lesions. Sinuses: Visualized sinuses and mastoids are clear. IMPRESSION: Unremarkable intracranial study for age. Stable from prior. Note: No significant discrepancy from the preliminary report. Reviewed by: Moisés Randolph MD on 11/18/2020 9:43 AM KEYA Approved by: Moisés Randolph MD on 11/18/2020 9:43 AM KEYA Station ID: [id number]
--- NOTE | 2020-11-18 10:46 | XRAY Report ---
PROCEDURE: Chest 1 View X-Ray INDICATIONS: fever, ams TECHNIQUE: One view of the chest was acquired. COMPARISON: 09/15/2020, 09/10/2020 FINDINGS: Surgical changes and devices: None. Lungs and pleura: No pleural effusions or pneumothorax. Mild interstitial prominence can be seen, wh ich is improved compared to the prior study dated 09/15/2020. Mediastinum: Mediastinal contours appear normal. Heart size is normal. Bones and chest wall: No suspicious bony lesions. Age-appropriate degenerative changes are seen. O verlying soft tissues appear unremarkable. IMPRESSION: Interstitial prominence is seen, which is nonspecific and is improved compared to the prior chest tolu in film study dated 09/15/2020. Differential diagnosis includes pulmonary edema, atypical infection (i ncluding COVID pneumonia), and artifact. Note: No significant discrepancy from the preliminary report. Reviewed by: Moisés Randolph MD on 11/18/2020 9:45 AM KEYA Approved by: Moisés Randolph MD on 11/18/2020 9:45 AM KEYA Station ID: [id number]
--- NOTE | 2020-11-18 11:25 | PHARMACY PROGRESS NOTE ---
- Best Possible Medication History Admit Date and Time: 11/18/20704 Processed by: Pharmacy Medication History completed: Yes Patient Interview: Pt unable to participate Secondary Source(s): Previous admit records As the person ultimately responsible for medication therapy, providers are able to order a medication from an existing home medication list in [facility] via the "Reconcile Routine" prior to Confirmation of that medication by phlebotomy support tech. Such practice is discouraged except when the physician, in their clinical judgment, deems that a medical need exists for a medication without regard to previous use.
--- NOTE | 2020-11-18 13:18 | Discharge Plan ---
Discharge Plan Problem Reviewed?: Yes Disposition: Home, Self Care Condition: Fair Diet: Regular Activity Restrictions: Activity as Tolerated Shower Restrictions: No Driving Restrictions: Yes (no driving due to confusion, ataxia, hx of alcohol) Assistance Devices: [facility] Concerns: You presented to the hospital, brought in by her , for another episode of acute confusion. You have a history of alcohol abuse and have alcoholic liver disease and cirrhosis. Your last drink was in May. Starting in August you have been having episodes of confusion, and also have iron deficiency anemia. You Were admitted to our hospital in August for confusion, weakness and alcohol withdrawal. You were also evaluated at the [facility] in August of this year but they never addressed the episodes of confusion. With your last episode of confusion and admission just this week, you were given thiamine with possible idea of Warnicke's encephalopathy. You were treated as alcohol withdrawal but your is adamant that you have not had any alcohol for 2 to 3 months. You were only home a day when you began having uncontrollable diarrhea from the lactulose. You became confused again. He brought into the emergency room where you are being evaluated and had a temperature. You were placed in observation with the possibility that you had pneumonia on the basis of fever, and equivocal chest x-ray. You have no cough, no chest congestion, no sore throat. After IV fluids and a few hours stay, you feel back to baseline and do not want to stay any longer. You are starving, and you want "my cheeseburger". A long conversation has been held with her about future plans for trying to figure out why you are having these episodes of confusion. Plan of Treatment: 1. your will make sure that you not have access to any alcohol as he has been doing for the last few months.You will also continue your lactulose. Lactulose will only be once or twice a day to induce 1-2 bowel movements a day and not any more than that. 2. He is going to be establishing you with a new primary care provider/dania physician in [facility]. 3. He will use that primary care provider as a reference to then have you referred to pathology specialty services either at [facility] or [facility]. 4. I have also suggested that they may want to get a neurology referral to find out why you have these episodes of confusion. Are they truly part of Warnicke's encephalopathy?. Are they associated with hepatic encephalopathy? Or is there another cause? 5. The patient has been would like a blood draw in a week to follow-up on liver, anemia, and ammonia level. As such I have given him a signed prescription for CBC, CMP, ammonia level. Care Goals: To return to a baseline mental status where no confusion occurs Assessment: The patient herself has memory loss, easy confusion. is her advocate and this plan of care was discussed with him in front of the patient. They have their plans to follow through. No Smoking: If you smoke, Please STOP! Call for help. Follow-up with: Radha Keating MD [Primary Care Provider] -
--- NOTE | 2020-11-18 13:25 | HISTORY & PHYSICAL EXAMINATION ---
Chief Complaint - Chief Complaint Chief Complaint: altered mental status History of Present Illness - Admitted From Admitted From:: home - History Obtained From History obtained from: patient and - History of Present Illness HPI Comment/Other: Mrs. Cuevas is a pleasant 65yo female who was discharged from [facility] two days ago for Wernicke's encephalopathy and anemia. In August, she began having episodes of abrupt confusion, feverish speech. The brought her to the [facility] where they diagnosed her with portal systemic encephalopathy. The [facility] did not, however, evaluate her mental status changes. She was brought in last night for altered mental status changes and was found to be febrile on admission in the ED. According to her , the patient started home lactulose yesterday and subsequently had multiple episodes of large-volume diarrhea. Around midnight, the patient reportedly began acting strangely, flailing her arms, speaking jibberish and was unable to follow directions by her . In the ED she was given broad spectrum antibiotics for suspected pneumonia after presenting with fevers and CXR that revealed possible pneumonia. History - Past Medical History Cardiovascular: reports: Hypertension, Murmur Respiratory: reports: None Neuro: reports: Peripheral neuropathy, Other (portal systemic encephalopathy) Endocrine/Autoimmune: reports: None GI: reports: Cirrhosis VACCINE MANAGER: reports: None : reports: Incontinence HEENT: reports: Chronic vision loss Psych: reports: Depression Musculoskeletal: reports: Osteoarthritis, Osteoporosis Derm: reports: None MRSA Hx?: Yes - Past Surgical History General: reports: Colonoscopy, EGD Ortho: reports: Other (plate in left index finger) /VACCINE MANAGER: reports: section HEENT: reports: Rhinoplasty - Family & Social History Family History: Mother: (dad- in auto accident; mom- 80's, Alzheimers), Alzheimer's Disease, Hypertension, Father: , Brother: Alzheimer's Disease Family History Comment/Other: The patient reports no family history of colon cancer. She believes her mother had hypertension otherwise no significant family history. Living arrangement: At home (with ) Living Situation: With spouse/s.o. 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 She and the report that she stopped drinking 2-3 months ago but would previously drink 1/2 bottle of wine plus unknown amount of vodka each day. She is a non-smoker. - Substance History Use: Uses substance without health or social issues: NONE Abuse: Recurrent use of substance despite neg consequences: Alcohol Abuse Issues: Intoxication, Perceptual Disturbance, Mood Disorder Dependence: Experiences withdrawal or developed tolerances: Alcohol Dependence Issues: Withdrawal - POLST Patient has POLST: No POLST Status: Full Code Meds/Allgy - Home Medications Home Medications: Ambulatory Orders Medication Instructions Recorded Confirmed DULoxetine [Cymbalta] 20 mg PO BID 09/10/20 11/18/20 Ondansetron HCl [Zofran] 4 mg PO Q4HR PRN 09/10/20 11/18/20 Ferrous Gluconate 324 mg PO DAILY #30 tablet 09/18/20 11/18/20 Folic Acid 1 mg PO DAILY #30 tablet 09/18/20 11/18/20 Multivitamin [Theragran] 1 tab PO DAILY #30 tablet 09/18/20 11/18/20 Thiamine [Vitamin B-1] 100 mg PO DAILY #30 tablet 09/18/20 11/18/20 Lidocaine Patch 5% [Lidoderm Patch] 1 each PATCH DAILY PRN 11/13/20 11/18/20 Magnesium Oxide [Mag Ox] 400 mg PO DAILY 11/13/20 11/18/20 Potassium Chloride [K-Dur] 20 meq PO BID 11/13/20 11/18/20 Pregabalin [Lyrica] 50 mg PO HS 11/13/20 11/18/20 carvediloL [Coreg] 3.125 mg PO BID 11/13/20 11/18/20 Lactulose 15 ml PO BID 8 Days #480 ml 11/18/20 11/18/20 - Allergies Allergies/Adverse Reactions: Allergies Allergy/AdvReac Type Severity Reaction Status Date / Time cephalexin [From Keflex] AdvReac Nausea Verified 11/18/20 05:06 Review of Systems - Constitutional Constitutional: reports: Fatigue, Weakness, Weight loss. denies: Fever, Chills, Malaise - Eyes Eyes: reports: Vision loss. denies: Spots in vision, Field loss, Dipolpia - Ears, Nose & Throat Ears, Nose & Throat: denies: Ear pain, Hearing loss, Hearing aids - Cardiovascular Cariovascular: denies: Irregular heart rate, Palpitations, Chest pain, Edema, Lightheadedness, Syncope - Respiratory Respiratory: denies: Cough, Sputum production, Wheezing, Snoring - Gastrointestinal Gastrointestinal: reports: Abdominal distention, Diarrhea, Change in bowel habits, Bloating. denies: Rectal bleeding, Black stools, Bloody stools, Nausea, Vomiting - Genitourinary Genitourinary: reports: Incontinence. denies: Dysuria, Frequency, Urgency, Hematuria - Musculoskeletal Musculoskeletal: denies: Muscle pain, Back pain, Muscle aches - Integumentary Integumentary: denies: Rash, Pruritis, Lesions - Neurological Neurological: reports: General weakness, Numbness (neuropathy to bilateral hands and feet). denies: Focal weakness, Headache, Dizziness - Psychiatric Psychiatric: reports: Depression. denies: Suicidal, Delusions, Hallucinations - Endocrine Endocrine: denies: Polyuria, Polydypsia, Polyphagia - Hematologic/Lymphatic Hematologic/Lymphatic: reports: Anemia, Bruising. denies: Blood clots, Lymphadenopathy, Bleeding tendencies Prior Level of Functionality: Prior to admission was relatively independent at home with , occasionally using walker assistance Exam - Vital Signs Vital Signs: Vital Signs x48h Temp Pulse Pulse Resp BP BP Pulse Ox 11/18/20 12:57 36.5 C 94 18 134/75 H 95 11/18/20 09:00 37.1 C 101 H 17 156/81 H 96 11/18/20 08:01 36.6 C 101 H 16 119/63 95 11/18/20 06:39 99 18 135/77 H 92 11/18/20 06:30 99 16 135/77 H 92 11/18/20 06:06 36.8 C 11/18/20 05:40 100 18 159/79 H 93 11/18/20 05:39 100 18 159/79 H 93 - Physical Exam General Appearance: positive: No acute distress, Alert Eyes Bilateral: positive: Normal inspection ENT: positive: ENT inspection nml Neck: positive: Nml inspection, Thyroid nml, No JVD, Trachea midline Respiratory: positive: Chest non-tender, No respiratory distress, Breath sounds nml Cardiovascular: positive: Regular rate & rhythm, Diastolic murmur Peripheral Pulses: positive: 2+ Abdomen: positive: Non-tender, Nml bowel sounds, Hepatomegaly Back: positive: Nml inspection Skin: positive: Color nml, No rash, Warm, Dry Extremities: positive: Non-tender, Full ROM, Nml appearance Neurologic/Psychiatric: positive: Oriented x3, Mood/affect nml Conclusion/Plan - Problem List (1) Encephalopathy Conclusion/Plan: Patient admitted with altered mental status. Overnight she apparently became disoriented and unresponsive to verbal stimuli after having several episodes of large volume diarrhea after starting home lactulose regimen. Upon exam she is back to her baseline (as confirmed by her who was in the room). She responds to questions appropriately, is alert, and wants to eat lunch. She is somewhat forgetful, but this is baseline for her. Her ammonia levels are normal and CT head unremarkable. She likely suffered acute metabolic encephalopathy d/t dehydration 2/2 diarrhea, coupled with her long-standing history of liver disease. Discussed with the patient and her that she may titrate lactulose at home to two bowel movements each day. The plans to find her a new PCP next week and hopefully get a timely referral to a director of housing and energy services somewhere in [place] who can better manage her cirrhosis. (2) Fever Conclusion/Plan: T-max of 38.5 in the ED. CXR showed mild interstitial prominence which was initially believed to be suggestive of pneumonia. We do not believe this is the case. The patient has clear lung daugherty, has not been coughing. We believe the fever was due to acute dehydration and slight hypovolemic shock 2/2 diarrhea caused by lactulose. She has remained afebrile since admission to the ED. - Lab Results Fish Bones: 11/18/20 05:15 11/18/20 05:15 Core Measures - DVT/VTE - Prophylaxis VTE/DVT Device ordered at admit?: Yes
[2020-11-18] MEDS ORDERED: CEFEPIME 2 GM in SODIUM CHLORIDE 0.9% MINIBAG 100 ML IV SCH (14:00)
[2020-11-18 16:15] VITALS: BP 144/88
[2020-11-19] MEDS ORDERED: VANCOMYCIN INJ 1 GM in SODIUM CHLORIDE 0.9% 250 ML IV SCH (10:00)
--- NOTE | 2020-12-21 17:49 | DISCHARGE SUMMARY ---
"Discharge Summary Admit Date: 11/18/20 Discharge Date: 11/18/20 Discharging Provider: Mitzy Perez MD Condition at Discharge: Fair Discharge Disposition: 01 Home, Self Care - DIAGNOSES Discharge Diagnoses with Status of Each Condition: 1. Metabolic encephalopathy 2. History of alcohol abuse 3. Diarrhea due to lactulose 4. Fever 5. Dehydration - HPI History of Present Illness: patient was in the hospital less than 6 hours. Please refer to detailed history and physical - CONSULTS | PROCEDURES Procedures: Chest x-ray without cardiopulmonary abnormality. Head CT without acute abnormality. Blood cultures without growth - HOSPITAL COURSE Hospital Course: She was placed in observation because of altered mental status after starting lactulose and having tremendous diarrhea. She also had a slight fever. and emergency room staff were worried that she might have pneumonia. Or other source of infection. Chest x-ray was read as no acute cardiopulmonary changes. Head CT was negative. By the time the patient had received IV fluids, antiemetics and was transferred to [facility] from the ER, her mental status returned to normal. She was weak and tired but she wanted to eat and was hungry. She also wanted to go home. Has been felt that she was back to [facility]. She was afebrile. Temperature is 36.8. Heart rate is 102. Blood pressure 144/88. Respirations 18 and she was 99% on room air. She was alert, oriented. Was feeding herself. Had gotten up to the bathroom to go to the bathroom. Got back in bed. Neck was supple. Lungs were clear. She had a regular rate and rhythm. Oriented to person place and time. No focal deficits. As such we felt the patient could return to home safely. - ALLERGIES Allergies/Adverse Reactions: Allergies Allergy/AdvReac Type Severity Reaction Status Date / Time cephalexin [From Keflex] AdvReac Nausea Verified 11/18/20 05:06 - MEDICATIONS Home Medications: Ambulatory Orders Medication Instructions Recorded Confirmed DULoxetine [Cymbalta] 20 mg PO BID 09/10/20 11/18/20 Ondansetron HCl [Zofran] 4 mg PO Q4HR PRN 09/10/20 11/18/20 Ferrous Gluconate 324 mg PO DAILY #30 tablet 09/18/20 11/18/20 Folic Acid 1 mg PO DAILY #30 tablet 09/18/20 11/18/20 Multivitamin [Theragran] 1 tab PO DAILY #30 tablet 09/18/20 11/18/20 Thiamine [Vitamin B-1] 100 mg PO DAILY #30 tablet 09/18/20 11/18/20 Lidocaine Patch 5% [Lidoderm Patch] 1 each PATCH DAILY PRN 11/13/20 11/18/20 Magnesium Oxide [Mag Ox] 400 mg PO DAILY 11/13/20 11/18/20 Potassium Chloride [K-Dur] 20 meq PO BID 11/13/20 11/18/20 Pregabalin [Lyrica] 50 mg PO HS 11/13/20 11/18/20 carvediloL [Coreg] 3.125 mg PO BID 11/13/20 11/18/20 Lactulose 15 ml PO BID 8 Days #480 ml 11/18/20 11/18/20 - LABS Result Diagrams: 11/18/20 05:15 11/18/20 05:15"
== END 2020-11-18 16:30 | disposition home or self-care (01) ==
LOC: EDUNIT# → ED 05:01 → MS3 07:05
PROVIDERS: ADMIT Specialist; ATTEND Specialist
DX: G93.49 Other encephalopathy (principal); R50.9 Fever, unspecified; K70.30 Alcoholic cirrhosis of liver without ascites; F10.11 Alcohol abuse, in remission; R27.0 Ataxia, unspecified; D50.9 Iron deficiency anemia, unspecified; I10 Essential (primary) hypertension; E86.0 Dehydration; F32.9 Major depressive disorder, single episode, unspecified; R01.1 Cardiac murmur, unspecified; G62.9 Polyneuropathy, unspecified; R32 Unspecified urinary incontinence; H54.7 Unspecified visual loss; Z20.822 Contact with and (suspected) exposure to COVID-19; Z79.899 Other long term (current) drug therapy
CPT/HCPCS: 36415; 51701; 70450; 71045; 80053; 80306; 81001; 82140; 83605; 85025; 86850; 86900; 86901; 87040; 87631; 93005; 96365; 96366; 96367; 99285; A9270; G0378; G0480; J3370; J3411; J7040; J7120; 0202U; 80320; 87086

== ENCOUNTER 2020-11-24 09:57 | Outpatient (CLI) | payer MEDICARE, OTHER ==
[2020-11-24 10:21] LABS: BASOPHILS # (AUTO) 0.1 10^3/uL (0.0-0.1); BASOPHILS % (AUTO) 0.6 %; EOSINOPHILS # (AUTO) 0.1 10^3/uL (0.0-0.7); EOSINOPHILS % (AUTO) 1.6 %; HCT - HEMATOCRIT 28.7 % (37.0-47.0); HGB - HEMOGLOBIN 9.7 g/dL (12.0-16.0); LYMPHOCYTES # (AUTO) 0.9 10^3/uL (1.5-3.5); LYMPHOCYTES % (AUTO) 10.9 %; MEAN CORPUSCULAR HEMOGLOBIN 32.3 pg (27.0-31.0); MEAN CORPUSCULAR HGB CONC 33.8 g/dL (32.0-36.0); MEAN CORPUSCULAR VOLUME 95.7 fL (81.0-99.0); MEAN PLATELET VOLUME 9.6 fL (7.9-10.8); MONOCYTES # (AUTO) 0.7 10^3/uL (0.0-1.0); MONOCYTES % (AUTO) 7.6 %; NEUTROPHILS # (AUTO) 6.7 10^3/uL (1.5-6.6); NEUTROPHILS % (AUTO) 78.9 %; PLT - PLATELET COUNT 170 10^3/uL (130-450); RED CELL DISTRIBUTION WIDTH 15.8 % (12.0-15.0); WHITE BLOOD COUNT 8.5 x10^3/uL (4.8-10.8)
[2020-11-24 10:37] LABS: ALBUMIN 2.9 g/dL (3.2-5.5); ALBUMIN/GLOBULIN RATIO 0.7 (1.0-2.2); BILIRUBIN,TOTAL 1.9 mg/dL (0.2-1.0); CREATININE 0.8 mg/dL (0.4-1.0); TOTAL PROTEIN 7.1 g/dL (6.7-8.2)
== END 2020-11-24 09:58 | disposition home or self-care (01) ==
LOC: LAB 09:57
PROVIDERS: ATTEND Specialist
DX: K70.30 Alcoholic cirrhosis of liver without ascites (principal)
CPT/HCPCS: 36415; 80053; 82140; 85025

== ENCOUNTER 2020-12-21 09:49 | Outpatient (CLI) | payer MEDICARE, OTHER ==
[2020-12-21 10:16] LABS: BASOPHILS % (AUTO) 0.5 %; EOSINOPHILS # (AUTO) 0.2 10^3/uL (0.0-0.7); EOSINOPHILS % (AUTO) 2.9 %; HCT - HEMATOCRIT 21.9 % (37.0-47.0); HGB - HEMOGLOBIN 7.1 g/dL (12.0-16.0); LYMPHOCYTES # (AUTO) 1.3 10^3/uL (1.5-3.5); LYMPHOCYTES % (AUTO) 21.9 %; MEAN CORPUSCULAR HEMOGLOBIN 32.6 pg (27.0-31.0); MEAN CORPUSCULAR HGB CONC 32.4 g/dL (32.0-36.0); MEAN CORPUSCULAR VOLUME 100.5 fL (81.0-99.0); MEAN PLATELET VOLUME 9.2 fL (7.9-10.8); MONOCYTES # (AUTO) 0.5 10^3/uL (0.0-1.0); MONOCYTES % (AUTO) 9.2 %; NEUTROPHILS # (AUTO) 3.8 10^3/uL (1.5-6.6); PLT - PLATELET COUNT 114 10^3/uL (130-450); RED BLOOD COUNT 2.18 10^6/uL (4.20-5.40); RED CELL DISTRIBUTION WIDTH 16.2 % (12.0-15.0); WHITE BLOOD COUNT 5.9 x10^3/uL (4.8-10.8)
[2020-12-21 10:26] LABS: ALBUMIN 3.4 g/dL (3.2-5.5); ALBUMIN/GLOBULIN RATIO 0.9 (1.0-2.2); BILIRUBIN,TOTAL 1.4 mg/dL (0.2-1.0); CALCIUM 10.1 mg/dL (8.5-10.3); POTASSIUM 3.5 mmol/L (3.5-5.0); TOTAL PROTEIN 7.2 g/dL (6.7-8.2)
[2020-12-21 12:13] LABS: ESTIMATED AVERAGE GLUCOSE 80 mg/dL (70-100); HEMOGLOBIN A1c% 4.4 % (4.27-6.07)
== END 2020-12-21 09:50 | disposition home or self-care (01) ==
LOC: LAB 09:49
PROVIDERS: ATTEND Internal Medicine
DX: K72.90 Hepatic failure, unspecified without coma (principal); R60.9 Edema, unspecified; D64.9 Anemia, unspecified; E87.6 Hypokalemia; R73.9 Hyperglycemia, unspecified
CPT/HCPCS: 36415; 80053; 82140; 83036; 83880; 85025

== ENCOUNTER 2021-01-12 08:47 | Observation (INO) | payer MEDICARE, OTHER ==
--- NOTE | 2021-01-12 09:17 | ED Physician Documentation ---
PD HPI NVD - Stated complaint Stated Complaint: VOMITING BLOOD - Chief complaint Chief Complaint: Abd Pain - History obtained from History obtained from: Patient - History of Present Illness Timing - onset: Today (The patient states onset of nausea with vomiting of red blood this morning. Has had dark stools the last 2-3 days.) Timing - duration: Hours (onset this morning of nausea and had emesis bright red blood. Feeling generally weakn.), Days (for some dark stool) Timing - details: Abrupt onset Associated symptoms: No: Fever, Abdominal pain, Near syncope / syncope (light headed but not near syncope.), Loss of appetite Contributing factors: No: Sick contact, Anticoagulated, Diabetes Similar symptoms before: Diagnosis (Lower GI bleed August 2020. No history of UGIB.) Recently seen: Clinic ( states she had had some nosebleeds this past week and ent 3 days ago with cautery of the nose.), Admitted (The patient was admitted with lower GI bleed in August 2020 with upper and lower endoscopy showing some local colitis. No upper GI bleeding and particular note of no varices on report. says seen at [facility] in October and had repeat scope EGD that was normal.) Review of Systems Constitutional: denies: Fever, Chills Nose: denies: Rhinorrhea / runny nose, Congestion Throat: denies: Sore throat Respiratory: denies: Cough GI: reports: Nausea, Vomiting, Hematemesis, Bloody / black stool (dark stool for 2-3 days.). denies: Abdominal Pain, Diarrhea Skin: denies: Rash, Lesions Neurologic: reports: Generalized weakness, Confused. 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 : Incontinence HEENT: Chronic vision loss Psych: Depression Musculoskeletal: Osteoarthritis, Osteoporosis Derm: None - Past Surgical History Past Surgical History: Yes General: Colonoscopy, EGD Ortho: Other (plate in left index finger) /ELECTRICAL EXPERIMENTAL MECHANIC: section HEENT: Rhinoplasty - Present Medications Home Medications: Ambulatory Orders Medication Instructions Recorded Confirmed DULoxetine [Cymbalta] 20 mg PO DAILY 09/10/20 11/18/20 Ferrous Gluconate 324 mg PO DAILY #30 tablet 09/18/20 11/18/20 Folic Acid 1 mg PO DAILY #30 tablet 09/18/20 11/18/20 Multivitamin [Theragran] 1 tab PO DAILY #30 tablet 09/18/20 11/18/20 Thiamine [Vitamin B-1] 100 mg PO DAILY #30 tablet 09/18/20 11/18/20 Magnesium Oxide [Mag Ox] 400 mg PO DAILY 11/13/20 11/18/20 Potassium Chloride [K-Dur] 20 meq PO DAILY 11/13/20 11/18/20 Pregabalin [Lyrica] 50 mg PO HS 11/13/20 11/18/20 carvediloL [Coreg] 3.125 mg PO BID 11/13/20 11/18/20 Furosemide [Lasix] 20 mg PO DAILY 01/12/21 01/12/21 Lactulose 15 ml PO QID 01/12/21 Potassium Chloride 40 meq PO DAILY 01/12/21 01/12/21 Spironolactone [Aldactone] 25 mg ORAL DAILY 01/12/21 01/12/21 - Allergies Allergies/Adverse Reactions: Allergies Allergy/AdvReac Type Severity Reaction Status Date / Time cephalexin [From Keflex] AdvReac Nausea Verified 01/12/21 09:17 - Social History Does the pt smoke?: No Smoking Status: Never smoker Does the pt drink ETOH?: Yes Does the pt have substance abuse?: No - Immunizations Immunizations are current?: No - POLST Patient has POLST: No POLST Status: Full Code PD ED PE NORMAL - Vitals Vital signs reviewed: Yes - General General: Alert and oriented X 3, No acute distress, Well developed/nourished - HEENT HEENT: Pharynx benign, Other (No signs of blood in the nares nor posterior pharynx.) - Neck Neck: Supple, no meningeal sign, No adenopathy - Cardiac Cardiac: RRR, No murmur - Respiratory Respiratory: Clear bilaterally - Abdomen Abdomen: Soft, Non tender, Non distended. No: Normal bowel sounds (diminished) - Derm Derm: Warm and dry. No: Normal color (mild pallor) - Neuro Neuro: Alert and oriented X 3, No motor deficit, Normal speech Eye Opening: Spontaneous Motor: Obeys Commands Verbal: Oriented GCS Score: 15 Results - Vitals Vitals: Vital Signs - 24 hr 01/12/21 01/12/21 01/12/21 08:55 10:03 10:30 Temperature 36 C L Heart Rate 98 95 103 H Respiratory 16 13 16 Rate Blood Pressure 125/61 135/62 H 142/68 H O2 Saturation 100 100 100 01/12/21 11:11 Temperature 37.1 C Heart Rate 122 H Respiratory 26 H Rate Blood Pressure 164/75 H O2 Saturation Oxygen O2 Source Room air - Labs Labs: Laboratory Tests 01/12/21 01/12/21 01/12/21 09:22 09:22 09:31 WBC 9.8 RBC 1.49 L Hgb 5.0 L* Hct 15.6 L* MCV 104.7 H MCH 33.6 H MCHC 32.1 RDW 16.2 H Plt Count 124 L MPV 9.6 Neut # (Auto) 7.1 H Lymph # (Auto) 1.4 L Valencia # (Auto) 0.8 Eos # (Auto) 0.3 Baso # (Auto) 0.1 Absolute Nucleated RBC 0.00 Nucleated RBC % 0.0 PT INR APTT Sodium 134 L Potassium 3.7 Chloride 99 L Carbon Dioxide 23 Anion Gap 12.0 BUN 40 H Creatinine 1.1 H Estimated GFR (MDRD) 50 L Glucose 116 H Calcium 9.4 Total Bilirubin 1.0 AST 48 H ALT 20 Alkaline Phosphatase 94 Ammonia Total Protein 6.1 L Albumin 3.0 L Globulin 3.1 Albumin/Globulin Ratio 1.0 Lipase 33 Nasal Adenovirus (PCR) Nasal B. parapertussis DNA (PCR) Nasal Coronavir 229E PCR Nasal Coronavir HKU1 PCR Nasal Coronavir NL63 PCR Nasal Coronavir OC43 PCR Nasal Enterovir/Rhinovir PCR Nasal Influenza B PCR Nasal Influenza A PCR Nasal Parainfluen 1 PCR Nasal Parainfluen 2 PCR Nasal Parainfluen 3 PCR Nasal Parainfluen 4 PCR Nasal RSV (PCR) Nasal B.pertussis DNA PCR Nasal C.pneumoniae (PCR) Keny Human Metapneumo PCR Nasal M.pneumoniae (PCR) Nasal SARS-CoV-2 (PCR) Blood Type O POSITIVE Antibody Screen NEGATIVE Crossmatch IS Only See Detail 01/12/21 01/12/21 01/12/21 09:40 09:40 10:07 WBC RBC Hgb Hct MCV MCH MCHC RDW Plt Count MPV Neut # (Auto) Lymph # (Auto) Valencia # (Auto) Eos # (Auto) Baso # (Auto) Absolute Nucleated RBC Nucleated RBC % PT 13.7 H INR 1.2 APTT 27.4 Sodium Potassium Chloride Carbon Dioxide Anion Gap BUN Creatinine Estimated GFR (MDRD) Glucose Calcium Total Bilirubin AST ALT Alkaline Phosphatase Ammonia 16.8 Total Protein Albumin Globulin Albumin/Globulin Ratio Lipase Nasal Adenovirus (PCR) NOT DETECTED Nasal B. parapertussis DNA (PCR) NOT DETECTED Nasal Coronavir 229E PCR NOT DETECTED Nasal Coronavir HKU1 PCR NOT DETECTED Nasal Coronavir NL63 PCR NOT DETECTED Nasal Coronavir OC43 PCR NOT DETECTED Nasal Enterovir/Rhinovir PCR NOT DETECTED Nasal Influenza B PCR NOT DETECTED Nasal Influenza A PCR NOT DETECTED Nasal Parainfluen 1 PCR NOT DETECTED Nasal Parainfluen 2 PCR NOT DETECTED Nasal Parainfluen 3 PCR NOT DETECTED Nasal Parainfluen 4 PCR NOT DETECTED Nasal RSV (PCR) NOT DETECTED Nasal B.pertussis DNA PCR NOT DETECTED Nasal C.pneumoniae (PCR) NOT DETECTED Keny Human Metapneumo PCR NOT DETECTED Nasal M.pneumoniae (PCR) NOT DETECTED Nasal SARS-CoV-2 (PCR) NOT DETECTED Blood Type Antibody Screen Crossmatch IS Only PD MEDICAL DECISION MAKING - ED course Complexity details: reviewed old records (Of importance is a note from EGD in August that states no varices seen. Gastritis at the time.), considered differential, d/w patient, d/w family ( states she had some nosebleeds this past week and was seen by ENT with cautery 3 days ago. This could account for some dark stools. However I would not anticipate vomiting blood today from that. She is significantly anemic. Concern for upper GI bleed versus recurrent nosebleed.) Departure - Departure Disposition: ED Place in Observation Clinical Impression: Acute posthemorrhagic anemia, Upper GI bleed Condition: Stable Discharge Date/Time: 01/12/21 12:04
[2021-01-12] MEDS ORDERED: SODIUM CHLORIDE 0.9% 1,000 ML IV STA (09:28)
[2021-01-12] MEDS ORDERED: ONDANSETRON 4 MG/2 ML VIAL IVP STA (09:29)
[2021-01-12] MEDS ORDERED: PANTOPRAZOLE 40 MG VIAL IVP STA (09:29)
[2021-01-12] MEDS ORDERED: TRANEXAMIC ACID 1,000 MG in SODIUM CHLORIDE 0.9% 100ML 100 ML IV STA (09:33)
[2021-01-12 09:39] LABS: BASOPHILS # (AUTO) 0.1 10^3/uL (0.0-0.1); BASOPHILS % (AUTO) 0.5 %; EOSINOPHILS # (AUTO) 0.3 10^3/uL (0.0-0.7); EOSINOPHILS % (AUTO) 3.5 %; LYMPHOCYTES # (AUTO) 1.4 10^3/uL (1.5-3.5); LYMPHOCYTES % (AUTO) 14.4 %; MEAN CORPUSCULAR HEMOGLOBIN 33.6 pg (27.0-31.0); MEAN CORPUSCULAR HGB CONC 32.1 g/dL (32.0-36.0); MEAN CORPUSCULAR VOLUME 104.7 fL (81.0-99.0); MEAN PLATELET VOLUME 9.6 fL (7.9-10.8); MONOCYTES # (AUTO) 0.8 10^3/uL (0.0-1.0); MONOCYTES % (AUTO) 8.2 %; NEUTROPHILS # (AUTO) 7.1 10^3/uL (1.5-6.6); NEUTROPHILS % (AUTO) 72.3 %; PLT - PLATELET COUNT 124 10^3/uL (130-450); RED BLOOD COUNT 1.49 10^6/uL (4.20-5.40); RED CELL DISTRIBUTION WIDTH 16.2 % (12.0-15.0); WHITE BLOOD COUNT 9.8 x10^3/uL (4.8-10.8)
[2021-01-12 09:43] LABS: HCT - HEMATOCRIT 15.6 % (37.0-47.0)
[2021-01-12 09:52] LABS: CALCIUM 9.4 mg/dL (8.5-10.3); CREATININE 1.1 mg/dL (0.4-1.0); POTASSIUM 3.7 mmol/L (3.5-5.0); TOTAL PROTEIN 6.1 g/dL (6.7-8.2)
[2021-01-12 10:05] LABS: INR 1.2 (0.8-1.2); PT - PROTHROMBIN TIME 13.7 secs (9.9-12.6)
[2021-01-12 10:12] LABS: PARTIAL THROMBOPLASTIN TIME 27.4 secs (24.9-33.3)
[2021-01-12] MEDS ORDERED: DROPERIDOL 5 MG/2 ML VIAL IVP STA (10:34)
[2021-01-12] MEDS ORDERED: diphenhydrAMINE INJ 50 MG/ML VIAL IVP STA ×2 (10:56→11:26)
[2021-01-12] MEDS ORDERED: PROMETHAZINE 25 MG/1 ML VIAL IM PRN (11:14)
[2021-01-12] MEDS ORDERED: ACETAMINOPHEN 325 MG TABLET PO PRN (11:14)
[2021-01-12] MEDS ORDERED: oxyCODONE 5 MG TABLET PO PRN (11:14)
[2021-01-12] MEDS ORDERED: SODIUM CHLORIDE FLUSH 0.9% 10 ML SYRINGE IVP PRN (11:14)
[2021-01-12] MEDS ORDERED: ONDANSETRON 4 MG/2 ML VIAL IVP PRN (11:14)
[2021-01-12] MEDS ORDERED: ONDANSETRON ODT 4 MG TABLET TL PRN (11:14)
[2021-01-12] MEDS ORDERED: diphenhydrAMINE INJ 50 MG/ML VIAL ONE (11:31)
[2021-01-12] MEDS ORDERED: SODIUM CHLORIDE 0.9% 1,000 ML IV SCH ×3 (12:00→16:00)
[2021-01-12 12:02] LABS: CORONAVIRUS 229E-RESP PCR NOT DETECTED; CORONAVIRUS HKU1-RESP PCR NOT DETECTED; CORONAVIRUS NL63-RESP PCR NOT DETECTED
[2021-01-12 12:03] LABS: B. PARAPERTUSSIS- RESP PCR PAN NOT DETECTED; B. PERTUSSIS- RESP PCR PANEL NOT DETECTED; C. PNEUMONIAE- RESP PCR PANEL NOT DETECTED; CORONAVIRUS OC43-RESP PCR NOT DETECTED; HUMAN METAPNEUMOVIRUS NOT DETECTED; INFLUENZA A- RESP PCR PANEL NOT DETECTED; INFLUENZA B - RESP PCR PANEL NOT DETECTED; M. PNEUMONIAE- RESP PCR PANEL NOT DETECTED; PARAINFLUENZA VIRUS 1 NOT DETECTED; PARAINFLUENZA VIRUS 2 NOT DETECTED; PARAINFLUENZA VIRUS 3 NOT DETECTED; PARAINFLUENZA VIRUS 4 NOT DETECTED; RHINOVIRUS/ENTEROVIRUS NOT DETECTED; RSV- RESP PCR PANEL NOT DETECTED; SARS-CoV-2 -RESP PCR PANEL NOT DETECTED
--- NOTE | 2021-01-12 14:28 | HISTORY & PHYSICAL EXAMINATION ---
Chief Complaint - Chief Complaint Chief Complaint: vomiting of blood, hematemesis History of Present Illness - Admitted From Admitted From:: medical floor - History Obtained From Records Reviewed: [facility] History obtained from: pt Exam Limitations: no - History of Present Illness HPI Comment/Other: This is a 65-year-old white female with a medical history significant of alcohol abuse, liver cirrhosis, Ascites, anemia, Alcoholic Encephalopathy, dehydration, alcohol withdrawal, malnutrition, recently epistaxis, who present ER complain of hematemesis. Pt is alert and oriented on today. Pt states she developed onset nausea this morning, vomited small amount of blood (less 100 cc blood, she report). Patient reported she had both nose bleeding before. 3 days ago she visited ENT at [facility] office. ENT only did one nose cauterization, and plan to do another nose cauterize in two weeks. She believe her continuing nose bleed to cause of her vomiting of blood. Per pt's hx, about 4 months ago, Pt underwent EGD in our hospital, in which she was found no esophageal varices but with mild gastritis. She underwent colonoscopy which showed colitis of the ileocecal area only. Per patient report in the last admission, patient also had under EGD and colonoscopy studies in [facility] in [place], Which show no varices as well. Patient was found significant anemia hemoglobin 5.0 on today routine lab test. Patient is also found to have significant elevated BUN at 40. Patient also reported black stool in recently 2 to 3 days. ER already ordered 1 unit of blood for patient, patient was also treated with tranexamic acid to stop her bleeding in ER. She denies abdominal pain, diarrhea. She denies fever, chill, chest pain. Discussed in detail the care goal with patient, clearly patient stated he want DNR History - Past Medical History Cardiovascular: reports: Hypertension, Murmur Respiratory: reports: None Neuro: reports: Peripheral neuropathy, Other (portal systemic encephalopathy) Endocrine/Autoimmune: reports: None GI: reports: Cirrhosis PROPERTY DAMAGE CLAIMS ADJUSTOR: reports: None : reports: Incontinence HEENT: reports: Chronic vision loss Psych: reports: Depression Musculoskeletal: reports: Osteoarthritis, Osteoporosis Derm: reports: None MRSA Hx?: Yes - Past Surgical History General: reports: Colonoscopy, EGD Ortho: reports: Other (plate in left index finger) /PROPERTY DAMAGE CLAIMS ADJUSTOR: reports: section HEENT: reports: Rhinoplasty - Family & Social History Family History: Mother: (dad- in auto accident; mom- 80's, Alzheimers), Alzheimer's Disease, Hypertension, Father: , Brother: Alzheimer's Disease Family History Comment/Other: The patient reports no family history of colon ca ncer. She believes her mother had hypertension otherwise no significant family history. Living Situation: With spouse/s.o. 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 She and the report that she stopped drinking 2-3 months ago but would previously drink 1/2 bottle of wine plus unknown amount of vodka each day. She is a non-smoker. - Substance History Use: Uses substance without health or social issues: NONE - POLST Patient has POLST: No POLST Status: Full Code Meds/Allgy - Home Medications Home Medications: Ambulatory Orders Medication Instructions Recorded Confirmed DULoxetine [Cymbalta] 20 mg PO DAILY 09/10/20 01/12/21 Ferrous Gluconate 324 mg PO DAILY #30 tablet 09/18/20 01/12/21 Folic Acid 1 mg PO DAILY #30 tablet 09/18/20 01/12/21 Multivitamin [Theragran] 1 tab PO DAILY #30 tablet 09/18/20 01/12/21 Thiamine [Vitamin B-1] 100 mg PO DAILY #30 tablet 09/18/20 01/12/21 Magnesium Oxide [Mag Ox] 400 mg PO DAILY 11/13/20 01/12/21 Pregabalin [Lyrica] 50 mg PO HS 11/13/20 01/12/21 carvediloL [Coreg] 3.125 mg PO BID 11/13/20 01/12/21 Furosemide [Lasix] 20 mg PO DAILY 01/12/21 01/12/21 Potassium Chloride 40 meq PO DAILY 01/12/21 01/12/21 Spironolactone [Aldactone] 25 mg ORAL DAILY 01/12/21 01/12/21 - Allergies Allergies/Adverse Reactions: Allergies Allergy/AdvReac Type Severity Reaction Status Date / Time cephalexin [From Keflex] AdvReac Nausea Verified 01/12/21 09:17 Review of Systems - Constitutional Constitutional: denies: Fever, Chills, Diaphoresis - Eyes Eyes: denies: Pain, Field loss, Vision loss - Ears, Nose & Throat Ears, Nose & Throat: reports: Nosebleeds. denies: Ear pain - Cardiovascular Cariovascular: denies: Palpitations, Chest pain, Syncope - Respiratory Respiratory: denies: Cough, SOB at rest, SOB with exertion - Gastrointestinal Gastrointestinal: reports: Black stools, Nausea, Vomiting. denies: Abdominal pain, Diarrhea - Genitourinary Genitourinary: denies: Dysuria - Musculoskeletal Musculoskeletal: denies: Muscle pain - Integumentary Integumentary: denies: Rash - Neurological Neurological: denies: General weakness, Headache, Dizziness, Numbness, Abnormal gait, Seizures, Incoordination, Slurred speech - Psychiatric Psychiatric: denies: Depression Exam - Vital Signs Vital Signs: Vital Signs x48h Temp Pulse Pulse Resp BP BP Pulse Ox 01/12/21 12:40 37.2 C 119 H 18 127/87 H 01/12/21 12:25 37.1 C 125 H 20 118/82 H 01/12/21 12:00 126 H 22 181/120 H 01/12/21 11:30 120 H 16 154/70 H 01/12/21 11:24 36.9 C 125 H 25 H 154/70 H 01/12/21 11:11 37.1 C 122 H 26 H 164/75 H 01/12/21 10:30 103 H 16 142/68 H 01/12/21 10:03 95 13 135/62 H 01/12/21 08:55 36 C L 98 16 125/61 100 - Physical Exam General Appearance: positive: No acute distress, Alert. negative: Lethargic Eyes Bilateral: positive: Normal inspection, No lid inflammation ENT: positive: No signs of dehydration, Other (no acute bleeding at two nose but dried blood shown in both nose). negative: Purulent nasal drainage Neck: positive: Nml inspection, Trachea midline. negative: Tracheal deviation Respiratory: positive: Chest non-tender, No respiratory distress. negative: Wheezes Cardiovascular: positive: Regular rate & rhythm, Tachycardia, Systolic murmur. negative: Bradycardia Peripheral Pulses: positive: 2+ Abdomen: positive: Non-tender, Nml bowel sounds, No distention. negative: Tenderness Back: positive: Nml inspection Skin: positive: Warm, Dry, Pallor. negative: Diaphoresis Extremities: positive: Non-tender, Full ROM. negative: Calf tenderness Neurologic/Psychiatric: positive: Oriented x3, Motor nml, Sensation nml. ne gative: Weakness, Sensory loss, Facial droop, Slurred/abnml speech, Depressed mood/affect Conclusion/Plan - Problem List (1) Hematemesis Conclusion/Plan: Patient reported she vomited less than 100 cc blood In the morning. She believe this is caused by nose bleeding. she still has one nose was not cauterized yet which could cause her bleeding and caused her vomiting of blood. she had EGD done at our hospital and [facility] which both show no varices although pt was reported to have port hypertension in her hx. pt also had significant elevated BUN. pt was treated tranexamic acid in ER, pt has no acute nose bleeding now. we will monitor H&H, closely monitor pt's nose bleeding. pt will have two unit of blood. (2) Anemia Conclusion/Plan: pt has hx of chronic anemia, her HGB is around 7-8 in previous. Today Her HGB is 5, it is likely caused by acute nose bleeding, and possible variation of lab test. we will resume home iron and folic acid, 2 units of blood transfusion, continue H&H monitor hemoglobin. (3) Nasal bleeding Conclusion/Plan: Patient still have 1 nose not cauterize yet. pt has recent nose bleeding. now pt has has no acute nose bleeding. pt was treated with tranexamic acid in ER. pt has 124 Plt. we will continue closely monitor pt's nose bleeding, transfusion of blood as needed. Patient had appointment in 2 weeks to see ENT. (4) Alcohol abuse Conclusion/Plan: Patient reported she had 2 to 3 months no alcohol drinking. Encourage patient quit alcohol completely (5) History of cirrhosis of liver Conclusion/Plan: Patient has a history of liver cirrhosis, Today ammonia level is in the normal range, patient is alert and orientated. (6) Black stool Conclusion/Plan: Patient had elevated BUN, and a nose bleeding, likely black stool is caused by nosebleeding. We will continue H&H monitor patient and close monitor patient any bleeding. Patient had recently EGD done in the hospital and in [facility] both show no significant finding. - Lab Results Fish Bones: 01/12/21 09:22 01/12/21 09:22 Core Measures - Anticipated LOS I expect patient to be DC'd or transferred within 96 hours.: Yes - DVT/VTE - Prophylaxis VTE/DVT Device ordered at admit?: Yes VTE/DVT Prophylaxis med ordered at admit?: Yes
[2021-01-12] MEDS: carvediloL 3.125 MG TABLET PO SCH ×2 (14:57→21:03)
--- NOTE | 2021-01-12 15:41 | PHARMACY PROGRESS NOTE ---
- Best Possible Medication History Admit Date and Time: 01/12/21 1114 Processed by: Pharmacy Medication History completed: Yes (CALLED PATIENT'S , HE REPORTS WITHOUT GOING-OVER THAT ALL MEDICATIONS IN THE COMPUTER ARE CORRECT) As the person ultimately responsible for medication therapy, providers are able to order a medication from an existing home medication list in [facility] via the "Reconcile Routine" prior to Confirmation of that medication by senior support analyst. Such practice is discouraged except when the physician, in their clinical judgment, deems that a medical need exists for a medication without regard to previous use.
[2021-01-12] MEDS: SODIUM CHLORIDE FLUSH 0.9% 10 ML SYRINGE IVP SCH (16:07)
[2021-01-12 20:35] LABS: MEAN CORPUSCULAR HEMOGLOBIN 32.2 pg (27.0-31.0); MEAN CORPUSCULAR VOLUME 94.6 fL (81.0-99.0); MEAN PLATELET VOLUME 9.6 fL (7.9-10.8); RED BLOOD COUNT 2.02 10^6/uL (4.20-5.40); RED CELL DISTRIBUTION WIDTH 19.2 % (12.0-15.0); WHITE BLOOD COUNT 7.5 x10^3/uL (4.8-10.8)
[2021-01-12 20:43] LABS: HCT - HEMATOCRIT 19.1 % (37.0-47.0); HGB - HEMOGLOBIN 6.5 g/dL (12.0-16.0)
[2021-01-12] MEDS: PREGABALIN 25 MG CAPSULE PO SCH (21:04)
[2021-01-13] MEDS: SODIUM CHLORIDE FLUSH 0.9% 10 ML SYRINGE IVP SCH ×2 (00:39→10:18)
[2021-01-13 06:45] LABS: BASOPHILS # (AUTO) 0.1 10^3/uL (0.0-0.1); BASOPHILS % (AUTO) 0.7 %; EOSINOPHILS # (AUTO) 0.2 10^3/uL (0.0-0.7); EOSINOPHILS % (AUTO) 2.6 %; HCT - HEMATOCRIT 23.9 % (37.0-47.0); HGB - HEMOGLOBIN 8.1 g/dL (12.0-16.0); LYMPHOCYTES # (AUTO) 1.4 10^3/uL (1.5-3.5); LYMPHOCYTES % (AUTO) 16.8 %; MEAN CORPUSCULAR HEMOGLOBIN 30.8 pg (27.0-31.0); MEAN CORPUSCULAR HGB CONC 33.9 g/dL (32.0-36.0); MEAN CORPUSCULAR VOLUME 90.9 fL (81.0-99.0); MEAN PLATELET VOLUME 9.5 fL (7.9-10.8); MONOCYTES # (AUTO) 0.8 10^3/uL (0.0-1.0); MONOCYTES % (AUTO) 9.8 %; NEUTROPHILS # (AUTO) 5.6 10^3/uL (1.5-6.6); NEUTROPHILS % (AUTO) 68.4 %; PLT - PLATELET COUNT 101 10^3/uL (130-450); RED BLOOD COUNT 2.63 10^6/uL (4.20-5.40); WHITE BLOOD COUNT 8.2 x10^3/uL (4.8-10.8)
[2021-01-13 06:47] LABS: SLIDE REVIEW? Indicated
[2021-01-13 06:57] LABS: ALBUMIN 2.7 g/dL (3.2-5.5); BILIRUBIN,TOTAL 2.2 mg/dL (0.2-1.0); CALCIUM 8.7 mg/dL (8.5-10.3); CREATININE 0.9 mg/dL (0.4-1.0); POTASSIUM 3.6 mmol/L (3.5-5.0); TOTAL PROTEIN 5.4 g/dL (6.7-8.2)
[2021-01-13] MEDS ORDERED: PANTOPRAZOLE 40 MG VIAL IVP SCH (07:00)
[2021-01-13 07:26] LABS: PLATELET ESTIMATE, MANUAL DECREASED (<130,000) (NORMAL); PLATELET MORPHOLOGY NORMAL APPEARANCE (NORMAL)
[2021-01-13 07:27] LABS: WBC MORPHOLOGY (MULTIPLE) NORMAL APPEARANCE (NORMAL)
[2021-01-13] MEDS ORDERED: FERROUS SULFATE 325 MG TABLET PO SCH (08:00)
[2021-01-13] MEDS ORDERED: FOLIC ACID 1 MG TABLET PO SCH (09:00)
[2021-01-13] MEDS: carvediloL 3.125 MG TABLET PO SCH (10:18)
[2021-01-13] MEDS: PREGABALIN 25 MG CAPSULE PO SCH (10:18)
[2021-01-13 10:37] VITALS: BP 140/71
--- NOTE | 2021-01-13 11:57 | DISCHARGE SUMMARY ---
Discharge Summary Admit Date: 01/12/21 Discharge Date: 01/13/21 Discharging Provider: Mitzy Perez MD Primary Care Provider: Radha Keating MD Code Status: Attempt Resuscitation Condition at Discharge: Stable Discharge Disposition: 01 Home, Self Care - DIAGNOSES Discharge Diagnoses with Status of Each Condition: 1. Hematemesis/hematochezia 2. History of nosebleeds, status post cautery 3. Acute blood loss anemia 4. History of alcohol abuse 5. History of cirrhosis of the liver without ascites, without esophageal varices - HPI History of Present Illness: Per KWAKU Gomez Admit : This is a 65-year-old white female with a medical history significant of alcohol abuse, liver cirrhosis, Ascites, anemia, Alcoholic Encephalopathy, dehydration, alcohol withdrawal, malnutrition, recently epistaxis, who present ER complain of hematemesis. Pt is alert and oriented on today. Pt states she developed onset nausea this morning, vomited small amount of blood (less 100 cc blood, she report). Patient reported she had both nose bleeding before. 3 days ago she visited ENT at [facility] office. ENT only did one nose cauterization, and plan to do another nose cauterize in two weeks. She believe her continuing nose bleed to cause of her vomiting of blood. Per pt's hx, about 4 months ago, Pt underwent EGD in our hospital, in which she was found no esophageal varices but with mild gastritis. She underwent colonoscopy which showed colitis of the ileocecal area only. Per patient report in the last admission, patient also had under EGD and colonoscopy studies in [facility] in [place], Which show no varices as well. Patient was found significant anemia hemoglobin 5.0 on today routine lab test. Patient is also found to have significant elevated BUN at 40. Patient also reported black stool in recently 2 to 3 days. ER already ordered 1 unit of blood for patient, patient was also treated with tranexamic acid to stop her bleeding in ER. She denies abdominal pain, diarrhea. She denies fever, chill, chest pain. Discussed in detail the care goal with patient, clearly patient stated he want DNR - Past Medical History Cardiovascular: reports: Hypertension, Murmur Respiratory: reports: None Neuro: reports: Peripheral neuropathy, Other (portal systemic encephalopathy) Endocrine/Autoimmune: reports: None GI: reports: Cirrhosis DIAL MARKER: reports: None : reports: Incontinence HEENT: reports: Chronic vision loss Psych: reports: Depression Musculoskeletal: reports: Osteoarthritis, Osteoporosis Derm: reports: None MRSA Hx?: Yes - Past Surgical History General: reports: Colonoscopy, EGD Ortho: reports: Other (plate in left index finger) /DIAL MARKER: reports: section HEENT: reports: Rhinoplasty - CONSULTS | PROCEDURES Procedures: transfusion of 3 units of PRBCs - HOSPITAL COURSE Hospital Course: She is admitted for watching of signs and symptoms of upper GI bleed. She was also admitted to transfuse 2 units of blood. After 2 units of blood hemoglobin went from 5 to 6.5. Required 1 more unit for a total of 3 units of blood to go to 8.1 by the morning of discharge. She is remained without hematemesis or hematochezia during her stay. She is received upper and lower endoscopies at least 3 times. Her has taken her to the [facility] for evaluation and opinion is the cause of her GI bleeds and none has been found so far. Right now the current postulation is that she has bloody nose enough that she is anemic from that. She is received cautery on 1 side and will receive cautery on the second side in the next 2 weeks. At 1 point her was very unhappy at the no visitor policy because of the Covid pandemic. Security had to be called to speak to him after he made it past the lobby to the medical floor. After discussion, junior administrative assistant of the day allowed the patient and to be with each other in her room and he was updated on her care. On the day of discharge the patient is very anxious to go home. She feels like she is stable. She has had no further emesis. She says that she has been through this before and knows what to do. She also points out that her is a physician and also knows what to do. I called her to advise of her current situation and he feels comfortable taking her home. "Of course I will pick her up". On exam temperature is 37.2. Pulse is 90. Blood pressure 140/71. Respirations 18. 94% on room air. She is a 5 foot 4 inch female who weighs 52 kg. Alert, oriented to person and place, off by orientation by a day. Neck is supple with shotty adenopathy. Lungs are clear to auscultation and percussion. Regular rate and rhythm. Telemetry throughout her stay was sinus. Abdomen is soft, nontender. Normal bowel sounds. Extremities are without edema. She gets up to go to the bathroom with standby assist. Neurologically she is occasionally forgetful but follow through on commands. Feeds her self. Needs only standby assist.There is no change in her medication list. We have not added or discontinued any medication. She will follow through with her primary care provider, the ENT who will cauterize her nose. And her will take her back to the [facility] at his discretion. - ALLERGIES Allergies/Adverse Reactions: Allergies Allergy/AdvReac Type Severity Reaction Status Date / Time cephalexin [From Keflex] AdvReac Nausea Verified 01/12/21 09:17 - MEDICATIONS Home Medications: Ambulatory Orders Medication Instructions Recorded Confirmed DULoxetine [Cymbalta] 20 mg PO DAILY 09/10/20 01/12/21 Ferrous Gluconate 324 mg PO DAILY #30 tablet 09/18/20 01/12/21 Folic Acid 1 mg PO DAILY #30 tablet 09/18/20 01/12/21 Multivitamin [Theragran] 1 tab PO DAILY #30 tablet 09/18/20 01/12/21 Thiamine [Vitamin B-1] 100 mg PO DAILY #30 tablet 09/18/20 01/12/21 Magnesium Oxide [Mag Ox] 400 mg PO DAILY 11/13/20 01/12/21 Pregabalin [Lyrica] 50 mg PO HS 11/13/20 01/12/21 carvediloL [Coreg] 3.125 mg PO BID 11/13/20 01/12/21 Furosemide [Lasix] 20 mg PO DAILY 01/12/21 01/12/21 Potassium Chloride 40 meq PO DAILY 01/12/21 01/12/21 Spironolactone [Aldactone] 25 mg ORAL DAILY 01/12/21 01/12/21 - LABS Result Diagrams: 01/13/21 06:05 01/13/21 06:05
--- NOTE | 2021-01-13 12:10 | Discharge Plan ---
Discharge Plan Problem Reviewed?: Yes Disposition: Home, Self Care Condition: Stable Diet: Regular Activity Restrictions: Activity as Tolerated Shower Restrictions: No Driving Restrictions: Yes Assistance Devices: [facility] Concerns: You presented to the emergency room with another episode of coughing up blood. You have actually been evaluated for this many times and had been seen at the [facility], and here for possible gastrointestinal bleeding. So far no source is been found. Even though you have a history of alcoholism, you do not have esophageal varices or ascites. Your is even taken you to get an endoscopy at the [facility] and no source of bleeding was found. Right now the postulation is that you may be having nosebleeds that are severe. You saw ear nose and throat and had one side cauterized and are going to have the other side cauterized in the next 2 weeks. After coughing up blood, you felt that you should be evaluated again. You came to the emergency room and we found you to be significantly anemic with a hemoglobin of 5. You also received tranesamic acid to help stop bleeding. Over the course of the next 24 hours you have received 3 units of blood. Your hemoglobin went from 5.0 to then 6.5 and on the day of discharge 8.1. You have not had any further vomiting of blood, or dark stools and would like to go home. Plan of Treatment: You and your will continue to follow through on necessary exams and studies to find out why you have such severe anemia. You will see your primary care provider in the next 1 to 2 weeks. Care Goals: To definitively make the diagnosis of why you have anemia and to treat that problem so your anemia goes away Assessment: Patient is alert, oriented. Very pleasant. Follows prompts very nicely. Occasionally forgetful. is her advocate and will follow through No Smoking: If you smoke, Please STOP! Call for help. Follow-up with: Radha Keating MD [Primary Care Provider] -
== END 2021-01-13 14:25 | disposition home or self-care (01) ==
LOC: ED 08:47 → MS2 11:14
PROVIDERS: ADMIT Nurse Practitioner Gerontology; ATTEND Specialist
DX: D62 Acute posthemorrhagic anemia (principal); R04.0 Epistaxis; K92.0 Hematemesis; K92.1 Melena; F10.10 Alcohol abuse, uncomplicated; K70.30 Alcoholic cirrhosis of liver without ascites; K72.90 Hepatic failure, unspecified without coma; I10 Essential (primary) hypertension; G62.9 Polyneuropathy, unspecified; R32 Unspecified urinary incontinence; H54.7 Unspecified visual loss; F32.9 Major depressive disorder, single episode, unspecified; Z66 Do not resuscitate; M81.0 Age-related osteoporosis without current pathological fracture; Z20.822 Contact with and (suspected) exposure to COVID-19; Z79.899 Other long term (current) drug therapy
CPT/HCPCS: 36415; 36430; 80053; 82140; 83690; 85025; 85027; 85610; 85730; 86850; 86900; 86901; 86920; 87631; 96374; 96375; 96376; 99284; 99285; A9270; G0378; J1200; P9016; P9040; 0202U

== ENCOUNTER 2021-02-16 11:59 | Outpatient (CLI) | payer MEDICARE, OTHER ==
[2021-02-16 12:28] LABS: EOSINOPHILS # (AUTO) 0.2 10^3/uL (0.0-0.7); EOSINOPHILS % (AUTO) 4.3 %; HCT - HEMATOCRIT 31.1 % (37.0-47.0); HGB - HEMOGLOBIN 9.9 g/dL (12.0-16.0); LYMPHOCYTES % (AUTO) 24.2 %; MEAN CORPUSCULAR HEMOGLOBIN 31.8 pg (27.0-31.0); MEAN CORPUSCULAR HGB CONC 31.8 g/dL (32.0-36.0); MEAN PLATELET VOLUME 8.9 fL (7.9-10.8); MONOCYTES # (AUTO) 0.3 10^3/uL (0.0-1.0); MONOCYTES % (AUTO) 8.3 %; NEUTROPHILS # (AUTO) 2.5 10^3/uL (1.5-6.6); NEUTROPHILS % (AUTO) 61.9 %; PLT - PLATELET COUNT 78 10^3/uL (130-450); RED BLOOD COUNT 3.11 10^6/uL (4.20-5.40); RED CELL DISTRIBUTION WIDTH 15.6 % (12.0-15.0)
== END 2021-02-16 12:00 | disposition home or self-care (01) ==
LOC: LAB 11:59
PROVIDERS: ATTEND Internal Medicine
DX: D64.9 Anemia, unspecified (principal)
CPT/HCPCS: 36415; 85025

== ENCOUNTER 2021-03-09 10:23 | Outpatient (CLI) | payer MEDICARE, OTHER ==
[2021-03-09 10:45] LABS: BASOPHILS # (AUTO) 0.1 10^3/uL (0.0-0.1); BASOPHILS % (AUTO) 0.7 %; EOSINOPHILS # (AUTO) 0.3 10^3/uL (0.0-0.7); EOSINOPHILS % (AUTO) 3.6 %; HCT - HEMATOCRIT 22.5 % (37.0-47.0); HGB - HEMOGLOBIN 7.4 g/dL (12.0-16.0); LYMPHOCYTES % (AUTO) 24.4 %; MEAN CORPUSCULAR HEMOGLOBIN 32.5 pg (27.0-31.0); MEAN CORPUSCULAR HGB CONC 32.9 g/dL (32.0-36.0); MEAN CORPUSCULAR VOLUME 98.7 fL (81.0-99.0); MEAN PLATELET VOLUME 9.6 fL (7.9-10.8); MONOCYTES # (AUTO) 0.6 10^3/uL (0.0-1.0); MONOCYTES % (AUTO) 7.2 %; NEUTROPHILS # (AUTO) 5.2 10^3/uL (1.5-6.6); NEUTROPHILS % (AUTO) 63.7 %; PLT - PLATELET COUNT 107 10^3/uL (130-450); RED BLOOD COUNT 2.28 10^6/uL (4.20-5.40); RED CELL DISTRIBUTION WIDTH 14.7 % (12.0-15.0); WHITE BLOOD COUNT 8.2 x10^3/uL (4.8-10.8)
[2021-03-09 10:58] LABS: ALBUMIN 3.7 g/dL (3.2-5.5); ALBUMIN/GLOBULIN RATIO 1.1 (1.0-2.2); CALCIUM 10.7 mg/dL (8.5-10.3); CREATININE 1.3 mg/dL (0.4-1.0); POTASSIUM 3.4 mmol/L (3.5-5.0); TOTAL PROTEIN 7.2 g/dL (6.7-8.2)
== END 2021-03-09 10:24 | disposition home or self-care (01) ==
LOC: LAB 10:23
PROVIDERS: ATTEND Internal Medicine
DX: D64.9 Anemia, unspecified (principal); R94.5 Abnormal results of liver function studies; K92.9 Disease of digestive system, unspecified
CPT/HCPCS: 36415; 80053; 82140; 85025

== ENCOUNTER 2021-03-20 11:25 | Outpatient (CLI) | payer MEDICARE, OTHER ==
[2021-03-20 12:28] LABS: ABSOLUTE RETICS # AUTO 0.079 10^6/uL (0.020-0.110); BASOPHILS % (AUTO) 0.5 %; EOSINOPHILS # (AUTO) 0.1 10^3/uL (0.0-0.7); EOSINOPHILS % (AUTO) 2.2 %; HCT - HEMATOCRIT 24.8 % (37.0-47.0); LYMPHOCYTES % (AUTO) 27.4 %; MEAN CORPUSCULAR HEMOGLOBIN 32.4 pg (27.0-31.0); MEAN CORPUSCULAR HGB CONC 32.3 g/dL (32.0-36.0); MEAN CORPUSCULAR VOLUME 100.4 fL (81.0-99.0); MEAN PLATELET VOLUME 9.7 fL (7.9-10.8); MONOCYTES # (AUTO) 0.3 10^3/uL (0.0-1.0); MONOCYTES % (AUTO) 9.1 %; NEUTROPHILS # (AUTO) 2.3 10^3/uL (1.5-6.6); NEUTROPHILS % (AUTO) 60.5 %; PLT - PLATELET COUNT 97 10^3/uL (130-450); RED BLOOD COUNT 2.47 10^6/uL (4.20-5.40); RED CELL DISTRIBUTION WIDTH 15.1 % (12.0-15.0); WHITE BLOOD COUNT 3.7 x10^3/uL (4.8-10.8)
[2021-03-20 12:49] LABS: % IRON SATURATION 45 % (20-50); IRON 211 ug/dL (28-170); TOTAL IRON BINDING CAPACITY 470 ug/dL (250-450); TRANSFERRIN 336 mg/dL (192-382)
[2021-03-20 14:00] LABS: FOLATE > 49.60 ng/mL (5.90 - >24.8)
== END 2021-03-20 11:26 | disposition home or self-care (01) ==
LOC: LAB 11:25
PROVIDERS: ATTEND Internal Medicine
DX: D64.9 Anemia, unspecified (principal)
CPT/HCPCS: 36415; 82607; 82728; 82746; 83540; 84466; 85025; 85045

== ENCOUNTER 2021-06-15 13:07 | Outpatient (CLI) | payer MEDICARE, OTHER ==
[2021-06-15 14:00] LABS: THYROID STIMULATING HORMONE 3.16 uIU/mL (0.34-5.60)
[2021-06-15 14:03] LABS: FREE T4 (FREE THYROXINE) 0.9 ng/dL (0.58-1.64)
== END 2021-06-15 13:08 | disposition home or self-care (01) ==
LOC: LAB 13:07
PROVIDERS: ATTEND Internal Medicine
DX: E02 Subclinical iodine-deficiency hypothyroidism (principal); E05.90 Thyrotoxicosis, unspecified without thyrotoxic crisis or storm; D64.9 Anemia, unspecified
CPT/HCPCS: 36415; 82607; 84155; 84165; 84439; 84443

== ENCOUNTER 2021-06-21 13:59 | Outpatient (CLI) | payer MEDICARE, OTHER ==
[2021-06-21 14:27] LABS: ABSOLUTE RETICS # AUTO 0.137 10^6/uL (0.020-0.110); BASOPHILS % (AUTO) 0.9 %; EOSINOPHILS # (AUTO) 0.1 10^3/uL (0.0-0.7); EOSINOPHILS % (AUTO) 2.3 %; LYMPHOCYTES # (AUTO) 0.8 10^3/uL (1.5-3.5); MEAN CORPUSCULAR HEMOGLOBIN 31.9 pg (27.0-31.0); MEAN CORPUSCULAR HGB CONC 31.1 g/dL (32.0-36.0); MEAN CORPUSCULAR VOLUME 102.6 fL (81.0-99.0); MEAN PLATELET VOLUME 8.8 fL (7.9-10.8); MONOCYTES # (AUTO) 0.3 10^3/uL (0.0-1.0); MONOCYTES % (AUTO) 7.9 %; NEUTROPHILS % (AUTO) 70.2 %; PLT - PLATELET COUNT 115 10^3/uL (130-450); RED BLOOD COUNT 1.91 10^6/uL (4.20-5.40); RETICULOCYTE COUNT % (AUTO) 7.19 % (0.5-2.3); WHITE BLOOD COUNT 4.3 x10^3/uL (4.8-10.8)
[2021-06-21 14:32] LABS: HCT - HEMATOCRIT 19.6 % (37.0-47.0); HGB - HEMOGLOBIN 6.1 g/dL (12.0-16.0)
[2021-06-21 14:36] LABS: BILIRUBIN,URINE NEGATIVE (NEGATIVE); GLUCOSE, URINE (UA) NEGATIVE (NEGATIVE); KETONES,URINE (UA) NEGATIVE (NEGATIVE); LEUKOCYTE ESTERASE, URINE NEGATIVE (NEGATIVE); NITRITE,URINE NEGATIVE (NEGATIVE); OCCULT BLOOD,URINE MODERATE (NEGATIVE); PH,URINE 7.5 PH (5.0-7.5); PROTEIN,URINE NEGATIVE (NEGATIVE); UROBILINOGEN,URINE 0.2 (NORMAL) E.U./dL (NORMAL)
[2021-06-21 14:46] LABS: BACTERIA,URINE None Seen /HPF (None Seen); CLARITY,URINE CLEAR (CLEAR); SQUAMOUS EPITHELIAL CELL,UR NONE SEEN (<= Few); WBC,URINE 0-3 /HPF (0-5)
[2021-06-21 14:50] LABS: % IRON SATURATION 79 % (20-50); IRON 352 ug/dL (28-170); TOTAL IRON BINDING CAPACITY 448 ug/dL (250-450); TRANSFERRIN 320 mg/dL (192-382)
[2021-06-21 15:03] LABS: FERRITIN 65.9 ng/mL (11.0-306.8)
[2021-06-21 15:46] LABS: FOLATE > 49.60 ng/mL (5.90 - >24.8)
[2021-06-21 15:55] LABS: ETOH - ETHANOL < 5.0 mg/dL
[2021-06-21 15:59] LABS: BILIRUBIN,TOTAL 0.8 mg/dL (0.2-1.0)
== END 2021-06-21 14:00 | disposition home or self-care (01) ==
LOC: LAB 13:59
PROVIDERS: ATTEND Internal Medicine
DX: Z00.00 Encounter for general adult medical examination without abnormal findings (principal); D64.9 Anemia, unspecified; Z72.89 Other problems related to lifestyle; F10.239 Alcohol dependence with withdrawal, unspecified; K70.30 Alcoholic cirrhosis of liver without ascites; R60.9 Edema, unspecified; R74.8 Abnormal levels of other serum enzymes; R04.0 Epistaxis; K29.71 Gastritis, unspecified, with bleeding; K72.90 Hepatic failure, unspecified without coma; R73.9 Hyperglycemia, unspecified; I10 Essential (primary) hypertension; E87.6 Hypokalemia; G47.00 Insomnia, unspecified; D75.89 Other specified diseases of blood and blood-forming organs; R11.0 Nausea; G62.9 Polyneuropathy, unspecified; J34.89 Other specified disorders of nose and nasal sinuses; E05.90 Thyrotoxicosis, unspecified without thyrotoxic crisis or storm; Z79.899 Other long term (current) drug therapy; D69.6 Thrombocytopenia, unspecified
CPT/HCPCS: 36415; 81001; 82247; 82607; 82728; 82746; 83010; 83540; 83615; 84466; 85025; 85045; G0480; 80320; 81003; 87086

== ENCOUNTER 2021-08-03 11:49 | Emergency (ER) | payer MEDICARE, OTHER ==
[2021-08-03 11:57] VITALS: BP 130/78
--- NOTE | 2021-08-03 13:43 | ED Physician Documentation ---
History of Present Illness - Stated complaint Stated Complaint: LEFT ELBOW SWELLING - Chief complaint Chief Complaint: Ext Problem - Additonal information Additional information: 66-year-old female presents to the emergency department for evaluation of left elbow swelling that began on 22 July. She has tried ice and heat to no avail. Denies any falls or trauma. No pain. She presents with her who is rather insistent that she have this drained and the fluid collected for analysis. The elbow is not painful and she has full range of motion as well as pronation and supination. 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: None : Incontinence HEENT: Chronic vision loss Psych: Depression Musculoskeletal: Osteoarthritis, Osteoporosis Derm: None - Past Surgical History Past Surgical History: Yes General: Colonoscopy, EGD Ortho: Other /TYPE BAR AND SEGMENT ASSEMBLER: section HEENT: Rhinoplasty - Present Medications Home Medications: Ambulatory Orders Medication Instructions Recorded Confirmed DULoxetine [Cymbalta] 20 mg PO DAILY 09/10/20 04/13/21 Ferrous Gluconate 324 mg PO DAILY #30 tablet 09/18/20 04/13/21 Folic Acid 1 mg PO DAILY #30 tablet 09/18/20 04/13/21 Multivitamin [Theragran] 1 tab PO DAILY #30 tablet 09/18/20 04/13/21 Thiamine [Vitamin B-1] 100 mg PO DAILY #30 tablet 09/18/20 04/13/21 Magnesium Oxide [Mag Ox] 500 mg PO DAILY 11/13/20 04/13/21 Pregabalin [Lyrica] 50 mg PO HS 11/13/20 04/13/21 carvediloL [Coreg] 3.125 mg PO BID 11/13/20 04/13/21 Furosemide [Lasix] 20 mg PO DAILY 01/12/21 04/13/21 Potassium Chloride 40 meq PO DAILY 01/12/21 04/13/21 Spironolactone [Aldactone] 25 mg ORAL DAILY 01/12/21 04/13/21 Cholecalciferol (Vitamin D3) 04/13/21 [Vitamin D3] ondansetron HCL [Zofran] 4 mg PO PRN 04/13/21 - Allergies Allergies/Adverse Reactions: Allergies Allergy/AdvReac Type Severity Reaction Status Date / Time cephalexin [From Keflex] AdvReac Nausea Verified 08/03/21 11:54 ciprofloxacin AdvReac Unknown Verified 08/03/21 11:54 - Social History Does the pt smoke?: No Smoking Status: Never smoker Does the pt drink ETOH?: Yes Does the pt have substance abuse?: No - Immunizations Immunizations are current?: No - POLST Patient has POLST: No POLST Status: Full Code PD ED PE EXPANDED - General General: Alert, No acute distress - Extremities Extremities: Left elbow (3 x 4 cm fluid-filled encapsulated sac easily mobile. No erythema. Normal pronation and supination at the elbow. Normal flexion and extension. No tenderness.) Results - Vitals Vitals: Vital Signs - 24 hr 08/03/21 11:54 Temperature 36.5 C Heart Rate 80 Respiratory 16 Rate Blood Pressure 130/78 O2 Saturation 100 Oxygen O2 Source Room air - Rads (name of study) left elbow Radiology: Final report received (Olecranon bursitis. No lytic lesions) Procedures - General procedure General procedure: Using sterile technique and after thoroughly cleansing the left elbow with Betadine approximately 8 cc of fluid was sterilely aspirated using an 18-gauge needle. Compression bandage applied after aspirate. Fluid sent to lab for culture PD MEDICAL DECISION MAKING - ED course Complexity details: reviewed results, re-evaluated patient, considered differential, d/w patient ED course: 66-year-old female presents emergency department for evaluation of left elbow swelling since 22 July. Thinks it may have occurred after sitting in the middle seat of an airplane. There is no pain. Clinically this is obviously a bursitis. Without fevers erythema or tenderness very very low suspicion for infection. I discussed with the patient and her that typically bursitis is best managed with gentle compression and conservative use of NSAID medications. However her , who reports that he is a physician, is fairly insistent that we aspirate the fluid and send it for culture. Thus I did sterilely aspirate the fluid. Culture is pending. I recommended gentle compression on the elbow as well as ibuprofen or Tylenol use. Emergent return precautions were discussed for concerns of infection Departure - Departure Disposition: 01 Home, Self Care Clinical Impression: Olecranon bursitis of left elbow Condition: Stable Record reviewed to determine appropriate education?: Yes Instructions: ED Bursitis Elbow Olecranon Comments: Swapna we did aspirate the fluid from your left elbow. The serous/bloody appearance is sometimes indicative of a traumatic olecranon bursitis. We are sending the fluid for culture. We will notify you if the culture is positive. The elbow x-ray was otherwise unremarkable with the exception of olecranon bursitis. In general bursitis such as this is best managed with gentle compression of the elbow as well is conservative use of Tylenol or ibuprofen [id number] to reduce inflammation. Please follow-up with your primary care provider. Bursitis can often reoccur. If at any point you have fevers, redness, pain or any concerns of infection then please return immediately to the emergency department
--- NOTE | 2021-08-03 13:56 | XRAY Report ---
PROCEDURE: Elbow 2 View LT INDICATIONS: bursitis TECHNIQUE: 2 views of the elbow were acquired. COMPARISON: None FINDINGS: Bones: No fractures or dislocations. No suspicious bony lesions. Soft tissues: No elbow joint effusion. No suspicious soft tissue calcifications. Soft tissue swelli ng noted over the olecranon IMPRESSION: Olecranon bursitis without lytic lesion or foreign body. Reviewed by: Javier Christiansen MD on 08/03/2021 12:54 PM AKDT Approved by: Javier Christiansen MD on 08/03/2021 12:54 PM AKDT Station ID: [id number]
== END 2021-08-03 14:40 | disposition home or self-care (01) ==
LOC: ED 11:49
DX: M70.22 Olecranon bursitis, left elbow (principal); I10 Essential (primary) hypertension
CPT/HCPCS: 20610; 87070; 87205; 99282